=== PATIENT | male | born 1950 | race Caucasian/White ===

== ENCOUNTER → 2016-09-22 | Outpatient (CLI) | payer BC ==
[~2016-09-22] MED LIST: ADAL40KI SC; B-COTAB53 PO; BNT/10 PO; CHOL100010 PO; COLE1TAB5 PO; OMEP20TA PO; PANT40TA PO; RIVA1TAB4 PO; RIVA1TAB7 PO
--- NOTE | 2016-09-22 18:38 | DIAGNOSTIC IMAGING REPORT ---
WHOLE BODY BONE SCAN HISTORY: Pain K50.90 Crohn's autosnvL59.609 Pain in unspecified [id number] Scooter RADIOTRACER: 26.7 mCi Tc-99m MDP STUDY/IMAGES: Planar anterior and posterior whole body imaging was performed 3 hours following the intravenous administration of radiotracer. COMPARISON: None. FINDINGS: Normal bone scan. Normal renal activity bilaterally. Mild degenerative activity L5-S1 level of the lumbar spine. Minimal degenerative activity right knee. Minimal degenerative activity in the shoulders. IMPRESSION: Minimal to mild scattered degenerative activity. Bone scan is otherwise negative. Electronically signed by: Calvin Walls M.D. 09/22/2016 6:36 PM
== END | disposition home or self-care (01) ==
LOC: C.NUCL 14:47
PROVIDERS: ATTEND Internal Medicine Rheumatology
DX: M89.8X9 Other specified disorders of bone, unspecified site (principal); K50.90 Crohn's disease, unspecified, without complications; M79.609 Pain in unspecified limb

== ENCOUNTER 2016-09-25 10:33 | Inpatient (IN) | payer BC, OTHER ==
[~2016-09-25] VITALS: Ht 172.7 cm; Wt 93.2 kg
[~2016-09-25 10:33] MED LIST changes: -B-COTAB53 PO; -CHOL100010 PO; -PANT40TA PO; -RIVA1TAB4 PO; -RIVA1TAB7 PO
[2016-09-25] MEDS ORDERED: SODIUM CHLORIDE 0.9% 1000ML 1,000 ML IV STA (10:47)
[2016-09-25 10:59] LABS: BASO % 0.3 %; BASO ABS # 0.04 K/uL (0-0.2); COMPLETE YES; EOS % 2.9 %; HEMATOCRIT 47.1 % (42-52); IG% 0.3 %; LYMPH % 29.5 %; LYMPH ABS # 4.32 K/uL (1.2-3.4); MEAN CORPUSCULAR HGB CONC 35.9 g/dl (32-36); MEAN PLATELET VOLUME 10.2 fL (7.4-10.4); MONO % 7.4 %; NEUT % 59.6 %; PLATELET COUNT 198 K/uL (130-400); RED BLOOD COUNT 5.12 M/uL (4.7-6.1); WHITE BLOOD COUNT 14.65 K/uL (4.8-10.8)
--- NOTE | 2016-09-25 11:02 | EMERGENCY ROOM VISIT NOTE ---
History Report prepared by Cherri: Sandoval Benavides Under the Supervision of: Dr. Houston Shipman D.O. First contact with patient: 10:47 Stated Complaint: SYNCOPE/CHEST PAIN History of Present Illness The patient is a 66 year old male who presents to the Emergency Room with complaints of a syncopal episode that occurred around 0930 this morning. Per the patient's , the patient was short of breath and having chest pain last night. He did not do anything out of the ordinary yesterday and just watched TV all day. The patient's heard a thud this morning and went to see the patient lying on the floor of their bedroom. The patient was not unconscious and started feeling a bit better soon afterwards, but he was too weak and short of breath to go downstairs, so the patient's called 911. The patient also has a cough. He does not have the chest pain currently. He denies hitting his head on the fall. He additionally denies any headache, abdominal pain, nausea, vomiting, or swelling in his legs. The patient has Crohn's disease and has a history of clots in his lungs. He had his ileum taken out 15 years ago. He does not use tobacco or alcohol products. He has no heart issues. The patient denies any recent travels. He last saw his primary care physician a month ago. Source of History: patient, spouse/significant other Onset: 0930 this morning Position: other (global - syncopal episode) Timing: other (episode) Associated Symptoms: + SOB, + chest pain, + cough, + weakness, No LOC, No abdominal pain, No headache, No nausea, No vomiting Note: Associated symptoms: Denies swelling in his legs. Review of Systems See HPI for pertinent positives & negatives. A total of 10 systems reviewed and were otherwise negative. Past Medical & Surgical Medical Problems: (1) Asthma (2) Bronchitis (3) Crohns disease (4) PNA (pneumonia) (5) Pulmonary embolism (6) Recurrent pulmonary embolism (7) Skin problem Surgical Problems: (1) History of surgical removal of terminal ileum Family History Gallbladder disease Hypertension Social History Smoking Status: Former Smoker Smokeless Tobacco Use: No Alcohol Use: none Marital Status: Housing Status: lives with family Occupation Status: retired Current/Historical Medications Scheduled Adalimumab (Humira Pen), 40 MG SC UD Colestipol Hcl (Colestipol Hcl), 1 GM PO UD Pantoprazole (Protonix), 40 MG PO QAM Allergies Coded Allergies: No Known Allergies (Verified , 07/17/03) Physical Exam Vital Signs Date Time Temp Pulse Resp B/P Pulse Ox O2 Delivery O2 Flow Rate FiO2 09/25/16 13:10 95 16 149/104 96 Room Air 09/25/16 13:05 101 09/25/16 12:33 95 16 121/74 95 Nasal Cannula 4.0 09/25/16 11:24 92 Nasal Cannula 3.0 09/25/16 10:44 106 09/25/16 10:42 36.7 107 20 114/78 88 Room Air 09/25/16 10:40 88 Room Air Physical Exam GENERAL: Patient is awake, alert, very anxious appearing but does not appear to be in pain. EYES: The conjunctivae are clear. The pupils are round and reactive. EARS, NOSE, MOUTH AND THROAT: The nose is without any evidence of any deformity. Mucous membranes are moist tongue is midline NECK: The neck is nontender and supple. RESPIRATORY: Normal respiratory effort is noted there is no evidence of wheezing rhonchi or rales CARDIOVASCULAR: Heart sounds tachycardic but regular. No definite murmur appreciated. GASTROINTESTINAL: The abdomen is soft. Bowel sounds are present in all quadrants. Abdomen is nontender MUSCULOSKELETAL/EXTREMITIES: There is no evidence of gross deformity full range of motion is noted in the hips and shoulders SKIN: Pedal edema bilaterally. No signs of cellulitis and no calf tenderness elicited. NEUROLOGIC: Patient is awake alert and oriented x3. Patellar tendon reflexes are 1+ bilaterally. Medical Decision & Procedures ER Provider Diagnostic Interpretation: X-ray results as stated below per interpretation by me and the radiologist. CHEST ONE VIEW PORTABLE CLINICAL HISTORY: EVALUATE ALTERED MENTAL STATUS/WEAKNESS COMPARISON STUDY: No previous studies for comparison. FINDINGS: The bones soft tissues and hemidiaphragms are normal. The cardiomediastinal silhouette is normal. The lungs are clear. The pulmonary vasculature is normal. IMPRESSION: Negative chest. Electronically signed by: Calvin Walls M.D. 09/25/2016 11:02 AM CHEST CTA for PULMONARY ARTERIES CT DOSE: 423.65 mGy.cm HISTORY: Chest pain dyspnea TECHNIQUE: Multiaxial CT images of the chest were performed following the intravenous administration of contrast to evaluate the pulmonary arteries. Maximal intensity projection images were also obtained. COMPARISON STUDY: 08/13/2015 FINDINGS: Findings of extensive and bulky bilateral pulmonary emboli. No evidence for a saddle embolus although involvement of the mid to distal right main pulmonary arterial structures as well as the mid left main prominent pulmonary arterial structures are present. More distal involvement is also noted. No definitive evidence for string currently. Bibasilar atelectatic changes present. Small pleural-based and/or subpleural nodules involving the lower lung regions are noted. These appear unchanged compared to the prior study. IMPRESSION: 1. Bulky bilateral pulmonary emboli. 2. No evidence for a saddle embolus. 3. Basilar nodularity stable from the prior exam. Electronically signed by: Calvin Walls M.D 09/25/2016 12:14 PM Laboratory Results 09/25/16 10:43 Red Blood Count 5.12, Mean Corpuscular Volume 92.0, Mean Corpuscular Hemoglobin 33.0, Mean Corpuscular Hemoglobin Concent 35.9, Mean Platelet Volume 10.2, Neutrophils (%) (Auto) 59.6, Lymphocytes (%) (Auto) 29.5, Monocytes (%) (Auto) 7.4, Eosinophils (%) (Auto) 2.9, Basophils (%) (Auto) 0.3, Neutrophils # (Auto) 8.73, Lymphocytes # (Auto) 4.32, Monocytes # (Auto) 1.09, Eosinophils # (Auto) 0.42, Basophils # (Auto) 0.04 09/25/16 10:43 Test 09/25/16 10:43 09/25/16 10:51 White Blood Count 14.65 K/uL (4.8-10.8) Red Blood Count 5.12 M/uL (4.7-6.1) Hemoglobin 16.9 g/dL (14.0-18.0) Hematocrit 47.1 % (42-52) Mean Corpuscular Volume 92.0 fL (80-100) Mean Corpuscular Hemoglobin 33.0 pg (25-34) Mean Corpuscular Hemoglobin Concent 35.9 g/dl (32-36) Platelet Count 198 K/uL (130-400) Mean Platelet Volume 10.2 fL (7.4-10.4) Neutrophils (%) (Auto) 59.6 % Lymphocytes (%) (Auto) 29.5 % Monocytes (%) (Auto) 7.4 % Eosinophils (%) (Auto) 2.9 % Basophils (%) (Auto) 0.3 % Neutrophils # (Auto) 8.73 K/uL (1.4-6.5) Lymphocytes # (Auto) 4.32 K/uL (1.2-3.4) Monocytes # (Auto) 1.09 K/uL (0.11-0.59) Eosinophils # (Auto) 0.42 K/uL (0-0.5) Basophils # (Auto) 0.04 K/uL (0-0.2) RDW Standard Deviation 43.5 fL (36.4-46.3) RDW Coefficient of Variation 13.0 % (11.5-14.5) Immature Granulocyte % (Auto) 0.3 % Immature Granulocyte # (Auto) 0.05 K/uL (0.00-0.02) Prothrombin Time 12.8 SECONDS (9.0-12.0) Prothromb Time International Ratio 1.2 (0.9-1.1) Activated Partial Thromboplast Time 27.1 SECONDS (21.0-31.0) Partial Thromboplastin Ratio 1.0 Anion Gap 13.0 mmol/L (3-11) Est Creatinine Clear Calc Drug Dose 68.1 ml/min Estimated GFR () 72.1 Estimated GFR (Non- 62.2 BUN/Creatinine Ratio 11.4 (10-20) Calcium Level 10.4 mg/dl (8.5-10.1) Phosphorus Level 3.9 mg/dl (2.5-4.9) Magnesium Level 2.0 mg/dl (1.8-2.4) Total Bilirubin 0.7 mg/dl (0.2-1) Direct Bilirubin 0.2 mg/dl (0-0.2) Aspartate Amino Transf (AST/SGOT) 49 U/L (15-37) Alanine Aminotransferase (ALT/SGPT) 55 U/L (12-78) Alkaline Phosphatase 124 U/L (45-117) Total Creatine Kinase 145 U/L (39-308) Creatine Kinase MB 2.8 ng/ml (0.5-3.6) Creatine Kinase MB Ratio 1.9 (0-3.0) Troponin I 0.636 ng/ml (0-0.045) Total Protein 8.2 gm/dl (6.4-8.2) Albumin 4.0 gm/dl (3.4-5.0) Thyroid Stimulating Hormone (TSH) 6.440 uIu/ml (0.300-4.500) Bedside Troponin I 0.500 ng/ml (0-0.045) Laboratory results per my review. Medications Administered Medications (Trade) Dose Ordered Sig/Abrahan Route Start Time Stop Time Status Last Admin Dose Admin Sodium Chloride (Nss 1000ml) 1,000 ml @ 999 mls/hr Q1H1M STAT IV 09/25/16 10:47 09/25/16 11:47 DC 09/25/16 12:13 999 MLS/HR Heparin Sodium/ Dextrose (Heparin 25,000 Unit/500ml D5W) 25,000 unit STK-MED ONCE .ROUTE 09/25/16 12:22 09/25/16 12:23 DC 09/25/16 12:37 25,000 UNIT Heparin Sodium (Porcine) (Heparin Sq 5000 Unit/0.5ml) 10,000 unit STK-MED ONCE .ROUTE 09/25/16 12:23 09/25/16 12:24 DC 09/25/16 12:38 6,000 UNIT ECG Indication: syncope Rate (beats per minute): 113 Rhythm: sinus tachycardia Findings: Q waves (Inferior), no ectopy, other (poor R wave progression) Comparison ECG Date: changes are new compared to February 21 2005 ED Course 1047: Ordered NSS 1000 ml @ 999 mls/hr IV. 1049: The patient was evaluated in room B12B. A complete history and physical examination were performed. 1210: Ordered Heparin Sodium/Dextrose 1 ea N/A. 1216: I reevaluated the patient and he is resting comfortably. The patient verbally expressed understanding and agreement of the treatment plan. The patient will be evaluated for further treatment. 1221: I discussed the patient with Dr. Mona KILPATRICK supervising deputy - he will evaluate the patient for further treatment. Medical Decision Differential diagnosis: Etiologies such as vasovagal event, infection, hypoglycemia, electrolyte abnormalities, cardiac sources, intracerebral event, toxicologic, neurologic, as well as others were entertained. Nursing notes reviewed. Additional history is obtained from the prehospital personnel. The patient is a 66-year-old male who presented to the emergency department after having a syncopal episode. The patient has been complaining of chest pain and difficulty breathing for the last few days. He has a history of venous thromboembolic disease which was provoked by postsurgical condition. The patient was hypoxic as well as tachycardic when he presented to the emergency department. CT the chest did reveal signs of bilateral extensive pulmonary and wasn't. The patient was started on IV heparin in emergency department. He was also given IV fluids. I discussed the patient's laboratory and radiographic studies with him. I also discussed his case with the on-call [facility] hospitalist group. They've agreed to evaluate the patient in the emergency department for further management and disposition. The patient was reevaluated multiple times. Consults Time Called: 1217 Consulting Physician: Dr. Mona KILPATRICK supervising deputy Returned Call: 1221 I discussed the patient with Dr. Mona KILPATRICK supervising deputy - he will evaluate the patient for further treatment. Impression Primary Impression: Pulmonary embolism Additional Impressions: Chest pain, Syncope, Hypoxia Critical Care I have personally spent greater than 45 minutes of critical care time in the direct management of this patient. This includes bedside care, interpretation of diagnostic studies, and testing, discussion with consultants, patient, and family members, and other required patient management activities. This 45 minutes is in excess of all separately billable procedures. Scribe Attestation The scribe's documentation has been prepared under my direction and personally reviewed by me in its entirety. I confirm that the note above accurately reflects all work, treatment, procedures, and medical decision making performed by me. Departure Information Dispostion Being Evaluated By Hospitalist Arthur Handy M.D. (PCP)
[2016-09-25] MEDS ORDERED: PANT40TA PO (11:09)
[2016-09-25 11:10] LABS: INR 1.2 (0.9-1.1); PROTHROMBIN TIME (PATIENT) 12.8 SECONDS (9.0-12.0)
[2016-09-25] MEDS ORDERED: OPTIRAY 320 IV PRN (11:15)
[2016-09-25 11:25] LABS: BUN/CREATININE RATIO 11.4 (10-20); CALCIUM 10.4 mg/dl (8.5-10.1); CREATININE 1.2 mg/dl (0.60-1.40); POTASSIUM 4.1 mmol/L (3.5-5.1)
[2016-09-25 11:35] LABS: CKMB/CK RATIO 1.9 (0-3.0); PHOSPHORUS 3.9 mg/dl (2.5-4.9); THYROID STIMULATING HORMONE 6.44 uIu/ml (0.300-4.500)
--- NOTE | 2016-09-25 12:16 | DIAGNOSTIC IMAGING REPORT ---
CHEST CTA for PULMONARY ARTERIES CT DOSE: 423.65 mGy.cm HISTORY: Chest pain dyspnea TECHNIQUE: Multiaxial CT images of the chest were performed following the intravenous administration of contrast to evaluate the pulmonary arteries. Maximal intensity projection images were also obtained. COMPARISON STUDY: 08/13/2015 FINDINGS: Findings of extensive and bulky bilateral pulmonary emboli. No evidence for a saddle embolus although involvement of the mid to distal right main pulmonary arterial structures as well as the mid left main prominent pulmonary arterial structures are present. More distal involvement is also noted. No definitive evidence for string currently. Bibasilar atelectatic changes present. Small pleural-based and/or subpleural nodules involving the lower lung regions are noted. These appear unchanged compared to the prior study. IMPRESSION: 1. Bulky bilateral pulmonary emboli. 2. No evidence for a saddle embolus. 3. Basilar nodularity stable from the prior exam. Electronically signed by: Calvin Walls M.D. 09/25/2016 12:14 PM
[2016-09-25] MEDS ORDERED: HEPARIN 25000 UNIT/500 ML D5W ONE (12:22)
[2016-09-25] MEDS ORDERED: HEPARIN SOD 5000 UNIT/0.5 ML CARP ONE (12:23)
--- NOTE | 2016-09-25 13:26 | History and Physical ---
History & Physical Date & Time of Service: Sep 25, 2016 at 13:19 Chief Complaint: Syncope/Chest Pain Primary Care Physician: Arthur Hubbard M.D. History of Present Illness Mr Rutherford is a 66 yo M with history of PE who presents with chest pain starting at 930 today. He described it at 10/10 pain, center of his chest, associated with wheeze, occuring with rest. He went up the stairs and felt out of breath, and sweaty, and fell. Once his found him, she called the ambulance. He has a history of Crohn's Disease and recurrent PE. His last PE was 15 years ago after ileum surgery, and took Warfarin for 5 years, and it was stopped as it was thought that the PE was related to the surgery. 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 Of note, the reports he is significantly less mobile over the last year since retiring. He also reports he has a terrible arthritis and recently had a bone scan (under care of Dr Anne). He reports a mild dry cough recently as well. He does report an overall decreased exercise tolerance as well. Past Medical/Surgical History Medical Problems: (1) Asthma Status: Chronic (2) Bronchitis Status: Resolved (3) PNA (pneumonia) Status: Resolved (4) Pulmonary embolism Status: Resolved (5) Skin problem Status: Resolved Surgical Problems: (1) History of surgical removal of terminal ileum Status: Resolved Family History Gallbladder disease Hypertension Mother has had PE's, from CHF. Brother has a lung disease they cannot remember the name of Social History Smoking Status: Never Smoker Smokeless Tobacco Use: No Marital Status: Occupational Status: retired Immunizations History of Tetanus Vaccine?: 2002 History of Pneumococcal: No History of Hepatitis B Vaccine: No Multi-Drug Resistant Organisms History of MDRO: No Allergies Coded Allergies: No Known Allergies (Verified , 07/17/03) Home Medications Scheduled Adalimumab (Humira Pen), 40 MG SC UD Colestipol Hcl (Colestipol Hcl), 1 GM PO UD Pantoprazole (Protonix), 40 MG PO QAM Review of Systems See HPI for pertinent positives & negatives. A total of 10 systems reviewed and were otherwise negative. He is positive for overall weakness and fatigue. Physical Exam Vital Signs Date Time Temp Pulse Resp B/P Pulse Ox O2 Delivery O2 Flow Rate FiO2 09/25/16 13:10 95 16 149/104 96 Room Air 09/25/16 13:05 101 09/25/16 12:33 95 16 121/74 95 Nasal Cannula 4.0 09/25/16 11:24 92 Nasal Cannula 3.0 09/25/16 10:44 106 09/25/16 10:42 36.7 107 20 114/78 88 Room Air 09/25/16 10:40 88 Room Air General Appearance: WD/WN, no apparent distress Head: normocephalic, atraumatic Eyes: PERRL ENT: hearing grossly normal Neck: supple, no JVD Respiratory/Chest: + decreased breath sounds (decreased in L midzone) Cardiovascular: regular rate, rhythm, no murmur, normal peripheral pulses, + tachycardia (mildly tachycardic) Abdomen/GI: soft Back: no CVA tenderness, no muscle spasm Extremities/Musculoskelatal: no calf tenderness, normal capillary refill, no pedal edema Neurologic/Psych: alert, normal mood/affect, normal reflexes, oriented x 3 Skin: no rash Diagnostics Laboratory Results Results Past 24 Hours Test 09/25/16 10:43 09/25/16 10:51 Range/Units White Blood Count 14.65 4.8-10.8 K/uL Red Blood Count 5.12 4.7-6.1 M/uL Hemoglobin 16.9 14.0-18.0 g/dL Hematocrit 47.1 42-52 % Mean Corpuscular Volume 92.0 80-100 fL Mean Corpuscular Hemoglobin 33.0 25-34 pg Mean Corpuscular Hemoglobin Concent 35.9 32-36 g/dl Platelet Count 198 130-400 K/uL Mean Platelet Volume 10.2 7.4-10.4 fL Neutrophils (%) (Auto) 59.6 % Lymphocytes (%) (Auto) 29.5 % Monocytes (%) (Auto) 7.4 % Eosinophils (%) (Auto) 2.9 % Basophils (%) (Auto) 0.3 % Neutrophils # (Auto) 8.73 1.4-6.5 K/uL Lymphocytes # (Auto) 4.32 1.2-3.4 K/uL Monocytes # (Auto) 1.09 0.11-0.59 K/uL Eosinophils # (Auto) 0.42 0-0.5 K/uL Basophils # (Auto) 0.04 0-0.2 K/uL RDW Standard Deviation 43.5 36.4-46.3 fL RDW Coefficient of Variation 13.0 11.5-14.5 % Immature Granulocyte % (Auto) 0.3 % Immature Granulocyte # (Auto) 0.05 0.00-0.02 K/uL Prothrombin Time 12.8 9.0-12.0 SECONDS Prothromb Time International Ratio 1.2 0.9-1.1 Activated Partial Thromboplast Time 27.1 21.0-31.0 SECONDS Partial Thromboplastin Ratio 1.0 Sodium Level 139 136-145 mmol/L Potassium Level 4.1 3.5-5.1 mmol/L Chloride Level 104 98-107 mmol/L Carbon Dioxide Level 22 21-32 mmol/L Anion Gap 13.0 3-11 mmol/L Blood Urea Nitrogen 14 7-18 mg/dl Creatinine 1.20 0.60-1.40 mg/dl Est Creatinine Clear Calc Drug Dose 68.1 ml/min Estimated GFR () 72.1 Estimated GFR (Non- 62.2 BUN/Creatinine Ratio 11.4 10-20 Random Glucose 123 70-99 mg/dl Calcium Level 10.4 8.5-10.1 mg/dl Phosphorus Level 3.9 2.5-4.9 mg/dl Magnesium Level 2.0 1.8-2.4 mg/dl Total Bilirubin 0.7 0.2-1 mg/dl Direct Bilirubin 0.2 0-0.2 mg/dl Aspartate Amino Transf (AST/SGOT) 49 15-37 U/L Alanine Aminotransferase (ALT/SGPT) 55 12-78 U/L Alkaline Phosphatase 124 45-117 U/L Total Creatine Kinase 145 39-308 U/L Creatine Kinase MB 2.8 0.5-3.6 ng/ml Creatine Kinase MB Ratio 1.9 0-3.0 Troponin I 0.636 0-0.045 ng/ml Total Protein 8.2 6.4-8.2 gm/dl Albumin 4.0 3.4-5.0 gm/dl Thyroid Stimulating Hormone (TSH) 6.440 0.300-4.500 uIu/ml Bedside Troponin I 0.500 0-0.045 ng/ml Diagnostic Radiology CHEST CTA for PULMONARY ARTERIES CT DOSE: 423.65 mGy.cm HISTORY: Chest pain dyspnea TECHNIQUE: Multiaxial CT images of the chest were performed following the intravenous administration of contrast to evaluate the pulmonary arteries. Maximal intensity projection images were also obtained. COMPARISON STUDY: 08/13/2015 FINDINGS: Findings of extensive and bulky bilateral pulmonary emboli. No evidence for a saddle embolus although involvement of the mid to distal right main pulmonary arterial structures as well as the mid left main prominent pulmonary arterial structures are present. More distal involvement is also noted. No definitive evidence for string currently. Bibasilar atelectatic changes present. Small pleural-based and/or subpleural nodules involving the lower lung regions are noted. These appear unchanged compared to the prior study. IMPRESSION: 1. Bulky bilateral pulmonary emboli. 2. No evidence for a saddle embolus. 3. Basilar nodularity stable from the prior exam. CHEST ONE VIEW PORTABLE CLINICAL HISTORY: EVALUATE ALTERED MENTAL STATUS/WEAKNESS COMPARISON STUDY: No previous studies for comparison. FINDINGS: The bones soft tissues and hemidiaphragms are normal. The cardiomediastinal silhouette is normal. The lungs are clear. The pulmonary vasculature is normal. IMPRESSION: Negative chest. EKG Sinus tachycardia, 114bpm Impression Assessment and Plan 66 yo M with multiple unprovoked pulmonary embolism, with overall decreased exercise tolerance. Pulmonary Embolism, recurrent, unprovoked - Continue heparin drip (bolus started in ED) - Eventually will switch to oral agent - deciding between coumadin (had a labile experience last time, so pt would prefer not to) vs NOAC (need to assess which is suitable for pts with IBD) - Echocardiogram - Cardiac monitoring - Hypercoaguable studies previously completed, pt positive for MTHFR mutation - Maintenance IV fluids Crohn's disease - Continue Humira Elevated TSH - Will check a free T4 GERD - Continue Protonix Dispo: Tele Code status: FULL CODE VTE: Heparin Resident Physician Supervision Note: I was present with Dr. Bustos during the history and exam. I discussed the case with the resident and agree with the findings and plan as documented in the note. 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 According to the patient, there was difficulty in regulating his warfarin, and part of this may have been related to his IBD. Discussed options with the patient and pharmacy of what would be best anticoagulant in the setting of his IBD - he seems to prefer a novel agent although there would be some concern with absorption given his altered GI tract. For now, agree with therapeutic heparin, echocardiogram, and supplemental oxygen as needed. Level of Care Telemetry Resuscitation Status FULL RESUSCITATION Resident Tracking Resident Involvement: Resident Care Provided Care Provided: Adult [facility]
[2016-09-25] MEDS ORDERED: ACETAMINOPHEN 325 MG TAB PO PRN (13:30)
[2016-09-25] MEDS ORDERED: POLYETHYLENE (MIRALAX) 17 GM PACK PO PRN (13:30)
[2016-09-25] MEDS ORDERED: ALUMINUM/MAGNESIUM/SIMETH (MAALOX MAX) 30 ML UDC PO PRN (13:30)
[2016-09-25] MEDS ORDERED: MAGNESIUM HYDROXIDE SUSP 30 ML UDC PO PRN (13:30)
[2016-09-25] MEDS ORDERED: MoRPHine SULFATE 2 MG/ML CARP IV PRN (13:30)
[2016-09-25] MEDS ORDERED: ONDANSETRON INJ 2 MG/ML 2 ML VIAL IV PRN (13:30)
--- NOTE | 2016-09-25 14:19 | Medical Student: [facility] ---
Med Student History & Physical Date & Time of Service: Sep 25, 2016 at 13:56 Chief Complaint: Recurrent Pulmonary Embolism Primary Care Physician: Arthur Hubbard M.D. History of Present Illness Source: patient, spouse, hospital records Pt is a 66 yo male with a history of Chron's Disease and GERD that presented to the ED following a syncopal episode this morning. Yesterday, while sitting in a chair watching TV the pt noted difficulty breathing and 10/10 chest pain localized to the middle of the sternum. He took Tums and went upstairs to bed. He noted that he was very dyspneic, unable to catch his breath. He slept okay last night, though his did notice some wheezing overnight. This morning, after going up stairs to take a shower he felt out of breath and warm when he then blacked out. His found him down, and called the ambulance. He notes for that the last couple of months he would note some dyspnea on exertion that would be accompanied by some chest pain. This pt has a history of a previous PE in 2002 and DVT in 2004, which, as per patient, were thought to be a result of his previous bowel surgery. He notes that he was on Coumadin for about 5 years following that, but was eventually taken off Coumadin. He notes that they had a very hard time regulating his blood levels while on Coumadin.He is homozygous for MTHFR gene - contributing to his hypercoagulability. Pt retired from [employer] about a year ago. He has since been expereince weakness, fatigue and generalized joint pain that has caused him to be fairly inactive since fpc. His notes that he sleeps between 10-12 hours per day, and sits and watches TV when he is awake. Past Medical/Surgical History Medical Problems: (1) Bronchitis Status: Resolved (2) Chest pain Status: Acute (3) Hypoxia Status: Acute (4) PNA (pneumonia) Status: Resolved (5) Pulmonary embolism Status: Resolved (6) Pulmonary embolism Status: Acute (7) Skin problem Status: Resolved (8) Syncope Status: Acute Surgical Problems: (1) History of surgical removal of terminal ileum Status: Resolved Family History Father: congestive heart failure Mother: heart disease (anuerysm) Social History Smoking Status: Never Smoker Smokeless Tobacco Use: No Alcohol Use: occasionally Marital Status: Housing status: lives with significant other Occupational Status: retired Immunizations History of Tetanus Vaccine?: 2002 History of Pneumococcal: No History of Hepatitis B Vaccine: No Allergies Coded Allergies: No Known Allergies (Verified , 07/17/03) Medications Adalimumab (Humira Pen), 40 MG SC UD Colestipol Hcl (Colestipol Hcl), 1 GM PO UD Pantoprazole (Protonix), 40 MG PO QAM Review of Systems Constitutional: + fatigue, + weakness, No chills, No fever, No sweats Eyes: No diplopia, No worsening of vision ENT: No hearing loss, No sore throat, No unusual epistaxis Respiratory: + cough (worse over last week ? allergies - helped by claritin), + dyspnea at rest, + dyspnea on exertion, + shortness of breath, + wheezing ( overnight while sleeping), No sputum Cardiovascular: + chest pain (middle of sternum 10/10 last night), No palpitations Abdomen: No constipation, No diarrhea, No nausea, No pain, No vomiting Musculoskeletal: + joint pain, No calf pain Endocrine: + fatigue, + problem reported (weight gain of 10 lbs) Hematologic / Lymphatic: + clotting problems (previous DVT) Integumentary: No new/changing skin lesions, No rash Physical Exam Vital Signs (24 Hours) Date Time Temp Pulse Resp B/P Pulse Ox O2 Delivery O2 Flow Rate FiO2 09/25/16 13:10 95 16 149/104 96 Room Air 09/25/16 13:05 101 09/25/16 12:33 95 16 121/74 95 Nasal Cannula 4.0 09/25/16 11:24 92 Nasal Cannula 3.0 09/25/16 10:44 106 09/25/16 10:42 36.7 107 20 114/78 88 Room Air 09/25/16 10:40 88 Room Air General Appearance: WD/WN, no apparent distress Head: normocephalic, atraumatic Eyes: PERRL, EOMI ENT: hearing grossly normal, pharynx normal Neck: supple, no adenopathy Respiratory/Chest: no respiratory distress, no accessory muscle use, + decreased breath sounds Cardiovascular: regular rate, rhythm, no JVD, no murmur Abdomen/GI: non tender, soft Extremities/Musculoskelatal: normal inspection, no calf tenderness, no pedal edema Neurologic/Psych: alert, normal mood/affect Skin: normal color, warm/dry, no rash Diagnostics Laboratory Results Results Past 24 Hours Test 09/25/16 10:43 09/25/16 10:51 Range/Units White Blood Count 14.65 4.8-10.8 K/uL Red Blood Count 5.12 4.7-6.1 M/uL Hemoglobin 16.9 14.0-18.0 g/dL Hematocrit 47.1 42-52 % Mean Corpuscular Volume 92.0 80-100 fL Mean Corpuscular Hemoglobin 33.0 25-34 pg Mean Corpuscular Hemoglobin Concent 35.9 32-36 g/dl Platelet Count 198 130-400 K/uL Mean Platelet Volume 10.2 7.4-10.4 fL Neutrophils (%) (Auto) 59.6 % Lymphocytes (%) (Auto) 29.5 % Monocytes (%) (Auto) 7.4 % Eosinophils (%) (Auto) 2.9 % Basophils (%) (Auto) 0.3 % Neutrophils # (Auto) 8.73 1.4-6.5 K/uL Lymphocytes # (Auto) 4.32 1.2-3.4 K/uL Monocytes # (Auto) 1.09 0.11-0.59 K/uL Eosinophils # (Auto) 0.42 0-0.5 K/uL Basophils # (Auto) 0.04 0-0.2 K/uL RDW Standard Deviation 43.5 36.4-46.3 fL RDW Coefficient of Variation 13.0 11.5-14.5 % Immature Granulocyte % (Auto) 0.3 % Immature Granulocyte # (Auto) 0.05 0.00-0.02 K/uL Prothrombin Time 12.8 9.0-12.0 SECONDS Prothromb Time International Ratio 1.2 0.9-1.1 Activated Partial Thromboplast Time 27.1 21.0-31.0 SECONDS Partial Thromboplastin Ratio 1.0 Sodium Level 139 136-145 mmol/L Potassium Level 4.1 3.5-5.1 mmol/L Chloride Level 104 98-107 mmol/L Carbon Dioxide Level 22 21-32 mmol/L Anion Gap 13.0 3-11 mmol/L Blood Urea Nitrogen 14 7-18 mg/dl Creatinine 1.20 0.60-1.40 mg/dl Est Creatinine Clear Calc Drug Dose 68.1 ml/min Estimated GFR () 72.1 Estimated GFR (Non- 62.2 BUN/Creatinine Ratio 11.4 10-20 Random Glucose 123 70-99 mg/dl Calcium Level 10.4 8.5-10.1 mg/dl Phosphorus Level 3.9 2.5-4.9 mg/dl Magnesium Level 2.0 1.8-2.4 mg/dl Total Bilirubin 0.7 0.2-1 mg/dl Direct Bilirubin 0.2 0-0.2 mg/dl Aspartate Amino Transf (AST/SGOT) 49 15-37 U/L Alanine Aminotransferase (ALT/SGPT) 55 12-78 U/L Alkaline Phosphatase 124 45-117 U/L Total Creatine Kinase 145 39-308 U/L Creatine Kinase MB 2.8 0.5-3.6 ng/ml Creatine Kinase MB Ratio 1.9 0-3.0 Troponin I 0.636 0-0.045 ng/ml Total Protein 8.2 6.4-8.2 gm/dl Albumin 4.0 3.4-5.0 gm/dl Thyroid Stimulating Hormone (TSH) 6.440 0.300-4.500 uIu/ml Bedside Troponin I 0.500 0-0.045 ng/ml Diagnostic Radiology CHEST CTA for PULMONARY ARTERIES CT DOSE: 423.65 mGy.cm HISTORY: Chest pain dyspnea TECHNIQUE: Multiaxial CT images of the chest were performed following the intravenous administration of contrast to evaluate the pulmonary arteries. Maximal intensity projection images were also obtained. COMPARISON STUDY: 08/13/2015 FINDINGS: Findings of extensive and bulky bilateral pulmonary emboli. No evidence for a saddle embolus although involvement of the mid to distal right main pulmonary arterial structures as well as the mid left main prominent pulmonary arterial structures are present. More distal involvement is also noted. No definitive evidence for string currently. Bibasilar atelectatic changes present. Small pleural-based and/or subpleural nodules involving the lower lung regions are noted. These appear unchanged compared to the prior study. IMPRESSION: 1. Bulky bilateral pulmonary emboli. 2. No evidence for a saddle embolus. 3. Basilar nodularity stable from the prior exam. Electronically signed by: Calvin Walls M.D. 09/25/2016 12:14 PM Impression Assessment and Plan Pt is a 66 yo male with a history of GERD, Chron's disease and DVTs/PEs, who presented following a syncopal episode with associated shortness of breath and chest pain. Chest CT showed two bulky pulmonary emboli. Pulmonary Emboli * IV Heparin - bridge to oral medication for discharge * Echocardiogram to monitor RV function * Admit to Telemetry for monitoring * Continue with IV fluids - NSS Chron's disease * Continue Humira * Consult Dr. Romero to determine appropriate novel anticoag in pt with IBD. Weakness/Fatigue * TSH noted to be elevated - Check T4 - may be hypothyroid GERD * Continue Protonix Admit to Telemetry On Heparin Full Resuscitation Level of Care Telemetry DVT Prophylaxis unfractionated heparin SQ
[2016-09-25 15:21] VITALS: BP 119/91; PULSE 97; TEMP 36.7; O2SAT 97; Ht 172.7 cm; Wt 93.2 kg
[2016-09-25 16:07] LABS: URINE APPEARANCE CLEAR (CLEAR); URINE BILIRUBIN NEG (NEG); URINE COLOR YELLOW; URINE NITRITE NEG (NEG); URINE SPECIFIC GRAVITY 1.021 (1.000-1.030); UROBILINOGEN NEG (NEG)
[2016-09-25 16:15] LABS: MANUAL MICROSCOPIC REQUIRED? NO; REVIEW REQ? NO
[2016-09-25] MEDS: SODIUM CHLORIDE 0.45% 1000ML 1,000 ML IV SCH (16:15)
[2016-09-25 20:22] VITALS: BP 122/74; PULSE 88; TEMP 36.4; O2SAT 97
[2016-09-25 20:27] VITALS: O2SAT 97
[2016-09-25 21:57] VITALS: BP 119/91; PULSE 93; TEMP 36.4; O2SAT 95
[2016-09-25 23:55] VITALS: BP 110/77; PULSE 89; TEMP 36.7; O2SAT 95
[2016-09-25 23:59] VITALS: O2SAT 2
[2016-09-26] VITALS (9 sets, daily range): BP systolic 97–135; BP diastolic 62–93; PULSE 89–95; TEMP 36.4–37; O2SAT 2–95
[2016-09-26] MEDS: SODIUM CHLORIDE 0.45% 1000ML 1,000 ML IV SCH ×2 (00:03→10:18)
[2016-09-26 01:38] LABS: PARTIAL THROMBOPLASTIN RATIO 1.8
[2016-09-26 06:08] LABS: BASO % 0.4 %; BASO ABS # 0.04 K/uL (0-0.2); COMPLETE YES; EOS % 4.8 %; HEMATOCRIT 39.1 % (42-52); IG% 0.3 %; LYMPH % 32.4 %; LYMPH ABS # 3.48 K/uL (1.2-3.4); MEAN CORPUSCULAR HEMOGLOBIN 32.2 pg (25-34); MEAN PLATELET VOLUME 9.6 fL (7.4-10.4); MONO % 8.5 %; NEUT % 53.6 %; PLATELET COUNT 170 K/uL (130-400); RED BLOOD COUNT 4.25 M/uL (4.7-6.1); WHITE BLOOD COUNT 10.74 K/uL (4.8-10.8)
[2016-09-26] MEDS: HEPARIN 25,000 UNIT/500ML D5W 500 ML IV PRN ×2 (06:08→20:58)
[2016-09-26 06:24] LABS: INR 1.2 (0.9-1.1); PARTIAL THROMBOPLASTIN RATIO 1.9
[2016-09-26 06:44] LABS: BUN/CREATININE RATIO 12.8 (10-20); CALCIUM 8.6 mg/dl (8.5-10.1); CREATININE 1.2 mg/dl (0.60-1.40); POTASSIUM 3.6 mmol/L (3.5-5.1)
[2016-09-26 09:41] LABS: CKMB/CK RATIO 1.4 (0-3.0)
--- NOTE | 2016-09-26 11:02 | Family Medicine Progress Note ---
Progress Note Date of Service Sep 26, 2016. Subjective Pt evaluation today including: conversation w/ patient, physical exam Reports increased pain in right wrist, reports it started when he fell when he was going up the stairs, but doesn't remember other details Reports shortness of breath is the same / tolerable. Removed O2 briefly when got up in room but hasn't ambulated halls for a long distance. Denies any new chest pain. Constitutional: No chills, No fever, No sweats, No weight loss ENT: No hearing loss Respiratory: + dyspnea on exertion, + shortness of breath, No cough, No sputum, No wheezing Cardiovascular: No chest pain Breast: No breast lump Abdomen: No constipation, No diarrhea, No nausea, No pain, No vomiting Musculoskeletal: + joint pain, + swelling, No muscle pain Male : No dysuria, No incontinence, No urinary frequency Neurologic: No memory loss Psychiatric: No depression symptoms Skin: No rash All Other Systems: Reviewed and Negative Medications Current Inpatient Medications Medications (Trade) Dose Ordered Sig/Abrahan Route Start Time Stop Time Status Last Admin Dose Admin Ioversol (Optiray 320) 100 ml UD PRN IV 09/25/16 11:15 09/29/16 11:14 Acetaminophen (Tylenol Tab) 650 mg Q4H PRN PO 09/25/16 13:30 10/25/16 13:29 Al Hydrox/Mg Hydrox/Simethicone (Maalox Max Susp) 15 ml Q4H PRN PO 09/25/16 13:30 10/25/16 13:29 Magnesium Hydroxide (Milk Of Magnesia Susp) 30 ml Q12H PRN PO 09/25/16 13:30 10/25/16 13:29 Ondansetron HCl (Zofran Inj) 4 mg Q6H PRN IV 09/25/16 13:30 10/25/16 13:29 Morphine Sulfate (MoRPHine SULFATE INJ) 2 mg Q30M PRN IV 09/25/16 13:30 10/09/16 13:29 Polyethylene 17 gm 17 gm DAILY PRN PO 09/25/16 13:30 10/25/16 13:29 Heparin Sodium/ Dextrose (Heparin 25,000 Unit/500ml D5W) 500 ml @ 29 mls/hr [id number] PRN IV 09/25/16 14:00 10/25/16 13:59 09/26/16 06:08 29 MLS/HR Objective Vital Signs Date Time Temp Pulse Resp B/P Pulse Ox O2 Delivery O2 Flow Rate FiO2 09/26/16 12:11 36.9 95 18 135/93 95 Nasal Cannula 2.0 09/26/16 12:00 94 Nasal Cannula 2.0 09/26/16 08:09 37.0 89 18 120/83 95 Nasal Cannula 2.0 09/26/16 08:00 95 Nasal Cannula 2.0 09/26/16 04:00 2 Nasal Cannula 09/26/16 03:09 36.9 90 16 97/62 93 Nasal Cannula 1.0 09/25/16 23:59 2 Nasal Cannula 09/25/16 23:55 36.7 89 16 110/77 95 Nasal Cannula 1.0 09/25/16 21:57 36.4 93 18 119/91 95 Nasal Cannula 2.0 09/25/16 20:27 97 Nasal Cannula 4.0 09/25/16 20:22 36.4 88 16 122/74 97 Room Air 09/25/16 15:21 36.7 97 20 119/91 97 Nasal Cannula 4.0 09/25/16 14:37 96 20 136/94 95 Nasal Cannula 4.0 Physical Exam General Appearance: WD/WN, no apparent distress Eyes: normal inspection ENT: hearing grossly normal Neck: supple, no JVD Respiratory/Chest: lungs clear, normal breath sounds, no respiratory distress, + pertinent finding (on 2L O2) Cardiovascular: regular rate, rhythm, no murmur Abdomen: normal bowel sounds, non tender, soft Extremities: non-tender, normal inspection, no pedal edema, + pertinent finding (right wrist tender to lateral areas. Full ROM of hand, but some tenderness to first joint. Mild swelling to wrist as well. ) Neurologic/Psychiatric: alert, normal mood/affect, oriented x 3 Skin: no rash Laboratory Results Last 24 Hours Test 09/25/16 15:45 09/26/16 01:13 09/26/16 05:45 09/26/16 08:25 Urine Color YELLOW Urine Appearance CLEAR Urine pH 5.0 Urine Specific Kevil 1.021 Urine Protein NEG Urine Glucose (UA) NEG Urine Ketones NEG Urine Occult Blood NEG Urine Nitrite NEG Urine Bilirubin NEG Urine Urobilinogen NEG Urine Leukocyte Esterase NEG Activated Partial Thromboplast Time 47.4 SECONDS 48.5 SECONDS Partial Thromboplastin Ratio 1.8 1.9 White Blood Count 10.74 K/uL Red Blood Count 4.25 M/uL Hemoglobin 13.7 g/dL Hematocrit 39.1 % Mean Corpuscular Volume 92.0 fL Mean Corpuscular Hemoglobin 32.2 pg Mean Corpuscular Hemoglobin Concent 35.0 g/dl Platelet Count 170 K/uL Mean Platelet Volume 9.6 fL Neutrophils (%) (Auto) 53.6 % Lymphocytes (%) (Auto) 32.4 % Monocytes (%) (Auto) 8.5 % Eosinophils (%) (Auto) 4.8 % Basophils (%) (Auto) 0.4 % Neutrophils # (Auto) 5.76 K/uL Lymphocytes # (Auto) 3.48 K/uL Monocytes # (Auto) 0.91 K/uL Eosinophils # (Auto) 0.52 K/uL Basophils # (Auto) 0.04 K/uL RDW Standard Deviation 44.0 fL RDW Coefficient of Variation 13.2 % Immature Granulocyte % (Auto) 0.3 % Immature Granulocyte # (Auto) 0.03 K/uL Prothrombin Time 13.0 SECONDS Prothromb Time International Ratio 1.2 Sodium Level 141 mmol/L Potassium Level 3.6 mmol/L Chloride Level 105 mmol/L Carbon Dioxide Level 25 mmol/L Anion Gap 11.0 mmol/L Blood Urea Nitrogen 15 mg/dl Creatinine 1.20 mg/dl Est Creatinine Clear Calc Drug Dose 67.9 ml/min Estimated GFR () 72.1 Estimated GFR (Non- 62.2 BUN/Creatinine Ratio 12.8 Random Glucose 107 mg/dl Calcium Level 8.6 mg/dl Total Creatine Kinase 150 U/L Creatine Kinase MB 2.1 ng/ml Creatine Kinase MB Ratio 1.4 Troponin I 0.212 ng/ml Free Thyroxine 1.35 ng/dl Test 09/26/16 12:57 09/26/16 13:00 Creatine Kinase MB Ratio RIGHT HAND MIN 3 VIEWS ROUTINE CLINICAL HISTORY: Right hand pain status post trauma COMPARISON: None. DISCUSSION: There are mild osteoarthritic changes. No acute fractures or dislocations are visualized. There is no evidence of bony erosive disease. IMPRESSION: No acute fractures or dislocations. RIGHT WRIST MIN 3 VIEWS ROUTINE CLINICAL HISTORY: Right wrist pain after fall. COMPARISON STUDY: None. FINDINGS: Subtle lucency through the lunate suggestive of a nondisplaced fracture. Remaining carpal bones and distal radius and ulna appear intact. There is mild soft tissue swelling within the right wrist. IMPRESSION: Subtle lucency at the lunate bone suggestive of a nondisplaced fracture. 2 week radiograph follow-up can be performed for confirmation. Assessment and Plan 66 yo M with multiple unprovoked pulmonary embolism, with overall decreased exercise tolerance, with new nondisplaced lunate fracture. Pulmonary Embolism, recurrent, unprovoked - Continue heparin drip - Ambulate around halls, check O2 sats after - Eventually will switch to oral anticoagulant agent - deciding between coumadin (had a labile experience last time, so pt would prefer not to) vs NOAC (need to assess which is suitable for pts with IBD) - Echocardiogram (completed but read pending) - Cardiac monitoring, so far HR has been <100 overall but will continue to monitor - Hypercoaguable studies previously completed, pt positive for MTHFR mutation - Will stop maintenance IV fluids Nondisplaced lunate fracture - Consult ortho to determine if cast vs splint is needed Crohn's disease - Continue Humira Elevated TSH - Will check a free T4 GERD - Continue Protonix Dispo: Tele Code status: FULL CODE VTE: Heparin Resident Physician Supervision Note: I was present with the resident during the history and exam. I discussed the case with the resident and agree with the findings and plan as documented in the note. Any exceptions or clarifications are listed here: 66-year-old male admitted yesterday with bilateral pulmonary and was him with significant thromboembolic burden. He remains on heparin anticoagulation; he is leaning towards a novel anticoagulant in lieu of Coumadin for continued anticoagulation. Given that this is the patient's third VTE and he has noted history of homozygous MTHFR mutation, he will require chronic anticoagulation indefinitely until the point where the risk outweigh the benefits. Also noted the patient has swelling of his hand and x-ray reveals a subtle nondisplaced fracture of the lunate. Orthopedics consult to advise on splinting versus casting. For time being, ice and elevation. Documented By: Migue Pappas Resident Tracking Resident Involvement: Resident Care Provided Care Provided: Adult [facility] Medicine
--- NOTE | 2016-09-26 11:39 | DIAGNOSTIC IMAGING REPORT ---
RIGHT HAND MIN 3 VIEWS ROUTINE CLINICAL HISTORY: Right hand pain status post trauma COMPARISON: None. DISCUSSION: There are mild osteoarthritic changes. No acute fractures or dislocations are visualized. There is no evidence of bony erosive disease. IMPRESSION: No acute fractures or dislocations. Electronically signed by: Gustabo Islas M.D. 09/26/2016 11:38 AM Dictated Date/Time: 09/26/2016 11:36 AM
--- NOTE | 2016-09-26 11:42 | DIAGNOSTIC IMAGING REPORT ---
RIGHT WRIST MIN 3 VIEWS ROUTINE CLINICAL HISTORY: Right wrist pain after fall. COMPARISON STUDY: None. FINDINGS: Subtle lucency through the lunate suggestive of a nondisplaced fracture. Remaining carpal bones and distal radius and ulna appear intact. There is mild soft tissue swelling within the right wrist. IMPRESSION: Subtle lucency at the lunate bone suggestive of a nondisplaced fracture. 2 week radiograph follow-up can be performed for confirmation. Electronically signed by: Loco Aparicio M.D. 09/26/2016 11:40 AM Dictated Date/Time: 09/26/2016 11:36 AM
--- NOTE | 2016-09-26 13:21 | ECHOCARDIOGRAM REPORT ---
*NOTICE TO RECEIVING [employer] This information is strictly Confidential and protected under [place] law. [place] law prohibits you from making any further disclosure of this information unless further disclosure is expressly permitted by the written consent of the person to whom it pertains or is authorized by law. A general authorization for the release of medical or other information is not sufficient for this purpose. Hospital accepts no responsibility if the information is made available to any other person, INCLUDING THE PATIENT. Interpretation Summary * Name: JARON HUANG Study Date: 09/26/2016 06:41 AM * Patient Location: 2\S\S232\S\1 * : 1950 (M/d/yyyy) Gender: Male Height: 68 in * Age: 66 yrs Ethnicity: [place] Weight: 218 lb * Ordering Physician: Priscilla Bustos * Referring Physician: Self, Referred * Performed By: Samira Fritz RDCS * * Reason For Study: PULMONARY EMBOLISM * BSA: 2.1 m2 * History: PULMONARY EMBOLISM * -- Conclusions -- * Ejection Fraction = 60-65%. The left ventricular wall motion is normal at rest. * The right ventricular cavity size is enlarged. * Right ventricular systolic pressure is elevated at 30-40mmHg. * Significant tricuspid regurgitation is absent. * Grade I diastolic dysfunction, (abnormal relaxation pattern). Procedure Details * A contrast injection of Definity was performed to improve assessment of LV function. * Contrast was injected into an intravenous site in the left arm. * One vial of Definity ultrasound contrast was diluted in normal saline to a total volume of 10 ml. A total of '2' ml of solution was administered during imaging. * Lot # [id number] of Definity utilized for procedure. * Expiration date 1 MAR 07. * The attending nurse who injected the contrast agent was YESIKA KUMAR RN. Left Ventricle * The left ventricle is grossly normal size. * There is mild concentric left ventricular hypertrophy. * Ejection Fraction = 60-65%. * The left ventricular wall motion is normal at rest. Right Ventricle * The right ventricular cavity size is enlarged (proximal parasternal long axis right ventricular outflow tract dimension >3.3 cm). * The right ventricular systolic function is normal as assessed by tricuspid annular plane systolic excursion (TAPSE) (normal >1.5 cm). Atria * The left atrial size is normal. * Right atrial size is normal. Mitral Valve * The mitral valve is not well visualized. * There is no mitral valve stenosis. * Significant mitral regurgitation is absent. Tricuspid Valve * The tricuspid valve is not well visualized. * Significant tricuspid regurgitation is absent. * Right ventricular systolic pressure is elevated at 30-40mmHg. Aortic Valve * The aortic valve is not well visualized. * No hemodynamically significant valvular aortic stenosis. * There is no significant aortic regurgitation. Pulmonic Valve * The pulmonic valve is not well visualized. * There is no pulmonic valvular stenosis. * There is no significant pulmonary regurgitation. Left Ventricular Diastolic Function * Grade I diastolic dysfunction, (abnormal relaxation pattern). MMode 2D Measurements and Calculations IVSd 1.1 cm IVSs 1.6 cm LVIDd 3.4 cm LVIDs 2.4 cm LVPWd 1.4 cm LVPWs 1.7 cm IVS/LVPW 0.78 FS 28.6 % EDV(Teich) 47.5 ml ESV(Teich) 20.8 ml EF(Teich) 56.3 % EDV(cubed) 39.4 ml ESV(cubed) 14.3 ml EF(cubed) 63.6 % % IVS thick 47.1 % % LVPW thick 24.2 % LV mass(C)d 132.6 grams LV mass(C)dI 62.5 grams/m\S\2 LV mass(C)s 141.7 grams LV mass(C)sI 66.8 grams/m\S\2 SV(Teich) 26.7 ml SI(Teich) 12.6 ml/m\S\2 SV(cubed) 25.1 ml SI(cubed) 11.8 ml/m\S\2 Ao root diam 3.5 cm Ao root area 9.7 cm\S\2 LA dimension 3.0 cm LA/Ao 0.85 LVAd ap4 23.0 cm\S\2 LVLd ap4 7.1 cm EDV(MOD-sp4) 59.9 ml LVAs ap4 14.9 cm\S\2 LVLs ap4 6.3 cm ESV(MOD-sp4) 29.3 ml EF(MOD-sp4) 51.1 % LVAd ap2 26.0 cm\S\2 LVLd ap2 8.0 cm EDV(MOD-sp2) 67.6 ml LVAs ap2 13.9 cm\S\2 LVLs ap2 6.3 cm ESV(MOD-sp2) 25.5 ml EF(MOD-sp2) 62.3 % SV(MOD-sp4) 30.6 ml SI(MOD-sp4) 14.4 ml/m\S\2 SV(MOD-sp2) 42.1 ml SI(MOD-sp2) 19.9 ml/m\S\2 Doppler Measurements and Calculations MV E max mone 43.7 cm/sec MV A max mone 70.8 cm/sec MV E/A 0.62 MV dec time 0.23 sec Ao V2 max 98.2 cm/sec Ao max PG 3.9 mmHg Ao max PG (full) 1.6 mmHg LV V1 max PG 2.2 mmHg LV V1 max 74.7 cm/sec TR max mone 312.2 cm/sec
[2016-09-26 13:42] LABS: CKMB/CK RATIO 1.3 (0-3.0)
--- NOTE | 2016-09-26 15:45 | Medical Consult ---
Consultation Date of Consultation: Sep 26, 2016. Attending Physician: Migue Pappas D.O. Reason for Consultation: right hand pain History of Present Illness Eran is a pleasant 66 year old male currently admitted under medicine's service for multiple diagnoses, including recurrent pulmonary embolism. The patient sustained a fall on 09/22/16 while walking up steps. Has experienced pain in his right wrist, thumb, and index finger s/p fall. Reports his wrist and thumb pain have resolved yet continues to have right index finger pain at the PIP joint. No prior history of right hand injury in the past. Reports swelling in the finger and only pain with movement. Xrays were obtained. [facility] consulted. Eran is a patient of [facility] and prior patient of [facility] over 20 years ago, therefore our group was consulted. Past Medical/Surgical History Medical Problems: (1) Chest pain Status: Acute (2) Hypoxia Status: Acute (3) Pulmonary embolism Status: Acute (4) Syncope Status: Acute Family History Gallbladder disease Hypertension Social History Smoking Status: Never Smoker Smokeless Tobacco Use: No Alcohol Use: occasionally Marital Status: Housing Status: lives with family Occupation Status: retired Allergies Coded Allergies: No Known Allergies (Verified , 07/17/03) Current Inpatient Medications Current Inpatient Medications Medications (Trade) Dose Ordered Sig/Abrahan Route Start Time Stop Time Status Last Admin Dose Admin Ioversol (Optiray 320) 100 ml UD PRN IV 09/25/16 11:15 09/29/16 11:14 Acetaminophen (Tylenol Tab) 650 mg Q4H PRN PO 09/25/16 13:30 10/25/16 13:29 Al Hydrox/Mg Hydrox/Simethicone (Maalox Max Susp) 15 ml Q4H PRN PO 09/25/16 13:30 10/25/16 13:29 Magnesium Hydroxide (Milk Of Magnesia Susp) 30 ml Q12H PRN PO 09/25/16 13:30 10/25/16 13:29 Ondansetron HCl (Zofran Inj) 4 mg Q6H PRN IV 09/25/16 13:30 10/25/16 13:29 Morphine Sulfate (MoRPHine SULFATE INJ) 2 mg Q30M PRN IV 09/25/16 13:30 10/09/16 13:29 Polyethylene 17 gm 17 gm DAILY PRN PO 09/25/16 13:30 10/25/16 13:29 Heparin Sodium/ Dextrose (Heparin 25,000 Unit/500ml D5W) 500 ml @ 29 mls/hr [id number] PRN IV 09/25/16 14:00 10/25/16 13:59 09/26/16 06:08 29 MLS/HR Review of Systems Musculoskeletal: + joint pain, + problem reported (reports pain and swelling of the right index finger), + swelling Neurologic: No numbness/tingling, No weakness Physical Exam Date Time Temp Pulse Resp B/P Pulse Ox O2 Delivery O2 Flow Rate FiO2 09/26/16 12:11 36.9 95 18 135/93 95 Nasal Cannula 2.0 09/26/16 12:00 94 Nasal Cannula 2.0 09/26/16 08:09 37.0 89 18 120/83 95 Nasal Cannula 2.0 09/26/16 08:00 95 Nasal Cannula 2.0 09/26/16 04:00 2 Nasal Cannula 09/26/16 03:09 36.9 90 16 97/62 93 Nasal Cannula 1.0 09/25/16 23:59 2 Nasal Cannula 09/25/16 23:55 36.7 89 16 110/77 95 Nasal Cannula 1.0 09/25/16 21:57 36.4 93 18 119/91 95 Nasal Cannula 2.0 09/25/16 20:27 97 Nasal Cannula 4.0 09/25/16 20:22 36.4 88 16 122/74 97 Room Air General Appearance: no apparent distress, + pertinent finding (pleasant during interview, friend visiting) Extremities/Musculoskelatal: + swelling, + pertinent finding (decreased range of motion endpoint of flexion at the PIP joint of the right index finger. +5 strength with flexion and extension at the DIP,PIP, and MCP joint of the index finger. No laxity with valgus/varus stressing of the index finger joints. Otherwise, full ROM and no tenderness about the other fingers, thumb, hand, and wrist) Neurologic/Psych: no motor/sensory deficits, alert, + pertinent finding ( capillary reflex under 2 seconds ) Skin: normal color, warm/dry, no rash, + pertinent finding (swelling noted of the right PIP joint index finger) Laboratory Results Last 24 Hours Test 09/25/16 15:45 09/26/16 01:13 09/26/16 05:45 09/26/16 08:25 Urine Color YELLOW Urine Appearance CLEAR Urine pH 5.0 Urine Specific [place] 1.021 Urine Protein NEG Urine Glucose (UA) NEG Urine Ketones NEG Urine Occult Blood NEG Urine Nitrite NEG Urine Bilirubin NEG Urine Urobilinogen NEG Urine Leukocyte Esterase NEG Activated Partial Thromboplast Time 47.4 SECONDS 48.5 SECONDS Partial Thromboplastin Ratio 1.8 1.9 White Blood Count 10.74 K/uL Red Blood Count 4.25 M/uL Hemoglobin 13.7 g/dL Hematocrit 39.1 % Mean Corpuscular Volume 92.0 fL Mean Corpuscular Hemoglobin 32.2 pg Mean Corpuscular Hemoglobin Concent 35.0 g/dl Platelet Count 170 K/uL Mean Platelet Volume 9.6 fL Neutrophils (%) (Auto) 53.6 % Lymphocytes (%) (Auto) 32.4 % Monocytes (%) (Auto) 8.5 % Eosinophils (%) (Auto) 4.8 % Basophils (%) (Auto) 0.4 % Neutrophils # (Auto) 5.76 K/uL Lymphocytes # (Auto) 3.48 K/uL Monocytes # (Auto) 0.91 K/uL Eosinophils # (Auto) 0.52 K/uL Basophils # (Auto) 0.04 K/uL RDW Standard Deviation 44.0 fL RDW Coefficient of Variation 13.2 % Immature Granulocyte % (Auto) 0.3 % Immature Granulocyte # (Auto) 0.03 K/uL Prothrombin Time 13.0 SECONDS Prothromb Time International Ratio 1.2 Sodium Level 141 mmol/L Potassium Level 3.6 mmol/L Chloride Level 105 mmol/L Carbon Dioxide Level 25 mmol/L Anion Gap 11.0 mmol/L Blood Urea Nitrogen 15 mg/dl Creatinine 1.20 mg/dl Est Creatinine Clear Calc Drug Dose 67.9 ml/min Estimated GFR () 72.1 Estimated GFR (Non- 62.2 BUN/Creatinine Ratio 12.8 Random Glucose 107 mg/dl Calcium Level 8.6 mg/dl Total Creatine Kinase 150 U/L Creatine Kinase MB 2.1 ng/ml Creatine Kinase MB Ratio 1.4 Troponin I 0.212 ng/ml Free Thyroxine 1.35 ng/dl Test 09/26/16 12:57 Total Creatine Kinase 183 U/L Creatine Kinase MB 2.3 ng/ml Creatine Kinase MB Ratio 1.3 Troponin I 0.165 ng/ml Xrays right hand: Radiology reports possible lunate fracture. Clinically, this diagnosis does not correlate. Patient's wrist is non-tender, no swelling, and has full ROM. The right index finger viewed and there are no obvious fractures at the PIP joint. Again, there certainly could be an occult fracture but there is nothing obvious at this time. Degenerative changes are appreciated throughout the fingers of the right had. Otherwise, no obvious fractures, dislocations, or subluxations. Assessment & Plan ASSESSMENT: Right index finger pain secondary to PIP joint sprain vs. occult fracture PLAN: Patient educated regarding today's findings. He was advised that radiographically there are no obvious or notable acute fractures, but he could certainly have an occult fracture that is not visible on plain film xray. I advised Lam if an occult fracture were present there is nothing significantly displaced or obvious to the point that would require further imaging or surgical procedures at this time. There is also a possibility that he sustained a sprain to his PIP joint of his right index finger, which can be equally as painful as an occult fracture. I provided treatment options for the patient and he has agrees to be placed into an Alum[place]oam splint with continued icing and pain control as needed. Lam can follow up with Imtiaz Joseph PA-C at [facility] in 1 week for follow-up evaluation and possibly new xrays. Please call [phone] to make this appointment. Otherwise, patient is orthopedically stable and can be seen as an outpatient. Thank you for today' s consult.
[2016-09-26 20:33] LABS: CKMB/CK RATIO 0.9 (0-3.0)
[2016-09-27] VITALS (7 sets, daily range): BP systolic 109–129; BP diastolic 71–86; PULSE 82–92; TEMP 36.4–37; O2SAT 91–96
[2016-09-27 06:30] LABS: BASO % 0.2 %; BASO ABS # 0.02 K/uL (0-0.2); COMPLETE YES; EOS % 6.5 %; HEMATOCRIT 40.6 % (42-52); IG% 0.3 %; LYMPH ABS # 2.76 K/uL (1.2-3.4); MEAN CELL VOLUME 92.7 fL (80-100); MEAN CORPUSCULAR HEMOGLOBIN 31.5 pg (25-34); MEAN PLATELET VOLUME 9.9 fL (7.4-10.4); MONO % 8.8 %; NEUT % 57.2 %; PLATELET COUNT 193 K/uL (130-400); RED BLOOD COUNT 4.38 M/uL (4.7-6.1); WHITE BLOOD COUNT 10.23 K/uL (4.8-10.8)
[2016-09-27 06:46] LABS: INR 1.1 (0.9-1.1); PARTIAL THROMBOPLASTIN RATIO 1.8; PROTHROMBIN TIME (PATIENT) 12.2 SECONDS (9.0-12.0)
[2016-09-27 07:00] LABS: BUN/CREATININE RATIO 14.2 (10-20); CALCIUM 8.4 mg/dl (8.5-10.1); POTASSIUM 3.6 mmol/L (3.5-5.1)
--- NOTE | 2016-09-27 08:54 | ORTHOPEDICS PROGRESS NOTE ---
DATE: 09/27/2016 DATE: 09/27/2016. Followup orthopedic consultation for right wrist and finger. At this point in time he has no major issues. He notes he is very comfortable. Exam reveals no pain over the lunate. He has excellent wrist motion, has excellent finger motion. All tendons intact. Sensation is normal. Capillary refill normal. At this point in time, will follow up as an outpatient when he is discharged. Contusion to the right wrist and PIP joint sprain. Some degenerative changes by x-rays.
[2016-09-27] MEDS ORDERED: RIVA1TAB7 PO (11:58)
--- NOTE | 2016-09-27 12:02 | Discharge Instructions ---
Discharge Instructions Admission Reason for Admission: Recurrent Pulmonary Embolism VTE Date & Time Date of VTE Diagnosis: Sep 25, 2016 Time of VTE Diagnosis: 12:14 Discharge Goals Goal(s): Improve function, Improve disease control, Therapeutic intervention Activity Recommendations Activity Limitations: resume your previous activity Lifting Limitations: none Exercise/Sports Limitations: as tolerated May Resume Sexual Activity: when tolerated Shower/Bathe: no limitations Driving or Machine Use: resume 3 days after discharge . Instructions / Follow-Up Instructions / Follow-Up Medication Instructions: Your condition is typically treated with an anticoagulant. Anticoagulants will thin your blood to help prevent new clots. * You should take her medication exactly as directed. * Never skip a dose. * Never take a double dose. If you miss a dose, take it as soon as you remember. Call your Primary Care doctor if you experience any of the following: * Swelling or Pain in your leg * Sudden, continuous pain deep in a muscle * Pain that worsens when you are active or when you stand still for a long time * Chest Pain * Sudden Shortness of Breath * Rapid or pounding heart beat * Fainting * Dizziness * Cough with blood or bloody sputum * Sweating more than normal * Bruises * Heavy or uncontrolled bleeding * Blood in your urine, stool or vomit * Black or tarry stools Caring for Your Self at Home: * Avoid sitting, standing or lying down for long periods without moving your legs and feet * When traveling by car, stop to get out and move around at least once every 3 hours * On long airplane, train or bus rides, get up and move around when possible * If you can't get up, wiggle your toes and tighten your calves to keep your blood moving Follow Up: It is important for you to keep your follow up appointments with your medical provider. Current Hospital Diet Patient's current hospital diet: Regular Diet Discharge Diet Recommended Diet: Regular Diet Fluid Restriction: None Pending Studies Studies pending at discharge: no Medical Emergencies . Who to Call and When: Medical Emergencies: If at any time you feel your situation is an emergency, please call 911 immediately. . Non-Emergent Contact Non-Emergency issues call your: Primary Care Provider . Past History Medical & Surgical History: (1) Pulmonary embolism . "Provider Documentation" section prepared by Migue Pappas. VTE Core Measure Inpt VTE Proph given/why not?: Other Anticoagulation
--- NOTE | 2016-09-27 12:20 | Discharge Summary ---
Discharge Summary Admission Date: Sep 25, 2016 at 13:32 Discharge Date: Sep 27, 2016 Discharge Disposition: Home Principal Diagnosis: pulmonary M wasn't, recurrent Immunizations: History of Tetanus Vaccine?: 2002 History of Pneumococcal: No History of Hepatitis B Vaccine: No Procedures: None Consultations: None Medication Reconciliation New Medications: Rivaroxaban (Xarelto Starter Pack 15 & 20 mg) 1 Tab Tab 2 TAB PO DIRECTED for 30 Days, #1 UNIT Continued Medications: Adalimumab (Humira Pen) 40 Mg/0.8 Ml Kit 40 MG SC UD INJECT 40MG SUBCUTANEOUSLY EVERY OTHER WEEK Colestipol Hcl (Colestipol Hcl) 1 Gm Tab 1 GM PO UD TAKE 2 TABLETS TWICE DAILY Pantoprazole (Protonix) 40 Mg Tab 40 MG PO QAM, #30 TAB Discharge Exam Review of Systems: Constitutional: No chills, No fever Respiratory: No cough, No dyspnea at rest, No dyspnea on exertion, No shortness of breath Cardiovascular: No chest pain Abdomen: No pain Musculoskeletal: + joint pain Neurologic: No memory loss Psychiatric: No depression symptoms Endocrine: No fatigue Hospital Course 66 yo M with multiple unprovoked pulmonary embolism, with overall decreased exercise tolerance. Pulmonary Embolism, recurrent, unprovoked - Continue heparin drip (bolus started in ED) - Eventually will switch to oral agent - deciding between coumadin (had a labile experience last time, so pt would prefer not to) vs NOAC (need to assess which is suitable for pts with IBD) - Echocardiogram - Cardiac monitoring - Hypercoaguable studies previously completed, pt positive for MTHFR mutation - Maintenance IV fluids Crohn's disease - Continue Humira Elevated TSH - Will check a free T4 GERD - Continue Protonix Dispo: Tele Code status: FULL CODE VTE: Heparin Hospital course Upon recognition of his pulmonary emboli, the patient was started on heparin drip protocol with normal bolus. The patient was subsequently admitted to the telemetry unit. An echocardiogram was consistent with mild right ventricular enlargement and subtle increased right ventricular pressures consistent with a pulmonary embolus. On the day after admission, the patient was seen again in the telemetry unit. At that time, he denied any chest pain or shortness of breath he did complain of some right wrist pain and a x-ray subsequent only showed a nondisplaced fracture of the lunate. Orthopedics was consulted. On the day of discharge, the patient was once again without chest pain or shortness of breath. He was able to independently in the hallway and maintain oxygen saturations of 92-93% on room air. With ambulation he denied any symptoms including chest pain or shortness of breath. A long discussion with the patient regarding lifelong anticoagulation given that this is his third venous thromboembolism and his noted history of MTHFR mutation. He was on Coumadin previously but had labile controlled and frequently needed to adjust his warfarin dose. Discussed anticoagulant options including Lovenox subcutaneously, warfarin, or a novel agent. This is also discussed with pharmacy given the patient's history of inflammatory bowel disease and concurrent Humira dosing. Ultimately the patient chose to start a novel agent. Discussed that oral absorption of all anticoagulants would be affected by his prior gastrointestinal surgery in that there is an interaction between Humira and all novel agents as well as warfarin. The patient was not comfortable with the thought of twice daily Lovenox injections indefinitely; we did discuss Lovenox injections during the acute phase which she was also not comfortable with. As such, we'll transition the patient to Xarelto today and place referral to the anticoagulation clinic as follow-up blood testing may be warranted in this specific case. The patient had a troponin I elevation which was thought to be secondary to right ventricular strain. The patient had an elevated TSH of 6.44 the significance of this is questionable given his acute condition. A subsequent free T4 was normal at 1.35. Recommend retesting of TSH and free T4 in 4-6 weeks as a patient did have some indications in his review of systems consistent with an underactive thyroid. With the patient signs and symptoms of worsening disease including chest pain and shortness of breath. If he should have these, he is instructed to call 911 or return to the emergency department. Otherwise instructed the patient to follow-up with his primary care physician in the next 1-[address] for the anticoagulation clinic. Total Time Spent: Greater than 30 minutes This includes examination of the patient, discharge planning, medication reconciliation, and communication with other providers. Discharge Instructions Please refer to the electronic Patient Visit Report (Discharge Instructions) for additional information.
[2016-09-27] MEDS ORDERED: RIVAROXABAN TAB 15 MG TAB PO SCH ×2 (12:45→13:00)
[2016-09-27] MEDS ORDERED: COLESTIPOL HCL 1 GM TAB PO SCH (22:00)
[2016-09-28] MEDS ORDERED: PANTOprazole SOD 40 MG TAB PO SCH (09:00)
[2017-01-08] MEDS ORDERED: RIVA1TAB4 PO (13:10)
[2017-01-08] MEDS ORDERED: B-COTAB53 PO (13:10)
[2017-01-08] MEDS ORDERED: CHOL100010 PO (13:10)
== END 2016-09-27 13:25 | disposition home or self-care (01) | DRG 176 ==
LOC: ENRESERVTM → ENRESERVDT → EDBD 10:33 → C.EDB 10:35 → C.EDINP 13:32 → C.2T 21:50
PROVIDERS: ADMIT Family Medicine; ATTEND Family Medicine
DX: I26.99 Other pulmonary embolism without acute cor pulmonale (principal); K50.90 Crohn's disease, unspecified, without complications; J45.909 Unspecified asthma, uncomplicated; R00.0 Tachycardia, unspecified; K21.9 Gastro-esophageal reflux disease without esophagitis; M89.8X9 Other specified disorders of bone, unspecified site; M79.609 Pain in unspecified limb

== ENCOUNTER → 2016-10-30 | Outpatient (CLI) | payer BC ==
[~2016-10-30] MED LIST changes: +B-COTAB53 PO; -BNT/10 PO; +CHOL100010 PO; -OMEP20TA PO; +PANT40TA PO; +RIVA1TAB4 PO; +RIVA1TAB7 PO
== END | disposition home or self-care (01) ==
LOC: C.LAB1850 14:09
PROVIDERS: ATTEND Internal Medicine Rheumatology
DX: M89.8X9 Other specified disorders of bone, unspecified site (principal); E55.9 Vitamin D deficiency, unspecified

== ENCOUNTER → 2017-01-12 | Day surgery (SDC) | payer BC ==
[2017-01-08 13:11] VITALS: Ht 175.3 cm; Wt 95.5 kg
[~2017-01-12] VITALS: Ht 175.3 cm; Wt 95.5 kg
[~2017-01-12] MED LIST changes: +LIDOCAINE HCL 2% 2 ML VIAL (20MG/ML) ONE; +MIDAZOLAM HCL 1 MG/ML 2ML VIAL ONE; +ONDANSETRON INJ 2 MG/ML 2 ML VIAL ONE; +PROPOFOL IV EMULSION 10 MG/ML 20 ML VIAL IV ONE; -RIVA1TAB7 PO; +SODIUM CHLORIDE 0.9% 500ML 500 ML IV ONE
--- NOTE | 2017-01-12 13:22 | Endo History and Physical ---
History & Physical Date of Service: Jan 12, 2017. Chief Complaint: History of crohns Referring Physician: Dr Truong History of Present Illness 66 yo CM who presents for Colonoscopy secondary to history of Crohn's Disease. Past Medical History Gastrointestinal Disorder, Pulmonary Emboli, Reflux, Other Past Surgical History Hx Cardiac Surgery: No Hx Internal Defibrillator: No Hx Pacemaker: No Hx Abdominal Surgery: Yes (COLON RESECTION, CEM, APPY) Hx of Implantable Prosthesis: No Hx Post-Op Nausea and Vomiting: No Hx Cancer Surgery: No Hx Thoracic Surgery: No Hx Orthopedic: No Hx Urinary Tract Surgery: No Family History None Social History Smoking Status: Never Smoker Hx Substance Use: No Hx Alcohol Use: No Allergies Coded Allergies: No Known Allergies (Verified , 01/08/17) Current Medications Reported Home Medications Medications Dose Route/Sig Max Daily Dose Days Date Category Dose Instructions B Complex (B-Complex W/ Folic Acid) 1 Tab Tab 1 Tab PO QAM 01/08/17 Reported Vitamin D (Cholecalciferol) 1,000 Unit Tab 1 Tab PO QAM 01/08/17 Reported Xarelto (Rivaroxaban) 20 Mg Tab 20 Mg PO QAM 01/08/17 Reported Protonix (Pantoprazole Sodium) 40 Mg Tab 40 Mg PO QAM 09/25/16 Reported Humira Pen (Adalimumab) 40 Mg/0.8 Ml Kit 40 Mg SC UD 10/02/14 Reported INJECT 40MG SUBCUTANEOUSLY EVERY OTHER WEEK Colestipol Hcl 1 Gm Tab 2 Tabs PO BID 10/02/14 Reported Vital Signs Weight (Kilograms): 95.45 Height (Feet): 5 Height (Inches): 9 Date Time Temp Pulse Resp B/P Pulse Ox O2 Delivery O2 Flow Rate FiO2 01/12/17 13:05 36.5 72 24 116/81 94 Room Air Physical Exam General Appearance: WD/WN, no apparent distress Respiratory/Chest: Auscultation: breath sounds normal Cardiovascular: Heart Auscultation: RRR Abdomen: Bowel Sounds: normal Inspection & Palpation: soft, non-distended, no tenderness, guarding & rebound Assessment and Plan Assessment: 66 yo CM who presents for Colonoscopy secondary to history of Crohn's Disease. Plan: Proceed with colonoscopy.
--- NOTE | 2017-01-12 13:41 | Discharge Instructions ---
Endoscopy Patient Instructions Date / Procedure(s) Performed Jan 12, 2017. Colonoscopy Allergy Information Coded Allergies: No Known Allergies (Verified , 01/08/17) Discharge Date / Findings Jan 12, 2017. Crohn's disease s/p biopsies Internal hemorrhoids Medication Instructions Stopped Medication(s): Xarelto last on Thu01/09/17 OK to resume all medications today as prescribed Reported Home Medications Medications Dose Route/Sig Max Daily Dose Days Date Category Dose Instructions B Complex (B-Complex W/ Folic Acid) 1 Tab Tab 1 Tab PO QAM 01/08/17 Reported Vitamin D (Cholecalciferol) 1,000 Unit Tab 1 Tab PO QAM 01/08/17 Reported Xarelto (Rivaroxaban) 20 Mg Tab 20 Mg PO QAM 01/08/17 Reported Protonix (Pantoprazole Sodium) 40 Mg Tab 40 Mg PO QAM 09/25/16 Reported Humira Pen (Adalimumab) 40 Mg/0.8 Ml Kit 40 Mg SC UD 10/02/14 Reported INJECT 40MG SUBCUTANEOUSLY EVERY OTHER WEEK Colestipol Hcl 1 Gm Tab 2 Tabs PO BID 10/02/14 Reported Provider Instructions Activity Restrictions - No exercising or heavy lifting for 24 hours. - Do not drink alcohol the day of the procedure. - Do not drive a car or operate machinery until the day after the procedure. - Do not make any important decisions or sign important papers in 24 hours after the procedure. Following Day: - Return to full activity which may include returning to work/school. Diet Start your diet with liquids and light foods (jello, soup, juice, toast). Then eat your usual diet if not nauseated. Treatment For Common After Affects For mild abdominal pain, bloating, or excessive gas: - Rest - Eat lightly - Lie on right side Follow-Up Information Follow-up with Dr Truong as scheduled Anesthesia Information What You Should Know You have had a procedure that required some medicine to reduce anxiety and discomfort. This treatment is called moderate sedation. After receiving the treatment, you may be sleepy, but you will be able to breathe on your own. The effects of the treatment may last for several hours. Follow these instructions along with Activity/Diet recommendations noted above: * Do NOT do anything where dizziness or clumsiness would be dangerous. * Rest quietly at home today, then you can be up and about tomorrow. * Have a responsible person stay with you the rest of today. * You may have had an I.V. today. If so, you may take the dressing off later today. Recommendations Call your doctor if: * Trouble breathing * Continuous vomiting for more than 24 hours * Temperature above 101 degrees * Severe abdominal pain or bloating * Pain not relieved by pain medicine ordered * There is increased drainage or redness from any incision * A large amount of rectal bleeding greater than 2-3 tablespoons. (If you had a polyp/s removed or have hemorrhoids, a small amount of blood - from the rectum is to be expected.) * You have any unanswered questions or concerns. IN THE EVENT OF A SERIOUS EMERGENCY, GO TO THE NEAREST EMERGENCY ROOM Your discharge instructions were prepared by provider Mio Romero. Patient Instructions Signature Page Eran Rutherford Patient (or Guardian) Signature/Date: I have read and understand the instructions given to me by my caregivers. Caregiver/RN/Doctor Signature/Date: The above-named patient and/or guardian has received patient instructions on this date. + Original Patient Signature Page (only) stays with chart. Please make copy for patient.
--- NOTE | 2017-01-12 14:07 | GI REPORT ---
Procedure Date: 01/12/2017 1:17 PM Procedure: Colonoscopy Indications: Follow-up of Crohn's disease Medicines: Monitored Anesthesia Care Complications: No immediate complications. Estimated Blood Loss: Estimated blood loss: none. Procedure: Pre-Anesthesia Assessment: - Prior to the procedure, a History and Physical was performed, and patient medications and allergies were reviewed. The patient's tolerance of previous anesthesia was also reviewed. The risks and benefits of the procedure and the sedation options and risks were discussed with the patient. All questions were answered, and informed consent was obtained. Prior Anticoagulants: The patient has taken Xarelto (rivaroxaban), last dose was 3 days prior to procedure. ASA Grade Assessment: II - A patient with mild systemic disease. After reviewing the risks and benefits, the patient was deemed in satisfactory condition to undergo the procedure. After I obtained informed consent, the scope was passed under direct vision. Throughout the procedure, the patient's blood pressure, pulse, and oxygen saturations were monitored continuously. The scope was introduced through the anus and advanced to the terminal ileum. The colonoscopy was performed without difficulty. The patient tolerated the procedure well. The quality of the bowel preparation was good. The terminal ileum and the rectum were photographed. Findings: There was evidence of a prior end-to-side ileo-colonic anastomosis in the ascending colon. This was patent and was characterized by healthy appearing mucosa. The anastomosis was traversed. Inflammation characterized by erythema was found. This was mild in severity. Biopsies were taken with a cold forceps for histology. Non-bleeding internal hemorrhoids were found during retroflexion. The hemorrhoids were small. Impression: - Patent end-to-side ileo-colonic anastomosis, characterized by healthy appearing mucosa. - Inflammation was found secondary to Crohn's disease, with ileitis and colitis. Biopsied. - Non-bleeding internal hemorrhoids. Recommendation: - Resume previous diet. - Continue present medications. - Repeat colonoscopy for surveillance based on pathology results. - Return to primary care physician as previously scheduled. Mio Romero DO 01/12/2017 2:05:26 PM This report has been signed electronically. Note Initiated On: 01/12/2017 1:17 PM I attest to the content of the Intraoperative Record and orders documented therein, exceptions below
[2017-01-12 14:15] VITALS: BP 122/85; PULSE 70; O2SAT 93
--- NOTE | 2017-01-12 14:35 | Anesthesiology Progress Note ---
Anesthesia Post Op Note Date & Time Jan 12, 2017 at 14:34 Vital Signs Pain Intensity: 0 Vital Signs Past 12 Hours Date Time Temp Pulse Resp B/P Pulse Ox O2 Delivery O2 Flow Rate FiO2 01/12/17 14:15 70 16 122/85 93 Room Air 01/12/17 14:00 71 16 117/69 94 Room Air 01/12/17 13:45 78 16 126/76 94 Nasal Cannula 3 01/12/17 13:05 36.5 72 24 116/81 94 Room Air Notes Mental Status: alert / awake / arousable, participated in evaluation Pt Amnestic to Procedure: Yes Nausea / Vomiting: adequately controlled Pain: adequately controlled Airway Patency, RR, SpO2: stable & adequate BP & HR: stable & adequate Hydration State: stable & adequate Anesthetic Complications: no major complications apparent
== END | disposition home or self-care (01) ==
LOC: C.GI 12:42
PROVIDERS: ATTEND Internal Medicine
DX: K50.90 Crohn's disease, unspecified, without complications (principal); K64.8 Other hemorrhoids; Z98.0 Intestinal bypass and anastomosis status; K21.9 Gastro-esophageal reflux disease without esophagitis; Z86.711 Personal history of pulmonary embolism; Z79.01 Long term (current) use of anticoagulants; Z79.899 Other long term (current) drug therapy

== ENCOUNTER 2017-10-05 13:19 | Emergency (ER) | payer BC ==
[~2017-10-05] VITALS: Ht 175.3 cm; Wt 98.1 kg
[~2017-10-05 13:19] MED LIST changes: -LIDOCAINE HCL 2% 2 ML VIAL (20MG/ML) ONE; -MIDAZOLAM HCL 1 MG/ML 2ML VIAL ONE; -ONDANSETRON INJ 2 MG/ML 2 ML VIAL ONE; -PROPOFOL IV EMULSION 10 MG/ML 20 ML VIAL IV ONE; -SODIUM CHLORIDE 0.9% 500ML 500 ML IV ONE
[2017-10-05 13:22] VITALS: TEMP 36.3; Ht 175.3 cm; Wt 98.1 kg
[2017-10-05] MEDS ORDERED: OPTIRAY 320 IV PRN (14:15)
[2017-10-05 14:24] LABS: BASO % 0.3 %; BASO ABS # 0.02 K/uL (0-0.2); EOS % 1.1 %; EOS ABS # 0.08 K/uL (0-0.5); HEMATOCRIT 41.2 % (42-52); HEMOGLOBIN 14.4 g/dL (14.0-18.0); IG# 0.02 K/uL (0.00-0.02); LYMPH % 33.6 %; LYMPH ABS # 2.49 K/uL (1.2-3.4); MEAN CELL VOLUME 93.8 fL (80-100); MEAN CORPUSCULAR HEMOGLOBIN 32.8 pg (25-34); MEAN PLATELET VOLUME 9.7 fL (7.4-10.4); MONO % 8.5 %; MONO ABS # 0.63 K/uL (0.11-0.59); NEUT % 56.2 %; NEUT ABS # 4.18 K/uL (1.4-6.5); PLATELET COUNT 202 K/uL (130-400); RED CELL DISTRIBUTION WIDTH SD 44.8 fL (36.4-46.3); WHITE BLOOD COUNT 7.42 K/uL (4.8-10.8)
--- NOTE | 2017-10-05 14:32 | DIAGNOSTIC IMAGING REPORT ---
CHEST ONE VIEW PORTABLE HISTORY: Short of breath. COMPARISON: Chest 09/25/2016. FINDINGS: Low lung findings with bibasilar linear densities likely representing subsegmental atelectasis. The upper lung zones remain clear. The heart is normal in size. No pleural effusions. No pneumothorax. IMPRESSION: Bibasilar linear densities likely representing subsegmental atelectasis. Otherwise, no acute process within the chest. Electronically signed by: Loco Aparicio M.D. 10/05/2017 2:31 PM Dictated Date/Time: 10/05/2017 2:30 PM
[2017-10-05 14:41] LABS: INR 1.1 (0.9-1.1); PTT PATIENT 23.6 SECONDS (21.0-31.0)
[2017-10-05 14:43] LABS: ALBUMIN 3.5 gm/dl (3.4-5.0); ALT/SGPT 50 U/L (12-78); BLOOD UREA NITROGEN 12 mg/dl (7-18); CALCIUM 8.8 mg/dl (8.5-10.1); CARBON DIOXIDE 26 mmol/L (21-32); CREATININE 1.05 mg/dl (0.60-1.40); GLUCOSE 89 mg/dl (70-99); POTASSIUM 3.5 mmol/L (3.5-5.1); SODIUM 141 mmol/L (136-145)
[2017-10-05] MEDS ORDERED: FENO160T PO (14:49)
[2017-10-05 14:54] LABS: ALKALINE PHOSPHATASE 58 U/L (45-117); AST/SGOT 23 U/L (15-37); CKMB 1.5 ng/ml (0.5-3.6); TOTAL PROTEIN 6.7 gm/dl (6.4-8.2)
--- NOTE | 2017-10-05 15:35 | DIAGNOSTIC IMAGING REPORT ---
(CHEST FOR PE) ANGIO WITH CT DOSE: 601.91 mGy.cm HISTORY: 67 years-old Male presents with acute shortness of breath and fatigue TECHNIQUE: Multiple CTA images of the chest were obtained after the intravenous administration of 90 ml Optiray 320. Coronal and sagittal MIPS were obtained from the axial data set and were submitted for review. A dose lowering technique was utilized adhering to the principles of ALARA. COMPARISON: CTA of the chest 09/25/2016. FINDINGS: CTA: Heart is normal in size without pericardial effusion. Thoracic aorta is normal in both course and caliber with the left vertebral artery emanating directly from the aortic arch. Imaged great vessels appear patent. No thoracic aortic aneurysm or dissection identified. Mild atherosclerosis of the aorta. The pulmonary arterial tree is opacified to level of the proximal segmental branches. The distal segmental and subsegmental branches are not well-seen secondary to respiratory motion. No focal filling defects identified to suggest pulmonary thromboembolic disease. CT CHEST: Thyroid is unremarkable. No pathologically enlarged lymph nodes of the chest by CT size criteria. No pneumothorax, pleural effusion or overt pulmonary edema. Mild dependent subsegmental atelectasis. 5 mm noncalcified solid nodule of the right lower lobe is seen on image 99 weeks 4, unchanged. Additional 5 mm nodule seen within the left lower lobe, image 100 series 4 which is also unchanged. No new or enlarging pulmonary nodules identified. 5 mm nodule abutting the major fissure on image 138 series 4 and the left is also unchanged. 4 mm nodule adjacent to the left lower lobe on image 1:15 series 4 is noted, also unchanged. Central airways are patent with mild bilateral bronchial wall thickening. 5 mm groundglass nodule of the right upper lobe as seen on image 212 series 4. Prior cholecystectomy. No acute abnormality of the imaged upper abdomen. The soft tissues are unremarkable. The bones appear intact. IMPRESSION: 1. No acute aortic pathology or evidence of pulmonary thromboembolic disease. 2. Mild dependent subsegmental bibasilar atelectasis without focal airspace consolidation to suggest pneumonia. 3. Mild bilateral bronchial wall thickening may reflect bronchitis. 4. Unchanged bilateral solid noncalcified pulmonary nodules measuring up to 5 mm. 5. 5 mm groundglass nodule of the right upper lobe Please refer to below summary of Fleischner criteria recommendations for follow-up of incidental CT nodules (Abelardo Meléndze, Guidelines for management of small pulmonary nodules detected on CT scans: A statement from the Fleischner Society, Radiology 237: [phone].) SOLID NODULES Solitary nodule size: <6 mm * Low risk patients: no follow-up needed * high risk patients: optional CT at 12 months Solitary nodule size: 6-8 mm * Low risk patients: follow-up at 6-12 months, then consider further follow-up at 18-24 months * high risk patients: initial follow-up CT at 6-12 months and then at 18-24 months if no change Solitary nodule size: >8 mm * either low or high risk patients - consider follow-up CT at 3 months, and/or CT-PET, and/or biopsy Multiple nodules size: <6 mm * Low risk patients: no routine follow-up * high risk patients: optional CT at 12 months Multiple nodules size: 6-8 mm * Low risk patients: follow-up at 3-6 months, then consider further follow-up at 18-24 months * high risk patients: follow-up at 3-6 months, then at 18-24 months if no change Multiple nodules size: >8 mm * Low risk patients: follow-up at 3-6 months, then consider further follow-up at 18-24 months * high risk patients: follow-up at 3-6 months, then at 18-24 months if no change Note: newly detected indeterminate nodule in persons 35 years of age or older. * Low risk patients: minimal or absent history of smoking and/or other known risk factors * high risk patients: history of smoking or of other known risk factors (e.g. first degree relative with lung cancer, or exposure to asbestos, radon, uranium) * if a nodule up to 8 mm is partly solid or is ground glass further follow-up is required after 24 months to exclude possible slow growing adenocarcinoma (JAZMYN) SUBSOLID NODULES Solitary pure ground-glass nodule * nodule size <6 mm - no CT follow-up required * nodule size >=6 mm - follow-up CT at 6-12 months, then every 2 years until 5 years Solitary part-solid nodule * nodule size <6 mm - no CT follow-up required * nodule size >=6 mm - follow-up CT at 3-6 months. If unchanged, and solid component remains <6 mm, then annual follow-up for 5 years Multiple subsolid nodules * nodule size <6 mm - follow-up CT at 3-6 months, consider further follow-up at 2 and 4 years if stable * nodule size >=6 mm - follow-up CT at 3-6 months, subsequent management based on the most suspicious nodule(s) The above report was generated using voice recognition software. It may contain grammatical, syntax or spelling errors. Electronically signed by: Sascha Sauer M.D. 10/05/2017 3:34 PM Dictated Date/Time: 10/05/2017 3:26 PM
--- NOTE | 2017-10-05 16:12 | EMERGENCY ROOM VISIT NOTE ---
History First contact with patient: 13:30 Chief Complaint: SHORTNESS OF BREATH Stated Complaint: SOB, FATIGUE, MUSCLE STIFFNESS, HAND TREMBLE Nursing Triage Summary: Pt states that for the last week he has been feeling increased SOB with exertion, lethragy, and trembling in his hands bilat. Pt called his PCP and was directed to come to the ED. Pts lungs are clear bilat thru bases PTs ZO x4 History of Present Illness Patient is a 67-year-old white male with past medical history significant for recurrent pulmonary emboli (MTHFR gene mutation) anticoagulated on Xarelto, asthma, GERD, and Crohn's disease on Humira, who presents to the emergency department accompanied by his for evaluation of multiple complaints that have been going on for several months. The patient was diagnosed with his second embolus, was actually bilateral, in September 2016. He has been on Xarelto since, and reports that he has been compliant with his medication. Since the diagnosis, he reports shortness of breath. The shortness of breath however has been getting progressively worse over the last several months. He notes that he gets short of breath with even minimal activity like getting dressed or ambulation around his home. His symptoms improved when he rests. He does not have any associated chest pain or palpitations. He also notes extreme fatigue. His notes that some days he doesn't get out of bed until dinner time and will sleep for 12-18 hours. He has reportedly been seen by his PCP, Dr. Hubbard, for these symptoms. He has had blood work performed, and the possibility of sleep apnea was raised, but no further testing was performed. He also notes that he has developed a tremor in his left hand over the last 3 months, and has had pain and stiffness in his left shoulder and left hip joint. The patient's provides much of the history. She reports trying to get him to go to the doctor, but he has been "stubborn." Today when they called the doctor's office for an appointment they were referred to the emergency department for evaluation. The patient denies any recent illness, including fever or flulike symptoms. He denies any cough or sputum production. No headache, lightheadedness, dizziness or near syncope. He has been retired for the last 3 years, the patient's states that he "watches TV all day." There has never been any type of mental health evaluation for depression. The patient reports that his weight has been stable and that he has been losing weight, but review of his old records show that he is up about 5 kg from one year ago. He reports that his Crohn's has been well controlled on the Humira. He denies any melanotic or grossly bloody bowel movements. He denies any other easy bruising or bleeding including epistaxis, bleeding gums or hemoptysis. Review of Systems Review of systems as per HPI. All other systems reviewed were negative. 10 systems reviewed. Past Medical/Surgical History Medical Problems: (1) Asthma (2) Bronchitis (3) Chest pain (4) Crohns disease (5) Esophageal Reflux (6) Hypoxia (7) MTHFR mutation (8) PNA (pneumonia) (9) Pulmonary embolism (10) Pulmonary embolism (11) Recurrent pulmonary embolism (12) Skin problem (13) Syncope Surgical Problems: (1) History of appendectomy (2) History of cholecystectomy (3) History of surgical removal of terminal ileum Electronic medical records are reviewed and summarized as above/below. See Problem List. Family History Gallbladder disease Hypertension Social History Smoking Status: Never Smoker Alcohol Use: none Marital Status: Housing Status: lives with family Occupation Status: retired Current/Historical Medications Scheduled Adalimumab (Humira Pen), 40 MG SC UD B-Complex W/ Folic Acid (B Complex), 1 TAB PO QAM Cholecalciferol (Vitamin D), 1,000 UNITS PO QAM Colestipol Hcl (Colestipol Hcl), 2 GM PO BID Fenofibrate (Tricor), 160 MG PO DAILY Pantoprazole (Protonix), 40 MG PO QAM Rivaroxaban (Xarelto), 20 MG PO QAM Physical Exam Vital Signs Date Time Temp Pulse Resp B/P (MAP) Pulse Ox O2 Delivery O2 Flow Rate FiO2 10/05/17 16:13 63 20 111/75 96 Room Air 10/05/17 14:30 63 10/05/17 14:12 97 Room Air 10/05/17 13:22 36.3 68 20 132/87 95 Room Air Physical Exam CONSTITUTIONAL: Patient is a well-appearing 67-year-old white male with flat affect, who is awake and alert and in no acute distress. EYES: Pupils equal, round, reactive to light and accommodation. EOMs intact without nystagmus. Sclera are anicteric. Conjunctiva are clear. ENT: Tympanic membranes intact, with normal landmarks. External canals are clear. Oral and nasopharynx are clear. Mucous membranes are moist, no lesions , tongue and gums appear normal. NECK: No bruits auscultated. Supple without lymphadenopathy. No thyromegaly. No meningeal signs. Full active range of motion without discomfort. CARDIOVASCULAR: Regular rate and rhythm, with normal S1 and S2, no murmur or gallop or rub is heard. No carotid bruits auscultated. No JVD. Peripheral pulses easy to palpable. RESPIRATORY: Breath sounds equal and clear to auscultation without wheezes, rales, or rhonchi heard. Full and equal chest expansion without accessory muscle use or retractions. GI: Bowel sounds are present. Abdomen is soft, nontender, nondistended. No organomegaly. No pulsatile masses. No guarding or rebound. MUSCULOSKELETAL: Full range of motion of extremities x 4 with good strength. No cyanosis, edema, joint tenderness or swelling. No deformity. INTEGUMENTARY: No lesions or rash, normal skin turgor. NEUROLOGICAL: Alert, oriented, and cooperative. Cranial nerves, sensation and strength grossly intact. Pupils round, equal, and react to light, EOMs are full. LYMPH: No lymphadenopathy. Medical Decision & Procedures ER Provider Diagnostic Interpretation: CHEST ONE VIEW PORTABLE HISTORY: Short of breath. COMPARISON: Chest 09/25/2016. FINDINGS: Low lung findings with bibasilar linear densities likely representing subsegmental atelectasis. The upper lung zones remain clear. The heart is normal in size. No pleural effusions. No pneumothorax. IMPRESSION: Bibasilar linear densities likely representing subsegmental atelectasis. Otherwise, no acute process within the chest. (CHEST FOR PE) ANGIO WITH CT DOSE: 601.91 mGy.cm HISTORY: 67 years-old Male presents with acute shortness of breath and fatigue TECHNIQUE: Multiple CTA images of the chest were obtained after the intravenous administration of 90 ml Optiray 320. Coronal and sagittal MIPS were obtained from the axial data set and were submitted for review. A dose lowering technique was utilized adhering to the principles of ALARA. COMPARISON: CTA of the chest 09/25/2016. FINDINGS: CTA: Heart is normal in size without pericardial effusion. Thoracic aorta is normal in both course and caliber with the left vertebral artery emanating directly from the aortic arch. Imaged great vessels appear patent. No thoracic aortic aneurysm or dissection identified. Mild atherosclerosis of the aorta. The pulmonary arterial tree is opacified to level of the proximal segmental branches. The distal segmental and subsegmental branches are not well-seen secondary to respiratory motion. No focal filling defects identified to suggest pulmonary thromboembolic disease. CT CHEST: Thyroid is unremarkable. No pathologically enlarged lymph nodes of the chest by CT size criteria. No pneumothorax, pleural effusion or overt pulmonary edema. Mild dependent subsegmental atelectasis. 5 mm noncalcified solid nodule of the right lower lobe is seen on image 99 weeks 4, unchanged. Additional 5 mm nodule seen within the left lower lobe, image 100 series 4 which is also unchanged. No new or enlarging pulmonary nodules identified. 5 mm nodule abutting the major fissure on image 138 series 4 and the left is also unchanged. 4 mm nodule adjacent to the left lower lobe on image 1:15 series 4 is noted, also unchanged. Central airways are patent with mild bilateral bronchial wall thickening. 5 mm groundglass nodule of the right upper lobe as seen on image 212 series 4. Prior cholecystectomy. No acute abnormality of the imaged upper abdomen. The soft tissues are unremarkable. The bones appear intact. IMPRESSION: 1. No acute aortic pathology or evidence of pulmonary thromboembolic disease. 2. Mild dependent subsegmental bibasilar atelectasis without focal airspace consolidation to suggest pneumonia. 3. Mild bilateral bronchial wall thickening may reflect bronchitis. 4. Unchanged bilateral solid noncalcified pulmonary nodules measuring up to 5 mm. 5. 5 mm groundglass nodule of the right upper lobe Laboratory Results 10/05/17 14:13 Red Blood Count 4.39, Mean Corpuscular Volume 93.8, Mean Corpuscular Hemoglobin 32.8, Mean Corpuscular Hemoglobin Concent 35.0, Mean Platelet Volume 9.7, Neutrophils (%) (Auto) 56.2, Lymphocytes (%) (Auto) 33.6, Monocytes (%) (Auto) 8.5, Eosinophils (%) (Auto) 1.1, Basophils (%) (Auto) 0.3, Neutrophils # (Auto) 4.18, Lymphocytes # (Auto) 2.49, Monocytes # (Auto) 0.63, Eosinophils # (Auto) 0.08, Basophils # (Auto) 0.02 10/05/17 14:13 Test 10/05/17 14:13 White Blood Count 7.42 K/uL (4.8-10.8) Red Blood Count 4.39 M/uL (4.7-6.1) Hemoglobin 14.4 g/dL (14.0-18.0) Hematocrit 41.2 % (42-52) Mean Corpuscular Volume 93.8 fL (80-100) Mean Corpuscular Hemoglobin 32.8 pg (25-34) Mean Corpuscular Hemoglobin Concent 35.0 g/dl (32-36) Platelet Count 202 K/uL (130-400) Mean Platelet Volume 9.7 fL (7.4-10.4) Neutrophils (%) (Auto) 56.2 % Lymphocytes (%) (Auto) 33.6 % Monocytes (%) (Auto) 8.5 % Eosinophils (%) (Auto) 1.1 % Basophils (%) (Auto) 0.3 % Neutrophils # (Auto) 4.18 K/uL (1.4-6.5) Lymphocytes # (Auto) 2.49 K/uL (1.2-3.4) Monocytes # (Auto) 0.63 K/uL (0.11-0.59) Eosinophils # (Auto) 0.08 K/uL (0-0.5) Basophils # (Auto) 0.02 K/uL (0-0.2) RDW Standard Deviation 44.8 fL (36.4-46.3) RDW Coefficient of Variation 13.0 % (11.5-14.5) Immature Granulocyte % (Auto) 0.3 % Immature Granulocyte # (Auto) 0.02 K/uL (0.00-0.02) Prothrombin Time 12.0 SECONDS (9.0-12.0) Prothromb Time International Ratio 1.1 (0.9-1.1) Activated Partial Thromboplast Time 23.6 SECONDS (21.0-31.0) Partial Thromboplastin Ratio 0.9 Anion Gap 8.0 mmol/L (3-11) Est Creatinine Clear Calc Drug Dose 77.8 ml/min Estimated GFR () 84.1 Estimated GFR (Non- 72.6 BUN/Creatinine Ratio 11.1 (10-20) Calcium Level 8.8 mg/dl (8.5-10.1) Total Bilirubin 0.5 mg/dl (0.2-1) Aspartate Amino Transf (AST/SGOT) 23 U/L (15-37) Alanine Aminotransferase (ALT/SGPT) 50 U/L (12-78) Alkaline Phosphatase 58 U/L (45-117) Total Creatine Kinase 143 U/L (39-308) Creatine Kinase MB 1.5 ng/ml (0.5-3.6) Creatine Kinase MB Ratio 1.0 (0-3.0) Troponin I < 0.015 ng/ml (0-0.045) Total Protein 6.7 gm/dl (6.4-8.2) Albumin 3.5 gm/dl (3.4-5.0) Globulin 3.2 gm/dl (2.5-4.0) Albumin/Globulin Ratio 1.1 (0.9-2) Thyroid Stimulating Hormone (TSH) 4.140 uIu/ml (0.300-4.500) Free Thyroxine 1.04 ng/dl (0.80-1.60) Free Triiodothyronine 3.14 pg/ml (2.30-4.20) ECG Indication: SOB/dyspnea Rate (beats per minute): 63 Rhythm: normal sinus Findings: nonspecific-ST abn (Inferior), left axis deviation Change: Rate has decreased by 50 beats per minute, nonspecific T-wave abnormality now present in the inferior leads. ED Course The patient was seen and assessed as above. His old records were reviewed. IV lock was initiated and laboratory studies were collected. He presents to the emergency department accompanied by his who largely provides a history for several complaints, the primary concerns are the shortness of breath, and fatigue. He has had symptoms going on for several months. IV lock was initiated. EKG was performed and was as noted above. Laboratory studies were collected including CBC with differential, coags, CMP, cardiac enzymes, and thyroid function studies. Urinalysis was ordered, but was not obtained prior to discharging the patient from the emergency department. Chest x-ray was obtained and noted some bibasilar atelectasis, no evidence for consolidation or overt failure. EKG did not note any acute ischemic pattern. The patient's laboratory studies were largely unremarkable. White count is not elevated. H&H is within normal limits. Platelet count is unremarkable. Coags are unremarkable. Electrolytes, renal function, liver function studies are all within normal limits. TSH, T3 and T4 are all indicative of a euthyroid state. Cardiac enzymes are negative. Given his history of bilateral recurrent pulmonary embolus, CT scan angiography of the chest was ordered. There was no evidence for aortic pathology or evidence for pulmonary thromboembolic disease. Mild dependent subsegmental bibasilar atelectasis was again noted, without consolidation to suspect pneumonia. There is mild bilateral bronchial wall thickening possibly indicative of bronchitis, however does not fit with the clinical picture. He had stable noncalcified pulmonary nodules. All laboratory and diagnostic imaging studies were reviewed with attending physician who also independently evaluated the patient. All laboratory and diagnostic imaging studies were reviewed with the patient and his at length. As stated above, he has had several months of symptoms including extreme fatigue, shortness of breath with exertion, joint pain and a left-hand tremor, which have yet to be fully evaluated. Differential diagnoses entertained included acute myocardial infarction, acute coronary syndrome, myocarditis, pericarditis, pulmonary embolism, pneumonia, cardiomyopathy, congestive heart failure, anemia, electrolyte or metabolic abnormality, depression/dysthymia, sleep apnea, narcolepsy, medication side effect, among others. The patient and his are encouraged to follow-up with the primary care physician for follow-up from the ED visit, and for further care and workup of his symptoms. The patient remained hemodynamically stable and asymptomatic while in the emergency department. He was discharged home with his in good condition. Medical Decision See ED Course. Medication Reconcilliation Current Medication List: was personally reviewed by de Blood Pressure Screening Patient's blood pressure: Normal blood pressure Blood pressure disposition: Did not require urgent referral Impression Primary Impression: SOB (shortness of breath) on exertion Additional Impression: Fatigue Departure Information Referrals Arthur Hubbard M.D. (PCP) Patient Instructions My [facility] Additional Instructions Rest and drink plenty of fluids as tolerated. Continue current medications. Avoid strenuous activities and anything that worsens your symptoms. Resume normal activities once your symptoms resolve. Return to the ER immediately for worsening or persistent chest pain, abdominal pain, vomiting, fevers, chest pains, difficulty breathing, worsening of your condition, or as needed. Follow up with your primary physician in 2-3 days for a recheck of your current condition. Problem Qualifiers
[2017-10-05 16:13] VITALS: BP 111/75; PULSE 63; O2SAT 96
--- NOTE | 2017-10-05 16:23 | EMERGENCY ROOM VISIT NOTE ---
ED Visit Note First contact with patient: 13:30 Staff note: I have reviewed the Patients chart and have discussed this case with my PA. I generally agree with the ED note and findings.
== END 2017-10-05 16:32 | disposition home or self-care (01) ==
LOC: C.EDB 13:20 → C.EDC 16:32
DX: R06.09 Other forms of dyspnea (principal); R53.83 Other fatigue; R25.1 Tremor, unspecified; M79.643 Pain in unspecified hand; M25.612 Stiffness of left shoulder, not elsewhere classified; M25.652 Stiffness of left hip, not elsewhere classified; J45.909 Unspecified asthma, uncomplicated; K21.9 Gastro-esophageal reflux disease without esophagitis; E72.12 Methylenetetrahydrofolate reductase deficiency; Z86.711 Personal history of pulmonary embolism; Z79.01 Long term (current) use of anticoagulants; Z82.49 Family history of ischemic heart disease and other diseases of the circulatory system

== ENCOUNTER 2017-11-05 14:48 | Observation (INO) | payer BC ==
[~2017-11-05] VITALS: Ht 172.7 cm; Wt 97.3 kg
[~2017-11-05 14:48] MED LIST changes: +FENO160T PO
[2017-11-05 17:27] LABS: BASO % 0.4 %; BASO ABS # 0.05 K/uL (0-0.2); EOS % 2.4 %; EOS ABS # 0.29 K/uL (0-0.5); HEMATOCRIT 43.8 % (42-52); HEMOGLOBIN 15.4 g/dL (14.0-18.0); IG# 0.04 K/uL (0.00-0.02); LYMPH % 22.7 %; LYMPH ABS # 2.79 K/uL (1.2-3.4); MEAN CORPUSCULAR HEMOGLOBIN 32.7 pg (25-34); MEAN CORPUSCULAR HGB CONC 35.2 g/dl (32-36); MEAN PLATELET VOLUME 9.3 fL (7.4-10.4); MONO % 6.7 %; MONO ABS # 0.82 K/uL (0.11-0.59); NEUT % 67.5 %; NEUT ABS # 8.31 K/uL (1.4-6.5); PLATELET COUNT 149 K/uL (130-400); RED CELL DISTRIBUTION WIDTH CV 13.2 % (11.5-14.5); RED CELL DISTRIBUTION WIDTH SD 44.8 fL (36.4-46.3)
--- NOTE | 2017-11-05 17:49 | DIAGNOSTIC IMAGING REPORT ---
CHEST ONE VIEW PORTABLE HISTORY: Short of breath. COMPARISON: Chest 10/05/2017. FINDINGS: There are low lung volumes. Bibasilar linear densities have improved. This suggests resolving atelectasis. No new focal lung consolidations. No pleural effusions. No pneumothorax. The heart is normal in size. IMPRESSION: Improved aeration at the lung bases. No acute process within the chest. Electronically signed by: Loco Aparicio M.D. 11/05/2017 5:47 PM Dictated Date/Time: 11/05/2017 5:45 PM
[2017-11-05 18:18] LABS: ALBUMIN 3.7 gm/dl (3.4-5.0); CALCIUM 9.1 mg/dl (8.5-10.1); CREATININE 1.32 mg/dl (0.60-1.40); POTASSIUM 3.5 mmol/L (3.5-5.1)
--- NOTE | 2017-11-05 18:28 | EMERGENCY ROOM VISIT NOTE ---
History First contact with patient: 16:52 Chief Complaint: SWELLING TO EXTREMITY Stated Complaint: SOB,SWOLLEN FEET,SENT History of Present Illness The patient is a 67 year old male with past medical history of bilateral PE currently on xarelto who presents to the Emergency Room with complaints of fatigue, shortness of breath, bilateral lower extremity swelling ,right greater than left which started several months ago but has been worsening. He complains of shortness of breath on exertion and orthopnea but denies any chest pain, palpitations. He also complains of lightheadedness and dizziness on walking but denies any history of fevers with chills and, coughing. Denies any history of COPD or heart disease. He has a history of PE and has been on Xarelto for over a year. Denies any history of cancer, smoking, long haul travel or immobilization. Denies any history of CHF. Also complains of left hand trembling and increased rigidity all over his body. Source of History: patient, family Modifying Factors (Worsening): exertion Associated Symptoms: + SOB, No fevers, No chills, No cough, No vomiting Review of Systems See HPI for pertinent positives & negatives. A total of 10 systems reviewed and were otherwise negative. Constitutional: No fever, No chills ENT: No hearing loss Respiratory: + shortness of breath, + dyspnea on exertion, + dyspnea at rest , No cough, No sputum, No wheezing Cardiovascular: + orthopnea, + edema, No chest pain, No palpitations Abdomen: No pain, No nausea, No vomiting Musculoskeletal: No joint pain Genitourinary - Male: No hematuria Neurologic: No memory loss Past Medical/Surgical History Medical Problems: (1) Asthma (2) Bronchitis (3) Chest pain (4) Crohns disease (5) Esophageal Reflux (6) Hypoxia (7) MTHFR mutation (8) PNA (pneumonia) (9) Pulmonary embolism (10) Pulmonary embolism (11) Recurrent pulmonary embolism (12) Shortness of breath (13) Skin problem (14) Syncope (15) Troponin I above reference range Surgical Problems: (1) History of appendectomy (2) History of cholecystectomy (3) History of surgical removal of terminal ileum Family History Gallbladder disease Hypertension Social History Smoking Status: Never Smoker Alcohol Use: none Marital Status: Housing Status: lives with family Occupation Status: retired Current/Historical Medications Scheduled Adalimumab (Humira Pen), 40 MG SC UD B-Complex W/ Folic Acid (B Complex), 1 TAB PO QAM Cholecalciferol (Vitamin D), 1,000 UNITS PO QAM Colestipol Hcl (Colestipol Hcl), 1 GM PO HS Fenofibrate (Tricor), 160 MG PO QAM Pantoprazole (Protonix), 40 MG PO QAM Rivaroxaban (Xarelto), 20 MG PO QAM Physical Exam Vital Signs Date Time Temp Pulse Resp B/P (MAP) Pulse Ox O2 Delivery O2 Flow Rate FiO2 11/05/17 19:38 89 19 110/82 93 Nasal Cannula 2.0 11/05/17 19:01 88 20 129/90 91 Nasal Cannula 2.0 11/05/17 18:43 91 11/05/17 18:35 90 Nasal Cannula 2.0 11/05/17 18:34 91 18 129/90 86 Room Air 11/05/17 17:10 94 16 137/89 94 Room Air 11/05/17 15:00 Nasal Cannula 3.0 11/05/17 14:57 36.4 105 18 117/73 89 Room Air Physical Exam GENERAL: Patient is in no acute distress. HEENT: No acute trauma, normocephalic atraumatic, mucous membranes moist, no nasal congestion, no scleral icterus. NECK: No stridor, no adenopathy, no meningismus, trachea is midline. LUNGS: Clear to auscultation bilaterally, no wheeze, no rhonchi, breath sounds equal. HEART: Without murmurs gallops or rubs, regular rate and rhythm. ABDOMEN: Soft, nontender, bowel sounds positive, no hernias, no peritonitis. EXTREMITIES: bilateral lower extremity edema. full range of motion of all the joints without pain or difficulty, no signs for acute trauma. NEUROLOGIC: Oriented x 3, no acute motor or sensory deficits, no focal weakness. SKIN: No rash, no jaundice, no diaphoresis. Medical Decision & Procedures ER Provider Diagnostic Interpretation: [~ rep ct add3]] CHEST ONE VIEW PORTABLE HISTORY: Short of breath. COMPARISON: Chest 10/05/2017. FINDINGS: There are low lung volumes. Bibasilar linear densities have improved. This suggests resolving atelectasis. No new focal lung consolidations. No pleural effusions. No pneumothorax. The heart is normal in size. IMPRESSION: Improved aeration at the lung bases. No acute process within the chest. Electronically signed by: Loco Aparicio M.D. 11/05/2017 5:47 PM Dictated Date/Time: 11/05/2017 5:45 PM The status of this report is Signed. Draft = Not yet reviewed or approved by Radiologist. Signed = Reviewed and approved by Radiologist. Laboratory Results 11/05/17 17:15 Red Blood Count 4.71, Mean Corpuscular Volume 93.0, Mean Corpuscular Hemoglobin 32.7, Mean Corpuscular Hemoglobin Concent 35.2, Mean Platelet Volume 9.3, Neutrophils (%) (Auto) 67.5, Lymphocytes (%) (Auto) 22.7, Monocytes (%) (Auto) 6.7, Eosinophils (%) (Auto) 2.4, Basophils (%) (Auto) 0.4, Neutrophils # (Auto) 8.31, Lymphocytes # (Auto) 2.79, Monocytes # (Auto) 0.82, Eosinophils # (Auto) 0.29, Basophils # (Auto) 0.05 11/05/17 17:15 Test 11/05/17 17:15 White Blood Count 12.30 K/uL (4.8-10.8) Red Blood Count 4.71 M/uL (4.7-6.1) Hemoglobin 15.4 g/dL (14.0-18.0) Hematocrit 43.8 % (42-52) Mean Corpuscular Volume 93.0 fL (80-100) Mean Corpuscular Hemoglobin 32.7 pg (25-34) Mean Corpuscular Hemoglobin Concent 35.2 g/dl (32-36) Platelet Count 149 K/uL (130-400) Mean Platelet Volume 9.3 fL (7.4-10.4) Neutrophils (%) (Auto) 67.5 % Lymphocytes (%) (Auto) 22.7 % Monocytes (%) (Auto) 6.7 % Eosinophils (%) (Auto) 2.4 % Basophils (%) (Auto) 0.4 % Neutrophils # (Auto) 8.31 K/uL (1.4-6.5) Lymphocytes # (Auto) 2.79 K/uL (1.2-3.4) Monocytes # (Auto) 0.82 K/uL (0.11-0.59) Eosinophils # (Auto) 0.29 K/uL (0-0.5) Basophils # (Auto) 0.05 K/uL (0-0.2) RDW Standard Deviation 44.8 fL (36.4-46.3) RDW Coefficient of Variation 13.2 % (11.5-14.5) Immature Granulocyte % (Auto) 0.3 % Immature Granulocyte # (Auto) 0.04 K/uL (0.00-0.02) Anion Gap 8.0 mmol/L (3-11) Est Creatinine Clear Calc Drug Dose 60.3 ml/min Estimated GFR () 63.8 Estimated GFR (Non- 55.0 BUN/Creatinine Ratio 11.9 (10-20) Calcium Level 9.1 mg/dl (8.5-10.1) Total Bilirubin 0.6 mg/dl (0.2-1) Aspartate Amino Transf (AST/SGOT) 24 U/L (15-37) Alanine Aminotransferase (ALT/SGPT) 47 U/L (12-78) Alkaline Phosphatase 91 U/L (45-117) Troponin I 0.138 ng/ml (0-0.045) Total Protein 7.5 gm/dl (6.4-8.2) Albumin 3.7 gm/dl (3.4-5.0) Globulin 3.8 gm/dl (2.5-4.0) Albumin/Globulin Ratio 1.0 (0.9-2) ECG Per My Interpretation Indication: SOB/dyspnea Change: no significant change Medical Decision Prior records/ancillary studies reviewed. Triage Nursing notes reviewed. Additional history obtained from the family. The patient's history was concerning for respiratory difficulties. Differential diagnosis: Etiologies such as infections, reactive airway disease, pneumonia, pneumothorax , COPD, CHF, cardiac ischemia, pulmonary embolism, musculoskeletal, gastrointestinal, as well as others were entertained. Physical examination: As above. ER treatment provided: CBC, CMP, troponin , EKG and CXR were ordered On reassessment the patient felt better. Diagnostic interpretation by me: The electrocardiogram was negative for acute ischemic or pathologic change. The labs revealed elevated troponin Imaging studies: Chest x-ray as above. Consultation: A consultation was placed with the [facility] hospitalist. The case was discussed and diagnostics were reviewed. The patient was evaluated in the ER for further treatment. This appears to be consistent with unstable angina. By the evaluation outlined above emergent etiologies such as CHF, cardiac ischemia, pulmonary embolism, reactive airway disease, pneumonia, pneumothorax, musculoskeletal, serious bacterial infections, as well as others were deemed relatively unlikely. 67-year-old male with past medical history of bilateral pulmonary embolism currently on Xarelto presented to the ER with complaints of fatigue, shortness of breath, bilateral lower extremity swelling right greater than left. He has a history of PE and he is being treated on Xarelto. his saturation was 89 on room air which improved on 3 L of oxygen and was tachycardic but was afebrile on arrival. CBC, CMP, chest x-ray, EKG were ordered which revealed an elevated troponin 0.138 , mildly elevated WBC with no significant EKG changes. Chest x- ray was unremarkable. Hospitalist were consulted for admission for unstable angina and further evaluation of elevated troponin, tachycardia and hypoxia. Impression Primary Impression: Unstable angina Additional Impression: Shortness of breath Departure Information Referrals Arthur Hubbard M.D. (PCP) Patient Instructions My [facility] Problem Qualifiers
[2017-11-05 18:38] LABS: TOTAL PROTEIN 7.5 gm/dl (6.4-8.2)
--- NOTE | 2017-11-05 19:53 | EMERGENCY ROOM VISIT NOTE ---
History Report prepared by Cherri: Giuliano Samano Under the Supervision of: Dr. Isaías Smith D.O. First contact with patient: 16:52 Chief Complaint: SWELLING TO EXTREMITY Stated Complaint: SOB,SWOLLEN FEET,SENT History of Present Illness The patient is a 67 year old male who presents to the Emergency Room with complaints of worsening bilateral lower extremity edema beginning a few months ago. The patient states that he went to his PCP today and was referred to the emergency department, prompting his visit. He also complains of fatigue, SOB, and lightheadedness. He notes that he experiences SOB on exertion. He denies any CP, fever, chills, and palpitations. He reports that he has a history of PEs and Crohn's disease for which he is on Xarelto and Humira. He denies any history of COPD and cancer, and is not on a diuretic. Source of History: patient, other (resident) Onset: a few months ago Position: other (lower extremities) Quality: other (edema) Timing: worsening Associated Symptoms: + SOB, No fevers, No chills, No chest pain Note: He also complains of fatigue and lightheadedness. He denies any palpitations. Review of Systems See HPI for pertinent positives & negatives. A total of 10 systems reviewed and were otherwise negative. Past Medical & Surgical Medical Problems: (1) Asthma (2) Bronchitis (3) Chest pain (4) Crohns disease (5) Esophageal Reflux (6) Hypoxia (7) MTHFR mutation (8) PNA (pneumonia) (9) Pulmonary embolism (10) Pulmonary embolism (11) Recurrent pulmonary embolism (12) Skin problem (13) Syncope Surgical Problems: (1) History of appendectomy (2) History of cholecystectomy (3) History of surgical removal of terminal ileum Family History Gallbladder disease Hypertension Social History Smoking Status: Never Smoker Alcohol Use: none Marital Status: Housing Status: lives with family Occupation Status: retired Current/Historical Medications Scheduled Adalimumab (Humira Pen), 40 MG SC UD B-Complex W/ Folic Acid (B Complex), 1 TAB PO QAM Cholecalciferol (Vitamin D), 1,000 UNITS PO QAM Colestipol Hcl (Colestipol Hcl), 1 GM PO HS Fenofibrate (Tricor), 160 MG PO QAM Pantoprazole (Protonix), 40 MG PO QAM Rivaroxaban (Xarelto), 20 MG PO QAM Allergies Coded Allergies: No Known Allergies (Verified , 11/05/17) Physical Exam Vital Signs Date Time Temp Pulse Resp B/P (MAP) Pulse Ox O2 Delivery O2 Flow Rate FiO2 11/05/17 19:38 89 19 110/82 93 Nasal Cannula 2.0 11/05/17 19:01 88 20 129/90 91 Nasal Cannula 2.0 11/05/17 18:43 91 11/05/17 18:35 90 Nasal Cannula 2.0 11/05/17 18:34 91 18 129/90 86 Room Air 11/05/17 17:10 94 16 137/89 94 Room Air 11/05/17 15:00 Nasal Cannula 3.0 11/05/17 14:57 36.4 105 18 117/73 89 Room Air Physical Exam CONSTITUTIONAL/VITAL SIGNS: Reviewed / noted above. GENERAL: Non-toxic in appearance. Mild generalized weakness. INTEGUMENTARY: Warm, dry, and [place]. HEAD: Normocephalic. EYES: without scleral icterus or trauma. ENT/OROPHARYNX: clear and moist. LYMPHADENOPATHY/NECK: Is supple without lymphadenopathy or meningismus. RESPIRATORY: Lungs clear and equal. CARDIOVASCULAR: Regular rate and rhythm. GI/ABDOMEN: Soft and nontender. No organomegaly or pulsatile mass. No rebound or guarding. Normal bowel sounds. EXTREMITIES: Warm and well perfused. Mild bilateral lower extremity edema. BACK: No CVA tenderness. NEUROLOGICAL: Intact without focal deficits. PSYCHIATRIC: normal affect. MUSCULOSKELETAL: Normally developed with good muscle tone. Medical Decision & Procedures ER Provider Diagnostic Interpretation: Radiology results as stated below per my review and radiologist interpretation: CHEST ONE VIEW PORTABLE FINDINGS: There are low lung volumes. Bibasilar linear densities have improved. This suggests resolving atelectasis. No new focal lung consolidations. No pleural effusions. No pneumothorax. The heart is normal in size. IMPRESSION: Improved aeration at the lung bases. No acute process within the chest. Electronically signed by: Loco Aparicio M.D. 11/05/2017 5:47 PM Laboratory Results 11/05/17 17:15 Red Blood Count 4.71, Mean Corpuscular Volume 93.0, Mean Corpuscular Hemoglobin 32.7, Mean Corpuscular Hemoglobin Concent 35.2, Mean Platelet Volume 9.3, Neutrophils (%) (Auto) 67.5, Lymphocytes (%) (Auto) 22.7, Monocytes (%) (Auto) 6.7, Eosinophils (%) (Auto) 2.4, Basophils (%) (Auto) 0.4, Neutrophils # (Auto) 8.31, Lymphocytes # (Auto) 2.79, Monocytes # (Auto) 0.82, Eosinophils # (Auto) 0.29, Basophils # (Auto) 0.05 11/05/17 17:15 Test 11/05/17 17:15 White Blood Count 12.30 K/uL (4.8-10.8) Red Blood Count 4.71 M/uL (4.7-6.1) Hemoglobin 15.4 g/dL (14.0-18.0) Hematocrit 43.8 % (42-52) Mean Corpuscular Volume 93.0 fL (80-100) Mean Corpuscular Hemoglobin 32.7 pg (25-34) Mean Corpuscular Hemoglobin Concent 35.2 g/dl (32-36) Platelet Count 149 K/uL (130-400) Mean Platelet Volume 9.3 fL (7.4-10.4) Neutrophils (%) (Auto) 67.5 % Lymphocytes (%) (Auto) 22.7 % Monocytes (%) (Auto) 6.7 % Eosinophils (%) (Auto) 2.4 % Basophils (%) (Auto) 0.4 % Neutrophils # (Auto) 8.31 K/uL (1.4-6.5) Lymphocytes # (Auto) 2.79 K/uL (1.2-3.4) Monocytes # (Auto) 0.82 K/uL (0.11-0.59) Eosinophils # (Auto) 0.29 K/uL (0-0.5) Basophils # (Auto) 0.05 K/uL (0-0.2) RDW Standard Deviation 44.8 fL (36.4-46.3) RDW Coefficient of Variation 13.2 % (11.5-14.5) Immature Granulocyte % (Auto) 0.3 % Immature Granulocyte # (Auto) 0.04 K/uL (0.00-0.02) Anion Gap 8.0 mmol/L (3-11) Est Creatinine Clear Calc Drug Dose 60.3 ml/min Estimated GFR () 63.8 Estimated GFR (Non- 55.0 BUN/Creatinine Ratio 11.9 (10-20) Calcium Level 9.1 mg/dl (8.5-10.1) Total Bilirubin 0.6 mg/dl (0.2-1) Aspartate Amino Transf (AST/SGOT) 24 U/L (15-37) Alanine Aminotransferase (ALT/SGPT) 47 U/L (12-78) Alkaline Phosphatase 91 U/L (45-117) Troponin I 0.138 ng/ml (0-0.045) Total Protein 7.5 gm/dl (6.4-8.2) Albumin 3.7 gm/dl (3.4-5.0) Globulin 3.8 gm/dl (2.5-4.0) Albumin/Globulin Ratio 1.0 (0.9-2) Laboratory results as stated above per my review. ECG Per My Interpretation Indication: SOB/dyspnea Rate (beats per minute): 93 Rhythm: normal sinus Findings: no ectopy, other (No acute injury, no ST elevation) ED Course 1754: Previous medical records were reviewed. The patient was evaluated in room C1. A complete history and physical examination was performed. 1928: On reevaluation, the patient is stable. I discussed the results and findings with him. He verbalized agreement of the treatment plan. I spoke with Dr. Estevez of the [facility] Hospitalist Service. The patient will be evaluated for further management and care. Medical Decision Differential includes acute coronary syndrome, myocardial infarction, CVA, TIA, anemia, infection, pneumonia, UTI, pyelonephritis, poor nutrition, dehydration, electrolyte disturbance,hypoglycemia. This is a 67-year-old male who presents to the ED with a chief complaint of shortness of breath that is worse on exertion, fatigue and worsening peripheral edema. The patient has a history of PE and is currently on Xarelto. The patient's oxygen saturations on room air is 89%. He is slightly tachycardic. He does have some peripheral edema on exam. His physical exam is otherwise unremarkable. The patient's chest x-ray did not show acute process. His CBC was unremarkable. Troponin is elevated at 0.138. EKG showed normal sinus rhythm without acute injury. Based on the patient's symptoms and his evaluation , his symptoms are concerning for unstable angina/non-ST elevation [place]. The patient was seen by the hospitalist for further inpatient evaluation and care. Blood Pressure Screening Patient's blood pressure: Normal blood pressure Blood pressure disposition: Did not require urgent referral Consults Time Called: 1904 Consulting Physician: Dr. Estevez - Hospitalist, [facility] Returned Call: [phone] Discussed the patient's case. The patient will be evaluated for further treatment and disposition. Impression Primary Impression: NSTEMI (non-ST elevated myocardial infarction) Scribe Attestation The scribe's documentation has been prepared under my direction and personally reviewed by me in its entirety. I confirm that the note above accurately reflects all work, treatment, procedures, and medical decision making performed by me. Departure Information Dispostion Being Evaluated By Hospitalist Referrals Arthur Hubbard M.D. (PCP) Patient Instructions My [facility]
--- NOTE | 2017-11-05 20:04 | History and Physical ---
History & Physical Date & Time of Service: Nov 05, 2017 at 20:02 Chief Complaint: Sob,Swollen Feet,Sent Primary Care Physician: Arthur Hubbard M.D. History of Present Illness Source: patient 67 y/o M Hx recurrent HPL, Crohn's disease, recurrent PEs. pt presents with progressive SOB and lower extremity edema. Symptoms have been present for a month but have worsened over the past few days. The pt underwent a CTA on for suspicion of recurrent PE despite compliance with daily Xarelto. No PE was present - a ground-glass opacity was detected in the R upper lobe. He does state that he has been occasionally lightheaded. Initial labs are notable for an elevated troponin. An EKG does not support acute ischemia. On review of records, he last had a similar troponin elevation 10/07 when he was diagnosed with a PE. He denies CP, palpitations, N/V, diaphoresis. His Crohn's disease has been in clinical remission for several years. Past Medical/Surgical History 1) Crohn's disease - Humira x 10 yrs 2) Pulmonary emboli - recurrent - last 10/07 - takes Xarelto daily 3) MTHFR mutation 4) Hyperlipidemia Surgical: 1) Appendectomy 2) Cholecystectomy 3) Surgical removal of terminal ileum Family History Gallbladder disease Hypertension Social History Smoking Status: Never Smoker Marital Status: Housing status: lives with significant other Occupational Status: retired Immunizations History of Tetanus Vaccine?: 2002 History of Pneumococcal: No History of Hepatitis B Vaccine: No Multi-Drug Resistant Organisms History of MDRO: No Allergies Coded Allergies: No Known Allergies (Verified , 11/05/17) Home Medications Scheduled Adalimumab (Humira Pen), 40 MG SC UD B-Complex W/ Folic Acid (B Complex), 1 TAB PO QAM Cholecalciferol (Vitamin D), 1,000 UNITS PO QAM Colestipol Hcl (Colestipol Hcl), 1 GM PO HS Fenofibrate (Tricor), 160 MG PO QAM Pantoprazole (Protonix), 40 MG PO QAM Rivaroxaban (Xarelto), 20 MG PO QAM Review of Systems Constitutional: No fever, No chills, No sweats Eyes: No worsening of vision ENT: No hearing loss, No nasal symptoms Respiratory: + shortness of breath, + dyspnea on exertion, + dyspnea at rest, No cough, No sputum, No wheezing Cardiovascular: No chest pain, No orthopnea, No PND Abdomen: No pain, No nausea, No vomiting Musculoskeletal: + problem reported (BL lower ext edema), No joint pain Genitourinary - Male: No hematuria, No dysuria Neurologic: No memory loss, No paralysis, No weakness Psychiatric: No depression symptoms Endocrine: No fatigue Hematologic / Lymphatic: No abnormal bleeding/bruising Integumentary: No rash Allergic / Immunologic: No environmental allergies Physical Exam Vital Signs Date Time Temp Pulse Resp B/P (MAP) Pulse Ox O2 Delivery O2 Flow Rate FiO2 11/05/17 19:38 89 19 110/82 93 Nasal Cannula 2.0 11/05/17 19:01 88 20 129/90 91 Nasal Cannula 2.0 11/05/17 18:43 91 11/05/17 18:35 90 Nasal Cannula 2.0 11/05/17 18:34 91 18 129/90 86 Room Air 11/05/17 17:10 94 16 137/89 94 Room Air 11/05/17 15:00 Nasal Cannula 3.0 11/05/17 14:57 36.4 105 18 117/73 89 Room Air General Appearance: WD/WN, no apparent distress Head: normocephalic Eyes: normal inspection ENT: normal ENT inspection, pharynx normal Neck: supple, no JVD Respiratory/Chest: chest non-tender, lungs clear, normal breath sounds Cardiovascular: regular rate, rhythm, no edema Abdomen/GI: normal bowel sounds, non tender, soft Back: normal inspection, no CVA tenderness Extremities/Musculoskelatal: no calf tenderness, + pedal edema (3+ B/L edema ) Neurologic/Psych: [employer] II-XII nml as tested, no motor/sensory deficits, alert, oriented x 3 Skin: normal color Diagnostics Laboratory Results Results Past 24 Hours Test 11/05/17 17:15 Range/Units White Blood Count 12.30 4.8-10.8 K/uL Red Blood Count 4.71 4.7-6.1 M/uL Hemoglobin 15.4 14.0-18.0 g/dL Hematocrit 43.8 42-52 % Mean Corpuscular Volume 93.0 80-100 fL Mean Corpuscular Hemoglobin 32.7 25-34 pg Mean Corpuscular Hemoglobin Concent 35.2 32-36 g/dl Platelet Count 149 130-400 K/uL Mean Platelet Volume 9.3 7.4-10.4 fL Neutrophils (%) (Auto) 67.5 % Lymphocytes (%) (Auto) 22.7 % Monocytes (%) (Auto) 6.7 % Eosinophils (%) (Auto) 2.4 % Basophils (%) (Auto) 0.4 % Neutrophils # (Auto) 8.31 1.4-6.5 K/uL Lymphocytes # (Auto) 2.79 1.2-3.4 K/uL Monocytes # (Auto) 0.82 0.11-0.59 K/uL Eosinophils # (Auto) 0.29 0-0.5 K/uL Basophils # (Auto) 0.05 0-0.2 K/uL RDW Standard Deviation 44.8 36.4-46.3 fL RDW Coefficient of Variation 13.2 11.5-14.5 % Immature Granulocyte % (Auto) 0.3 % Immature Granulocyte # (Auto) 0.04 0.00-0.02 K/uL Sodium Level 137 136-145 mmol/L Potassium Level 3.5 3.5-5.1 mmol/L Chloride Level 103 98-107 mmol/L Carbon Dioxide Level 26 21-32 mmol/L Anion Gap 8.0 3-11 mmol/L Blood Urea Nitrogen 16 7-18 mg/dl Creatinine 1.32 0.60-1.40 mg/dl Est Creatinine Clear Calc Drug Dose 60.3 ml/min Estimated GFR () 63.8 Estimated GFR (Non- 55.0 BUN/Creatinine Ratio 11.9 10-20 Random Glucose 138 70-99 mg/dl Calcium Level 9.1 8.5-10.1 mg/dl Total Bilirubin 0.6 0.2-1 mg/dl Aspartate Amino Transf (AST/SGOT) 24 15-37 U/L Alanine Aminotransferase (ALT/SGPT) 47 12-78 U/L Alkaline Phosphatase 91 45-117 U/L Troponin I 0.138 0-0.045 ng/ml Total Protein 7.5 6.4-8.2 gm/dl Albumin 3.7 3.4-5.0 gm/dl Globulin 3.8 2.5-4.0 gm/dl Albumin/Globulin Ratio 1.0 0.9-2 Diagnostic Radiology CXR: Improved aeration at the lung bases. No acute process within the chest. EKG NSR, L axis - no significant change from previous Impression Assessment and Plan 67 y/o M Hx recurrent HPL, Crohn's disease, recurrent PEs. Pt presents with progressive SOB and lower extremity edema. Symptoms have been present for a month but have worsened over the past few days. The pt underwent a CTA on for suspicion of recurrent PE despite compliance with daily Xarelto. No PE was present - a ground-glass opacity was detected in the R upper lobe. He does state that he has been occasionally lightheaded. Initial labs are notable for an elevated troponin. An EKG does not support acute ischemia. On review of records, he last had a similar troponin elevation 10/07 when he was diagnosed with a PE. He denies CP, palpitations, N/V, diaphoresis. His Crohn's disease has been in clinical remission for several years. 1) Edema and SOB - troponin is elevated. We will obtain a LE doppler and will consider a repeat CTA if negative due to his elevated trop. He does not exhibit signs of pulmonary congestion despite his LE edema. Protein levels are WNL. We will pursue a cardiac etiology for the troponin elevation provided a PE is ruled out. He is anticoagulated with Xarelto presently. 2) Crohn's - In remission with Humira - Reg potential Xarelto failure, the pt would be susceptible to DVT/PE due to Crohn's and would also be at higher risk for malignancy due to Crohn's and Humira use. This should be kept in mind in terms of any additional workup. 3) HPL - cont Tricor Full code - Xarelto prophylaxis - total time for this admit including review of labs, meds, imaging, records, EKG - discussion with pt and ER attending - 40 min Level of Care Telemetry Resuscitation Status FULL RESUSCITATION VTE Prophylaxis Given or contraindicated: Other Anticoagulation
[2017-11-05] MEDS ORDERED: ONDANSETRON INJ 2 MG/ML 2 ML VIAL IV PRN (20:30)
[2017-11-05] MEDS ORDERED: POLYETHYLENE (MIRALAX) 17 GM PACK PO PRN (20:30)
[2017-11-05] MEDS ORDERED: ALUMINUM/MAGNESIUM/SIMETH (MAALOX MAX) 30 ML UDC PO PRN (20:30)
[2017-11-05] MEDS ORDERED: ACETAMINOPHEN 325 MG TAB PO PRN (20:30)
[2017-11-05] MEDS ORDERED: MAGNESIUM HYDROXIDE SUSP 30 ML UDC PO PRN (20:30)
[2017-11-05] MEDS ORDERED: ZOLPIDEM TARTRATE 5 MG TAB PO PRN (20:30)
[2017-11-05] MEDS ORDERED: IV FLUIDS COMPLETED PRN (21:00)
--- NOTE | 2017-11-05 22:49 | DIAGNOSTIC IMAGING REPORT ---
BILATERAL LOWER EXTREMITY VENOUS DOPPLER HISTORY: Leg swelling. COMPARISON STUDY: Venous Doppler 05/29/2009. FINDINGS: There is normal compressibility, flow, and augmentation within the left lower extremity deep venous system. Near occlusive thrombus seen within the right distal superficial femoral vein and into the popliteal vein. The remaining right lower extremity deep venous structures are patent. IMPRESSION: 1. Right lower extremity DVT as described above. 2. No DVT within the left lower extremity. Electronically signed by: Loco Aparicio M.D. 11/05/2017 10:48 PM Dictated Date/Time: 11/05/2017 10:46 PM
[2017-11-05 23:10] VITALS: BP 121/81; TEMP 36.4; O2SAT 91; Ht 172.7 cm; Wt 97.3 kg
[2017-11-05] MEDS ORDERED: OPTIRAY 320 IV PRN (23:15)
[2017-11-05] MEDS ORDERED: INFLUENZA VACCINE HIGH DOSE 65+ 0.5 ML SYR IM. ONE (23:45)
[2017-11-05] MEDS ORDERED: INFLUENZA ADMINISTRATION CHARGE ONE (23:45)
[2017-11-06] VITALS (15 sets, daily range): BP systolic 99–125; BP diastolic 62–82; PULSE 67–89; TEMP 36.4–36.9; O2SAT 88–95
[2017-11-06] MEDS ORDERED: NSS + 20MEQ KCL 1000ML 1,000 ML IV SCH (00:15)
[2017-11-06] MEDS: COLESTIPOL HCL 1 GM TAB PO SCH ×2 (00:50→19:54)
[2017-11-06 01:42] LABS: INR 1.1 (0.9-1.1)
[2017-11-06] MEDS: HEPARIN 25,000 UNIT/500ML D5W 500 ML IV PRN ×3 (01:58→18:07)
--- NOTE | 2017-11-06 06:53 | DIAGNOSTIC IMAGING REPORT ---
ABD/PELVIS IV CONTRAST ONLY CT DOSE: 1297.82 mGy.cm HISTORY: Pain. Obstruction. suspicion of malignancy IVC obstruction TECHNIQUE: Multiaxial CT images of the abdomen and pelvis were performed following the use of intravenous contrast. A dose lowering technique was utilized adhering to the principles of ALARA. COMPARISON STUDY: None. FINDINGS: Subtle basilar pulmonary nodules measuring up to 4 mm. Fatty infiltration of the liver. Liver spleen and pancreas are unremarkable. Bowel pattern is nonobstructive. Prior cholecystectomy. Kidneys enhance uniformly. Mild bowel wall thickening of the sigmoid colon. No evidence for abscess collection or obstruction. IMPRESSION: Mild nonspecific sigmoid colitis. Fatty infiltration of liver. Basilar pulmonary nodularity. The above report was generated using voice recognition software. It may contain grammatical, syntax or spelling errors. Electronically signed by: Calvin Walls M.D. 11/06/2017 6:52 AM Dictated Date/Time: 11/06/2017 6:50 AM
[2017-11-06] MEDS: PANTOprazole SOD 40 MG TAB PO SCH (07:34)
[2017-11-06 08:21] LABS: PTT PATIENT 41.1 SECONDS (21.0-31.0)
--- NOTE | 2017-11-06 08:49 | DIAGNOSTIC IMAGING REPORT ---
(CHEST FOR PE) ANGIO WITH CLINICAL HISTORY: 67 years-old Male presenting with shortness of breath, DVT. TECHNIQUE: Multidetector CT angiography of the chest was performed after administration of intravenous contrast. 3-D volumetric and/or maximum intensity projection (MIP) images were subsequently reconstructed for review. IV contrast: 93 mL of Optiray 320. A dose lowering technique was used consistent with the principles of ALARA (as low as reasonably achievable). COMPARISON: 10/05/2017. CT DOSE (mGy.cm): The estimated cumulative dose is 601.91. FINDINGS: Booking Clerk topogram: Cholecystectomy clips. Pulmonary vasculature: The study is adequate for assessment of the pulmonary vascular tree. Extensive acute pulmonary emboli burden involving the distal right and left main pulmonary arteries as well as their lobar branches and multiple segmental and subsegmental branches. Main pulmonary artery is not enlarged. Flattening of the interventricular septum. No intracardiac filling defect. Reflux of contrast into the intrahepatic IVC. Remaining chest: On soft tissue windows, normal thyroid and thoracic inlet. No axillary, supraclavicular, hilar, or mediastinal lymphadenopathy. Normal aorta. Normal heart size. No pericardial or pleural effusion. Cholecystectomy clips noted. On lung windows, scattered bandlike and dependent groundglass opacities in the lower lobes greater on the right. Solid subpleural 5 mm nodule in the posterior basal left lower lobe (series 4 image 121). Subpleural solid 5 mm nodule in the right upper lobe (series 4 image 205). Solid peripheral 5 mm nodule in the posterior basal right lower lobe (series 4 image 127). Central airways patent. On bone windows, degenerative changes of the spine. IMPRESSION: 1. Significant acute pulmonary embolus burden involving the distal right and left main pulmonary arteries as well as lobar, segmental, and subsegmental branches. Furthermore, flattening of the interventricular septum suggests right heart strain. Right heart strain was not preliminarily reported. Correlate clinically. 2. Multiple solid pulmonary nodules measuring up to 5 mm. Follow-up per [employer] Society 2017 recommendations below. 3. Pulmonary findings were communicated to Dr. Cagle by Dr. Evangelista on 11/06/2017 at 12:20 AM. The report will be called/faxed according to standard departmental protocol. Please refer to below summary of Fleischner Society 2017 recommendations for follow-up of incidental CT nodules (Abelardo eMléndez et al. Guidelines for management of incidental pulmonary nodules detected on CT images: From the Fleischner Society 2017. Radiology 2017; 284: 228-243.) SOLID NODULES Single nodule; size < 6 mm * Low risk patients: No routine follow-up * High risk patients: Optional CT at 12 months Single nodule; size 6-8 mm * Low risk patients: CT at 6-12 months, then consider CT at 18-24 months * High risk patients: CT at 6-12 months, then at 18-24 months Single nodule; size > 8 mm * Either low or high risk patients: Considered CT at 3 months, PET/CT, or tissue sampling Multiple nodules; size < 6 mm * Low risk patients: No routine follow up * High risk patients: Optional CT at 12 months Multiple nodules; size 6-8 mm * Low risk patients: CT at 3-6 months, then consider CT at 18-24 months * High risk patients: CT at 3-6 months, then at 18-24 months Multiple nodules; size > 8 mm * Low risk patients: CT at 3-6 months, then consider at 18-24 months * High risk patients: CT at 3-6 months, then at 18-24 months Note: These guidelines apply to incidental nodules. These guidelines do not apply to patients younger than 35 years, immunocompromised patients, or patients with cancer. * Low risk patients: Minimal or absent history of smoking and/or other known risk factors * High risk patients: History of smoking, exposure to other carcinogens, emphysema, fibrosis, upper lobe location, family history of lung cancer, etc. * If a nodule up to 8 mm is partly solid or is ground glass, further follow-up is required after 24 months to exclude possible slow growing adenocarcinoma. SUBSOLID NODULES Single ground-glass nodule * Nodule size < 6 mm: No routine follow-up * Nodule size > or = 6 mm: CT at 6-12 months to confirm persistence, then CT every 2 years until 5 years Single part-solid nodule * Nodule size < 6 mm: No routine follow-up * Nodules size > or = 6 mm: CT at 3-6 months to confirm persistence. If unchanged and solid component remains < 6 mm, annual CT should be performed for 5 years Multiple nodules * Nodule size < 6 mm: CT at 3-6 months. If stable, consider CT at 2 and 4 years. * Nodules size > or = 6 mm: CT at 3-6 months. Subsequent management based on the most suspicious nodule(s) Electronically signed by: Marcus Patel M.D. 11/06/2017 8:47 AM Dictated Date/Time: 11/06/2017 6:56 AM
[2017-11-06] MEDS ORDERED: HEPARIN IV BOLUS 3,000 UNIT in SYRINGE 0 ML IV ONE (09:15)
--- NOTE | 2017-11-06 11:46 | Progress Note ---
Progress Note Date of Service Nov 06, 2017. Progress Note Patient was seen, examined, and chart reviewed. Agree with exam and treatment plan of the Vascular PA. Patient with significant DVT of lower extremity with PE. O2 sat in mid 80's on room air. He has failed Xarelto. Recommend IVC filter placement. I have discussed the risks options and benefits of the procedure with the patient. The patient understands the risks options and benefits and agrees to the procedure.
--- NOTE | 2017-11-06 11:58 | Surgery Consultation ---
Consultation Date of Service Nov 06, 2017. Chief Complaint DVT/PE, right heart strain History of Present Illness The patient is a 67 year old male with hx of crohn's disease and MTHFR gene mutation with hx of PE in past, seen in consultation today for RLE DVT and massive PE with R heart strain noted on imaging. Pt states he has noted some SOB and BRISENO for past month. States was imaged for PE approx 1 month ago and was negative. States RLE became edematous a few days ago. Came to [facility] for eval and found to have RLE DVT/PE. Pt admits fatigue, malaise. Denies CALHOUN, fever, chills, recent illness, interruption of AC, abd pain, N/V, rest pain, claudication, other complaints. Pt has been on xarelto for long time and has not missed any doses per pt. Vitals Vital Signs Past 12 Hours Date Time Temp Pulse Resp B/P (MAP) Pulse Ox O2 Delivery O2 Flow Rate FiO2 11/06/17 08:00 Nasal Cannula 95.0 11/06/17 08:00 36.9 71 18 121/70 (87) 95 Nasal Cannula 2.0 11/06/17 04:00 Room Air 91.0 11/06/17 03:40 36.8 76 18 114/77 (89) 95 Nasal Cannula 2.0 11/06/17 01:05 92 Nasal Cannula 2.0 11/06/17 01:00 88 Room Air 11/06/17 00:00 Room Air 91.0 Allergies Coded Allergies: No Known Allergies (Verified , 11/05/17) Home Medications Scheduled Adalimumab (Humira Pen), 40 MG SC UD B-Complex W/ Folic Acid (B Complex), 1 TAB PO QAM Cholecalciferol (Vitamin D), 1,000 UNITS PO QAM Colestipol Hcl (Colestipol Hcl), 1 GM PO HS Fenofibrate (Tricor), 160 MG PO QAM Pantoprazole (Protonix), 40 MG PO QAM Rivaroxaban (Xarelto), 20 MG PO QAM Problem List Medical Problems: (1) Asthma (2) Bronchitis (3) Chest pain (4) Crohns disease (5) Esophageal Reflux (6) Hypoxia (7) MTHFR mutation (8) PNA (pneumonia) (9) Pulmonary embolism (10) Pulmonary embolism (11) Recurrent pulmonary embolism (12) Shortness of breath (13) Skin problem (14) Syncope (15) Troponin I above reference range Surgical Problems: (1) History of appendectomy (2) History of cholecystectomy (3) History of surgical removal of terminal ileum Surgical / Medical History Hx Cardiac Surgery: No Hx Abdominal Surgery: Yes (COLON RESECTION, CEM, APPY) Hx Cancer Surgery: No Hx Thoracic Surgery: No Hx Orthopedic: No Hx Urinary Tract Surgery: No Past Medical/Surgical History: Other (DVT/PE, Crohn's disease) Family History Gallbladder disease Hypertension Social History Smoking Status: Never Smoker Hx Alcohol Use - Type & Amnt: No Hx Substance Use -Type & Amnt: No Review of Systems Constitutional: + malaise, No chills, No fever Skin: No change in color Eyes: No visual changes ENMT: No sore throat Respiratory: + BRISENO, + short of breath, No cough, No hemoptysis Cardiovascular: + edema, No chest pain, No palpitations, No syncope, No intermittent claudication Gastrointestinal: No abdominal pain, No nausea, No vomiting Musculoskeletal: No back pain Neurologic: No dizziness, No headache, No lethargy, No numbness, No tingling Physical Exam Constitutional: General Apperance: heathly-appearing, well-nourished, well-developed Level of Distress: NAD Psychiatric: Mental Status: active & alert, normal mood, normal affect Orientation: oriented except where noted, to time, to place, to person Memory: recent memory normal, remote memory normal Head: normocephalic, atraumatic Eyes: EOM: EOMI ENMT: normal ENT inspection, hearing grossly normal Neck: supple, trachea midline Lungs: Respiratory effort: no dyspnea Auscultation: no rales/crackles, no rhonchi, decreased breath sounds Cardiovascular: Apical Impulse: not displaced Heart Auscultation: RRR, no rubs, no gallops Peripheral Pulses: Pulses: full and equal, in all extremities except if noted Bruits: none appreciated Carotid Pulse: normal on the left, normal on the right Brachial Pulses: normal on the left, normal on the right Radial Pulse: normal on the left, normal on the right Femoral Pulse: normal on the left, normal on the right Posterior Tibialis Pulse: decreased on the left, decreased on the right Dorsalis Pedis Pulse: decreased on the left, decreased on the right Abdomen: Bowel Sounds: normal Inspection & Palpation: soft, non-distended, no tenderness, guarding & rebound Musculoskeletal: normal strength (5/5 throughout), normal tone Extremities: Upper Right: no cyanosis, no edema, no varicosities Upper Left: no cyanosis, no edema, no varicosities Lower Right: no cyanosis, no varicosities, edema Lower Left: no cyanosis, no edema, no varicosities Neurologic: Cranial Nerves: grossly intact Sensation: grossly intact Assessment and Plan ASSESSMENT and PLAN: RLE DVT BL PE R heart strain Failure Xarelto therapy Pt discussed with Dr Barnes, recommend IVC filter insertion today d/t R heart strain from thrombus load. Temporary filter with plan for removal in 2-3 months. Recommend Heme/onc consult for AC recommendations. Recommend echo for eval of R heart strain.
[2017-11-06] MEDS ORDERED: CEFAZOLIN IV 1,000 MG in DEXTROSE 5% 50ML 50 ML IV ONE (12:15)
[2017-11-06] MEDS ORDERED: CEFAZOLIN SOD 1000MG/7.5 ML IV PUSH IV ONE (12:22)
--- NOTE | 2017-11-06 12:25 | Pre Sedation Assessment ---
Pre Sedation Assessment General Date of Sedation: Nov 06, 2017. Vital Signs Past 12 Hours Date Time Temp Pulse Resp B/P (MAP) Pulse Ox O2 Delivery O2 Flow Rate FiO2 11/06/17 12:00 Nasal Cannula 95.0 11/06/17 11:56 36.6 73 19 117/75 (89) 95 Nasal Cannula 2.0 11/06/17 08:00 Nasal Cannula 95.0 11/06/17 08:00 36.9 71 18 121/70 (87) 95 Nasal Cannula 2.0 11/06/17 04:00 Room Air 91.0 11/06/17 03:40 36.8 76 18 114/77 (89) 95 Nasal Cannula 2.0 11/06/17 01:05 92 Nasal Cannula 2.0 11/06/17 01:00 88 Room Air Review Cardiovascular: regular rate, rhythm Lungs: lungs clear Pre-Sedation Airway Assessment Smoking Status: Never Smoker Hx of Sleep Apnea: No Hx of difficult intubation: No Short Thick Neck: No Thyro-mental Distance: > 3 Finger Breadths Oral Cavity: Capped Teeth, WNL Mallampati Classification: Class II ASA Classification: Class III NPO Status Date of Last Intake of Fluids: Nov 06, 2017 Time of Last Intake of Fluids: 0800 Date of Last Intake of Solids: Nov 06, 2017 Time of Last Intake of Solids: 0730 Procedure Planning Contraindications for Sedation: None Current Medications Reviewed: Yes Notes The planned sedation has been discussed with the patient. Informed Consent was obtained. I have identified the patient, determined the appropriateness of sedation and have assessed the patient immediately prior to the procedure. All medicine(s) and interventions are by my order.
[2017-11-06] MEDS ORDERED: FENTANYL CITRATE INJ 50 MCG/1 ML 2 ML VIAL ONE (12:28)
[2017-11-06] MEDS ORDERED: MIDAZOLAM HCL 1 MG/ML 2ML VIAL ONE (12:28)
--- NOTE | 2017-11-06 12:31 | Oncology Consultation ---
Oncology/Heme Consultation Date of Consultation: Nov 06, 2017. Attending Physician: Lawrence Estevez M.D. Reason for Consultation: Recurrent pulmonary emboli History of Present Illness is a 67-year-old gentleman who has a history of Crohn's. He presents with worsening shortness of breath and was found to have on CTA of the chest rather diffuse bulky pulmonary emboli. During the same time his right lower extremity would become edematous. The patient reviews with me that he has been on Xarelto since his last pulmonary emboli which was diagnosed in September of last year. He is only a fair historian. He states that when he had his pulmonary emboli in September last year that he had been taking Coumadin at that time. Review of the records show that he was not on Coumadin at that time. 15 years ago he had a DVT and possible pulmonary emboli after surgery on his ileum. He was treated according to the records with Coumadin for about 5 years at that time. 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 I do not see a homocystine level. He states that his family has not had any blood clots but again the records reflect that his mother had pulmonary emboli. In any case he states that his shortness of breath has been off and on for at least the past year but worsened recently. He denies any chest pain weight loss change in bowel habits nausea or vomiting or headache. Again he has been taking Xarelto chronically he states. Past Medical/Surgical History Medical Problems: (1) Asthma Status: Chronic (2) Crohns disease Status: Chronic (3) Esophageal Reflux Status: Chronic (4) Fatigue Status: Acute (5) MTHFR mutation Status: Chronic (6) NSTEMI (non-ST elevated myocardial infarction) Status: Acute (7) Recurrent pulmonary embolism Status: Chronic (8) SOB (shortness of breath) on exertion Status: Acute (9) Unstable angina Status: Acute Family History Gallbladder disease Hypertension Old records reflect that his mother had pulmonary emboli. Social History Smoking Status: Never Smoker Marital Status: Housing Status: lives with family Occupation Status: retired Allergies Coded Allergies: No Known Allergies (Verified , 11/05/17) Home Medications Scheduled Adalimumab (Humira Pen), 40 MG SC UD B-Complex W/ Folic Acid (B Complex), 1 TAB PO QAM Cholecalciferol (Vitamin D), 1,000 UNITS PO QAM Colestipol Hcl (Colestipol Hcl), 1 GM PO HS Fenofibrate (Tricor), 160 MG PO QAM Pantoprazole (Protonix), 40 MG PO QAM Rivaroxaban (Xarelto), 20 MG PO QAM Current Inpatient Medications Current Inpatient Medications Medications (Trade) Dose Ordered Sig/Abrahan Route Start Time Stop Time Status Last Admin Dose Admin Pantoprazole Sodium (Protonix Tab) 40 mg QAM PO 11/06/17 09:00 12/06/17 08:59 11/06/17 07:34 40 MG Acetaminophen (Tylenol Tab) 650 mg Q4H PRN PO 11/05/17 20:30 12/05/17 20:29 Al Hydrox/Mg Hydrox/Simethicone (Maalox Max Susp) 15 ml Q4H PRN PO 11/05/17 20:30 12/05/17 20:29 Magnesium Hydroxide (Milk Of Magnesia Susp) 30 ml Q12H PRN PO 11/05/17 20:30 12/05/17 20:29 Zolpidem Tartrate (Ambien Tab) 5 mg HSZ PRN PO 11/05/17 20:30 12/05/17 20:29 Ondansetron HCl (Zofran Inj) 4 mg Q6H PRN IV 11/05/17 20:30 12/05/17 20:29 Polyethylene (Miralax Powder Packet) 17 gm DAILY PRN PO 11/05/17 20:30 12/05/17 20:29 Colestipol HCl (Colestid Tab) 1 gm DAILY@2200 PO 11/06/17 00:00 12/06/17 00:00 11/06/17 00:50 1 GM Miscellaneous Information (Order Awaiting Action) 1 ea QS N/A 11/06/17 00:00 12/06/17 00:00 Miscellaneous (Iv Fluids Completed) 1 ea PRN PRN N/A 11/05/17 21:00 11/05/18 20:59 Ioversol (Optiray 320) 100 ml UD PRN IV 11/05/17 23:15 11/09/17 23:14 Potassium Chloride/Sodium Chloride 1,000 ml @ 80 mls/hr [id number] IV 11/06/17 00:15 11/06/17 12:44 11/06/17 00:50 80 MLS/HR Heparin Sodium/ Dextrose 500 ml @ 32 mls/hr [id number] PRN IV 11/06/17 00:45 12/06/17 00:44 11/06/17 10:01 32 MLS/HR Cefazolin Sodium 1000 mg/Dextrose 57.5 ml @ 100 mls/hr PRE-SPECIALS ONCE IV 11/06/17 12:15 11/06/17 12:49 UNV Review of Systems Constitutional: Negative for night sweats, or fever Eyes: Negative for event change of vision ENT: Negative for epistaxis, nasal discharge, sore throat, or deafness Cardiovascular: Negative for chest pain, palpitations, dizziness, diaphoresis Respiratory: Negative for hemoptysis, or purulent cough Gastrointestinal: Negative for diarrhea, hematemesis, melena, nausea, vomiting , or dyspepsia Integumentary (skin): Negative for rash or jaundice discoloration Genitourinary: Negative for urinary frequency, hematuria, or dysuria Neurological: Negative for weakness, seizure activity, headache, or dizziness Lymphatic/Hematologic: Negative for petechiae, bleeding or new adenopathy Musculoskeletal: Negative for new joint or back pain Allergic/Immunologic: Negative for unusual rash or pruritis. Physical Exam Date Time Temp Pulse Resp B/P (MAP) Pulse Ox O2 Delivery O2 Flow Rate FiO2 11/06/17 12:00 Nasal Cannula 95.0 11/06/17 11:56 36.6 73 19 117/75 (89) 95 Nasal Cannula 2.0 11/06/17 08:00 Nasal Cannula 95.0 11/06/17 08:00 36.9 71 18 121/70 (87) 95 Nasal Cannula 2.0 11/06/17 04:00 Room Air 91.0 11/06/17 03:40 36.8 76 18 114/77 (89) 95 Nasal Cannula 2.0 11/06/17 01:05 92 Nasal Cannula 2.0 11/06/17 01:00 88 Room Air 11/06/17 00:00 Room Air 91.0 11/05/17 23:10 36.4 20 121/81 91 Room Air 11/05/17 22:05 36.4 94 22 129/83 90 11/05/17 21:43 94 22 129/83 90 Room Air 11/05/17 19:38 89 19 110/82 93 Nasal Cannula 2.0 11/05/17 19:01 88 20 129/90 91 Nasal Cannula 2.0 11/05/17 18:43 91 11/05/17 18:35 90 Nasal Cannula 2.0 11/05/17 18:34 91 18 129/90 86 Room Air 11/05/17 17:10 94 16 137/89 94 Room Air 11/05/17 15:00 Nasal Cannula 3.0 11/05/17 14:57 36.4 105 18 117/73 89 Room Air Constitutional: vitals are stable. Eyes: Eyes are GUERO EOMI without conjuctival erythema or icterus. ENT: External examination was negative for masses. Neck: Negative for masses or palpable thyromegaly Respiratory: Lung sounds were generally clear bilaterally Cardiovascular: Heart was RRR without significant murmur, gallops aoe rubs Gastrointestinal: No palpable hepatic or splenomegaly. The abdomen was soft with normal bowel sounds. Lymphatic system: there was no palpable peripheral lymphadenopathy Musculoskeletal System: The musculoskeletal system seemed concordant with age. Skin: The skin was negative for jaundice. Neurologic exam: The exam was negative for any focal findings. Deep tendon reflexes were equal and symmetrical. Psychiatric exam: Was essentially negative with normal mood and effect. Extremities: The right lower extremity is edematous. Laboratory Results Last 24 Hours Test 11/05/17 17:15 11/05/17 23:12 11/06/17 01:15 11/06/17 08:02 White Blood Count 12.30 K/uL Red Blood Count 4.71 M/uL Hemoglobin 15.4 g/dL Hematocrit 43.8 % Mean Corpuscular Volume 93.0 fL Mean Corpuscular Hemoglobin 32.7 pg Mean Corpuscular Hemoglobin Concent 35.2 g/dl Platelet Count 149 K/uL Mean Platelet Volume 9.3 fL Neutrophils (%) (Auto) 67.5 % Lymphocytes (%) (Auto) 22.7 % Monocytes (%) (Auto) 6.7 % Eosinophils (%) (Auto) 2.4 % Basophils (%) (Auto) 0.4 % Neutrophils # (Auto) 8.31 K/uL Lymphocytes # (Auto) 2.79 K/uL Monocytes # (Auto) 0.82 K/uL Eosinophils # (Auto) 0.29 K/uL Basophils # (Auto) 0.05 K/uL RDW Standard Deviation 44.8 fL RDW Coefficient of Variation 13.2 % Immature Granulocyte % (Auto) 0.3 % Immature Granulocyte # (Auto) 0.04 K/uL Sodium Level 137 mmol/L Potassium Level 3.5 mmol/L Chloride Level 103 mmol/L Carbon Dioxide Level 26 mmol/L Anion Gap 8.0 mmol/L Blood Urea Nitrogen 16 mg/dl Creatinine 1.32 mg/dl Est Creatinine Clear Calc Drug Dose 60.3 ml/min Estimated GFR () 63.8 Estimated GFR (Non- 55.0 BUN/Creatinine Ratio 11.9 Random Glucose 138 mg/dl Calcium Level 9.1 mg/dl Total Bilirubin 0.6 mg/dl Aspartate Amino Transf (AST/SGOT) 24 U/L Alanine Aminotransferase (ALT/SGPT) 47 U/L Alkaline Phosphatase 91 U/L Troponin I 0.138 ng/ml 0.082 ng/ml 0.041 ng/ml Total Protein 7.5 gm/dl Albumin 3.7 gm/dl Globulin 3.8 gm/dl Albumin/Globulin Ratio 1.0 Prothrombin Time 12.0 SECONDS Prothromb Time International Ratio 1.1 Activated Partial Thromboplast Time 25.0 SECONDS 41.1 SECONDS Partial Thromboplastin Ratio 1.0 1.6 Assessment & Plan It does appear that the patient is refractory to Xarelto and similarly then the rest of the DOACs or direct oral anticoagulants. I understand that an IVC filter is being considered or will be placed. Review of the CTA of his chest does reveal considerable clot and would agree with a temporary IVC filter placement. Heparin should continue 5-7 days at least. Beyond that I believe low molecular weight heparin (lovenox) will be needed going forward at 1.5 mg/ kg subcu daily. Anticoagulation clinic should be consulted to help monitor. I should note that an abdominal CT scan shows sigmoid colitis type changes otherwise is unremarkable.
--- NOTE | 2017-11-06 12:41 | Hospitalist Progress Note ---
Hospitalist Progress Note Date of Service Nov 06, 2017. (Emilie Francois ., PA-C) Subjective Pt evaluation today including: conversation w/ patient, physical exam, lab review, review of studies, review of inpatient medication list Voiding: no voiding problems Patient resting in bed. Very short w/ conversation. Denies any complaints, questions/concerns. Discussed hematology and vascular surgery consultation. +LE edema. Reviewed Dr. Adams's past note- recommended against Xarelto at that time due to poor absorption w/ Crohn's. Patient did not want Coumadin though due to routine INR checks. Patient denies any fever, chills, sweats, lightheadedness, dizziness, vision changes, CP, palpitations, SOB, wheezing, cough, abdominal pain, nausea, vomiting, diarrhea, urinary symptoms, melena, numbness/tingling, weakness, muscle/joint pain, anxiety/depression, active bleeding, or new skin discoloration/changes. (Emilie Francois ., PA-C) Medications Current Inpatient Medications Medications (Trade) Dose Ordered Sig/Abrahan Route Start Time Stop Time Status Last Admin Dose Admin Pantoprazole Sodium (Protonix Tab) 40 mg QAM PO 11/06/17 09:00 12/06/17 08:59 11/06/17 07:34 40 MG Acetaminophen (Tylenol Tab) 650 mg Q4H PRN PO 11/05/17 20:30 12/05/17 20:29 Al Hydrox/Mg Hydrox/Simethicone (Maalox Max Susp) 15 ml Q4H PRN PO 11/05/17 20:30 12/05/17 20:29 Magnesium Hydroxide (Milk Of Magnesia Susp) 30 ml Q12H PRN PO 11/05/17 20:30 12/05/17 20:29 Zolpidem Tartrate (Ambien Tab) 5 mg HSZ PRN PO 11/05/17 20:30 12/05/17 20:29 Ondansetron HCl (Zofran Inj) 4 mg Q6H PRN IV 11/05/17 20:30 12/05/17 20:29 Polyethylene (Miralax Powder Packet) 17 gm DAILY PRN PO 11/05/17 20:30 12/05/17 20:29 Colestipol HCl (Colestid Tab) 1 gm DAILY@2200 PO 11/06/17 00:00 12/06/17 00:00 11/06/17 00:50 1 GM Miscellaneous Information (Order Awaiting Action) 1 ea QS N/A 11/06/17 00:00 12/06/17 00:00 Miscellaneous (Iv Fluids Completed) 1 ea PRN PRN N/A 11/05/17 21:00 11/05/18 20:59 Ioversol (Optiray 320) 100 ml UD PRN IV 11/05/17 23:15 11/09/17 23:14 Potassium Chloride/Sodium Chloride 1,000 ml @ 80 mls/hr [id number] IV 11/06/17 00:15 11/06/17 12:44 11/06/17 00:50 80 MLS/HR Heparin Sodium/ Dextrose 500 ml @ 32 mls/hr [id number] PRN IV 11/06/17 00:45 12/06/17 00:44 11/06/17 10:01 32 MLS/HR Cefazolin Sodium 1000 mg/Dextrose 57.5 ml @ 100 mls/hr PRE-SPECIALS ONCE IV 11/06/17 12:15 11/06/17 12:49 UNV (Emilie Francois, IRIS) Objective Vital Signs Date Time Temp Pulse Resp B/P (MAP) Pulse Ox O2 Delivery O2 Flow Rate FiO2 11/06/17 12:00 Nasal Cannula 95.0 11/06/17 11:56 36.6 73 19 117/75 (89) 95 Nasal Cannula 2.0 11/06/17 08:00 Nasal Cannula 95.0 11/06/17 08:00 36.9 71 18 121/70 (87) 95 Nasal Cannula 2.0 11/06/17 04:00 Room Air 91.0 11/06/17 03:40 36.8 76 18 114/77 (89) 95 Nasal Cannula 2.0 11/06/17 01:05 92 Nasal Cannula 2.0 11/06/17 01:00 88 Room Air 11/06/17 00:00 Room Air 91.0 11/05/17 23:10 36.4 20 121/81 91 Room Air 11/05/17 22:05 36.4 94 22 129/83 90 11/05/17 21:43 94 22 129/83 90 Room Air 11/05/17 19:38 89 19 110/82 93 Nasal Cannula 2.0 11/05/17 19:01 88 20 129/90 91 Nasal Cannula 2.0 11/05/17 18:43 91 11/05/17 18:35 90 Nasal Cannula 2.0 11/05/17 18:34 91 18 129/90 86 Room Air 11/05/17 17:10 94 16 137/89 94 Room Air 11/05/17 15:00 Nasal Cannula 3.0 11/05/17 14:57 36.4 105 18 117/73 89 Room Air (Emilie Francois, PA-C) Physical Exam General Appearance: no apparent distress, + obese, + pertinent finding (O2 NC ) Eyes: normal inspection, PERRL ENT: hearing grossly normal Neck: supple Respiratory/Chest: lungs clear, no respiratory distress, no accessory muscle use Cardiovascular: regular rate, rhythm Abdomen: normal bowel sounds, non tender, soft Extremities: no calf tenderness, + swelling (+2 bilateral lower extremities ) Neurologic/Psychiatric: alert, normal mood/affect, oriented x 3 Skin: normal color, warm/dry, no rash (Emilie Francois ., PA-C) Laboratory Results Last 24 Hours Test 11/05/17 17:15 11/05/17 23:12 11/06/17 01:15 11/06/17 08:02 White Blood Count 12.30 K/uL Red Blood Count 4.71 M/uL Hemoglobin 15.4 g/dL Hematocrit 43.8 % Mean Corpuscular Volume 93.0 fL Mean Corpuscular Hemoglobin 32.7 pg Mean Corpuscular Hemoglobin Concent 35.2 g/dl Platelet Count 149 K/uL Mean Platelet Volume 9.3 fL Neutrophils (%) (Auto) 67.5 % Lymphocytes (%) (Auto) 22.7 % Monocytes (%) (Auto) 6.7 % Eosinophils (%) (Auto) 2.4 % Basophils (%) (Auto) 0.4 % Neutrophils # (Auto) 8.31 K/uL Lymphocytes # (Auto) 2.79 K/uL Monocytes # (Auto) 0.82 K/uL Eosinophils # (Auto) 0.29 K/uL Basophils # (Auto) 0.05 K/uL RDW Standard Deviation 44.8 fL RDW Coefficient of Variation 13.2 % Immature Granulocyte % (Auto) 0.3 % Immature Granulocyte # (Auto) 0.04 K/uL Sodium Level 137 mmol/L Potassium Level 3.5 mmol/L Chloride Level 103 mmol/L Carbon Dioxide Level 26 mmol/L Anion Gap 8.0 mmol/L Blood Urea Nitrogen 16 mg/dl Creatinine 1.32 mg/dl Est Creatinine Clear Calc Drug Dose 60.3 ml/min Estimated GFR () 63.8 Estimated GFR (Non- 55.0 BUN/Creatinine Ratio 11.9 Random Glucose 138 mg/dl Calcium Level 9.1 mg/dl Total Bilirubin 0.6 mg/dl Aspartate Amino Transf (AST/SGOT) 24 U/L Alanine Aminotransferase (ALT/SGPT) 47 U/L Alkaline Phosphatase 91 U/L Troponin I 0.138 ng/ml 0.082 ng/ml 0.041 ng/ml Total Protein 7.5 gm/dl Albumin 3.7 gm/dl Globulin 3.8 gm/dl Albumin/Globulin Ratio 1.0 Prothrombin Time 12.0 SECONDS Prothromb Time International Ratio 1.1 Activated Partial Thromboplast Time 25.0 SECONDS 41.1 SECONDS Partial Thromboplastin Ratio 1.0 1.6 (Emilie Francois, IRIS) Assessment and Plan 67 y/o M Hx recurrent HPL, Crohn's disease, recurrent PEs. Pt presents with progressive SOB and lower extremity edema. Symptoms have been present for a month but have worsened over the past few days. The pt underwent a CTA on for suspicion of recurrent PE despite compliance with daily Xarelto. No PE was present - a ground-glass opacity was detected in the R upper lobe. He does state that he has been occasionally lightheaded. Initial labs are notable for an elevated troponin. An EKG does not support acute ischemia. On review of records, he last had a similar troponin elevation 10/07 when he was diagnosed with a PE. He denies CP, palpitations, N/V, diaphoresis. His Crohn's disease has been in clinical remission for several years. Acute PE burden involving the distal R and L main pulmonary arteries as well as lobar, segmental, and subsegmental branches, R heart strain, RLE DVT- failed Xarelto: - Admitted to [facility] [place] [facility] for cardiac monitoring - Trended cardiac enzymes- peak trop 0.138 - O2 protocol, wean as tolerated - IV Heparin gtt - ECHO pending - Vascular surgery consulted- planning for IVC filter placement - Hematology consulted for AC recommendations- recommend Heparin x5-7 days, then Lovenox SQ 1.5 mg/kg daily Crohn's disease- in remission: Continue Humira HLD: Continue Tricor and Colestipol GERD: Protonix daily DVT prophylaxis: IV Heparin Code status: LEVEL I, FULL Dispo: Discharge uncertain at this time - Will need referral to AC clinic prior to discharge (Emilie Francois, PA-C) Supervising Note Dr. Morales I performed a history and physical examination on the patient. I reviewed above note and agree with it. I discussed plan with APC and patient. During my face to face encounter with the patient, I answered all of the patient's questions. (Dom Morales M.D.)
[2017-11-06] MEDS ORDERED: LIDOCAINE HCL 1% 20 ML VIAL INJ ONE (12:53)
[2017-11-06] MEDS ORDERED: FENTANYL CITRATE INJ 50 MCG/1 ML 2 ML VIAL IV ONE (12:55)
[2017-11-06] MEDS ORDERED: IODIXANOL (VISIPAQUE) 270 MG/ML 50ML IV ONE (13:08)
--- NOTE | 2017-11-06 13:10 | [facility] Post Operative Brief Note ---
Immediate Operative Summary Operative Date Nov 06, 2017. Pre-Operative Diagnosis Right Lower Extremity Deep Vein Thromobsis Bilateral Pulmonary Emboli Right heart strain Failure Xarelto therapy Post-Operative Diagnosis Right Lower Extremity Deep Vein Thromobsis Bilateral Pulmonary Emboli Right heart strain Failure Xarelto therapy Procedure(s) Performed Inferior Vena Cava Filter Placement, Right Jugular Approach Surgeon Cameron Shearing Machine Operator Surgeon(s) Bibiana Estimated Blood Loss 2 Findings Consistent with Post-Op Diagnosis Specimens None Drains None Anesthesia Type Local Complication(s) none Disposition Accompanied Pt To Recover: no Disposition:
--- NOTE | 2017-11-06 13:35 | DIAGNOSTIC IMAGING REPORT ---
DATE OF PROCEDURE: 11/06/2017 PREOPERATIVE DIAGNOSIS: Deep vein thrombosis with pulmonary embolism. POSTOPERATIVE DIAGNOSIS: Deep vein thrombosis with pulmonary embolism. PROCEDURE: Ultrasound-guided right IJ access, IVC filter placement, fluoroscopy positioning. SURGEON: Dr. Parker Barnes. GEOLOGY ASSOCIATE: Dr. Andressa Mccarty. ANESTHESIA: Local. COMPLICATIONS: None. DRAINS: None. INDICATIONS: Mr. Eran Rutherford is a 67-year-old gentleman with recent DVT and PE. For this reason, he was recommended to undergo placement of an IVC filter. Risks, benefits and alternatives were discussed with the patient and he consented to the procedure. DESCRIPTION OF PROCEDURE: The patient was taken to the endovascular suite and placed in the supine position. His right neck and chest were prepped and draped in the usual sterile fashion. A safety timeout was performed, and the patient, procedure and sidedness were correctly identified. Right neck was assessed with ultrasound and the right IJ appeared to be largely patent. Local anesthesia was used to anesthetize the skin overlying the right IJ. An 18-gauge access needle was used to access the right IJ under ultrasound guidance. Guidewire was passed through the access needle easily down into the IVC. A small skin yaz was made overlying the access site. The needle was removed and a dilator placed over the wire and used to dilate the tract. The dilator was removed and the filter sheath was placed into the infrarenal IVC. Cavogram was obtained and the position of the renal veins was identified. Filter was passed through the sheath down into the IVC. The sheath was withdrawn, exposing the filter. The filter was deployed without difficulty. Following deployment, the sheath was removed and manual pressure was held over the IJ access site for several minutes with good hemostasis. Sterile dressing was applied. The patient tolerated the procedure well and there were no immediate complications. Dr. Parker Barnes was present for the entire procedure.
[2017-11-06] MEDS ORDERED: PERFLUTREN LIPID MICROSPHERE (DEFINITY) IV ONE (15:20)
--- NOTE | 2017-11-06 16:31 | ECHOCARDIOGRAM REPORT ---
*NOTICE TO RECEIVING DEMOCRAT AGENCY This information is strictly Confidential and protected under [place] law. [place] law prohibits you from making any further disclosure of this information unless further disclosure is expressly permitted by the written consent of the person to whom it pertains or is authorized by law. A general authorization for the release of medical or other information is not sufficient for this purpose. Hospital accepts no responsibility if the information is made available to any other person, INCLUDING THE PATIENT. Interpretation Summary * Name: JARON HUANG Study Date: 11/06/2017 01:55 PM BP: 122/78 mmHg * Patient Location: 2\S\S238\S\1 HR: 72 * : 1950 (M/d/yyy) Gender: Male Height: 68 in * Age: 67 yrs Ethnicity: CA Weight: 211 lb * Ordering Physician: Emilie Francois * Referring Physician: Saira Noyola * Performed By: Samira Fritz RDCS * * Reason For Study: PE, R HEART STRAIN * BSA: 2.1 m2 * -- Conclusions -- * Left ventricular systolic function is normal. * Grade I diastolic dysfunction, (abnormal relaxation pattern). * The right ventricle is mildly dilated. * The right ventricular systolic function is borderline reduced. * Right ventricular systolic pressure is elevated at 30-40mmHg. * Compared to an echocardiogram performed 09/26/2016, there is no significant change Procedure Details * A contrast injection of Definity was performed to improve assessment of LV function. * Contrast was injected into an intravenous site in the right arm. * One vial of Definity ultrasound contrast was diluted in normal saline to a total volume of 10 ml. A total of '1' ml of solution was administered during imaging. * Lot # [id number] of Definity utilized for procedure. * Expiration date OCT 09. * The attending nurse who injected the contrast agent was BEN ELLIS RN. Left Ventricle * The left ventricle is normal in size. * There is normal left ventricular wall thickness. * Ejection Fraction = 60-65%. * Left ventricular systolic function is normal. * Grade I diastolic dysfunction, (abnormal relaxation pattern). * The left ventricular wall motion is normal. Right Ventricle * The right ventricle is mildly dilated. * The right ventricular systolic function is borderline reduced. * The right ventricular systolic function is normal as assessed by tricuspid annular plane systolic excursion (TAPSE) (normal >1.5 cm). Atria * The left atrial size is normal. * Right atrial size is normal. Mitral Valve * The mitral valve is grossly normal. * Significant mitral regurgitation is absent. Tricuspid Valve * The tricuspid valve is not well visualized, but is grossly normal. * There is trace tricuspid regurgitation. * Right ventricular systolic pressure is elevated at 30-40mmHg. Aortic Valve * The aortic valve is normal in structure and function. * No hemodynamically significant valvular aortic stenosis. * There is no significant aortic regurgitation. Great Vessels * The aortic root is normal size. Pericardium/Pleural * There is no pericardial effusion. MMode 2D Measurements and Calculations IVSd 1.1 cm IVSs 1.5 cm LVIDd 4.2 cm LVIDs 2.7 cm LVPWd 1.1 cm LVPWs 1.9 cm IVS/LVPW 0.99 FS 34.7 % EDV(Teich) 76.4 ml ESV(Teich) 27.3 ml EF(Teich) 64.3 % EDV(cubed) 71.5 ml ESV(cubed) 20.0 ml EF(cubed) 72.1 % % IVS thick 39.7 % % LVPW thick 69.5 % LV mass(C)d 153.3 grams LV mass(C)dI 73.3 grams/m\S\2 LV mass(C)s 172.9 grams LV mass(C)sI 82.7 grams/m\S\2 SV(Teich) 49.1 ml SI(Teich) 23.5 ml/m\S\2 SV(cubed) 51.6 ml SI(cubed) 24.7 ml/m\S\2 Ao root diam 3.7 cm Ao root area 10.6 cm\S\2 LA dimension 3.2 cm LA/Ao 0.86 LVAd ap4 24.0 cm\S\2 LVLd ap4 7.7 cm EDV(MOD-sp4) 60.7 ml EDV(sp4-el) 63.8 ml LVAs ap4 12.8 cm\S\2 LVLs ap4 6.0 cm ESV(MOD-sp4) 23.0 ml ESV(sp4-el) 23.5 ml EF(MOD-sp4) 62.0 % EF(sp4-el) 63.1 % SV(MOD-sp4) 37.7 ml SI(MOD-sp4) 18.0 ml/m\S\2 SV(sp4-el) 40.2 ml SI(sp4-el) 19.2 ml/m\S\2 Doppler Measurements and Calculations MV E max mone 67.8 cm/sec MV A max mone 72.3 cm/sec MV E/A 0.94 MV dec time 0.25 sec Ao V2 max 107.9 cm/sec Ao max PG 4.7 mmHg Ao max PG (full) 1.7 mmHg LV V1 max PG 2.9 mmHg LV V1 max 85.4 cm/sec TR max mone 269.2 cm/sec
[2017-11-06] MEDS ORDERED: RIVAROXABAN 10 MG TAB PO SCH (16:45)
[2017-11-07 00:01] LABS: PTT PATIENT 61.2 SECONDS (21.0-31.0)
[2017-11-07 03:52] VITALS: BP 100/61; PULSE 68; TEMP 36.7; O2SAT 93
[2017-11-07 06:55] LABS: HEMATOCRIT 38.7 % (42-52); HEMOGLOBIN 13.4 g/dL (14.0-18.0); MEAN CELL VOLUME 92.8 fL (80-100); MEAN CORPUSCULAR HEMOGLOBIN 32.1 pg (25-34); MEAN CORPUSCULAR HGB CONC 34.6 g/dl (32-36); MEAN PLATELET VOLUME 9.6 fL (7.4-10.4); PLATELET COUNT 146 K/uL (130-400); RED CELL DISTRIBUTION WIDTH CV 13.3 % (11.5-14.5); RED CELL DISTRIBUTION WIDTH SD 45.2 fL (36.4-46.3); WHITE BLOOD COUNT 7.33 K/uL (4.8-10.8)
[2017-11-07 07:18] LABS: PTT PATIENT 59.9 SECONDS (21.0-31.0)
[2017-11-07] MEDS: PANTOprazole SOD 40 MG TAB PO SCH (07:30)
[2017-11-07 07:32] LABS: CALCIUM 8.2 mg/dl (8.5-10.1); CREATININE 1.05 mg/dl (0.60-1.40); POTASSIUM 3.6 mmol/L (3.5-5.1)
[2017-11-07 07:49] VITALS: BP 106/72; PULSE 68; TEMP 36.6; O2SAT 94
--- NOTE | 2017-11-07 11:33 | PROGRESS NOTE ---
DATE: 11/07/2017 HOSPITALIST PROGRESS NOTE HISTORY OF PRESENT ILLNESS: Mr. Rutherford is a very pleasant 67-year-old white male with a history of hyperlipidemia, Crohn disease, and recurrent pulmonary emboli who was admitted acutely on 11/05/2017 complaining of progressive shortness of breath, and intermittent right leg swelling. He states that his symptoms were present for about a month ago, but got significantly worse over the preceding 2-3 days before admission. The patient was noted to be hypoxic. CT angiogram was done on admission which showed left main pulmonary embolism, and distal right pulmonary artery as well as lobar, segmental, and subsegmental emboli. Please note that these occurred while on Xarelto. The patient has MTHFR mutation. At the present time, the patient is gradually improving. The patient states that he is less short of breath, although he gets dyspneic with minimal activity. He has had a slight nonproductive cough, but denies any hemoptysis. Dr. Dumont was consulted regarding hypercoagulable state. He advised against using the direct oral anticoagulants as patient failed on Xarelto. The patient is not interested in using Coumadin. Current recommendation is to receive IV heparin drip for the first 5-7 days (currently on day #2), and convert to Lovenox at a dose of 1.5 mg/kg subcutaneous daily. The patient offers no other complaints or concerns. He denies any chest pain, heaviness, tightness, or pressure. Denies any neck, jaw, back or arm pain. He denies any orthopnea or PND. The patient denies any palpitations. MEDICATIONS: 1. Protonix 40 mg p.o. every day. 2. Heparin drip. 3. Colestipol 1 gram daily. 4. Tylenol 650 mg p.o. q. 4 hours p.r.n. for pain or fever. 5. Maalox Max p.r.n. 6. Milk of magnesia p.r.n. 7. Ambien 5 mg at bedtime p.r.n. for sleep. 8. Zofran 4 mg IV q. 6 hours p.r.n. for nausea. 9. MiraLax 17 g daily as needed for constipation. ALLERGIES: NKDA. PHYSICAL EXAMINATION: VITAL SIGNS: Temperature is 36.6 degrees Celsius, pulse is 60 and regular, blood pressure 106/72, SPO2 is 94% on room air, respiratory rate is 16 and unlabored. HEENT: Head is atraumatic, normocephalic. EOMs intact. Sclerae are anicteric. Face is symmetric. No perioral cyanosis. NECK: Without JVD. Insertion site for IVC filter is dressed over the right neck. CHEST AND LUNGS: With clear to auscultation throughout all lung [place], no wheezes or rales. No accessory muscle use. CARDIOVASCULAR: S1 and S2 are regular without obvious murmur, gallop or rub. PMI is nondisplaced. No lifts, heaves, or thrills. No abdominal, aortic or renal bruits. ABDOMEN: Bowel sounds are present. EXTREMITIES: Without clubbing or cyanosis. There is +1 pretibial edema on the right, trace to +1 pitting pretibial edema on the left. NEUROLOGIC: The patient is awake, alert and oriented. Pleasant and cooperative. Answers questions appropriately. Speech is clear. Normal movement of all 4 extremities. Gait pattern not assessed. Echocardiogram performed 11/06/2017 shows the followin. Normal LV size and systolic function. 2. LVEF 60%-65% without regional wall motion abnormalities. 3. Grade 1 diastolic dysfunction. 4. Mildly dilated RV with borderline reduced RV systolic function. 5. Normal biatrial dimensions. 6. Trace TR. 7. Estimated RV systolic pressure elevated at 30-40 mmHg. 8. No significant valvular abnormalities. LABORATORIES: White blood cell count 7.33, hemoglobin 13.4 g/dl, hematocrit 38.7% and platelet count is 146,000. Sodium is 140 mmol/L, potassium 3.6 mmol/L, BUN is 9 mg/dL, creatinine is 1.05 mg/dL. Random glucose 102 mg/dL. Troponin I level peaked at 0.13 ng/mL on admission, and it trended down to 0.041 ng/mL as of yesterday. ASSESSMENT: 1. 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 2. Status post inferior vena cava filter (postoperative day #1) 3. Failure on Xarelto. 4. Crohn disease. 5. Dyslipidemia. 6. Elevated troponin I level, likely secondary to right heart strain. 7. Normal left ventricular systolic function. 8. History of Crohn disease. 9. Shortness of breath has improved. PLAN: 1. The patient is currently on day #2 of heparin drip (continue for 5-7 days before converting to Lovenox at 1.5 mg/kg every 24 hours). 2. Continue to monitor saturations, heart rhythm. 3. Hematology has already been consulted and we are following their anticoagulation recommendations as directed. 4. The patient will likely need referral to anticoagulation clinic prior to discharge for further management going forward. 5. Continue Humira for Crohn disease. 6. Continue TriCor for dyslipidemia. 7. Continue Protonix 40 mg daily. 8. The patient is a level 1 full resuscitation. 9. We will continue to follow. MTDD
[2017-11-07 12:08] VITALS: BP 128/85; PULSE 74; TEMP 36.7; O2SAT 95
[2017-11-07] MEDS: HEPARIN 25,000 UNIT/500ML D5W 500 ML IV PRN (12:13)
[2017-11-07 14:59] VITALS: BP 107/69; PULSE 74; TEMP 36.6; O2SAT 96
[2017-11-07 19:01] VITALS: BP 119/78; PULSE 74; TEMP 37; O2SAT 94
[2017-11-07] MEDS: COLESTIPOL HCL 1 GM TAB PO SCH (20:16)
[2017-11-08 00:09] VITALS: BP 128/75; PULSE 73; TEMP 36.5; O2SAT 98
[2017-11-08 03:29] VITALS: BP 130/84; PULSE 70; TEMP 36.7; O2SAT 94
[2017-11-08 06:50] LABS: PTT PATIENT 64.2 SECONDS (21.0-31.0)
[2017-11-08 07:02] LABS: CALCIUM 8.5 mg/dl (8.5-10.1); CREATININE 1.05 mg/dl (0.60-1.40); POTASSIUM 3.5 mmol/L (3.5-5.1)
[2017-11-08] MEDS: HEPARIN 25,000 UNIT/500ML D5W 500 ML IV PRN (07:17)
[2017-11-08 07:58] VITALS: BP 126/84; PULSE 67; TEMP 37.1; O2SAT 96
[2017-11-08] MEDS: PANTOprazole SOD 40 MG TAB PO SCH (08:12)
[2017-11-08] MEDS ORDERED: CYANOCOBALAMIN 500 MCG TAB (VIT B-12) PO ONE (11:34)
[2017-11-08 12:10] VITALS: BP 126/77; PULSE 76; TEMP 36.9; O2SAT 96
--- NOTE | 2017-11-08 13:36 | PROGRESS NOTE ---
DATE: 11/08/2017 HISTORY OF PRESENT ILLNESS: Mr. Rutherford is a very pleasant 67-year-old white male with a history of hyperlipidemia, Crohn disease, MTHFR mutation with recurrent pulmonary emboli, and hyperhomocysteinemia, who was admitted acutely on 11/05/2017 complaining of progressive shortness of breath and intermittent right leg swelling. He states that the symptoms were present for about a month before he presented, but got significantly worse over the preceding 2-3 days before admission. On admission, he was noted to be hypoxic, and CT angiogram of the chest was done which showed a left main pulmonary embolism and a distal right pulmonary artery embolism as well as lobar, segmental, and subsegmental emboli. The patient was on Xarelto when this occurred, so he is no longer a candidate for direct oral anticoagulant. The patient remains completely stable in the telemetry unit. He has not had any hypoxia in the past 48 hours, and he is asymptomatic, although he has not been doing too much exertion. The patient denies any shortness of breath at rest, orthopnea, PND, cough, sputum production, or hemoptysis. He denies any chest pain, pleuritic or otherwise. He has not had any fever or chills. He has not had any further swelling in his right leg. The patient had an IVC filter placed yesterday and tolerated that procedure well. MEDICATIONS: 1. Protonix 40 mg daily. 2. Heparin drip. 3. Colestid 1 g daily. 4. Tylenol 650 mg p.o. q.4 hours p.r.n. 5. Maalox Max p.r.n. 6. Milk of magnesia p.r.n. 7. Ambien p.r.n. 8. Zofran p.r.n. 9. MiraLax powder 17 g daily as needed for constipation. 10. He will be restarted on vitamin B12 of 500 mcg p.o. every day. 11. He will be restarted on folic acid 1 mg p.o. every day. 12. We will be converting him from heparin drip to Lovenox at 1.5 mg/kg per day. ALLERGIES: NKDA. PHYSICAL EXAMINATION: VITAL SIGNS: Temperature is 37.1 degrees Celsius, pulse 67 and regular, respiratory rate is 18 and unlabored, blood pressure is 126/84, and SPO2 is 96% on room air. GENERAL: The patient is in no acute distress. HEENT: Head is atraumatic, normocephalic. EOMs intact. Sclerae are anicteric. Face is symmetric. No perioral cyanosis. Mucous membranes moist. NECK: Without thyromegaly, adenopathy, or JVD. Carotid upstrokes +2 bilaterally without bruits. CHEST AND LUNGS: Clear to auscultation throughout all lung [place]. No wheezes, rales, or rhonchi. No rubs. CARDIOVASCULAR: S1 and S2 are regular without murmur, gallop, or rub. PMI is nondisplaced. No lifts, heaves, or thrills. No abdominal, aortic, or renal bruits. ABDOMEN: Bowel sounds present. No masses, organomegaly, or tenderness. EXTREMITIES: No clubbing or cyanosis. There is trace to +1 right leg pretibial edema, trace pitting edema of the left leg. NEUROLOGIC: The patient is awake, alert and oriented. Pleasant and cooperative. Answers questions appropriately. Speech is clear. There is a pill rolling tremor of the left upper extremity, decreased facial expressions. Gait pattern not assessed. A 2-step oxygen test is pending. Echocardiogram on 11/06/2017: 1. Normal LV size and systolic function. 2. LVEF 60%-65% without regional wall motion abnormalities. 3. Grade 1 diastolic dysfunction. 4. Mildly dilated RV with borderline reduced RV systolic function. 5. Normal biatrial dimensions. 6. Trace TR. 7. Estimated RV systolic pressure elevated at 30-40 mmHg. 8. No significant valvular abnormalities. LABORATORY DATA: Sodium is 139 mmol/L, potassium 3.5 mmol/L, BUN is 10 mg/dL. Creatinine 1.05 mg/dL. Random glucose is 102 mg/dL. APTT is 64.2 seconds with a PTT ratio of 2.5. ASSESSMENT: 1. Recurrent bilateral pulmonary emboli while on Xarelto. 2. Hypoxemia, resolved. 3. Right ventricular strain with resultant bump in troponin I level. 4. Borderline reduced right ventricular systolic function. 5. Normal left ventricular systolic function. 6. History of MTHFR mutation and hyperhomocysteinemia. 7. Right lower extremity deep venous thrombosis. 8. Status post inferior vena cava filter, postoperative day #2. 9. Crohn disease. 10. Dyslipidemia. 11. Shortness of breath as a result. PLAN: 1. Discussed with Dr. Lamb, Dr. Celeste, and Dr. Cameron. At this point -- the patient has been remarkably stable. He has not been hypoxic in the last 48 hours, heart rate and blood pressure have been stable and acceptable, and he is no longer short of breath or complaining of dyspnea. 2. Based on the fact that Lovenox as just as efficacious as a heparin drip in the treatment of thromboembolic disease, we will attempt to discharge him either today or tomorrow pending the outcome of a 2-step oxygen test. Provided he does not become hypoxic with activities, the patient will be converted to Lovenox at 1.5 mg/kg subcutaneous injection daily as a maintenance anticoagulant. 3. Restart Vitamin B12 of 500 mcg daily. 4. Restart folic acid 1 mg daily. We will plan on leaving the inferior vena cava in place for approximately 3 months, and it will most likely be removed at that time. 5. Continue TriCor for dyslipidemia. 6. Continue Protonix 40 mg daily for GI prophylaxis. 7. Continue Humira for Crohn disease as an outpatient. 8. Arrangements will be made with the [facility] in the hospital for further management of anticoagulation. 9. We will continue to follow closely. Two step O2 study -- unremarkable. Patient discharged to home on Lovenox 150 mg subcutaneous injection every day -- in addition to his Vitamin B complex and Folic Acid supplements. -- Patient advised to follow up with PCP within 5 to 7 days. -- Patient referred to [facility] for management of chronic anticoagulation. SEE
[2017-11-08 15:12] VITALS: BP 116/75; PULSE 74; TEMP 37.1; O2SAT 93
[2017-11-08] MEDS ORDERED: LOVENOX SQ (15:55)
--- NOTE | 2017-11-08 16:10 | Discharge Instructions ---
Discharge Instructions Date of Service Nov 08, 2017. Admission Reason for Admission: 1. Shortness Of Breath, Hypoxia. 2. Bilateral Pulmonary Emboli. 3. Homozygous MTHFR Mutation. 4. Hyperhomocysteinemia 5. Elevated Troponin I secondary to RV strain. 6. Right Lower Extremity DVT. Discharge Discharge Diagnosis / Problem: Bilateral Pulmonary Emboli -- recurrent, Xarelto failure. Discharge Goals Goal(s): Improve function, Improve disease control, Learn about illness, Therapeutic intervention, Prevent Disease Progression Activity Recommendations Activity Limitations: as noted below Lifting Limitations: gradually increase as tolerated Exercise/Sports Limitations: gradually increase as tolerated May Resume Sexual Activity: when tolerated Shower/Bathe: no limitations Driving or Machine Use: no limitations . Instructions / Follow-Up Instructions / Follow-Up 1. Schedule for follow up in [facility] for management of terminal operator Lovenox. 2. Take Lovenox 150 mg subcutaneous injection every day. 3. Schedule follow up appointment with your PCP within the next 5 to 7 days. 4. Continue shelter B vitamin complex and folic acid supplementation. 5. Your IVC Filter will likely be temporary (approx 3 months) -- discuss this further with your PCP. Current Hospital Diet Patient's current hospital diet: AHA Diet (Heart Healthy) Discharge Diet Recommended Diet: Regular Diet Fluid Restriction: None Procedures Procedures Performed: Inferior Vena Cava Filter Placement, Right Jugular Approach Pending Studies Studies pending at discharge: no Laboratory Results Test 11/05/17 17:15 11/05/17 23:12 11/06/17 01:15 11/06/17 08:02 White Blood Count 12.30 Red Blood Count 4.71 Hemoglobin 15.4 Hematocrit 43.8 Mean Corpuscular Volume 93.0 Mean Corpuscular Hemoglobin 32.7 Mean Corpuscular Hemoglobin Concent 35.2 Platelet Count 149 Mean Platelet Volume 9.3 Neutrophils (%) (Auto) 67.5 Lymphocytes (%) (Auto) 22.7 Monocytes (%) (Auto) 6.7 Eosinophils (%) (Auto) 2.4 Basophils (%) (Auto) 0.4 Neutrophils # (Auto) 8.31 Lymphocytes # (Auto) 2.79 Monocytes # (Auto) 0.82 Eosinophils # (Auto) 0.29 Basophils # (Auto) 0.05 RDW Standard Deviation 44.8 RDW Coefficient of Variation 13.2 Immature Granulocyte % (Auto) 0.3 Immature Granulocyte # (Auto) 0.04 Total Bilirubin 0.6 Aspartate Amino Transferase (AST) 24 Alanine Aminotransferase (ALT) 47 Alkaline Phosphatase 91 Total Protein 7.5 Albumin 3.7 Globulin 3.8 Albumin/Globulin Ratio 1.0 Troponin I 0.082 0.041 Prothrombin Time 12.0 Prothrombin Time INR 1.1 Test 11/07/17 06:21 11/08/17 06:14 White Blood Count 7.33 Red Blood Count 4.17 Hemoglobin 13.4 Hematocrit 38.7 Mean Corpuscular Volume 92.8 Mean Corpuscular Hemoglobin 32.1 Mean Corpuscular Hemoglobin Concent 34.6 RDW Standard Deviation 45.2 RDW Coefficient of Variation 13.3 Platelet Count 146 Mean Platelet Volume 9.6 PTT 59.9 64.2 Partial Thromboplastin Ratio 2.3 2.5 Sodium Level 140 139 Potassium Level 3.6 3.5 Chloride Level 107 107 Carbon Dioxide Level 26 24 Anion Gap 7.0 8.0 Blood Urea Nitrogen 9 10 Creatinine 1.05 1.05 Est Creatinine Clear Calc Drug Dose 76.3 76.1 Estimated GFR () 84.1 84.1 Estimated GFR (Non- 72.6 72.6 BUN/Creatinine Ratio 8.2 9.3 Random Glucose 102 102 Calcium Level 8.2 8.5 Work Instructions Return To Work: after follow-up Lifting Limitations: none Medical Emergencies . Who to Call and When: Medical Emergencies: If at any time you feel your situation is an emergency, please call 911 immediately. . Non-Emergent Contact Non-Emergency issues call your: Primary Care Provider Call Non-Emergent contact if: you have a fever, you have any medication questions If you have a recurrent shortness of breath or leg swelling. . Past History Medical & Surgical History: (1) Pulmonary embolism, bilateral (2) DVT (deep venous thrombosis) (3) Homozygous for MTHFR gene mutation (4) Hypoxia (5) Elevated troponin I level (6) Shortness of breath . "Provider Documentation" section prepared by Ravinder Arreaga. . Infrastructure Design Engineer Recommendations Infrastructure Design Engineer Recommendations: 1. regional intermodal truck driver Lovenox. 2. Anticoagulation will be managed by [facility]. 3. Possible removal of IVC filter in 3 months pending clinical course. 4. Follow up with PCP. VTE Core Measure Inpt VTE Proph given/why not?: Other Anticoagulation
[2017-11-08 16:24] VITALS: BP 116/75; PULSE 76; TEMP 37.1; O2SAT 93
[2017-11-09] MEDS ORDERED: CYANOCOBALAMIN 500 MCG TAB (VIT B-12) PO SCH (09:00)
== END 2017-11-08 17:01 | disposition home or self-care (01) ==
LOC: C.EDB 14:49 → C.2T 20:30 → ENRESERV 21:01
PROVIDERS: ADMIT Internal Medicine; ATTEND Internal Medicine
DX: I82.401 Acute embolism and thrombosis of unspecified deep veins of right lower extremity (principal); I26.99 Other pulmonary embolism without acute cor pulmonale; E72.11 Homocystinuria; E78.5 Hyperlipidemia, unspecified; K50.90 Crohn's disease, unspecified, without complications; J45.909 Unspecified asthma, uncomplicated; Z87.01 Personal history of pneumonia (recurrent); Z90.89 Acquired absence of other organs; Z90.49 Acquired absence of other specified parts of digestive tract; Z79.01 Long term (current) use of anticoagulants; Z79.899 Other long term (current) drug therapy; Z82.49 Family history of ischemic heart disease and other diseases of the circulatory system

== ENCOUNTER → 2017-11-18 | Outpatient (CLI) | payer BC ==
[~2017-11-18] MED LIST changes: +LOVENOX SQ; +LVNIS150 INJ; -RIVA1TAB4 PO
--- NOTE | 2017-11-18 13:30 | DIAGNOSTIC IMAGING REPORT ---
SOFT TISS HEAD/NECK-THYROID CLINICAL HISTORY: 67 years-old Male presenting with DYSPHAGIA. TECHNIQUE: Real-time grayscale and color Doppler ultrasound imaging of the thyroid and base of the neck was performed. COMPARISON: None. FINDINGS: Right lobe: Normal echogenicity and echotexture. The right lobe of the thyroid measures 3.5 x 1.6 x 1.5 cm. No nodules. No parenchymal hyperemia. Left lobe: Normal echogenicity and echotexture. The left lobe of the thyroid measures 3.2 x 1.3 x 1.2 cm. No nodules. No parenchymal hyperemia. Isthmus: The isthmus measures 7 mm in thickness. No nodules. IMPRESSION: Normal thyroid ultrasound. Electronically signed by: Marcus Patel M.D. 11/18/2017 1:28 PM Dictated Date/Time: 11/18/2017 1:28 PM
== END | disposition home or self-care (01) ==
LOC: C.ULTR 12:47
PROVIDERS: ATTEND Family Medicine
DX: R53.1 Weakness (principal); R25.1 Tremor, unspecified; R13.10 Dysphagia, unspecified

== ENCOUNTER 2017-11-23 16:02 | Emergency (ER) | payer BC ==
[~2017-11-23] VITALS: Ht 172.7 cm; Wt 95.0 kg
[~2017-11-23 16:02] MED LIST changes: -LVNIS150 INJ; -OPTIRAY 320 IV PRN
[2017-11-23 16:06] VITALS: TEMP 36.6; Ht 172.7 cm; Wt 95.0 kg
[2017-11-23] MEDS ORDERED: LVNIS150 INJ (16:36)
--- NOTE | 2017-11-23 16:53 | DIAGNOSTIC IMAGING REPORT ---
CHEST ONE VIEW PORTABLE CLINICAL HISTORY: weak dyspnea COMPARISON STUDY: 11/05/2017 FINDINGS: The bones soft tissues and hemidiaphragms are normal. The cardiomediastinal silhouette is normal. The lungs are clear. The pulmonary vasculature is normal. IMPRESSION: Negative chest. The above report was generated using voice recognition software. It may contain grammatical, syntax or spelling errors. Electronically signed by: Calvin Walls M.D. 11/23/2017 4:51 PM Dictated Date/Time: 11/23/2017 4:51 PM
[2017-11-23] MEDS ORDERED: SODIUM CHLORIDE 0.9% 500ML 500 ML IV STA (16:57)
[2017-11-23] MEDS ORDERED: DEXAMETHASONE INJ 10 MG in SYRINGE 0 ML IV SCH (17:00)
[2017-11-23 17:10] LABS: BASO % 0.3 %; BASO ABS # 0.02 K/uL (0-0.2); EOS % 1.1 %; EOS ABS # 0.07 K/uL (0-0.5); HEMATOCRIT 43.3 % (42-52); IG# 0.01 K/uL (0.00-0.02); LYMPH ABS # 2.33 K/uL (1.2-3.4); MEAN CELL VOLUME 93.7 fL (80-100); MEAN CORPUSCULAR HEMOGLOBIN 32.5 pg (25-34); MEAN CORPUSCULAR HGB CONC 34.6 g/dl (32-36); MEAN PLATELET VOLUME 9.6 fL (7.4-10.4); MONO % 7.1 %; MONO ABS # 0.45 K/uL (0.11-0.59); NEUT % 54.3 %; NEUT ABS # 3.42 K/uL (1.4-6.5); PLATELET COUNT 257 K/uL (130-400); RED CELL DISTRIBUTION WIDTH CV 13.3 % (11.5-14.5); RED CELL DISTRIBUTION WIDTH SD 45.8 fL (36.4-46.3)
[2017-11-23 17:17] LABS: INR 1.1 (0.9-1.1)
[2017-11-23 17:52] LABS: ALBUMIN 3.4 gm/dl (3.4-5.0); CALCIUM 9.1 mg/dl (8.5-10.1); CREATININE 1.1 mg/dl (0.60-1.40); TOTAL PROTEIN 7.5 gm/dl (6.4-8.2)
[2017-11-23] MEDS ORDERED: LEVETIRACETAM IV 500 MG in DEXTROSE 5% 100ML 100 ML IV ONE ×2 (18:00→21:00)
[2017-11-23 19:43] VITALS: BP 138/78; PULSE 65; O2SAT 98
--- NOTE | 2017-11-23 22:49 | EMERGENCY ROOM VISIT NOTE ---
History Report prepared by Cherri: Sandoval Benavides Under the Supervision of: Dr. Conner Metcalf D.O. First contact with patient: 16:16 Chief Complaint: ABNORMAL DIAGNOSTIC TESTING Stated Complaint: HAD CT, SENT OVER - LARGE HETEROGENEOUS HYPERDENSE History of Present Illness The patient is a 67 year old male who presents to the Emergency Room with complaints of worsening left-sided weakness over the past 6 months. He states that he had a CT scan prior to arrival today of his brain, and was then sent here for evaluation due to a mass. The patient says that the weakness on his left upper and left lower extremity has been worsening, and over the past month , he has noticed worsening left-hand trembling. Per the patient's family, the patient was here a few weeks ago and had a DVT and PE. The patient has been recently extremely fatigued, with intermittent confusion. He says that sometimes it is "hard to figure stuff out". He adds that he holds onto the wall to walk. The patient states that he previous CT of his head before this one today was a "while ago". The patient denies any changes in vision, chest pain, shortness of breath, nausea, vomiting, diarrhea, or pain or burning with urination. Per the patient's family, the patient did pass blood in his urine 3 days ago. The patient does have Crohn's and reflux. He does take Lovenox daily. Source of History: patient, family Onset: Over past 6 months Position: other (left upper extremity and left lower extremity) Quality: other (weakness) Timing: worsening Associated Symptoms: + urinary symptoms (blood in urine a few days ago, denies pain or burning with urination), No chest pain, No SOB, No vomiting, No diarrhea Note: Associated symptoms: Confusion, left hand trembling. Denies changes in vision. Review of Systems See HPI for pertinent positives & negatives. A total of 10 systems reviewed and were otherwise negative. Past Medical & Surgical Medical Problems: (1) Asthma (2) Bronchitis (3) Chest pain (4) Crohns disease (5) DVT (deep venous thrombosis) (6) Elevated troponin I level (7) Esophageal Reflux (8) Homozygous for MTHFR gene mutation (9) Hypoxia (10) Hypoxia (11) MTHFR mutation (12) PNA (pneumonia) (13) Pulmonary embolism (14) Pulmonary embolism (15) Pulmonary embolism, bilateral (16) Recurrent pulmonary embolism (17) Shortness of breath (18) Skin problem (19) Syncope (20) Troponin I above reference range Surgical Problems: (1) History of appendectomy (2) History of cholecystectomy (3) History of surgical removal of terminal ileum Family History Gallbladder disease Hypertension Social History Smoking Status: Never Smoker Alcohol Use: none Marital Status: Housing Status: lives with family Occupation Status: retired Current/Historical Medications Scheduled Adalimumab (Humira Pen), 40 MG SC UD B-Complex W/ Folic Acid (B Complex), 1 TAB PO QAM Cholecalciferol (Vitamin D), 1,000 UNITS PO QAM Colestipol Hcl (Colestipol Hcl), 1 GM PO HS Enoxaparin (Lovenox), 150 MG INJ QPM Fenofibrate (Tricor), 160 MG PO QAM Pantoprazole (Protonix), 40 MG PO QAM Allergies Coded Allergies: No Known Allergies (Verified , 11/23/17) Physical Exam Vital Signs Date Time Temp Pulse Resp B/P (MAP) Pulse Ox O2 Delivery O2 Flow Rate FiO2 11/23/17 19:43 65 18 138/78 98 11/23/17 17:47 62 18 128/81 98 Room Air 11/23/17 16:47 64 11/23/17 16:06 36.6 65 16 126/86 94 Room Air Physical Exam GENERAL: Sitting up in bed, with twitching in left upper extremity, no acute distress, talking in full sentences. EYE EXAM: normal conjunctiva. PERRL and EOM's intact. OROPHARYNX: no exudate, no erythema, lips, buccal mucosa, and tongue normal and mucous membranes are moist NECK: supple, no nuchal rigidity, no adenopathy, non-tender LUNGS: Clear to auscultation. Normal chest wall mechanics HEART: no murmurs, S1 normal and S2 normal ABDOMEN: abdomen soft, non-tender, normo-active bowel sounds, no masses, no rebound or guarding. BACK: Back is symmetrical on inspection and there is no deformity, no midline tenderness, no CVA tenderness. SKIN: no rashes and no bruising UPPER EXTREMITIES: upper extremities are grossly normal. LOWER EXTREMITIES: No pitting edema. NEURO EXAM: Awake, alert, following commands, cranial nerves 2-12 intact. LUE is weak with grasp and flexion extension of elbow 4/5. RUE 5/5. Left lower slightly weaker than right 5/5 bilaterally. Medical Decision & Procedures ER Provider Diagnostic Interpretation: X-ray results as stated below per my review and the radiologist's interpretation : CHEST ONE VIEW PORTABLE CLINICAL HISTORY: weak dyspnea COMPARISON STUDY: 11/05/2017 FINDINGS: The bones soft tissues and hemidiaphragms are normal. The cardiomediastinal silhouette is normal. The lungs are clear. The pulmonary vasculature is normal. IMPRESSION: Negative chest. The above report was generated using voice recognition software. It may contain grammatical, syntax or spelling errors. Electronically signed by: Calvin Walls M.D. 11/23/2017 4:51 PM Dictated Date/Time: 11/23/2017 4:51 PM Laboratory Results 11/23/17 17:00 Red Blood Count 4.62, Mean Corpuscular Volume 93.7, Mean Corpuscular Hemoglobin 32.5, Mean Corpuscular Hemoglobin Concent 34.6, Mean Platelet Volume 9.6, Neutrophils (%) (Auto) 54.3, Lymphocytes (%) (Auto) 37.0, Monocytes (%) (Auto) 7.1, Eosinophils (%) (Auto) 1.1, Basophils (%) (Auto) 0.3, Neutrophils # (Auto) 3.42, Lymphocytes # (Auto) 2.33, Monocytes # (Auto) 0.45, Eosinophils # (Auto) 0.07, Basophils # (Auto) 0.02 11/23/17 17:00 Test 11/23/17 16:45 11/23/17 17:00 Urine Color YELLOW Urine Appearance CLEAR (CLEAR) Urine pH 5.0 (4.5-7.5) Urine Specific Garfield > 1.045 (1.000-1.030) Urine Protein NEG (NEG) Urine Glucose (UA) NEG (NEG) Urine Ketones NEG (NEG) Urine Occult Blood NEG (NEG) Urine Nitrite NEG (NEG) Urine Bilirubin NEG (NEG) Urine Urobilinogen NEG (NEG) Urine Leukocyte Esterase NEG (NEG) Urine WBC (Auto) 0 /hpf (0-5) Urine RBC (Auto) 0-4 /hpf (0-4) Urine Hyaline Casts (Auto) 0 /lpf (0-5) Urine Epithelial Cells (Auto) 0-5 /lpf (0-5) Urine Bacteria (Auto) NEG (NEG) White Blood Count 6.30 K/uL (4.8-10.8) Red Blood Count 4.62 M/uL (4.7-6.1) Hemoglobin 15.0 g/dL (14.0-18.0) Hematocrit 43.3 % (42-52) Mean Corpuscular Volume 93.7 fL (80-100) Mean Corpuscular Hemoglobin 32.5 pg (25-34) Mean Corpuscular Hemoglobin Concent 34.6 g/dl (32-36) Platelet Count 257 K/uL (130-400) Mean Platelet Volume 9.6 fL (7.4-10.4) Neutrophils (%) (Auto) 54.3 % Lymphocytes (%) (Auto) 37.0 % Monocytes (%) (Auto) 7.1 % Eosinophils (%) (Auto) 1.1 % Basophils (%) (Auto) 0.3 % Neutrophils # (Auto) 3.42 K/uL (1.4-6.5) Lymphocytes # (Auto) 2.33 K/uL (1.2-3.4) Monocytes # (Auto) 0.45 K/uL (0.11-0.59) Eosinophils # (Auto) 0.07 K/uL (0-0.5) Basophils # (Auto) 0.02 K/uL (0-0.2) RDW Standard Deviation 45.8 fL (36.4-46.3) RDW Coefficient of Variation 13.3 % (11.5-14.5) Immature Granulocyte % (Auto) 0.2 % Immature Granulocyte # (Auto) 0.01 K/uL (0.00-0.02) Prothrombin Time 11.9 SECONDS (9.0-12.0) Prothromb Time International Ratio 1.1 (0.9-1.1) Activated Partial Thromboplast Time 25.0 SECONDS (21.0-31.0) Partial Thromboplastin Ratio 1.0 Anion Gap 4.0 mmol/L (3-11) Est Creatinine Clear Calc Drug Dose 71.8 ml/min Estimated GFR () 79.5 Estimated GFR (Non- 68.6 BUN/Creatinine Ratio 12.6 (10-20) Calcium Level 9.1 mg/dl (8.5-10.1) Total Bilirubin 0.5 mg/dl (0.2-1) Direct Bilirubin mg/dl (0-0.2) Aspartate Amino Transf (AST/SGOT) U/L (15-37) Alanine Aminotransferase (ALT/SGPT) 62 U/L (12-78) Alkaline Phosphatase 90 U/L (45-117) Total Protein 7.5 gm/dl (6.4-8.2) Albumin 3.4 gm/dl (3.4-5.0) Lipase 154 U/L (73-393) Laboratory results per my review. Medications Administered Medications (Trade) Dose Ordered Sig/Abrahan Route Start Time Stop Time Status Last Admin Dose Admin Sodium Chloride 500 ml @ 999 mls/hr Q31M STAT IV 11/23/17 16:57 11/23/17 17:27 DC 11/23/17 17:30 999 MLS/HR Dexamethasone Sodium Phosphate 10 mg/Syringe 2.5 ml @ 1 mls/min ONE IV 11/23/17 17:00 11/23/17 20:22 DC 11/23/17 17:47 1 MLS/MIN Levetiracetam 500 mg/Dextrose 105 ml @ 420 mls/hr NOW ONCE IV 11/23/17 18:00 11/23/17 18:14 DC 11/23/17 18:00 420 MLS/HR ED Course ED COURSE: Vital signs were reviewed and showed normal vitals. The patients medical record was reviewed The above diagnostic studies were performed and reviewed. ED treatments and interventions as stated above. 1616: The patient was evaluated in room A1. A complete history and physical examination was performed. 1657: Ordered NSS 500 ml @ 999 mls/hr IV. 1700: Ordered Dexamethasone Sodium Phosphate 10 mg/Syringe 2.5 ml @ 1 mls/min IV. 1713: I discussed the patient with Dr. Juan Matias neurology - he and Dr. Ho (internal medicine) will accept the patient via transfer. Dr. Martinez says no SCU beds available, recommends ER. 1725: I discussed the patient with Dr. Alejandro Matias ED. 1730: Upon reevaluation, the patient is resting.I discussed my findings with the patient and he understands and agrees with the treatment plan. The patient and his prefer for the patient to go to [facility]. Based on the patients age, coexisting illnesses, exam and lab findings the decision to treat as a transfer was made. The patient will be transferred to [facility]. The patient remained stable while under my care. 1740: I discussed the patient with Dr. Tyson - [facility] - they will accept the patient via transfer. 1800: Ordered Levetiracetam 500 mg/Dextrose 105 ml @ 420 mls/hr IV. 192: I reevaluated the patient and updated him. He is being transferred now. 2100: Ordered Levetiracetam 500 mg/Dextrose 105 ml @ 420 mls/hr IV. Medical Decision Differential Diagnosis includes but is not limited to ischemic Stroke, hemorrhagic stroke, bells palsy, mass, neoplasm, migraine headache, seizure, subarachnoid hemorrhage, TIA, and transient global amnesia. Patient is a 67-year-old male who is referred in follow having a CT of his head done for left upper extremity and left lower extremity weakness. CT shows a 7 x 6 x 7 centimeter mass in the right frontal temporal region with a significant surrounding edema collapsing the ventricles and over 6 mm of midline shift. Patient does have left-sided weakness. I reviewed the images and blood work was obtained. Due to the complexity and the need for likely neurosurgical intervention I called neurosurgery from [facility]. They accepted the patient. He did not have a bed. Consequently I contacted the ER at [facility] but they were unable to accept the patient. Following this a discussed with [facility]. They are agreeable in accepting the patient in transfer to their neurosurgical service. Patient was given IV Decadron 10 mg due to the large amount of cerebral edema. He was also given IV Keppra to prevent any seizures due to the significant mass-effect. I did hold on any anticoagulation with his recent PEs. Patient family were updated at bedside. They are transferred to [facility]. Medication Reconcilliation Current Medication List: was personally reviewed by me Blood Pressure Screening Patient's blood pressure: Normal blood pressure Consults Time Called: 171 Consulting Physician: Dr. Juan Matias neurology and Dr. Vic Matias internal medic Returned Call: 1713 I discussed the patient with Dr. Juan Matias neurology - he and Dr. Ho (internal medicine) will accept the patient via transfer. Dr. Martinez says no SCU beds available, recommends ER. Additional Consults: Time Called: 1720 Consulted Physician: Dr. Alejandro Matias ED Returned Call: 1725 Additional Comments: I discussed the patient with Dr. Alejandro Matias ED. Time Called: 1730 Consulted Physician: Dr. Marbella Lala neurosurgery Returned Call: 1740 Additional Comments: I discussed the patient with Dr. Marbella [facility] neurosurgery - they will accept the patient via transfer. Impression Primary Impression: Brain mass Additional Impression: Cerebral edema Critical Care I have personally spent 35 minutes of critical care time in the direct management of this patient. This includes bedside care, interpretation of diagnostic studies, and testing, discussion with consultants, patient, and family members, and other required patient management activities. This 35 minutes is in excess of all separately billable procedures. Scribe Attestation The scribe's documentation has been prepared under my direction and personally reviewed by me in its entirety. I confirm that the note above accurately reflects all work, treatment, procedures, and medical decision making performed by me. Departure Information Dispostion Transfer Acute Care Facility (to [facility]) Referrals No Doctor, Assigned (PCP) Patient Instructions [facility] Problem Qualifiers
== END 2017-11-23 19:44 | disposition short-term general hospital (02) ==
LOC: C.EDB 16:03 → C.EDA 19:44
DX: C71.9 Malignant neoplasm of brain, unspecified (principal); G93.6 Cerebral edema; J45.909 Unspecified asthma, uncomplicated; K50.90 Crohn's disease, unspecified, without complications; E72.12 Methylenetetrahydrofolate reductase deficiency; Z82.49 Family history of ischemic heart disease and other diseases of the circulatory system

== ENCOUNTER → 2017-11-23 | Outpatient (CLI) | payer BC ==
[~2017-11-23] MED LIST changes: +OPTIRAY 320 IV PRN
--- NOTE | 2017-11-23 15:36 | DIAGNOSTIC IMAGING REPORT ---
CT SCAN OF THE BRAIN COMBO CLINICAL HISTORY: Dysphagia. COMPARISON STUDY: No priors. TECHNIQUE: Axial CT scan of the brain is performed from the vertex to the skull base before and following the IV administration of 93 cc of Optiray 320. IV contrast was administered without complication. A dose lowering technique was utilized adhering to the principles of ALARA. CT DOSE: 1277.12 mGycm FINDINGS: Brain parenchyma: There is a large heterogeneous hyperdense mass lesion centered in the right frontal lobe. This measures approximately 6 x 7 x 6 cm in dimension and demonstrates foci of central low-attenuation which may represent necrosis. There may be faint calcifications within this lesion, which closely abuts the dural surface along both the anterior convexity and in the midline falx. The mass demonstrates avid postcontrast enhancement and there is significant surrounding edema. There is approximately 7 mm of [id number] midline shift with associated effacement of the right lateral ventricle. This also effaces the overlying cortical sulci. No additional enhancing mass lesion is seen. There is no clear evidence of hemorrhage, and no evidence of acute territorial ischemia by CT criteria. Ventricles, sulci, cisterns: See above. Intracranial vasculature: The intracranial vessels at the skull base are patent as visualized. Calvarium: Unremarkable. Sinuses and mastoids: The visualized paranasal sinuses are clear. The mastoid air cells are well pneumatized. Orbits: The bony orbits are grossly intact. IMPRESSION: 1. There is a large heterogeneous mass lesion as detailed above which is centered in the right frontal lobe and measures approximate 6 x 7 x 6 cm. This closely abuts the dural surface, and this could be a parenchymal lesion versus an extra-axial lesion. Differential considerations include a large meningioma versus a primary TOUCHER UP glioma or less likely a large solitary metastatic lesion. Neurosurgical consultation is advised. 2. There is significant surrounding edema with [id number] midline shift and effacement of the right lateral ventricle. 3. No additional enhancing lesion is seen. 4. There is no clear evidence of hemorrhage, and no evidence of acute territorial ischemia by CT criteria. Electronically signed by: Henry Looney M.D. 11/23/2017 3:34 PM Dictated Date/Time: 11/23/2017 3:27 PM
== END | disposition home or self-care (01) ==
LOC: C.CTS 15:00
PROVIDERS: ATTEND Family Medicine
DX: R22.0 Localized swelling, mass and lump, head (principal); R53.1 Weakness; R25.1 Tremor, unspecified; R13.10 Dysphagia, unspecified

== ENCOUNTER → 2018-01-07 | Outpatient (CLI) | payer BC ==
[~2018-01-07] MED LIST changes: -B-COTAB53 PO; +CLR10 PO; +CYAN10005 PO; +DIAZ2TAB PO; +FOLI1TAB8 PO; +GADAVIST IV PRN; -LOVENOX SQ; +LVNIS150 INJ; +MELA1TAB5 PO; +WARF3TAB6 PO
--- NOTE | 2018-01-07 09:04 | DIAGNOSTIC IMAGING REPORT ---
MRI OF THE BRAIN WITHOUT AND WITH IV CONTRAST CLINICAL HISTORY: Meningioma COMPARISON STUDY: Outside study dated 11/30/2017 TECHNIQUE: MRI of the brain was performed from the vertex to the skull base utilizing various T1 and T2 weighted sequences. Following the IV administration of 9 mL of Gadavist contrast, additional enhanced images were obtained. FINDINGS: There are postsurgical changes of a right frontal craniotomy and tumor resection. There is a 4.5 cm T1 bright collection at the biopsy site consistent with post biopsy hemorrhage. There is a postsurgical subdural hematoma measuring 12 mm in maximal thickness on the right. There is mild vasogenic edema surrounding the hemorrhage. There is mass effect with mild right hemispheric sulcal effacement. There is 7 mm of right to left midline shift. Axial diffusion-weighted images reveal no evidence of acute or subacute infarction. There is no evidence of ventricular dilatation. Postcontrast images reveal linear enhancement surrounding the biopsy cavity. There is diffuse dural enhancement. IMPRESSION: 1. Postsurgical changes of a right frontal craniotomy and tumor resection 2. 4.5 cm hemorrhagic focus at the biopsy site. 3. Postsurgical subdural hematoma 4. Vasogenic edema surrounding the biopsy site with mild mass effect, and 7 mm right to left midline shift. 5. Nodular dural enhancement at the level of tumor resection. In addition there is thin diffuse dural enhancement. There is also linear enhancement surrounding the biopsy cavity. Residual tumor cannot be excluded. Electronically signed by: Gustabo Islas M.D. 01/07/2018 9:03 AM Dictated Date/Time: 01/07/2018 8:53 AM
== END | disposition home or self-care (01) ==
LOC: C.MRI 07:25
PROVIDERS: ATTEND Radiology Radiation Oncology
DX: C71.1 Malignant neoplasm of frontal lobe (principal); G97.61 Postprocedural hematoma of a nervous system organ or structure following a nervous system procedure; R93.0 Abnormal findings on diagnostic imaging of skull and head, not elsewhere classified; G93.6 Cerebral edema

== ENCOUNTER → 2018-01-20 | Outpatient (CLI) | payer BC ==
[~2018-01-20] MED LIST changes: -GADAVIST IV PRN
[2018-01-20 09:35] LABS: BASO % 0.3 %; BASO ABS # 0.02 K/uL (0-0.2); EOS % 1.8 %; EOS ABS # 0.13 K/uL (0-0.5); HEMATOCRIT 38.8 % (42-52); HEMOGLOBIN 13.4 g/dL (14.0-18.0); IG# 0.02 K/uL (0.00-0.02); LYMPH % 34.2 %; MEAN CELL VOLUME 93.5 fL (80-100); MEAN CORPUSCULAR HEMOGLOBIN 32.3 pg (25-34); MEAN CORPUSCULAR HGB CONC 34.5 g/dl (32-36); MEAN PLATELET VOLUME 8.9 fL (7.4-10.4); MONO % 7.1 %; MONO ABS # 0.52 K/uL (0.11-0.59); NEUT % 56.3 %; NEUT ABS # 4.12 K/uL (1.4-6.5); PLATELET COUNT 274 K/uL (130-400); RED CELL DISTRIBUTION WIDTH SD 50.3 fL (36.4-46.3); WHITE BLOOD COUNT 7.31 K/uL (4.8-10.8)
[2018-01-20 10:18] LABS: BLOOD UREA NITROGEN 17 mg/dl (7-18); CREATININE 1.04 mg/dl (0.60-1.40); GLUCOSE 102 mg/dl (70-99); SODIUM 139 mmol/L (136-145)
[2018-01-20 10:19] LABS: ALBUMIN 3.3 gm/dl (3.4-5.0); ALT/SGPT 55 U/L (12-78); AST/SGOT 31 U/L (15-37); CALCIUM 8.8 mg/dl (8.5-10.1); CARBON DIOXIDE 26 mmol/L (21-32); POTASSIUM 3.6 mmol/L (3.5-5.1)
[2018-01-20 10:21] LABS: ALKALINE PHOSPHATASE 140 U/L (45-117); TOTAL PROTEIN 7.6 gm/dl (6.4-8.2)
== END | disposition home or self-care (01) ==
LOC: C.LAB1850 08:42
PROVIDERS: ATTEND Internal Medicine
DX: E55.9 Vitamin D deficiency, unspecified (principal); K50.90 Crohn's disease, unspecified, without complications

== ENCOUNTER → 2018-01-21 | Outpatient (CLI) | payer BC | END | disposition home or self-care (01) | LOC: C.LABSPEC 08:05 | PROVIDERS: ATTEND Internal Medicine | DX: R10.9 Unspecified abdominal pain (principal); R19.7 Diarrhea, unspecified; K50.90 Crohn's disease, unspecified, without complications ==

== ENCOUNTER → 2018-01-26 | Outpatient (CLI) | payer BC ==
[~2018-01-26] MED LIST changes: -LVNIS150 INJ
== END | disposition home or self-care (01) ==
LOC: C.LAB 09:16
PROVIDERS: ATTEND Internal Medicine
DX: K50.90 Crohn's disease, unspecified, without complications (principal)

== ENCOUNTER → 2018-04-23 | Outpatient (CLI) | payer BC ==
[~2018-04-23] MED LIST changes: +B CO PO; -CHOL100010 PO; +CHOL2000 PO; +ERGO1TAB12 PO; -FENO160T PO; -FOLI1TAB8 PO; +OPTIRAY 320 IV PRN; -PANT40TA PO
--- NOTE | 2018-04-23 09:03 | DIAGNOSTIC IMAGING REPORT ---
CT OF THE CHEST WITH IV CONTRAST CLINICAL HISTORY: Pulmonary nodules COMPARISON STUDY: 11/05/2017 TECHNIQUE: Following the IV administration of 95 mL of Optiray-320, CT of the thorax was performed from the thoracic inlet to the lung bases. Images are reviewed in the axial, sagittal, and coronal planes. IV contrast was administered without complication. A dose lowering technique was utilized adhering to the principles of ALARA. CT DOSE: 395.77 mGy.cm FINDINGS: Thyroid: Imaged portions of the thyroid gland are normal in appearance. Thoracic aorta: The thoracic aorta is normal in course and caliber, noting standard 3-vessel arch anatomy. No aneurysm or dissection is seen. Pulmonary vasculature: The pulmonary trunk is normal in caliber. There are no central filling defects identified to suggest pulmonary embolus. Note that this examination was not protocoled for the evaluation of pulmonary emboli. HEART: The heart is normal in size and configuration, without pericardial effusion. Lungs and pleural spaces: There are dependent airspace opacities, likely atelectatic. There are bilateral subcentimeter solid pulmonary nodules which remain unchanged the preceding study. The largest is a 9 mm right lower lobe perifissural nodule. Mediastinum: There is no mediastinal lymphadenopathy. May: There is no evidence of pathologic hilar adenopathy Axilla: There is no evidence of pathologic axillary lymphadenopathy Upper abdomen: Partially visualized upper abdominal viscera is within normal limits. Skeletal structures: There are no lytic or blastic osseous lesions. IMPRESSION: 1. Deep dependent airspace opacities likely atelectatic 2. Multiple bilateral solid subcentimeter pulmonary nodules. A 12 month follow-up is recommended. 3. No evidence of pathologic adenopathy Electronically signed by: Gustabo Islas M.D. 04/23/2018 9:02 AM Dictated Date/Time: 04/23/2018 8:46 AM
== END | disposition home or self-care (01) ==
LOC: C.CTS 08:32
PROVIDERS: ATTEND Family Medicine
DX: R91.8 Other nonspecific abnormal finding of lung field (principal)

== ENCOUNTER 2023-10-08 10:18 | Inpatient (IN) ==
[2023-10-08 10:49] LABS: Basophils # (auto) 0.03 K/uL (0.00-0.20); Basophils % (auto) 0.4 %; Eosinophils # (auto) 0.06 K/uL (0.00-0.50); Eosinophils % (auto) 0.8 %; Hematocrit (blood only) 41.3 % (42.0-52.0); Hemoglobin 13.6 g/dl (14.0-18.0); Immature Granulocytes # (auto) 0.09 K/uL (0.01-0.20); Immature Granulocytes % (auto) 1.2 %; Lymphocytes # (auto) 2.23 K/uL (1.20-3.40); Lymphocytes % (auto) 29.8 %; Mean Corpuscular Hemoglobin 35.1 pg (25.0-34.0); Mean Corpuscular Hgb Conc 32.9 g/dL (32.0-36.0); Mean Corpuscular Volume 106.7 fL (80.0-100.0); Mean Platelet Volume 8.8 fL (9.4-12.4); Monocytes # (auto) 0.45 K/uL (0.11-0.59); Neutrophils # (auto) 4.63 K/uL (1.40-6.50); Neutrophils % (auto) 61.8 %; Platelet Count 165 K/uL (130-400); RDW Coefficient of Variation 16.5 % (11.5-14.5); RDW Standard Deviation 64.1 fL (36.4-46.3); Red Blood Count 3.87 M/uL (4.70-6.10); White Blood Count 7.49 K/ul (4.8-10.8)
--- NOTE | 2023-10-08 11:00 | XRay Report ---
SINGLE VIEW CHEST CLINICAL HISTORY: Fall. FINDINGS: An AP, portable, upright chest radiograph is compared to study dated 10/01/2023. The heart i s enlarged. The pulmonary vasculature is nondistended congested. Chronic interstitial thickening is s imilar to previous. There is bibasilar scarring/atelectasis. The lungs and pleural spaces are otherwi se clear. No pneumothorax is seen. The skeletal structures are osteopenic. The bony thorax is grossly intact. IMPRESSION: Cardiomegaly with no active disease in the chest. ACT 112: Negative or not required by law. Electronically signed by: Henry Looney M.D. 10/08/2023 10:59 AM
[2023-10-08 11:03] LABS: Albumin Globulin Ratio 1.5 (0.9-2); Albumin Level 3.7 gm/dl (3.4-5.0); BUN Creatinine Ratio 18.8 (10-20); Bilirubin,Total 0.5 mg/dl (0.2-1.0); Calcium 8.8 mg/dl (8.6-10.3); Creatinine Clr Calc Pharmacy 82.3 ml/min; Est GFR (African American) 89.9 ml/min; Est GFR (Non-African American) 77.6 ml/min; Globulin 2.4 gm/dl (2.5-4.0); Potassium 3.9 mmol/L (3.5-5.1); Total Protein 6.1 gm/dl (6.0-8.3)
[2023-10-08] MEDS ORDERED: OPTIRAY 320 500ml IV ONE (11:40)
--- NOTE | 2023-10-08 12:05 | CT Scan Report ---
HEAD CT NONCONTRAST CT DOSE: HISTORY: Left-sided weakness. fall TECHNIQUE: Multiaxial CT images of the head were performed without the use of intravenous contrast. A utomated exposure control was utilized for this study. A dose lowering technique was utilized adheri ng to the principles of ALARA. Comparison: Brain MRI 05/31/2023. Head CT 05/30/2023. Findings: Small retention cysts within the maxillary sinuses. The mastoid air cells are clear. Right frontal craniotomy with underlying right frontal encephalomalacia, unchanged. Atrophy and microvascul ar ischemic changes are again noted. There is no mass, hematoma, midline shift, acute infarct. Calcif ications within the right periventricular frontal white matter have slightly progressed. This favors posttreatment changes. Extra-axial soft tissue thickening along the right frontal convexity is simila r to the prior study. Impression: No significant change compared to the prior study. No acute intracranial abnormality. ACT 112: Negative or not required by law. Electronically signed by: Loco Aparicio M.D. 10/08/2023 12:04 PM
--- NOTE | 2023-10-08 12:08 | CT Scan Report ---
CERVICAL SPINE CT CT DOSE: HISTORY: fall TECHNIQUE: Multiaxial CT images of the cervical spine were performed and reformatted in the sagittal and coronal plane without the use of contrast. A dose lowering technique was utilized adhering to e principles of ALARA. COMPARISON: Cervical spine CT 11/23/2021. FINDINGS: No fractures. No subluxation. Prevertebral soft tissues and the C1-C2 interval are intact. No pneumothorax. Degenerative changes again noted. IMPRESSION: No fractures within the cervical spine. ACT 112: Negative or not required by law. Electronically signed by: Loco Aparicio M.D. 10/08/2023 12:06 PM
--- NOTE | 2023-10-08 12:28 | CT Scan Report ---
ABDOMEN AND PELVIS CT WITH IV CONTRAST CT DOSE: 2788.75 mGy.cm HISTORY: Acute onset abdominal pain status post fall fall TECHNIQUE: Multiaxial CT images of the abdomen and pelvis were performed following the IV administrat ion of 94 cc of Optiray, A dose lowering technique was utilized adhering to the principles of ALARA. COMPARISON STUDY: 01/01/2022 FINDINGS: Mild cardiomegaly with mild coronary artery calcifications. Subsegmental bibasilar atelecta sis versus scarring. No free air. Unremarkable spleen, pancreas and adrenal glands. Cholecystectomy. Hepatic steatosis. Patent portal vein. 10 mm cyst of the interpolar left kidney. No hydronephrosis. Decompressed urinary bladder with wall t hickening. Prostatomegaly. Atherosclerosis of the aorta without aneurysm. No lymphadenopathy. Tiny hi atal hernia. No bowel obstruction or bowel wall thickening. Foci of enhancement within the distal rec jose, possibly internal hemorrhoids. Mild colonic diverticulosis. Postoperative changes of the cecum a re again noted with appendectomy. Small fat filled anterior abdominal wall hernias. Degenerative louie ges of the spine, pelvis and hips. No acute fracture identified. IMPRESSION: 1. No acute posttraumatic intra-abdominal or intrapelvic abnormality. 2. No acute fracture identified. 3. Incidental findings as above. ACT 112: Negative or not required by law. The above report was generated using voice recognition software. It may contain grammatical, syntax o r spelling errors. Electronically signed by: Ancelmo Sauer M.D. 10/08/2023 12:27 PM
[2023-10-08 12:54] LABS: Troponin I High Sensitivity 7.1 pg/ml (0-20)
[2023-10-08 13:12] LABS: INR 2.2 (0.9-1.1); Partial Thromboplastin Time 28 Seconds (21-31); Prothrombin Time 22.7 Seconds (9.0-12.0)
--- NOTE | 2023-10-08 13:58 | XRay Report ---
SINGLE VIEW PELVIS CLINICAL HISTORY: Fall. FINDINGS: 2 AP, portable, supine pelvic radiographs are correlated with pelvic CT performed the same day 10/08/2023. The skeletal structures are osteopenic. There is no radiographic evidence of acute fra cture involving the hips or bony pelvis. Mild arthritic change and joint space narrowing is seen in t he hips. There is mild degenerative sclerosis of the sacroiliac joints. Enthesophytes arise from the anterior superior iliac spines. Extruded IV contrast is present within the collecting systems and scott dder. The overlying soft tissues are normal as imaged. Phleboliths are noted in the pelvis. IMPRESSION: No acute bony abnormality is identified. Electronically signed by: Henry Looney M.D. 10/08/2023 1:56 PM
--- NOTE | 2023-10-08 15:12 | History & Physical Report ---
Date of Service October 08, 2023 Assessment & Plan (1) Fall: Plan: Fell in the shower on the morning of 10/08; on warfarin Hgb 13.6 and HCT 41.3 on arrival Longstanding left-sided deficits/weakness; suspect this is contributing to fall Abdomen/pelvic CT revealed NAF or posttraumatic intra-abdominal abnormality Cervical spine NAF Head CT NAF Pelvic x-ray revealed NAF Parainfluenza 3 + on arrival; may also be contributing to most recent fall INR at 2.2 on arrival BNP WNL Fall precautions Acetaminophen as needed for pain PT/OT consult Case management consulted as patient is likely benefit from rehab AM CBC, BMP, PT/INR (2) Parainfluenza: Plan: Parainfluenza+ May have contributed to her fall today Clinically, patient denies respiratory symptoms, but notes increased fatigue Standard universal precautions If patient starts coughing/sneezing please add on contact isolation precautions (3) Recurrent falls: Plan: Hx of recurrent falls [facility] admission in May 2023 for fall (4) H/O meningioma of the brain: Plan: Extensive neuro history; resection of cerebral meningioma in November 2018 Hx of radiation-induced necrosis Patient receives brain MRI every 2-3mo Follows with [facility] (Loni Mckeon) (5) Crohn's disease: Plan: Continue pantoprazole Hold Humira while inpatient (6) History of pulmonary embolus (PE): Plan: On warfarin Follows with anticoagulation clinic (7) History of seizures: Plan: Continue Keppra Plan Disposition: Obs -admit to [facility] telemetry Full code AHA diet VTE PPx: On warfarin History of Present Illness Chief Complaint: Fall Primary Care Provider: Arthur Hubbard MD Eran is a 73-year-old male with PMH of brain cancer (malignant meningioma with tumor resection in November 2018), DVT, PE (on Coumadin), Crohn's disease, complex partial seizures, COPD, depression, recurrent falls, and vertigo. He presented via EMS for a ground-level fall in the shower on the morning of 10/08. Patient reports that his legs gave out, and that he did not slip or feel any dizziness before hand; no LOC; no head strike. Hx of frequent falls. Hx of brain surgery 5 years ago with left-sided weakness. Patient's (Lizzie) is at bedside and provides additional history. She helps him managing his medications; reports that he took all of his regular morning medications. Only recent medication change was increasing Keppra to 1500 twice daily. Patient takes warfarin in the evenings (he did not take it this morning); he follows with antico clinic. Hx of frequent falls, with most recent fall being on 09/16; patient's also reports he had difficulty rising from the chair 2 weeks ago. They do not have home health care help. Patient has been taking dexamethasone since May 2023, and is currently on a taper; he is down to 1 mg in the morning (with the last of his taper being from 10/03 - 10/17). He reports this may also be contributing to his muscle weakness. No at home supplemental oxygen use. Patient is currently taking Lasix for leg swelling (20 mg daily). No rashes or tick bites. He has increased fatigue, and reports that he has been "sleeping more than being awake". Regular tasks like showering are also exhausting. Vital stable at time of admission. ROS: Patient endorses increased fatigue, leg weakness, feet swelling, diarrhea, and numbness/tingling in the legs bilaterally. Patient denies fever, chills, night sweats, dizziness, lightheadedness, [place], chest pain, chest palpitations, pleuritic CP, SOB, cough, abdominal pain, or nausea/vomiting. Allergies Allergy/AdvReac Type Severity Reaction Status Date / Time No Known Allergies Allergy Verified 08/06/23 15:42 Home Medications Medication Instructions Recorded Confirmed Type adalimumab 40 mg/0.4 mL 40 mg subcut Q14D 06/07/18 10/08/23 History subcutaneous syringe kit (Humira(CF)) cholecalciferol (vitamin D3) 50 2,000 units PO QAM 06/07/18 10/08/23 History mcg (2,000 unit) capsule colestipol 1 gram tablet 1 gm PO BID 06/07/18 10/08/23 History cyanocobalamin (vitamin B-12) 1,000 mcg PO QAM 06/07/18 10/08/23 History 1,000 mcg capsule loratadine 10 mg tablet (Claritin) 10 mg PO DAILY PRN allergy symptoms 06/07/18 10/08/23 History acetaminophen 500 mg tablet 500 mg PO PRN PRN headache 10/29/21 10/08/23 History pantoprazole 40 mg tablet,delayed 40 mg PO DAILY 07/27/23 10/08/23 History release dexamethasone 2 mg tablet 1.5 mg PO DAILY 09/02/23 10/08/23 History furosemide 20 mg tablet (Lasix) 20 mg PO DAILY #7 tabs 09/13/23 10/08/23 Rx levetiracetam 1,000 mg tablet 1,500 mg (1.5 x 1,000 mg) PO BID 10/01/23 10/08/23 Rx 90 days #270 tabs warfarin 3 mg tablet 1.5 mg PO DIRECTED 10/06/23 10/08/23 History Past Med/Surg History Medical History History of seizures Radiation therapy induced brain necrosis treated through [facility] to reduce the swelling (2021) Status post gamma knife treatment gamma knife radiation 08/11/2021. GERD (gastroesophageal reflux disease) Dysphagia requesting to having an EGD done. (advised to call surgeon's office) Sensorineural hearing loss (SNHL) of left ear with unrestricted hearing of right ear H/O meningioma of the brain Brain MRI every 2-3 months. Complex partial seizure 10/2019 (first seizure) and 06/19/2022 most recent partial seizure r/t neuro surgery in 2019. Follows [facility] Neurology and Dr Byrne for a local neurologist. Crohn's disease History of brain tumor History of pulmonary embolus (PE) DVT (deep venous thrombosis) hx in 2018 s/p ileum resection - reason for warfarin. 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 Pulmonary embolism, bilateral ~2017. currently on coumadin. Surgical History History of embolic filter insertion removed in 2018. History of colonoscopy H/O craniotomy History of bowel resection Ilium resection History of cholecystectomy History of appendectomy Family History Father Asthma Other No family history of allergies No family history of bleeding disorder Denies family history of Hearing loss Deep vein thrombosis Coronary heart disease Heart disease Cancer Hypertension Stroke Social History Smoking Status: Never smoker Second Hand Exposure: No; Do You Dip or Chew Tobacco: No; Hx Alcohol Use: No Hx Substance Use: No Preferred Language: Portuguese Communication Ability: Effective [employer] Supervisor Required: No Beliefs That Will Affect Care: None marital status: Current Living Situation: Spouse current occupational status: retired Feels Safe at Home: Yes Assistive Devices: Cane, Glasses and Walker Review of Systems Review of Systems: See HPI above Physical Exam Physical Exam: General: Lethargic; flat affect; embolic; non-toxic appearing; well-nourished; cooperative HEENT: normocephalic, atraumatic; no scleral icterus; PERRLA w/ EOMs intact; moist mucus membrane; vision and hearing grossly intact Neck: supple; no lymphadenopathy; trachea midline Skin: warm, dry without signs of tenting; no cyanosis; no rashes, bruising, lesions, or erythema noted CV: chest wall NTP; RRR; S1/S2 normal; no murmurs/rubs/gallops; pulses intact and symmetric at radial, DP, and PT Lungs: no acute respiratory distress; symmetrical chest wall expansion; clear breath sounds across all lung [place]cala w/o adventitious sounds; no wheezing ABD: Soft, NTP; BS present; no rebound/guarding; mild distention secondary to body habitus MSK: no tics or fasciculations; +1 pitting edema in LEs B/L, nonerythematous; decreased strength in the LLE compared to the right; 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; residual left-sided deficits Neuro: A&Ox3; fluent speech; no focal deficits; sensation grossly intact in the LEs b/l Results & Data Results & Data Vital Signs (Past 12 Hours) Vital Signs Temp Pulse Pulse Resp BP BP Pulse Ox 10/08/23 14:56 74 22 131/97 95 10/08/23 14:39 67 10/08/23 12:50 77 16 115/70 98 10/08/23 12:00 68 16 120/75 94 10/08/23 10:50 36.8 C 10/08/23 10:31 72 10/08/23 10:23 82 16 140/89 95 O2 Del Method 10/08/23 14:56 Room Air 10/08/23 14:39 10/08/23 12:50 10/08/23 12:00 Room Air 10/08/23 10:50 10/08/23 10:31 10/08/23 10:23 Room Air Laboratory Results Abnormal lab results 10/08/23 10/08/23 10/08/23 Range/Units 10:35 12:29 14:27 RBC 3.87 L (4.70-6.10) M/uL Hgb 13.6 L (14.0-18.0) g/dl Hct 41.3 L (42.0-52.0) % MCV 106.7 H (80.0-100.0) fL MCH 35.1 H (25.0-34.0) pg RDW Std Deviation 64.1 H (36.4-46.3) fL RDW Coeff of Adriane 16.5 H (11.5-14.5) % MPV 8.8 L (9.4-12.4) fL PT 22.7 H (9.0-12.0) Seconds INR 2.2 H (0.9-1.1) Glucose 121 H (70-99(Fasting)) mg/dl Globulin 2.4 L (2.5-4.0) gm/dl Parainfluenza 3 (PCR) DETECTED A* (NotDetected) Diagnostic Findings Chest X-Ray 10/08/23 10:33 SINGLE VIEW CHEST CLINICAL HISTORY: Fall. FINDINGS: An AP, portable, upright chest radiograph is compared to study dated 10/01/2023. The heart is enlarged. The pulmonary vasculature is nondistended congested. Chronic interstitial thickening is similar to previous. There is bibasilar scarring/atelectasis. The lungs and pleural spaces are otherwise clear. No pneumothorax is seen. The skeletal structures are osteopenic. The bony thorax is grossly intact. IMPRESSION: Cardiomegaly with no active disease in the chest. ACT 112: Negative or not required by law. Electronically signed by: Henry Looney M.D. 10/08/2023 10:59 AM Abdomen/Pelvis CT 10/08/23 11:[address] WITH IV CONTRAST CT DOSE: 2788.75 mGy.cm HISTORY: Acute onset abdominal pain status post fall fall TECHNIQUE: Multiaxial CT images of the abdomen and pelvis were performed following the IV administration of 94 cc of Optiray, A dose lowering technique was utilized adhering to the principles of ALARA. COMPARISON STUDY: 01/01/2022 FINDINGS: Mild cardiomegaly with mild coronary artery calcifications. Subsegmental bibasilar atelectasis versus scarring. No free air. Unremarkable spleen, pancreas and adrenal glands. Cholecystectomy. Hepatic steatosis. Patent portal vein. 10 mm cyst of the interpolar left kidney. No hydronephrosis. Decompressed urinary bladder with wall thickening. Prostatomegaly. Atherosclerosis of the aorta without aneurysm. No lymphadenopathy. Tiny hiatal hernia. No bowel obstruction or bowel wall thickening. Foci of enhancement within the distal rectum, possibly internal hemorrhoids. Mild colonic diverticulosis. Postoperative changes of the cecum are again noted with appendectomy. Small fat filled anterior abdominal wall hernias. Degenerative changes of the spine, pel vis and hips. No acute fracture identified. IMPRESSION: 1. No acute posttraumatic intra-abdominal or intrapelvic abnormality. 2. No acute fracture identified. 3. Incidental findings as above. ACT 112: Negative or not required by law. The above report was generated using voice recognition software. It may contain grammatical, syntax or spelling errors. Electronically signed by: Ancelmo Sauer M.D. 10/08/2023 12:[address] 10/08/23 11:[address] DOSE: HISTORY: fall TECHNIQUE: Multiaxial CT images of the cervical spine were performed and reformatted in the sagittal and coronal plane without the use of contrast. A dose lowering technique was utilized adhering to the principles of ALARA. COMPARISON: Cervical spine CT 11/23/2021. FINDINGS: No fractures. No subluxation. Prevertebral soft tissues and the C1-C2 interval are intact. No pneumothorax. Degenerative changes again noted. IMPRESSION: No fractures within the cervical spine. ACT 112: Negative or not required by law. Electronically signed by: Loco Aparicio M.D. 10/08/2023 12:[address] 10/08/23 11:[address] DOSE: HISTORY: Left-sided weakness. fall TECHNIQUE: Multiaxial CT images of the head were performed without the use of intravenous contrast. Automated exposure control was utilized for this study. A dose lowering technique was utilized adhering to the principles of ALARA. Comparison: Brain MRI 05/31/2023. Head CT 05/30/2023. Findings: Small retention cysts within the maxillary sinuses. The mastoid air cells are clear. Right frontal craniotomy with underlying right frontal encephalomalacia, unchanged. Atrophy and microvascular ischemic changes are again noted. There is no mass, hematoma, midline shift, acute infarct. Calcifications within the right periventricular frontal white matter have slightly progressed. This favors posttreatment changes. Extra-axial soft tissue thickening along the right frontal convexity is similar to the prior study. Impression: No significant change compared to the prior study. No acute intracranial abnormality. ACT 112: Negative or not required by law. Electronically signed by: Loco Aparicio M.D. 10/08/2023 12:04 PM Pelvis X-Ray 10/08/23 11:31 SINGLE VIEW PELVIS CLINICAL HISTORY: Fall. FINDINGS: 2 AP, portable, supine pelvic radiographs are correlated with pelvic CT performed the same day 10/08/2023. The skeletal structures are osteopenic. There is no radiographic evidence of acute fracture involving the hips or bony pelvis. Mild arthritic change and joint space narrowing is seen in the hips. There is mild degenerative sclerosis of the sacroiliac joints. Enthesophytes arise from the anterior superior iliac spines. Extruded IV contrast is present within the collecting systems and bladder. The overlying soft tissues are normal as imaged. Phleboliths are noted in the pelvis. IMPRESSION: No acute bony abnormality is identified. Electronically signed by: Henry Looney M.D. 10/08/2023 1:56 PM Code Status & VTE Plan Code Status Full code VTE Prophylaxis Plan VTE Prophylaxis will be ordered: Yes Supervising Physician Co-Signing Physician Notes Patient seen and examined, chart reviewed, case discussed with Loco Savage PA-C and I agree with the assessment and plan as above except as otherwise noted Labs and images reviewed Eran is a 73-year-old male with a history of DVT/PE on Coumadin, brain cancer with malignant melanoma tumor resection in 2019, complex partial seizures, COPD, depression, recurrent falls and vertigo presents with global weakness and a ground-level fall and he was recommended for admission for PT/OT and placement. He has not had seizure-like activity, bowel/bladder incontinence, or syncope. He did recently have his Keppra increased to 1500 mg twice daily. On ER assessment he is found to be parainfluenza positive. CT scan does not show any acute abnormalities of the head or C-spine. CTA/P is without acute findings patient is admitted for symptomatic management of parainfluenza, PT/OT and placement.. Lungs are clear, heart rate is regular. Patient has baseline left-sided upper and lower extremity deficits, fatigues easily. no superimposed pneumonia appears present on admission. Patient is on warfarin for history of DVT/PE, but does not know his dosing but reports he has been taking this up through yesterday. No bleed identified on scans; will continue warfarin to goal INR 23. Agree with assessment and management as above PG Care Time/CCT Total # of Minutes Spent Total Time Spent with Patient: Total time spent is greater than 50% in coordination of care (as documented) at patient's floor/unit and/or counseling patient: Coding [place] [address] INT INP/OBS CARE 2/55MIN Patient Type Established Medical Decision Making Moderate Complexity Diagnoses Fall W19.XXXA Parainfluenza B34.8 Recurrent falls R29.6 H/O meningioma of the brain Z86.011 Crohn's disease K50.90 History of pulmonary embolus (PE) Z86.711 History of seizures Z87.898
[2023-10-08 15:41] LABS: Adenovirus PCR Not Detected (NotDetected); Bordetella parapertussis PCR Not Detected (NotDetected); Bordetella pertussis PCR Not Detected (NotDetected); Chlamydia pneumoniae PCR Not Detected (NotDetected); Coronavirus 229E PCR Not Detected (NotDetected); Coronavirus CoV-2 (COVID19)PCR Not Detected (NotDetected); Coronavirus HKU1 PCR Not Detected (NotDetected); Coronavirus NL63 PCR Not Detected (NotDetected); Coronavirus OC43PCR Not Detected (NotDetected); Human Metapneumovirus PCR Not Detected (NotDetected); Influenza A PCR Not Detected (NotDetected); Influenza B PCR Not Detected (NotDetected); Mycoplasma pneumoniae PCR Not Detected (NotDetected); Parainfluenza Virus 1 PCR Not Detected (NotDetected); Parainfluenza Virus 2 PCR Not Detected (NotDetected); Parainfluenza Virus 4 PCR Not Detected (NotDetected); Respiratory Syncytial VirusPCR Not Detected (NotDetected); Rhinovirus/Enterovirus PCR Not Detected (NotDetected)
[2023-10-08 15:45] LABS: Parainfluenza Virus 3 PCR DETECTED (NotDetected)
[2023-10-08] MEDS ORDERED: ONDANSETRON INJ 2 MG/ML 2 ML VIAL IV PRN (17:33)
[2023-10-08] MEDS ORDERED: LORATADINE 10 MG TAB PO PRN (17:33)
--- NOTE | 2023-10-08 18:15 | Emergency Department Note ---
History of Present Illness General Chief complaint: Fall Stated complaint: FALL, WEAKNESS Time Seen by Provider: 10/08/23 11:05 Source: patient and family ( at bedside) History of Present Illness Provider complaint: Fall Onset (ago): day(s) 1 73-year-old male presents emergency department for fall. Patient is here with his . Patient is on Coumadin. states the patient did not hit his head but he does have a history of brain tumor with resection at [facility]. Patient reports no pain acutely. reports that the patient been getting increasing weak over the last week. No melena hematochezia no hematuria or dysuria. No chest pain difficulty breathing. Home Medications Medication Instructions Recorded Confirmed Type adalimumab 40 mg/0.4 mL 40 mg subcut Q14D 06/07/18 10/08/23 History subcutaneous syringe kit (Humira(CF)) cholecalciferol (vitamin D3) 50 2,000 units PO QAM 06/07/18 10/08/23 History mcg (2,000 unit) capsule colestipol 1 gram tablet 1 gm PO BID 06/07/18 10/08/23 History cyanocobalamin (vitamin B-12) 1,000 mcg PO QAM 06/07/18 10/08/23 History 1,000 mcg capsule loratadine 10 mg tablet (Claritin) 10 mg PO DAILY PRN allergy symptoms 06/07/18 10/08/23 History acetaminophen 500 mg tablet 500 mg PO PRN PRN headache 10/29/21 10/08/23 History pantoprazole 40 mg tablet,delayed 40 mg PO DAILY 07/27/23 10/08/23 History release dexamethasone 2 mg tablet 1.5 mg PO DAILY 09/02/23 10/08/23 History furosemide 20 mg tablet (Lasix) 20 mg PO DAILY #7 tabs 09/13/23 10/08/23 Rx levetiracetam 1,000 mg tablet 1,500 mg (1.5 x 1,000 mg) PO BID 10/01/23 10/08/23 Rx 90 days #270 tabs warfarin 3 mg tablet 1.5 mg PO DIRECTED 10/06/23 10/08/23 History Allergies Allergy/AdvReac Type Severity Reaction Status Date / Time No Known Allergies Allergy Verified 08/06/23 15:42 Past Med/Surg History Medical History History of seizures 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 GERD (gastroesophageal reflux disease) Dysphagia requesting to having an EGD done. (advised to call surgeon's office) Sensorineural hearing loss (SNHL) of left ear with unrestricted hearing of right ear H/O meningioma of the brain Brain MRI every 2-3 months. Complex partial seizure 10/2019 (first seizure) and 06/19/2022 most recent partial seizure r/t neuro surgery in 2019. Follows [facility] and Dr Byrne for a local neurologist. Crohn's disease History of brain tumor History of pulmonary embolus (PE) DVT (deep venous thrombosis) hx in 2018 s/p ileum resection - reason for warfarin. 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 Pulmonary embolism, bilateral ~2018. currently on coumadin. Surgical History History of embolic filter insertion removed in 2018. History of colonoscopy H/O craniotomy History of bowel resection Ilium resection History of cholecystectomy History of appendectomy Family History Father Asthma Other No family history of allergies No family history of bleeding disorder Denies family history of Hearing loss Deep vein thrombosis Coronary heart disease Heart disease Cancer Hypertension Stroke Social History Smoking Status: Never smoker Second Hand Exposure: No; Do You Dip or Chew Tobacco: No; Hx Alcohol Use: No Hx Substance Use: No Preferred Language: Paraguayan Communication Ability: Effective Medical Program Specialist Required: No Beliefs That Will Affect Care: None marital status: Current Living Situation: Spouse current occupational status: retired Feels Safe at Home: Yes Assistive Devices: Cane, Glasses and Walker Physical Exam Vital Signs Vital Signs - 24 hr 10/08/23 10:23 10/08/23 10:24 10/08/23 10:30 Temperature Temperature Source Pulse Rate 82 72 71 Pulse Rate [Finger] Pulse Rate from SpO2 Sensor 73 70 Respiratory Rate 16 20 18 Respiratory Effort / Characteristics Non-Labored Spontaneous Respiratory Depth Normal Blood Pressure 140/89 Blood Pressure [Right Arm] Blood Pressure Mean 106 Blood Pressure Mean [Right Arm] Blood Pressure Position [Right Arm] Pulse Oximetry 95 97 96 Oxygen Delivery Method Room Air Sepsis Recent Fever Within 48 Hours No Sepsis New/Unexplained Change in Mental Status No Sepsis Action Taken by Nursing No Action Required 10/08/23 10:31 10/08/23 10:50 10/08/23 11:00 Temperature 36.8 C Temperature Source Oral Pulse Rate 72 66 Pulse Rate [Finger] Pulse Rate from SpO2 Sensor 66 Respiratory Rate 16 Respiratory Effort / Characteristics Respiratory Depth Blood Pressure Blood Pressure [Right Arm] Blood Pressure Mean Blood Pressure Mean [Right Arm] Blood Pressure Position [Right Arm] Pulse Oximetry 94 Oxygen Delivery Method Sepsis Recent Fever Within 48 Hours Sepsis New/Unexplained Change in Mental Status Sepsis Action Taken by Nursing 10/08/23 11:30 10/08/23 11:58 10/08/23 11:58 Temperature Temperature Source Pulse Rate 65 Pulse Rate [Finger] Pulse Rate from SpO2 Sensor 65 67 Respiratory Rate 26 H Respiratory Effort / Characteristics Respiratory Depth Blood Pressure 120/75 Blood Pressure [Right Arm] Blood Pressure Mean 98 Blood Pressure Mean [Right Arm] Blood Pressure Position [Right Arm] Pulse Oximetry 94 93 Oxygen Delivery Method Sepsis Recent Fever Within 48 Hours Sepsis New/Unexplained Change in Mental Status Sepsis Action Taken by Nursing 10/08/23 12:00 10/08/23 12:00 10/08/23 12:30 Temperature Temperature Source Pulse Rate 73 70 Pulse Rate [Finger] 68 Pulse Rate from SpO2 Sensor 72 70 Respiratory Rate 16 16 17 Respiratory Effort / Characteristics Non-Labored Respiratory Depth Normal Blood Pressure Blood Pressure [Right Arm] 120/75 Blood Pressure Mean Blood Pressure Mean [Right Arm] 90 Blood Pressure Position [Right Arm] Pulse Oximetry 94 94 94 Oxygen Delivery Method Room Air Sepsis Recent Fever Within 48 Hours Sepsis New/Unexplained Change in Mental Status Sepsis Action Taken by Nursing 10/08/23 12:50 10/08/23 13:00 10/08/23 13:30 Temperature Temperature Source Pulse Rate 67 66 Pulse Rate [Finger] 77 Pulse Rate from SpO2 Sensor 67 65 Respiratory Rate 16 25 H 16 Respiratory Effort / Characteristics Respiratory Depth Blood Pressure Blood Pressure [Right Arm] 115/70 Blood Pressure Mean Blood Pressure Mean [Right Arm] 85 Blood Pressure Position [Right Arm] Sitting Pulse Oximetry 98 94 95 Oxygen Delivery Method Sepsis Recent Fever Within 48 Hours Sepsis New/Unexplained Change in Mental Status Sepsis Action Taken by Nursing 10/08/23 14:00 10/08/23 14:27 10/08/23 14:27 Temperature Temperature Source Pulse Rate 65 68 Pulse Rate [Finger] Pulse Rate from SpO2 Sensor 65 68 Respiratory Rate 15 19 Respiratory Effort / Characteristics Respiratory Depth Blood Pressure 131/97 Blood Pressure [Right Arm] Blood Pressure Mean 108 Blood Pressure Mean [Right Arm] Blood Pressure Position [Right Arm] Pulse Oximetry 95 95 Oxygen Delivery Method Sepsis Recent Fever Within 48 Hours Sepsis New/Unexplained Change in Mental Status Sepsis Action Taken by Nursing 10/08/23 14:30 10/08/23 14:39 10/08/23 14:56 Temperature Temperature Source Pulse Rate 69 67 Pulse Rate [Finger] 74 Pulse Rate from SpO2 Sensor 69 Respiratory Rate 15 22 Respiratory Effort / Characteristics Respiratory Depth Blood Pressure Blood Pressure [Right Arm] 131/97 Blood Pressure Mean Blood Pressure Mean [Right Arm] 108 Blood Pressure Position [Right Arm] Sitting Pulse Oximetry 95 95 Oxygen Delivery Method Room Air Sepsis Recent Fever Within 48 Hours Sepsis New/Unexplained Change in Mental Status Sepsis Action Taken by Nursing 10/08/23 15:00 10/08/23 15:30 Temperature Temperature Source Pulse Rate 68 67 Pulse Rate [Finger] Pulse Rate from SpO2 Sensor 68 68 Respiratory Rate 15 21 Respiratory Effort / Characteristics Respiratory Depth Blood Pressure Blood Pressure [Right Arm] Blood Pressure Mean Blood Pressure Mean [Right Arm] Blood Pressure Position [Right Arm] Pulse Oximetry 95 95 Oxygen Delivery Method Sepsis Recent Fever Within 48 Hours Sepsis New/Unexplained Change in Mental Status Sepsis Action Taken by Nursing Physical Exam HENT: Exam performed. - Head: Normocephalic and atraumatic. EYES: Conjunctivae and EOM are normal. Right eye exhibits no discharge. Left eye exhibits no discharge. No scleral icterus. NECK: Normal range of motion. Neck supple. No JVD present. No pain on palpation of the C-spine. CV: Normal rate, regular rhythm, normal heart sounds and intact distal pulses. There is no peripheral edema. Palpable radial pulses bue. PULM/CHEST: Effort normal and breath sounds normal. No respiratory distress. No stridor. no wheezes. no rales. ABD: The abdomen is soft. There is no tenderness. MUSC: Pelvis stable. NEURO: Motor and sensation grossly intact. SKIN: Skin is warm and dry. He is not diaphoretic. PSYCH: normal mood and affect. Behavior is normal. Judgment and thought content normal. Course Course 1105: The patient was evaluated in room C3. A complete history and physical exam was performed Cardiac monitoring: An order was placed for continuous cardiac monitoring. The monitor shows a rate of 70 with sinus rhythm interpreted by me 1435: Vital signs stable. Labs and imaging within normal limits no acute traumatic injury. states that she cannot take the patient home as patient is too weak and she wants patient admitted to rehab facility. Discussed the case with case management who states that the patient cannot go to a rehab facility today and they recommend admitting the patient to the hospitalist team. [facility] hospitalist notified. 1545: Patient positive for parainfluenza 3. Administered Medications Discontinued Medications Ioversol (Optiray 320 500ml) 94 ml IV ONCE ONE Stop: 10/08/23 11:41 Last Admin: 10/08/23 11:41 Dose: 94 ml Documented By: SANTANA Medical Decision Making Laboratory Data Attestation: I reviewed the patient's lab results. 10/08/23 10:35 10/08/23 10:35 Lab Results 10/08/23 10/08/23 10/08/23 Range/Units 10:35 12:29 14:27 WBC 7.49 (4.8-10.8) K/ul RBC 3.87 L (4.70-6.10) M/uL Hgb 13.6 L (14.0-18.0) g/dl Hct 41.3 L (42.0-52.0) % MCV 106.7 H (80.0-100.0) fL MCH 35.1 H (25.0-34.0) pg MCHC 32.9 (32.0-36.0) g/dL RDW Std Deviation 64.1 H (36.4-46.3) fL RDW Coeff of Adriane 16.5 H (11.5-14.5) % Plt Count 165 (130-400) K/uL MPV 8.8 L (9.4-12.4) fL Immature Gran % (Auto) 1.2 % Neut % (Auto) 61.8 % Lymph % (Auto) 29.8 % [place] % (Auto) 6.0 % Eos % (Auto) 0.8 % Baso % (Auto) 0.4 % Neut # (Auto) 4.63 (1.40-6.50) K/uL Lymph # (Auto) 2.23 (1.20-3.40) K/uL [place] # (Auto) 0.45 (0.11-0.59) K/uL Eos # (Auto) 0.06 (0.00-0.50) K/uL Baso # (Auto) 0.03 (0.00-0.20) K/uL Immature Gran # (Auto) 0.09 (0.01-0.20) K/uL PT Cancelled 22.7 H INR Cancelled 2.2 H APTT Cancelled 28 PTT Ratio Cancelled 1.0 Sodium 141 (136-145) mmol/L Potassium 3.9 (3.5-5.1) mmol/L Chloride 105 (98-107) mmol/L Carbon Dioxide 29 (21-32) mmol/L Anion Gap 7 (3-11) BUN 18 (6-23) mg/dl Creatinine 0.96 (0.6-1.4) mg/dl Est Cr Clr Drug Dosing 82.3 ml/min Est GFR ( Amer) 89.9 ml/min Est GFR (Non-Af Amer) 77.6 ml/min BUN/Creatinine Ratio 18.8 (10-20) Glucose 121 H (70-99(Fasting)) mg/dl Calcium 8.8 (8.6-10.3) mg/dl Total Bilirubin 0.5 (0.2-1.0) mg/dl AST 30 (13-39) U/L ALT 41 (7-52) U/L Alkaline Phosphatase 42 (34-104) U/L Troponin I High Sens 7.1 (0-20) pg/ml B-Natriuretic Peptide 10 (0-100) pg/ml Total Protein 6.1 (6.0-8.3) gm/dl Albumin 3.7 (3.4-5.0) gm/dl Globulin 2.4 L (2.5-4.0) gm/dl Albumin/Globulin Ratio 1.5 (0.9-2) Adenovirus (PCR) Not Detected (NotDetected) B. pertussis DNA (PCR) Not Detected (NotDetected) B.parapertussis DNA PCR Not Detected (NotDetected) C. pneumoniae DNA (PCR) Not Detected (NotDetected) Coronavirus OC43 (PCR) Not Detected (NotDetected) Coronavirus HKU1 (PCR) Not Detected (NotDetected) Coronavirus 229E (PCR) Not Detected (NotDetected) SARS-CoV-2 (PCR) Not Detected (NotDetected) Coronavirus NL63 (PCR) Not Detected (NotDetected) Human Metapneumovir PCR Not Detected (NotDetected) Influenza Type A (PCR) Not Detected (NotDetected) Influenza Type B (PCR) Not Detected (NotDetected) M. pneumoniae (PCR) Not Detected (NotDetected) Parainfluenza 1 (PCR) Not Detected (NotDetected) Parainfluenza 2 (PCR) Not Detected (NotDetected) Parainfluenza 3 (PCR) DETECTED A* (NotDetected) Parainfluenza 4 (PCR) Not Detected (NotDetected) RSV (PCR) Not Detected (NotDetected) Entero/Rhino (PCR) Not Detected (NotDetected) Imaging Data Attestation: I personally reviewed and interpreted this imaging study as follows: My Impression: Pelvis x-ray: No acute fracture or dislocation Radiologist's Impression: Chest X-Ray 10/08/23 10:33 SINGLE VIEW CHEST CLINICAL HISTORY: Fall. FINDINGS: An AP, portable, upright chest radiograph is compared to study dated 10/01/2023. The heart is enlarged. The pulmonary vasculature is nondistended congested. Chronic interstitial thickening is similar to previous. There is bibasilar scarring/atelectasis. The lungs and pleural spaces are otherwise clear. No pneumothorax is seen. The skeletal structures are osteopenic. The bony thorax is grossly intact. IMPRESSION: Cardiomegaly with no active disease in the chest. ACT 112: Negative or not required by law. Electronically signed by: Henry Looney M.D. 10/08/2023 10:59 AM Abdomen/Pelvis CT 10/08/23 11:[address] WITH IV CONTRAST CT DOSE: 2788.75 mGy.cm HISTORY: Acute onset abdominal pain status post fall fall TECHNIQUE: Multiaxial CT images of the abdomen and pelvis were performed following the IV administration of 94 cc of Optiray, A dose lowering technique was utilized adhering to the principles of ALARA. COMPARISON STUDY: 01/01/2022 FINDINGS: Mild cardiomegaly with mild coronary artery calcifications. Subsegmental bibasilar atelectasis versus scarring. No free air. Unremarkable spleen, pancreas and adrenal glands. Cholecystectomy. Hepatic steatosis. Patent portal vein. 10 mm cyst of the interpolar left kidney. No hydronephrosis. Decompressed urinary bladder with wall thickening. Prostatomegaly. Atherosclerosis of the aorta without aneurysm. No lymphadenopathy. Tiny hiatal hernia. No bowel obstruction or bowel wall thickening. Foci of enhancement within the distal rectum, possibly internal hemorrhoids. Mild colonic diverticulosis. Postoperative changes of the cecum are again noted with appendectomy. Small fat filled anterior abdominal wall hernias. Degenerative changes of the spine, pelvis and hips. No acute fracture identified. IMPRESSION: 1. No acute posttraumatic intra-abdominal or intrapelvic abnormality. 2. No acute fracture identified. 3. Incidental findings as above. ACT 112: Negative or not required by law. The above report was generated using voice recognition software. It may contain grammatical, syntax or spelling errors. Electronically signed by: Ancelmo Sauer M.D. 10/08/2023 12:[address] 10/08/23 11:[address] DOSE: HISTORY: fall TECHNIQUE: Multiaxial CT images of the cervical spine were performed and reformatted in the sagittal and coronal plane without the use of contrast. A dose lowering technique was utilized adhering to the principles of ALARA. COMPARISON: Cervical spine CT 11/23/2021. FINDINGS: No fractures. No subluxation. Prevertebral soft tissues and the C1-C2 interval are intact. No pneumothorax. Degenerative changes again noted. IMPRESSION: No fractures within the cervical spine. ACT 112: Negative or not required by law. Electronically signed by: Loco Aparicio M.D. 10/08/2023 12:[address] 10/08/23 11:[address] DOSE: HISTORY: Left-sided weakness. fall TECHNIQUE: Multiaxial CT images of the head were performed without the use of intravenous contrast. Automated exposure control was utilized for this study. A dose lowering technique was utilized adhering to the principles of ALARA. Comparison: Brain MRI 05/31/2023. Head CT 05/30/2023. Findings: Small retention cysts within the maxillary sinuses. The mastoid air cells are clear. Right frontal craniotomy with underlying right frontal encephalomalacia, unchanged. Atrophy and microvascular ischemic changes are again noted. There is no mass, hematoma, midline shift, acute infarct. Calcifications within the right periventricular frontal white matter have slightly progressed. This favors posttreatment changes. Extra-axial soft tissue thickening along the right frontal convexity is similar to the prior study. Impression: No significant change compared to the prior study. No acute intracranial abnormality. ACT 112: Negative or not required by law. Electronically signed by: Loco Aparicio M.D. 10/08/2023 12:04 PM Pelvis X-Ray 10/08/23 11:31 SINGLE VIEW PELVIS CLINICAL HISTORY: Fall. FINDINGS: 2 AP, portable, supine pelvic radiographs are correlated with pelvic CT performed the same day 10/08/2023. The skeletal structures are osteopenic. There is no radiographic evidence of acute fracture involving the hips or bony pelvis. Mild arthritic change and joint space narrowing is seen in the hips. There is mild degenerative sclerosis of the sacroiliac joints. Enthesophytes arise from the anterior superior iliac spines. Extruded IV contrast is present within the collecting systems and bladder. The overlying soft tissues are normal as imaged. Phleboliths are noted in the pelvis. IMPRESSION: No acute bony abnormality is identified. Electronically signed by: Henry Looney M.D. 10/08/2023 1:56 PM ECG Data Attestation: I personally reviewed and interpreted this ECG as follows: Rate (beats per minute): 71 Rhythm: + normal sinus ECG Intervals/blocks: + Normal QRS, + Normal VT and + Normal QT-c ECG ST segments: + Normal ST segments MDM Narrative 1105: The patient was evaluated in room C3. A complete history and physical exam was performed Cardiac monitoring: An order was placed for continuous cardiac monitoring. The monitor shows a rate of 70 with sinus rhythm interpreted by me 1435: Vital signs stable. Labs and imaging within normal limits no acute traumatic injury. states that she cannot take the patient home as patient is too weak and she wants patient admitted to rehab facility. Discussed the case with case management who states that the patient cannot go to a rehab facility today and they recommend admitting the patient to the hospitalist team. [place] hospitalist notified. 1545: Patient positive for parainfluenza 3. Impression & Plan Parainfluenza, Weakness Discharge Plan Visit Data Chief Complaint: Fall Stated Complaint: FALL, WEAKNESS ED Provider: Jimbo Stringer Discharge Problem: Parainfluenza, Weakness Patient Disposition: Admitted As Inpatient Discharge Instructions Interventions: ED Discharge Assessment Last Done: 10/08/23 17:34
[2023-10-08] MEDS: WARFARIN SOD 3 MG TAB PO SCH (20:11)
[2023-10-08] MEDS: levETIRAcetam 500 MG TAB PO SCH (20:12)
[2023-10-08] MEDS: COLESTIPOL HCL 1 GM TAB PO SCH (21:35)
[2023-10-08 22:14] LABS: Appearance Urine Clear (Clear); Bilirubin Urine Negative (Negative); Blood Urine Negative (Negative); Color Urine Dark Yellow; Glucose Urine UA Negative (Negative); Ketones Urine Negative (Negative); Leukocyte Esterase Urine Negative (Negative); Nitrite Urine Negative (Negative); Protein Urine Negative (Negative); Specific Gravity Urine > 1.045 (1.000-1.030); Urobilinogen Urine Negative (Negative); pH Urine 6.5 (4.5-7.5)
[2023-10-09] MEDS: MICONAZOLE NITRATE POWDER 85 GM EXT PRN ×2 (01:50→09:20)
[2023-10-09 06:19] LABS: Basophils # (auto) 0.03 K/uL (0.00-0.20); Basophils % (auto) 0.4 %; Eosinophils # (auto) 0.04 K/uL (0.00-0.50); Eosinophils % (auto) 0.5 %; Hematocrit (blood only) 36.9 % (42.0-52.0); Hemoglobin 12.3 g/dl (14.0-18.0); Immature Granulocytes # (auto) 0.07 K/uL (0.01-0.20); Immature Granulocytes % (auto) 0.9 %; Lymphocytes # (auto) 2.12 K/uL (1.20-3.40); Lymphocytes % (auto) 27.7 %; Mean Corpuscular Hemoglobin 34.9 pg (25.0-34.0); Mean Corpuscular Hgb Conc 33.3 g/dL (32.0-36.0); Mean Corpuscular Volume 104.8 fL (80.0-100.0); Mean Platelet Volume 8.9 fL (9.4-12.4); Monocytes # (auto) 0.46 K/uL (0.11-0.59); Neutrophils # (auto) 4.93 K/uL (1.40-6.50); Neutrophils % (auto) 64.5 %; Platelet Count 136 K/uL (130-400); RDW Coefficient of Variation 16.2 % (11.5-14.5); RDW Standard Deviation 63.8 fL (36.4-46.3); Red Blood Count 3.52 M/uL (4.70-6.10); White Blood Count 7.65 K/ul (4.8-10.8)
[2023-10-09 06:34] LABS: BUN Creatinine Ratio 20.2 (10-20); Calcium 8.6 mg/dl (8.6-10.3); Creatinine Clr Calc Pharmacy 84.2 ml/min; Est GFR (African American) 92.2 ml/min; Est GFR (Non-African American) 79.6 ml/min; Potassium 3.7 mmol/L (3.5-5.1)
[2023-10-09 06:42] LABS: INR 1.8 (0.9-1.1); Prothrombin Time 18.9 Seconds (9.0-12.0)
[2023-10-09] MEDS ORDERED: ENOXAPARIN INJ 40 MG/0.4 ML SYR SQ ONE (08:53)
[2023-10-09] MEDS: levETIRAcetam 500 MG TAB PO SCH ×2 (09:20→20:56)
[2023-10-09] MEDS: CYANOCOBALAMIN (B-12) 500 MCG TABLET PO SCH (09:20)
[2023-10-09] MEDS: PANTOprazole 40 MG TAB PO SCH (09:20)
[2023-10-09] MEDS: COLESTIPOL HCL 1 GM TAB PO SCH ×2 (09:20→20:56)
[2023-10-09] MEDS: CHOLECALCIFEROL 25 MCG (1000 UNITS) TAB PO SCH (09:20)
[2023-10-09] MEDS: FUROSEMIDE 20 MG TAB PO SCH (09:20)
[2023-10-09 10:52] LABS: Folate (Folic Acid),Ser orPlas > 22.30 ng/ml (>5.38)
[2023-10-09 10:53] LABS: Vitamin B12 605 pg/ml (180-914)
--- NOTE | 2023-10-09 11:56 | Hospitalist Progress Note ---
Date of Service October 09, 2023 Assessment & Plan (1) Fall: Plan: Fell in the shower on the morning of 10/08; on warfarin Longstanding left-sided deficits/weakness; suspect this is contributing to fall along with new dx of parainfluenza virus 3 causing fatigue/malaise No signs of adrenal insufficiency given on chronic steroids and tapering down UA negative, CXR no PNA CT A/P, CT C-spine, CT head, CXR, and pelvis xray negative for acute findings Fall precautions Acetaminophen as needed for pain PT/OT consult-will likely need rehab (2) Parainfluenza: Plan: Parainfluenza+ on admission. With sore throat, malaise, no fevers. 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 FOllow (6) History of pulmonary embolus (PE): Plan: On warfarin Follows with anticoagulation clinic INR subtherapeutic now at 1.8--> give a one time dose of Lovenox 40mg SQ 10/09 and reassess daily until INR therapeutic Continue same coumadin dose and follow INR in AM (7) History of seizures: Plan: Continue Keppra no witnessed seizure activity with this fall Plan Disposition:continued stay, downgrade to medical/surgical unit, awaiting PT/OT consults and likely rehab placement Full code VTE PPx: On warfarin, Lovenox bridging as needed Admission and Anticipated Discharge Date Admission Date: October 08, 2023 Subjective Feeling very tired and has a sore throat. Denies fevers/chills, headache, SOB, or cough. Tele with NSR, rates 60s Physical Exam Constitutional: WD/WN, vitals as above Eyes: + anicteric sclerae ENMT: external ear and nose normal, oropharynx normal Respiratory: normal respiratory effort, lungs clear to auscultation Cardiovascular: Rate/Rhythm: regular rate and regular rhythm Extremities: + edema (2+ pitting edema legs bilat) Psychiatric: Orientation: alert, oriented to person, oriented to place and cooperative Results & Data Results & Data Vital Signs (Past 12 Hours) Vital Signs Temp Pulse Pulse Resp BP BP Pulse Ox 10/09/23 11:34 36.2 C L 66 16 130/88 96 10/09/23 10:20 65 10/09/23 07:59 36.3 C L 60 16 166/96 H 95 10/09/23 04:35 36.4 C L 64 18 138/86 96 10/09/23 00:31 10/09/23 00:18 70 10/09/23 00:16 36.3 C L 61 16 116/76 96 O2 Del Method 10/09/23 11:34 Room Air 10/09/23 10:20 10/09/23 07:59 Room Air 10/09/23 04:35 Room Air 10/09/23 00:31 Room Air 10/09/23 00:18 10/09/23 00:16 Room Air Laboratory Results CBC, BMP, B12, folate, INR reviewed PG Care Time/CCT Total # of Minutes Spent Total Time Spent with Patient: Total time spent is greater than 50% in coordination of care (as documented) at patient's floor/unit and/or counseling patient: Coding Level of Care Code 67441 SUB INP/OBS CARE 2/35MIN Diagnoses Fall W19.XXXA Parainfluenza B34.8 Recurrent falls R29.6 H/O meningioma of the brain Z86.011 Crohn's disease K50.90 History of pulmonary embolus (PE) Z86.711 History of seizures Z87.898
[2023-10-09] MEDS: dexAMETHasone 1 MG TAB PO SCH (12:53)
[2023-10-09] MEDS: WARFARIN SOD 0.5 MG TAB PO SCH (16:29)
--- NOTE | 2023-10-10 05:54 | Electrocardiogram Report ---
Test Reason : Blood Pressure : / mmHG Vent. Rate : 071 BPM Atrial Rate : 071 BPM P-R Int : 156 ms QRS Dur : 094 ms QT Int : 380 ms P-R-T Axes : 035 -49 022 degrees QTc Int : 412 ms Normal sinus rhythm Left axis deviation Minimal voltage criteria for LVH, may be normal variant ( R in aVL ) Possible Anterior infarct , age undetermined Abnormal ECG When compared with ECG of 13-SEP-2023 07:46, No significant change was found Confirmed by David Cox ([id number]) on 10/10/2023 5:53:35 AM Referred By: REFERRED SELF Confirmed By:David Cox
[2023-10-10 06:26] LABS: Basophils # (auto) 0.03 K/uL (0.00-0.20); Basophils % (auto) 0.4 %; Eosinophils # (auto) 0.03 K/uL (0.00-0.50); Eosinophils % (auto) 0.4 %; Hematocrit (blood only) 36.6 % (42.0-52.0); Hemoglobin 12.8 g/dl (14.0-18.0); Immature Granulocytes # (auto) 0.08 K/uL (0.01-0.20); Immature Granulocytes % (auto) 1.1 %; Lymphocytes # (auto) 1.78 K/uL (1.20-3.40); Lymphocytes % (auto) 24.9 %; Mean Corpuscular Hemoglobin 35.8 pg (25.0-34.0); Mean Corpuscular Volume 102.2 fL (80.0-100.0); Monocytes # (auto) 0.45 K/uL (0.11-0.59); Monocytes % (auto) 6.3 %; Neutrophils # (auto) 4.79 K/uL (1.40-6.50); Neutrophils % (auto) 66.9 %; Platelet Count 151 K/uL (130-400); RDW Coefficient of Variation 16.1 % (11.5-14.5); RDW Standard Deviation 61.2 fL (36.4-46.3); Red Blood Count 3.58 M/uL (4.70-6.10); White Blood Count 7.16 K/ul (4.8-10.8)
[2023-10-10 06:44] LABS: Est GFR (African American) 98.5 ml/min; Potassium 3.8 mmol/L (3.5-5.1)
[2023-10-10 07:43] LABS: INR 1.6 (0.9-1.1); Prothrombin Time 17.4 Seconds (9.0-12.0)
[2023-10-10] MEDS: COLESTIPOL HCL 1 GM TAB PO SCH ×2 (07:49→21:15)
[2023-10-10] MEDS: levETIRAcetam 500 MG TAB PO SCH ×2 (07:49→21:15)
[2023-10-10] MEDS: CYANOCOBALAMIN (B-12) 500 MCG TABLET PO SCH (07:50)
[2023-10-10] MEDS: dexAMETHasone 1 MG TAB PO SCH (07:50)
[2023-10-10] MEDS: PANTOprazole 40 MG TAB PO SCH (07:50)
[2023-10-10] MEDS: CHOLECALCIFEROL 25 MCG (1000 UNITS) TAB PO SCH (07:50)
[2023-10-10] MEDS: FUROSEMIDE 20 MG TAB PO SCH (07:50)
--- NOTE | 2023-10-10 15:02 | Hospitalist Progress Note ---
Date of Service October 10, 2023 Assessment & Plan (1) Fall: Plan: Fell in the shower on the morning of 10/08; on warfarin Longstanding left-sided deficits/weakness; suspect this is contributing to fall along with new dx of parainfluenza virus 3 causing fatigue/malaise No signs of adrenal insufficiency given on chronic steroids and tapering down UA negative, CXR no PNA CT A/P, CT C-spine, CT head, CXR, and pelvis xray negative for acute findings Fall precautions Acetaminophen as needed for pain PT/OT consult-will likely need rehab (2) Parainfluenza: Plan: Parainfluenza+ on admission. With sore throat, malaise, no fevers. 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 FOllow (6) History of pulmonary embolus (PE): Plan: On warfarin Follows with anticoagulation clinic INR subtherapeutic now at 1.6--> give a one time dose of Lovenox 40mg SQ 10/09. Will give another dose of Lovenox today 10/10 Continue same coumadin dose and follow INR in AM (7) History of seizures: Plan: Continue Keppra no witnessed seizure activity with this fall Plan Disposition: PT/OT on board. Case management on board. Likely rehab Full code VTE PPx: On warfarin, Lovenox bridging as needed Admission and Anticipated Discharge Date Admission Date: October 09, 2023 Subjective Patient feels well. Denies chest pain or shortness of breath. Feels weak in general. Review of Systems Review of Systems: All systems reviewed & are unremarkable except as noted in Subjective Physical Exam Physical Exam: General: Awake, conversant Heart: S1, S2/regular rate and rhythm, no murmur rubs or gallops Lungs: Clear to auscultation bilaterally. Normal effort Abdomen: Soft/nontender/nondistended. No hepatosplenomegaly Extremities: No clubbing/cyanosis. No edema Behavior: Appropriate, cooperative Results & Data Results & Data Vital Signs (Past 12 Hours) Vital Signs Temp Pulse Resp BP Pulse Ox O2 Del Method 10/10/23 07:29 36.5 C 73 16 127/82 94 Room Air Laboratory Results Abnormal lab results 10/10/23 Range/Units 05:59 RBC 3.58 L (4.70-6.10) M/uL Hgb 12.8 L (14.0-18.0) g/dl Hct 36.6 L (42.0-52.0) % MCV 102.2 H (80.0-100.0) fL MCH 35.8 H (25.0-34.0) pg RDW Std Deviation 61.2 H (36.4-46.3) fL RDW Coeff of Adriane 16.1 H (11.5-14.5) % MPV 9.0 L (9.4-12.4) fL PT 17.4 H (9.0-12.0) Seconds INR 1.6 H (0.9-1.1) BUN/Creatinine Ratio 23.0 H (10-20) Glucose 112 H (70-99(Fasting)) mg/dl PG Care Time/CCT Total # of Minutes Spent Total Time Spent with Patient: Total time spent is greater than 50% in coordination of care (as documented) at patient's floor/unit and/or counseling patient: Coding Level of Care Code 94185 SUB INP/OBS CARE 2/35MIN Diagnoses Fall W19.XXXA Parainfluenza B34.8 Recurrent falls R29.6 H/O meningioma of the brain Z86.011 Crohn's disease K50.90 History of pulmonary embolus (PE) Z86.711 History of seizures Z87.898
[2023-10-10] MEDS ORDERED: ENOXAPARIN INJ 40 MG/0.4 ML SYR SQ ONE (15:05)
[2023-10-10] MEDS: WARFARIN SOD 3 MG TAB PO SCH (17:13)
[2023-10-11 06:05] LABS: Basophils # (auto) 0.04 K/uL (0.00-0.20); Basophils % (auto) 0.5 %; Eosinophils # (auto) 0.05 K/uL (0.00-0.50); Eosinophils % (auto) 0.7 %; Hematocrit (blood only) 36.7 % (42.0-52.0); Hemoglobin 12.5 g/dl (14.0-18.0); Immature Granulocytes # (auto) 0.12 K/uL (0.01-0.20); Immature Granulocytes % (auto) 1.6 %; Lymphocytes # (auto) 2.52 K/uL (1.20-3.40); Lymphocytes % (auto) 32.9 %; Mean Corpuscular Hemoglobin 35.4 pg (25.0-34.0); Mean Corpuscular Hgb Conc 34.1 g/dL (32.0-36.0); Mean Platelet Volume 8.9 fL (9.4-12.4); Monocytes # (auto) 0.54 K/uL (0.11-0.59); Monocytes % (auto) 7.1 %; Neutrophils # (auto) 4.38 K/uL (1.40-6.50); Neutrophils % (auto) 57.2 %; Nucleated RBC # (auto) 0.02 K/uL (0.00-0.12); Nucleated RBC % (auto) 0.3 %; Platelet Count 162 K/uL (130-400); RDW Coefficient of Variation 16.3 % (11.5-14.5); RDW Standard Deviation 62.3 fL (36.4-46.3); Red Blood Count 3.53 M/uL (4.70-6.10); White Blood Count 7.65 K/ul (4.8-10.8)
[2023-10-11 06:24] LABS: BUN Creatinine Ratio 24.4 (10-20); Calcium 8.8 mg/dl (8.6-10.3); Creatinine Clr Calc Pharmacy 96.5 ml/min; Est GFR (Non-African American) 87.1 ml/min; Potassium 3.7 mmol/L (3.5-5.1)
[2023-10-11 06:31] LABS: INR 1.5 (0.9-1.1)
[2023-10-11] MEDS: levETIRAcetam 500 MG TAB PO SCH ×2 (07:45→19:37)
[2023-10-11] MEDS: CYANOCOBALAMIN (B-12) 500 MCG TABLET PO SCH (07:45)
[2023-10-11] MEDS: FUROSEMIDE 20 MG TAB PO SCH (07:45)
[2023-10-11] MEDS: PANTOprazole 40 MG TAB PO SCH (07:45)
[2023-10-11] MEDS: CHOLECALCIFEROL 25 MCG (1000 UNITS) TAB PO SCH (07:45)
[2023-10-11] MEDS: COLESTIPOL HCL 1 GM TAB PO SCH ×2 (07:45→19:37)
[2023-10-11] MEDS: dexAMETHasone 1 MG TAB PO SCH (07:45)
[2023-10-11] MEDS ORDERED: ENOXAPARIN INJ 40 MG/0.4 ML SYR SQ ONE (09:17)
--- NOTE | 2023-10-11 13:34 | Hospitalist Progress Note ---
Date of Service October 11, 2023 Assessment & Plan (1) Fall: Plan: Fell in the shower on the morning of 10/08; on warfarin Longstanding left-sided deficits/weakness; suspect this is contributing to fall along with new dx of parainfluenza virus 3 causing fatigue/malaise No signs of adrenal insufficiency given on chronic steroids and tapering down UA negative, CXR no PNA CT A/P, CT C-spine, CT head, CXR, and pelvis xray negative for acute findings Fall precautions Acetaminophen as needed for pain PT/OT consult-will likely need rehab (2) Parainfluenza: Plan: Parainfluenza+ on admission. With sore throat, malaise, no fevers. 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 FOllow (6) History of pulmonary embolus (PE): Plan: On warfarin Follows with anticoagulation clinic INR subtherapeutic now at 1.5--> gave a one time dose of Lovenox 40mg SQ 10/09 and on 10/10. Will give another dose of Lovenox today 10/11 Increase the dose of Coumadin to 6 mg today (7) History of seizures: Plan: Continue Keppra no witnessed seizure activity with this fall Plan Disposition: PT/OT on board. Case management on board. Likely rehab Full code VTE PPx: On warfarin, Lovenox bridging as needed Admission and Anticipated Discharge Date Admission Date: October 09, 2023 Subjective Patient has no new complaints. Per nurse, he had blood-streaked bowel movements yesterday twice. The patient says that he has hemorrhoids and this is not unusual for him to have bloody bowel movements. Noted that his INR is subtherapeutic at 1.5 today. Review of Systems Review of Systems: All systems reviewed & are unremarkable except as noted in Subjective Physical Exam Physical Exam: General: Awake, conversant Heart: S1, S2/regular rate and rhythm, no murmur rubs or gallops Lungs: Clear to auscultation bilaterally. Normal effort Abdomen: Soft/nontender/nondistended. No hepatosplenomegaly Extremities: No clubbing/cyanosis. 1+ bilateral pitting edema Behavior: Appropriate, cooperative Results & Data Results & Data Vital Signs (Past 12 Hours) Vital Signs Temp Pulse Resp BP Pulse Ox O2 Del Method 10/11/23 07:50 36.4 C L 79 18 145/88 H 96 Room Air 10/11/23 07:40 Room Air Laboratory Results Abnormal lab results 10/11/23 Range/Units 05:47 RBC 3.53 L (4.70-6.10) M/uL Hgb 12.5 L (14.0-18.0) g/dl Hct 36.7 L (42.0-52.0) % MCV 104.0 H (80.0-100.0) fL MCH 35.4 H (25.0-34.0) pg RDW Std Deviation 62.3 H (36.4-46.3) fL RDW Coeff of Adriane 16.3 H (11.5-14.5) % MPV 8.9 L (9.4-12.4) fL PT 16.0 H (9.0-12.0) Seconds INR 1.5 H (0.9-1.1) BUN/Creatinine Ratio 24.4 H (10-20) Glucose 121 H (70-99(Fasting)) mg/dl PG Care Time/CCT Total # of Minutes Spent Total Time Spent with Patient: Total time spent is greater than 50% in coordination of care (as documented) at patient's floor/unit and/or counseling patient: Coding Level of Care Code 30896 SUB INP/OBS CARE 2/35MIN Diagnoses Fall W19.XXXA Parainfluenza B34.8 Recurrent falls R29.6 H/O meningioma of the brain Z86.011 Crohn's disease K50.90 History of pulmonary embolus (PE) Z86.711 History of seizures Z87.890
[2023-10-11] MEDS ORDERED: WARFARIN SOD 6 MG TAB PO SCH (16:00)
[2023-10-12] MEDS: CHOLECALCIFEROL 25 MCG (1000 UNITS) TAB PO SCH (08:02)
[2023-10-12] MEDS: COLESTIPOL HCL 1 GM TAB PO SCH ×2 (08:02→20:00)
[2023-10-12] MEDS: PANTOprazole 40 MG TAB PO SCH (08:02)
[2023-10-12] MEDS: dexAMETHasone 1 MG TAB PO SCH (08:03)
[2023-10-12] MEDS: FUROSEMIDE 20 MG TAB PO SCH (08:03)
[2023-10-12] MEDS: levETIRAcetam 500 MG TAB PO SCH ×2 (08:03→20:00)
[2023-10-12] MEDS: CYANOCOBALAMIN (B-12) 500 MCG TABLET PO SCH (08:03)
[2023-10-12 09:00] LABS: Hematocrit (blood only) 41.9 % (42.0-52.0); Hemoglobin 14.8 g/dl (14.0-18.0); Mean Corpuscular Hemoglobin 35.9 pg (25.0-34.0); Mean Corpuscular Hgb Conc 35.3 g/dL (32.0-36.0); Mean Corpuscular Volume 101.7 fL (80.0-100.0); Mean Platelet Volume 9.1 fL (9.4-12.4); Nucleated RBC # (auto) 0.02 K/uL (0.00-0.12); Nucleated RBC % (auto) 0.2 %; Platelet Count 188 K/uL (130-400); RDW Coefficient of Variation 16.1 % (11.5-14.5); RDW Standard Deviation 60.4 fL (36.4-46.3); Red Blood Count 4.12 M/uL (4.70-6.10); White Blood Count 8.93 K/ul (4.8-10.8)
[2023-10-12 09:25] LABS: INR 1.7 (0.9-1.1); Prothrombin Time 18.4 Seconds (9.0-12.0)
[2023-10-12] MEDS ORDERED: ENOXAPARIN INJ 40 MG/0.4 ML SYR SQ ONE (14:12)
--- NOTE | 2023-10-12 14:30 | Hospitalist Progress Note ---
Date of Service October 12, 2023 Assessment & Plan (1) Fall: Plan: Fell in the shower on the morning of 10/08; on warfarin Longstanding left-sided deficits/weakness; suspect this is contributing to fall along with new dx of parainfluenza virus 3 causing fatigue/malaise No signs of adrenal insufficiency given on chronic steroids and tapering down UA negative, CXR no PNA CT A/P, CT C-spine, CT head, CXR, and pelvis xray negative for acute findings Fall precautions Acetaminophen as needed for pain PT/OT consult-will likely need rehab (2) Parainfluenza: Plan: Parainfluenza+ on admission. With sore throat, malaise, no fevers. CXR neg for PNA Likely contributed to his fall/increased weakness On contact precautions as per infection control guidelines Supportive care (3) Recurrent falls: Plan: Hx of recurrent falls Patient has generalized debility Per , he lives a very sedentary life and sleeps most of the day. 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 FOllow (6) History of pulmonary embolus (PE): Plan: On warfarin Follows with anticoagulation clinic INR subtherapeutic now at 1.7--> gave a one time dose of Lovenox 40mg SQ 10/09, 10/18, 10/11 and 10/12 Monitor INR Patient has hypercoagulable state and has had recurrent PEs and DVTs. (7) History of seizures: Plan: Continue Keppra no witnessed seizure activity with this fall Plan Disposition: PT/OT on board. Case management on board. Likely rehab Full code VTE PPx: On warfarin, Lovenox bridging as needed Admission and Anticipated Discharge Date Admission Date: October 09, 2023 Subjective Patient was sleeping when I walked into the room. He woke up for me. No chest pain or shortness of breath. I had a detailed conversation with his on the phone who stated that he sleeps most of the day. Review of Systems Review of Systems: All systems reviewed & are unremarkable except as noted in Subjective Physical Exam Physical Exam: General: Awake, conversant Heart: S1, S2/regular rate and rhythm, no murmur rubs or gallops Lungs: Clear to auscultation bilaterally. Normal effort Abdomen: Soft/nontender/nondistended. No hepatosplenomegaly Extremities: No clubbing/cyanosis. 1+ bilateral pitting edema Behavior: Appropriate, cooperative Results & Data Results & Data Vital Signs (Past 12 Hours) Vital Signs Temp Pulse Resp BP BP Pulse Ox O2 Del Method 10/12/23 14:05 36.5 C 71 16 108/73 95 Room Air 10/12/23 07:04 36.4 C L 66 18 131/89 96 Room Air Laboratory Results Abnormal lab results 10/12/23 Range/Units 08:39 RBC 4.12 L (4.70-6.10) M/uL Hct 41.9 L (42.0-52.0) % MCV 101.7 H (80.0-100.0) fL MCH 35.9 H (25.0-34.0) pg RDW Std Deviation 60.4 H (36.4-46.3) fL RDW Coeff of Adriane 16.1 H (11.5-14.5) % MPV 9.1 L (9.4-12.4) fL PT 18.4 H (9.0-12.0) Seconds INR 1.7 H (0.9-1.1) PG Care Time/CCT Total # of Minutes Spent Total Time Spent with Patient: Total time spent is greater than 50% in coordination of care (as documented) at patient's floor/unit and/or counseling patient: Coding Level of Care Code 18843 SUB INP/OBS CARE 2/35MIN Diagnoses Fall W19.XXXA Parainfluenza B34.8 Recurrent falls R29.6 H/O meningioma of the brain Z86.011 Crohn's disease K50.90 History of pulmonary embolus (PE) Z86.711 History of seizures Z87.898
[2023-10-12] MEDS: WARFARIN SOD 0.5 MG TAB PO SCH (17:03)
[2023-10-13 06:18] LABS: Hematocrit (blood only) 36.9 % (42.0-52.0); Hemoglobin 12.6 g/dl (14.0-18.0); Mean Corpuscular Hemoglobin 35.8 pg (25.0-34.0); Mean Corpuscular Hgb Conc 34.1 g/dL (32.0-36.0); Mean Corpuscular Volume 104.8 fL (80.0-100.0); Mean Platelet Volume 8.9 fL (9.4-12.4); Nucleated RBC # (auto) 0.02 K/uL (0.00-0.12); Nucleated RBC % (auto) 0.3 %; Platelet Count 151 K/uL (130-400); RDW Coefficient of Variation 16.3 % (11.5-14.5); Red Blood Count 3.52 M/uL (4.70-6.10); White Blood Count 7.58 K/ul (4.8-10.8)
[2023-10-13 06:55] LABS: INR 2.1 (0.9-1.1); Prothrombin Time 21.5 Seconds (9.0-12.0)
[2023-10-13] MEDS: COLESTIPOL HCL 1 GM TAB PO SCH ×2 (07:57→20:24)
[2023-10-13] MEDS: CHOLECALCIFEROL 25 MCG (1000 UNITS) TAB PO SCH (08:52)
[2023-10-13] MEDS: levETIRAcetam 500 MG TAB PO SCH ×2 (08:52→20:24)
[2023-10-13] MEDS: PANTOprazole 40 MG TAB PO SCH (08:53)
[2023-10-13] MEDS: CYANOCOBALAMIN (B-12) 500 MCG TABLET PO SCH (08:53)
[2023-10-13] MEDS: FUROSEMIDE 20 MG TAB PO SCH (08:53)
[2023-10-13] MEDS: dexAMETHasone 1 MG TAB PO SCH (08:54)
--- NOTE | 2023-10-13 16:13 | Hospitalist Progress Note ---
Date of Service October 13, 2023 Assessment & Plan (1) Fall: Plan: Fell in the shower on the morning of 10/08; on warfarin Longstanding left-sided deficits/weakness; suspect this is contributing to fall along with new dx of parainfluenza virus 3 causing fatigue/malaise No signs of adrenal insufficiency given on chronic steroids and tapering down UA negative, CXR no PNA CT A/P, CT C-spine, CT head, CXR, and pelvis xray negative for acute findings Fall precautions Acetaminophen as needed for pain PT/OT on board. Awaiting rehab placement (2) Parainfluenza: Plan: Parainfluenza+ on admission. With sore throat, malaise, no fevers. CXR neg for PNA Likely contributed to his fall/increased weakness On contact precautions as per infection control guidelines Supportive care (3) Recurrent falls: Plan: Hx of recurrent falls Patient has generalized debility Per , he lives a very sedentary life and sleeps most of the day. 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 FOllow (6) History of pulmonary embolus (PE): Plan: On warfarin Follows with anticoagulation clinic INR therapeutic today Monitor INR Patient has hypercoagulable state and has had recurrent PEs and DVTs. (7) History of seizures: Plan: Continue Keppra no witnessed seizure activity with this fall Plan Disposition: PT/OT on board. Case management on board. Likely rehab Full code VTE PPx: On warfarin Admission and Anticipated Discharge Date Admission Date: October 09, 2023 Subjective Patient feels well. Denies chest pain or shortness of breath. Review of Systems Review of Systems: All systems reviewed & are unremarkable except as noted in Subjective Physical Exam Physical Exam: General: Awake, conversant Heart: S1, S2/regular rate and rhythm, no murmur rubs or gallops Lungs: Clear to auscultation bilaterally. Normal effort Abdomen: Soft/nontender/nondistended. No hepatosplenomegaly Extremities: No clubbing/cyanosis. 1+ bilateral pitting edema Behavior: Appropriate, cooperative Results & Data Results & Data Vital Signs (Past 12 Hours) Vital Signs Temp Pulse Resp BP Pulse Ox O2 Del Method 10/13/23 15:19 36.4 C L 71 16 129/83 95 Room Air 10/13/23 06:59 36.4 C L 65 16 134/88 96 Room Air PG Care Time/CCT Total # of Minutes Spent Total Time Spent with Patient: Total time spent is greater than 50% in coordination of care (as documented) at patient's floor/unit and/or counseling patient: Coding Level of Care Code 73529 SUB INP/OBS CARE 2/35MIN Diagnoses Fall W19.XXXA Parainfluenza B34.8 Recurrent falls R29.6 H/O meningioma of the brain Z86.011 Crohn's disease K50.90 History of pulmonary embolus (PE) Z86.711 History of seizures Z87.898
[2023-10-13] MEDS: WARFARIN SOD 3 MG TAB PO SCH (16:56)
[2023-10-14 06:45] LABS: Hematocrit (blood only) 37.8 % (42.0-52.0); Hemoglobin 12.6 g/dl (14.0-18.0); Mean Corpuscular Hemoglobin 35.2 pg (25.0-34.0); Mean Corpuscular Hgb Conc 33.3 g/dL (32.0-36.0); Mean Corpuscular Volume 105.6 fL (80.0-100.0); Mean Platelet Volume 9.2 fL (9.4-12.4); Platelet Count 162 K/uL (130-400); RDW Coefficient of Variation 16.4 % (11.5-14.5); RDW Standard Deviation 64.1 fL (36.4-46.3); Red Blood Count 3.58 M/uL (4.70-6.10)
[2023-10-14] MEDS: COLESTIPOL HCL 1 GM TAB PO SCH ×2 (08:17→21:27)
[2023-10-14] MEDS: levETIRAcetam 500 MG TAB PO SCH ×2 (08:18→21:27)
[2023-10-14] MEDS: CYANOCOBALAMIN (B-12) 500 MCG TABLET PO SCH (08:19)
[2023-10-14] MEDS: PANTOprazole 40 MG TAB PO SCH (08:19)
[2023-10-14] MEDS: CHOLECALCIFEROL 25 MCG (1000 UNITS) TAB PO SCH (08:19)
[2023-10-14] MEDS: dexAMETHasone 1 MG TAB PO SCH (08:19)
[2023-10-14] MEDS: FUROSEMIDE 20 MG TAB PO SCH (08:20)
--- NOTE | 2023-10-14 14:47 | Hospitalist Progress Note ---
Date of Service October 14, 2023 Assessment & Plan (1) Fall: Plan: Fell in the shower on the morning of 10/08; on warfarin Longstanding left-sided deficits/weakness; suspect this is contributing to fall along with new dx of parainfluenza virus 3 causing fatigue/malaise No signs of adrenal insufficiency given on chronic steroids and tapering down UA negative, CXR no PNA CT A/P, CT C-spine, CT head, CXR, and pelvis xray negative for acute findings Fall precautions Acetaminophen as needed for pain PT/OT on board. Awaiting rehab placement (2) Parainfluenza: Plan: Parainfluenza+ on admission. With sore throat, malaise, no fevers. CXR neg for PNA Likely contributed to his fall/increased weakness On contact precautions as per infection control guidelines Supportive care (3) Recurrent falls: Plan: Hx of recurrent falls Patient has generalized debility Per , he lives a very sedentary life and sleeps most of the day. 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 FOllow (6) History of pulmonary embolus (PE): Plan: On warfarin Follows with anticoagulation clinic INR therapeutic 10/13 Patient has hypercoagulable state and has had recurrent PEs and DVTs. (7) History of seizures: Plan: Continue Keppra no witnessed seizure activity with this fall Plan Disposition: PT/OT on board. Case management working on placement Full code VTE PPx: On warfarin Admission and Anticipated Discharge Date Admission Date: October 09, 2023 Subjective Patient feels well. Denies chest pain or shortness of breath Review of Systems Review of Systems: All systems reviewed & are unremarkable except as noted in Subjective Physical Exam Physical Exam: General: Awake, conversant Heart: S1, S2/regular rate and rhythm, no murmur rubs or gallops Lungs: Clear to auscultation bilaterally. Normal effort Abdomen: Soft/nontender/nondistended. No hepatosplenomegaly Extremities: No clubbing/cyanosis. 1+ bilateral pitting edema Behavior: Appropriate, cooperative Results & Data Results & Data Vital Signs (Past 12 Hours) Vital Signs Temp Pulse Resp BP Pulse Ox O2 Del Method 10/14/23 07:11 36.3 C L 67 16 129/83 95 Room Air Laboratory Results Abnormal lab results 10/14/23 Range/Units 05:44 RBC 3.58 L (4.70-6.10) M/uL Hgb 12.6 L (14.0-18.0) g/dl Hct 37.8 L (42.0-52.0) % MCV 105.6 H (80.0-100.0) fL MCH 35.2 H (25.0-34.0) pg RDW Std Deviation 64.1 H (36.4-46.3) fL RDW Coeff of Adriane 16.4 H (11.5-14.5) % MPV 9.2 L (9.4-12.4) fL PG Care Time/CCT Total # of Minutes Spent Total Time Spent with Patient: Total time spent is greater than 50% in coordination of care (as documented) at patient's floor/unit and/or counseling patient: Coding Level of Care Code 22927 SUB INP/OBS CARE 2/35MIN Diagnoses Fall W19.XXXA Parainfluenza B34.8 Recurrent falls R29.6 H/O meningioma of the brain Z86.011 Crohn's disease K50.90 History of pulmonary embolus (PE) Z86.711 History of seizures Z87.898
[2023-10-14] MEDS: WARFARIN SOD 3 MG TAB PO SCH (16:03)
[2023-10-15 06:40] LABS: Hematocrit (blood only) 34.8 % (42.0-52.0); Hemoglobin 12.2 g/dl (14.0-18.0); Mean Corpuscular Hemoglobin 35.5 pg (25.0-34.0); Mean Corpuscular Hgb Conc 35.1 g/dL (32.0-36.0); Mean Corpuscular Volume 101.2 fL (80.0-100.0); Mean Platelet Volume 8.8 fL (9.4-12.4); Platelet Count 149 K/uL (130-400); RDW Coefficient of Variation 15.9 % (11.5-14.5); RDW Standard Deviation 58.6 fL (36.4-46.3); Red Blood Count 3.44 M/uL (4.70-6.10); White Blood Count 7.59 K/ul (4.8-10.8)
[2023-10-15] MEDS: CYANOCOBALAMIN (B-12) 500 MCG TABLET PO SCH (07:43)
[2023-10-15] MEDS: FUROSEMIDE 20 MG TAB PO SCH (07:43)
[2023-10-15] MEDS: COLESTIPOL HCL 1 GM TAB PO SCH ×2 (07:43→20:18)
[2023-10-15] MEDS: PANTOprazole 40 MG TAB PO SCH (07:43)
[2023-10-15] MEDS: CHOLECALCIFEROL 25 MCG (1000 UNITS) TAB PO SCH (07:43)
[2023-10-15] MEDS: levETIRAcetam 500 MG TAB PO SCH ×2 (07:43→20:18)
[2023-10-15] MEDS: dexAMETHasone 1 MG TAB PO SCH (07:43)
[2023-10-15 08:31] LABS: Appearance Urine Clear (Clear); Bacteria Urine Automated Negative (Negative); Bilirubin Urine Negative (Negative); Blood Urine 3+ (Negative); Cast Urine Automated 0 /lpf (0-5); Color Urine Orange; Epithelial Cell Urine Auto 0-5 /lpf (0-5); Glucose Urine UA Negative (Negative); Ketones Urine Negative (Negative); Leukocyte Esterase Urine Negative (Negative); Nitrite Urine Negative (Negative); Protein Urine Negative (Negative); RBC Urine Automated >30 /hpf (0-4); Specific Gravity Urine 1.024 (1.000-1.030); Urobilinogen Urine Negative (Negative); pH Urine 5.5 (4.5-7.5)
[2023-10-15 08:42] LABS: INR 1.8 (0.9-1.1); Prothrombin Time 18.7 Seconds (9.0-12.0)
--- NOTE | 2023-10-15 13:38 | Urology Consultation ---
<Statement entered by Yeison Louise MD - 10/15/23 17:41> I have discussed Mr. Rutherford's case with GROVER Kee and agree with the above documentation. As long as he is voiding spontaneously, can continue to manage expectantly and keep well-hydrated, while in the hospital. Would recommend urine culture to evaluate for infection -treat if positive. Urology w ill coordinate full hematuria workup as an outpatient. -Yeison Louise MD. Date of Consultation October 15, 2023 Assessment & Plan (1) Hematuria: (2) Dysuria: Plan 73yo M on chronic anticoagulation admitted after a fall at home and was also found to be parainfluenza positive. Urology consulted for hematuria in the setting of chronic anticoagulation given history of PE. - Pt developed hematuria and dysuria this morning 10/15/23. - He is afebrile and hemodynamically stable. - Labs- no leukocytosis, hemoglobin 12.2, normal creatinine. - Urinalysis 10/08 negative. Repeat UA 10/15 with 3+ blood, >30 RBCs otherwise negative. - CTAP 10/08/23 reviewed - 10 mm cyst of the interpolar left kidney. No hydronephrosis. Decompressed urinary bladder with wall thickening. Prostatomegaly. - Voiding spontaneously, continue to monitor. PVR earlier today was acceptable. - Recommend checking urine culture to r/o infection. - Can consider empiric antibiotics for coverage of possible UTI and Pyridium as needed for dysuria. - For now, he is voiding well and emptying the bladder. Continue to monitor postvoid residuals. - If any evidence of urinary retention, a Fofana catheter can be placed and manual irrigation can be employed as needed. - We discussed hematuria and that there can be several benign causes, however hematuria is never considered normal. - We discussed the full hematuria work-up including cystoscopy which can be completed as an outpatient, he was agreeable. - Continue anticoagulation per primary team. Urology can manage hematuria as needed. - Continue supportive care. - Urology will follow peripherally. Please call with any additional questions/concerns. History of Present Illness Attending Physician: Mathieu Guillen MD History of Present Illness 73-year-old male with PMHx including brain cancer (malignant meningioma with tumor resection in November 2018), DVT, PE (on Coumadin), Crohn's disease, complex partial seizures, COPD, depression, recurrent falls, and vertigo admitted on 10/08/2023 to medicine service after a fall at home. Was also found to be Parainfluenza+ on admission. Urology consulted for evaluation of hematuria in the setting of chronic anticoagulation (on Coumadin). Patient reported burning and pain with urination today 10/15/23. Per nursing notes, a small amount of bright red blood noted in brief and slow drip from tip of penis. Urine noted to be pink tinged with small clots. Urinalysis 10/08/2023 was negative. Repeat urinalysis 10/15/2023 with 3+ blood, >30 RBC, negative bacteria, negative nitrite, negative LE. CT abdomen pelvis 10/08/23- 10 mm cyst of the interpolar left kidney. No hydronephrosis. Decompressed urinary bladder with wall thickening. Prostatomegaly. Patient examined at bedside today. Awake, resting in bed on arrival. No acute distress. On isolation for influenza. Patient reports noticing blood and burning with urination today. Denies additional urinary symptoms or issues. Denies fever, chills, nausea, vomiting. Denies suprapubic or flank pain. Feels he is emptying his bladder well. Denies urgency or frequency. He denies prior urological history. Denies prior episodes of hematuria. Denies baseline urinary symptoms or issues. Allergies Allergy/AdvReac Type Severity Reaction Status Date / Time No Known Allergies Allergy Verified 08/06/23 15:42 Home Medications Medication Instructions Recorded Confirmed Type adalimumab 40 mg/0.4 mL 40 mg subcut Q14D 06/07/18 10/08/23 History subcutaneous syringe kit (Humira(CF)) cholecalciferol (vitamin D3) 50 2,000 units PO QAM 06/07/18 10/08/23 History mcg (2,000 unit) capsule colestipol 1 gram tablet 1 gm PO BID 06/07/18 10/08/23 History cyanocobalamin (vitamin B-12) 1,000 mcg PO QAM 06/07/18 10/08/23 History 1,000 mcg capsule loratadine 10 mg tablet (Claritin) 10 mg PO DAILY PRN allergy symptoms 06/07/18 10/08/23 History acetaminophen 500 mg tablet 500 mg PO PRN PRN headache 10/29/21 10/08/23 History pantoprazole 40 mg tablet,delayed 40 mg PO DAILY 07/27/23 10/08/23 History release dexamethasone 2 mg tablet 1 mg PO DAILY 09/02/23 10/09/23 History furosemide 20 mg tablet (Lasix) 20 mg PO DAILY #7 tabs 09/13/23 10/08/23 Rx levetiracetam 1,000 mg tablet 1,500 mg (1.5 x 1,000 mg) PO BID 10/01/23 10/08/23 Rx 90 days #270 tabs warfarin 3 mg tablet 1.5 mg PO DIRECTED 10/06/23 10/08/23 History Patient History Medical History History of seizures 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 GERD (gastroesophageal reflux disease) Dysphagia requesting to having an EGD done. (advised to call surgeon's office) Sensorineural hearing loss (SNHL) of left ear with unrestricted hearing of right ear H/O meningioma of the brain Brain MRI every 2-3 months. Complex partial seizure 10/2019 (first seizure) and 06/19/2022 most recent partial seizure r/t neuro surgery in 2019. Follows [facility] Neurology and Dr Byrne for a local neurologist. Crohn's disease History of brain tumor History of pulmonary embolus (PE) DVT (deep venous thrombosis) hx in 2018 s/p ileum resection - reason for warfarin. 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 Pulmonary embolism, bilateral ~2017. currently on coumadin. Surgical History History of embolic filter insertion removed in 2018. History of colonoscopy H/O craniotomy History of bowel resection Ilium resection History of cholecystectomy History of appendectomy Family History Father Asthma Other No family history of allergies No family history of bleeding disorder Denies family history of Hearing loss Deep vein thrombosis Coronary heart disease Heart disease Cancer Hypertension Stroke Social History Smoking Status: Never smoker Second Hand Exposure: No; Do You Dip or Chew Tobacco: No; Hx Alcohol Use: No Hx Substance Use: No Preferred Language: Hebrew Communication Ability: Effective Handkerchief Folder Required: No Beliefs That Will Affect Care: None marital status: Current Living Situation: Spouse current occupational status: retired Feels Safe at Home: Yes Assistive Devices: Cane and Walker Review of Systems Review of Systems: All systems reviewed & are unremarkable except as noted in HPI & below Physical Exam Constitutional: no acute distress Neck: normal visual inspection Respiratory: no respiratory distress and no labored breathing Gastrointestinal (Abdomen): Percussion/Palpation: abdomen soft; abdomen nontender Musculoskeletal: Head/Neck/Chest: normocephalic Skin: No visible rashes or lesions to exposed skin areas Neurologic: awake Psychiatric: Orientation: alert, oriented x 3 and cooperative Results & Data Vital Signs (Past 12 Hours) Vital Signs Temp Pulse Resp BP Pulse Ox O2 Del Method 10/15/23 07:44 36.5 C 66 16 143/82 H 94 Room Air PG Care Time/CCT Total # of Minutes Spent Total Time Spent with Patient: Total time spent is greater than 50% in coordination of care (as documented) at patient's floor/unit and/or counseling patient: Coding Level of Care Code 62474 INT INP/OBS CARE 2/55MIN Diagnoses Hematuria R31.9 Dysuria R30.0
[2023-10-15] MEDS: WARFARIN SOD 3 MG TAB PO SCH (16:40)
--- NOTE | 2023-10-15 16:55 | Hospitalist Progress Note ---
Date of Service October 15, 2023 Assessment & Plan (1) Fall: Plan: Fell in the shower on the morning of 10/08; on warfarin Longstanding left-sided deficits/weakness; suspect this is contributing to fall along with new dx of parainfluenza virus 3 causing fatigue/malaise No signs of adrenal insufficiency given on chronic steroids and tapering down UA negative, CXR no PNA CT A/P, CT C-spine, CT head, CXR, and pelvis xray negative for acute findings Fall precautions Acetaminophen as needed for pain PT/OT on board. Awaiting rehab placement (2) Parainfluenza: Plan: Parainfluenza+ on admission. With sore throat, malaise, no fevers. CXR neg for PNA Likely contributed to his fall/increased weakness On contact precautions as per infection control guidelines Supportive care (3) Recurrent falls: Plan: Hx of recurrent falls Patient has generalized debility Per , he lives a very sedentary life and sleeps most of the day. 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 FOllow (6) History of pulmonary embolus (PE): Plan: On warfarin Follows with anticoagulation clinic INR therapeutic 10/13. Today 1.8. Patient has hypercoagulable state and has had recurrent PEs and DVTs. Patient has hematuria today but needs his Coumadin due to hypercoagulable state. (7) History of seizures: Plan: Continue Keppra no witnessed seizure activity with this fall (8) Hematuria: Plan: Patient has hematuria Urinalysis showed no signs of infection. No reflex urine culture done. Patient needs his Coumadin because of hypercoagulable state and history of PEs and DVTs in the past Urology consulted Patient voiding well PVR acceptable Pyridium can be used as needed for dysuria. If any evidence of urinary retention, a Foafna catheter can be placed Outpatient urology follow-up Plan Disposition: PT/OT on board. Case management working on placement Full code VTE PPx: On warfarin Admission and Anticipated Discharge Date Admission Date: October 09, 2023 Subjective Patient feels well. Denies chest pain or shortness of breath Per nurse, he is having some episodes of hematuria. Of note, patient is on Coumadin. Voiding spontaneously. Review of Systems Review of Systems: All systems reviewed & are unremarkable except as noted in Subjective Physical Exam Physical Exam: General: Awake, conversant Heart: S1, S2/regular rate and rhythm, no murmur rubs or gallops Lungs: Clear to auscultation bilaterally. Normal effort Abdomen: Soft/nontender/nondistended. No hepatosplenomegaly Extremities: No clubbing/cyanosis. 1+ bilateral pitting edema Behavior: Appropriate, cooperative Results & Data Results & Data Vital Signs (Past 12 Hours) Vital Signs Temp Pulse Resp BP Pulse Ox O2 Del Method 10/15/23 14:26 36.5 C 69 18 111/72 94 Room Air 10/15/23 07:44 36.5 C 66 16 143/82 H 94 Room Air PG Care Time/CCT Total # of Minutes Spent Total Time Spent with Patient: Total time spent is greater than 50% in coordination of care (as documented) at patient's floor/unit and/or counseling patient: Coding Level of Care Code 81386 SUB INP/OBS CARE 2/35MIN Diagnoses Fall W19.XXXA Parainfluenza B34.8 Recurrent falls R29.6 H/O meningioma of the brain Z86.011 Crohn's disease K50.90 History of pulmonary embolus (PE) Z86.711 History of seizures Z87.898 Hematuria R31.9
[2023-10-16 06:21] LABS: Hematocrit (blood only) 35.8 % (42.0-52.0); Hemoglobin 12.8 g/dl (14.0-18.0); Mean Corpuscular Hemoglobin 36.2 pg (25.0-34.0); Mean Corpuscular Hgb Conc 35.8 g/dL (32.0-36.0); Mean Corpuscular Volume 101.1 fL (80.0-100.0); Platelet Count 146 K/uL (130-400); RDW Coefficient of Variation 15.9 % (11.5-14.5); RDW Standard Deviation 60.3 fL (36.4-46.3); Red Blood Count 3.54 M/uL (4.70-6.10); White Blood Count 7.57 K/ul (4.8-10.8)
[2023-10-16 06:45] LABS: INR 1.6 (0.9-1.1); Prothrombin Time 17.5 Seconds (9.0-12.0)
[2023-10-16] MEDS: COLESTIPOL HCL 1 GM TAB PO SCH ×2 (07:56→20:05)
[2023-10-16] MEDS: levETIRAcetam 500 MG TAB PO SCH ×2 (07:56→20:05)
[2023-10-16] MEDS: FUROSEMIDE 20 MG TAB PO SCH (07:57)
[2023-10-16] MEDS: CHOLECALCIFEROL 25 MCG (1000 UNITS) TAB PO SCH (07:57)
[2023-10-16] MEDS: PANTOprazole 40 MG TAB PO SCH (07:57)
[2023-10-16] MEDS: CYANOCOBALAMIN (B-12) 500 MCG TABLET PO SCH (07:57)
[2023-10-16] MEDS: dexAMETHasone 1 MG TAB PO SCH (07:58)
[2023-10-16] MEDS: ACETAMINOPHEN 325 MG TAB PO PRN (08:01)
[2023-10-16] MEDS ORDERED: PHENAZOPYRIDINE HCL 100 MG TAB PO PRN (08:43)
[2023-10-16] MEDS ORDERED: ENOXAPARIN INJ 40 MG/0.4 ML SYR SQ ONE (09:00)
[2023-10-16] MEDS ORDERED: WARFARIN SOD 6 MG TAB PO SCH (16:00)
--- NOTE | 2023-10-16 17:16 | Hospitalist Progress Note ---
Date of Service October 16, 2023 Assessment & Plan (1) Fall: Plan: Fell in the shower on the morning of 10/08; on warfarin Longstanding left-sided deficits/weakness; suspect this is contributing to fall along with new dx of parainfluenza virus 3 causing fatigue/malaise No signs of adrenal insufficiency given on chronic steroids and tapering down UA negative, CXR no PNA CT A/P, CT C-spine, CT head, CXR, and pelvis xray negative for acute findings Fall precautions Acetaminophen as needed for pain PT/OT on board. Awaiting rehab placement (2) Parainfluenza: Plan: Parainfluenza+ on admission. With sore throat, malaise, no fevers. CXR neg for PNA Likely contributed to his fall/increased weakness On contact precautions as per infection control guidelines Supportive care (3) Recurrent falls: Plan: Hx of recurrent falls Patient has generalized debility Per , he lives a very sedentary life and sleeps most of the day. 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 FOllow (6) History of pulmonary embolus (PE): Plan: On warfarin Follows with anticoagulation clinic INR therapeutic 10/13. Patient has hypercoagulable state ( could not specify exactly what) and has had recurrent PEs and DVTs. Patient has hematuria today but needs his Coumadin due to hypercoagulable state. Subtherapeutic INR today 10/16 Will give him an extra dose of Coumadin along with Lovenox subcu Monitor for hematuria closely (7) History of seizures: Plan: Continue Keppra no witnessed seizure activity with this fall Today's episode was most likely because he just woke up from sleep and was not fully awake. I told the that lately he has been sleeping most of the day. Every time when I wake him up, it takes him some time to completely wake up and answer my questions. Will monitor closely Will continue the current dose of Keppra If further episodes, will consider neurology consult (8) Hematuria: Plan: Patient has hematuria Urinalysis showed no signs of infection. No reflex urine culture done. Patient needs his Coumadin because of hypercoagulable state and history of PEs and DVTs in the past. He had hematuria with a subtherapeutic INR Today his INR is still low. He will be given a higher dose of Coumadin and subcu Lovenox while watching for increased hematuria. Urology consulted Patient voiding well PVR acceptable Pyridium can be used as needed for dysuria. If any evidence of urinary retention, a Fofana catheter can be placed Outpatient urology follow-up Plan Disposition: PT/OT on board. Case management working on placement Full code VTE PPx: On warfarin Admission and Anticipated Discharge Date Admission Date: October 09, 2023 Subjective saw the patient at the bedside. He was sleeping when she arrived. When she woke him up, he had a blank stare and it took him some time to come back to being himself. The notified the nurse about the possibility of a seizure. I came at the bedside. The patient is talking like normal. Moving all 4 extremities. Per , the patient is on 1500 mg of Keppra twice daily. She is seen by Dr. Byrne, his neurologist outpatient. No hematuria per nurse Review of Systems Review of Systems: All systems reviewed & are unremarkable except as noted in Subjective Physical Exam Physical Exam: General: Awake, conversant Heart: S1, S2/regular rate and rhythm, no murmur rubs or gallops Lungs: Clear to auscultation bilaterally. Normal effort Abdomen: Soft/nontender/nondistended. No hepatosplenomegaly Extremities: No clubbing/cyanosis. 1+ bilateral pitting edema Behavior: Appropriate, cooperative Results & Data Results & Data Vital Signs (Past 12 Hours) Vital Signs Temp Pulse Resp BP BP Pulse Ox O2 Del Method 10/16/23 16:17 36.8 C 79 17 126/82 95 Room Air 10/16/23 12:20 36.4 C L 73 17 112/72 93 Room Air 10/16/23 07:50 Room Air 10/16/23 07:13 36.9 C 63 18 144/87 H 94 Room Air PG Care Time/CCT Total # of Minutes Spent Total Time Spent with Patient: Total time spent is greater than 50% in coordination of care (as documented) at patient's floor/unit and/or counseling patient: Coding Level of Care Code 96420 SUB INP/OBS CARE 2/35MIN Diagnoses Fall W19.XXXA Parainfluenza B34.8 Recurrent falls R29.6 H/O meningioma of the brain Z86.011 Crohn's disease K50.90 History of pulmonary embolus (PE) Z86.711 History of seizures Z87.898 Hematuria R31.9
[2023-10-17 07:08] LABS: Hematocrit (blood only) 36.4 % (42.0-52.0); Hemoglobin 12.5 g/dl (14.0-18.0); Mean Corpuscular Hgb Conc 34.3 g/dL (32.0-36.0); Mean Platelet Volume 9.1 fL (9.4-12.4); Platelet Count 158 K/uL (130-400); RDW Coefficient of Variation 15.9 % (11.5-14.5); RDW Standard Deviation 59.8 fL (36.4-46.3); Red Blood Count 3.57 M/uL (4.70-6.10); White Blood Count 7.23 K/ul (4.8-10.8)
[2023-10-17] MEDS: ACETAMINOPHEN 325 MG TAB PO PRN (07:33)
[2023-10-17 07:40] LABS: INR 1.8 (0.9-1.1)
[2023-10-17] MEDS: CYANOCOBALAMIN (B-12) 500 MCG TABLET PO SCH (08:58)
[2023-10-17] MEDS: COLESTIPOL HCL 1 GM TAB PO SCH ×2 (08:58→19:58)
[2023-10-17] MEDS: FUROSEMIDE 20 MG TAB PO SCH (08:58)
[2023-10-17] MEDS: CHOLECALCIFEROL 25 MCG (1000 UNITS) TAB PO SCH (08:58)
[2023-10-17] MEDS: levETIRAcetam 500 MG TAB PO SCH ×2 (08:59→19:58)
[2023-10-17] MEDS: PANTOprazole 40 MG TAB PO SCH (08:59)
[2023-10-17] MEDS: dexAMETHasone 1 MG TAB PO SCH (12:49)
--- NOTE | 2023-10-17 14:40 | Hospitalist Progress Note ---
Date of Service October 17, 2023 Assessment & Plan (1) Fall: Plan: Fell in the shower on the morning of 10/08; on warfarin Longstanding left-sided deficits/weakness; suspect this is contributing to fall along with new dx of parainfluenza virus 3 causing fatigue/malaise No signs of adrenal insufficiency given on chronic steroids and tapering down UA negative, CXR no PNA CT A/P, CT C-spine, CT head, CXR, and pelvis xray negative for acute findings Fall precautions Acetaminophen as needed for pain PT/OT on board. Awaiting rehab placement (2) Parainfluenza: Plan: Parainfluenza+ on admission. With sore throat, malaise, no fevers. CXR neg for PNA Likely contributed to his fall/increased weakness On contact precautions as per infection control guidelines Supportive care (3) Recurrent falls: Plan: Hx of recurrent falls Patient has generalized debility Per , he lives a very sedentary life and sleeps most of the day. 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 FOllow (6) History of pulmonary embolus (PE): Plan: On warfarin Follows with anticoagulation clinic INR therapeutic 10/13. Patient has hypercoagulable state ( could not specify exactly what) and has had recurrent PEs and DVTs. Patient had hematuria during this hospital stay with subtherapeutic INR but needs his Coumadin due to hypercoagulable state. Subtherapeutic INR today 10/17 at 1.8 Got extra dose of Coumadin along with Lovenox subcu on 10/16 Monitor for hematuria closely (7) History of seizures: Plan: Continue Keppra no witnessed seizure activity with this fall The episode on 10/16 was most likely because he just woke up from sleep and was not fully awake. I told the that lately he has been sleeping most of the day. Every time when I wake him up, it takes him some time to completely wake up and answer my questions. Will monitor closely. No further episodes Will continue the current dose of Keppra If further episodes, will consider neurology consult (8) Hematuria: Plan: Patient has hematuria Urinalysis showed no signs of infection. No reflex urine culture done. Patient needs his Coumadin because of hypercoagulable state and history of PEs and DVTs in the past. He had hematuria with a subtherapeutic INR Today his INR is still low. He will be given a higher dose of Coumadin and subcu Lovenox while watching for increased hematuria. Urology consulted Patient voiding well PVR acceptable Pyridium can be used as needed for dysuria. If any evidence of urinary retention, a Fofana catheter can be placed Outpatient urology follow-up Plan Disposition: PT/OT on board. Will go to rehab once medically clear. Patient had hematuria with subtherapeutic INR. Waiting for INR to be therapeutic to make sure no further episodes of hematuria Full code VTE PPx: On warfarin Admission and Anticipated Discharge Date Admission Date: October 09, 2023 Subjective Patient feels well. Denies chest pain or shortness of breath. Review of Systems Review of Systems: All systems reviewed & are unremarkable except as noted in Subjective Physical Exam Physical Exam: General: Awake, conversant Heart: S1, S2/regular rate and rhythm, no murmur rubs or gallops Lungs: Clear to auscultation bilaterally. Normal effort Abdomen: Soft/nontender/nondistended. No hepatosplenomegaly Extremities: No clubbing/cyanosis. 1+ bilateral pitting edema Behavior: Appropriate, cooperative Results & Data Results & Data Vital Signs (Past 12 Hours) Vital Signs Temp Pulse Resp BP Pulse Ox O2 Del Method 10/17/23 07:54 36.5 C 63 16 146/87 H 94 Room Air Laboratory Results Abnormal lab results 10/17/23 Range/Units 06:35 RBC 3.57 L (4.70-6.10) M/uL Hgb 12.5 L (14.0-18.0) g/dl Hct 36.4 L (42.0-52.0) % MCV 102.0 H (80.0-100.0) fL MCH 35.0 H (25.0-34.0) pg RDW Std Deviation 59.8 H (36.4-46.3) fL RDW Coeff of Adriane 15.9 H (11.5-14.5) % MPV 9.1 L (9.4-12.4) fL PT 19.0 H (9.0-12.0) Seconds INR 1.8 H (0.9-1.1) PG Care Time/CCT Total # of Minutes Spent Total Time Spent with Patient: Total time spent is greater than 50% in coordination of care (as documented) at patient's floor/unit and/or counseling patient: Coding Level of Care Code 59190 SUB INP/OBS CARE 2/35MIN Diagnoses Fall W19.XXXA Parainfluenza B34.8 Recurrent falls R29.6 H/O meningioma of the brain Z86.011 Crohn's disease K50.90 History of pulmonary embolus (PE) Z86.711 History of seizures Z87.898 Hematuria R31.9
[2023-10-17] MEDS: WARFARIN SOD 3 MG TAB PO SCH (17:26)
[2023-10-18 06:09] LABS: Hematocrit (blood only) 41.5 % (42.0-52.0); Hemoglobin 13.9 g/dl (14.0-18.0); Mean Corpuscular Hemoglobin 34.5 pg (25.0-34.0); Mean Corpuscular Hgb Conc 33.5 g/dL (32.0-36.0); Platelet Count 170 K/uL (130-400); RDW Coefficient of Variation 16.1 % (11.5-14.5); RDW Standard Deviation 61.5 fL (36.4-46.3); Red Blood Count 4.03 M/uL (4.70-6.10); White Blood Count 8.03 K/ul (4.8-10.8)
[2023-10-18 06:37] LABS: Prothrombin Time 21.1 Seconds (9.0-12.0)
[2023-10-18] MEDS: COLESTIPOL HCL 1 GM TAB PO SCH ×2 (08:31→19:58)
[2023-10-18] MEDS: CHOLECALCIFEROL 25 MCG (1000 UNITS) TAB PO SCH (08:31)
[2023-10-18] MEDS: dexAMETHasone 1 MG TAB PO SCH (08:31)
[2023-10-18] MEDS: FUROSEMIDE 20 MG TAB PO SCH (08:31)
[2023-10-18] MEDS: levETIRAcetam 500 MG TAB PO SCH ×2 (08:31→19:58)
[2023-10-18] MEDS: PANTOprazole 40 MG TAB PO SCH (08:31)
[2023-10-18] MEDS: CYANOCOBALAMIN (B-12) 500 MCG TABLET PO SCH (08:31)
--- NOTE | 2023-10-18 14:20 | Hospitalist Progress Note ---
Date of Service October 18, 2023 Assessment & Plan (1) Fall: Plan: Fell in the shower on the morning of 10/08; on warfarin Longstanding left-sided deficits/weakness; suspect this is contributing to fall along with new dx of parainfluenza virus 3 causing fatigue/malaise No signs of adrenal insufficiency given on chronic steroids and tapering down UA negative, CXR no PNA CT A/P, CT C-spine, CT head, CXR, and pelvis xray negative for acute findings Fall precautions Acetaminophen as needed for pain PT/OT on board. Planning to go to rehab soon (2) Parainfluenza: Plan: Parainfluenza+ on admission. With sore throat, malaise, no fevers. CXR neg for PNA Likely contributed to his fall/increased weakness On contact precautions as per infection control guidelines Supportive care (3) Recurrent falls: Plan: Hx of recurrent falls Patient has generalized debility Per , he lives a very sedentary life and sleeps most of the day. 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 Ivey to start tapering down further. The plan is to alternate 0.5 and 1 mg daily starting tomorrow 10/19 through 10/31. From 11/01 to 11/14, patient is to take 0.5 mg once daily From 11/15, the plan is to stop Decadron (5) Crohn's disease: Plan: Continue pantoprazole Hold Humira while inpatient With macrocytic anemia, mild--> check B12 and folate--> both normal. FOllow (6) History of pulmonary embolus (PE): Plan: On warfarin Follows with anticoagulation clinic INR therapeutic 10/13. Patient has hypercoagulable state ( could not specify exactly what) and has had recurrent PEs and DVTs. Patient had hematuria during this hospital stay with subtherapeutic INR but needs his Coumadin due to hypercoagulable state. Therapeutic INR today at 2 Got extra dose of Coumadin along with Lovenox subcu on 10/16 Monitor for hematuria closely with therapeutic INR. No reports of hematuria today so far. (7) History of seizures: Plan: Continue Keppra no witnessed seizure activity with this fall The episode on 10/16 was most likely because he just woke up from sleep and was not fully awake. I told the that lately he has been sleeping most of the day. Every time when I wake him up, it takes him some time to completely wake up and answer my questions. Will monitor closely. No further episodes Will continue the current dose of Keppra If further episodes, will consider neurology consult (8) Hematuria: Plan: Patient has hematuria Urinalysis showed no signs of infection. No reflex urine culture done. Patient needs his Coumadin because of hypercoagulable state and history of PEs and DVTs in the past. He had hematuria with a subtherapeutic INR Today his INR is finally therapeutic again. Monitor for further hematuria on therapeutic INR Urology consulted Patient voiding well PVR acceptable Pyridium can be used as needed for dysuria. If any evidence of urinary retention, a Fofana catheter can be placed Outpatient urology follow-up If patient does not have hematuria tomorrow 10/19, he can be discharged Plan Disposition: PT/OT on board. Will go to rehab once medically clear. Provided no hematuria on therapeutic INR, he may be discharged tomorrow 10/19 Full code VTE PPx: On warfarin Admission and Anticipated Discharge Date Admission Date: October 09, 2023 Subjective Patient feels well. Denies chest pain or shortness of breath. Review of Systems Review of Systems: All systems reviewed & are unremarkable except as noted in Subjective Physical Exam Physical Exam: General: Awake, conversant Heart: S1, S2/regular rate and rhythm, no murmur rubs or gallops Lungs: Clear to auscultation bilaterally. Normal effort Abdomen: Soft/nontender/nondistended. No hepatosplenomegaly Extremities: No clubbing/cyanosis. 1+ bilateral pitting edema Behavior: Appropriate, cooperative Results & Data Results & Data Vital Signs (Past 12 Hours) Vital Signs Temp Pulse Resp BP Pulse Ox O2 Del Method 10/18/23 06:53 36.4 C L 68 18 134/91 96 Room Air Diagnostic Findings Abnormal lab results 10/18/23 Range/Units 05:44 RBC 4.03 L (4.70-6.10) M/uL Hgb 13.9 L (14.0-18.0) g/dl Hct 41.5 L (42.0-52.0) % MCV 103.0 H (80.0-100.0) fL MCH 34.5 H (25.0-34.0) pg RDW Std Deviation 61.5 H (36.4-46.3) fL RDW Coeff of Adriane 16.1 H (11.5-14.5) % MPV 9.0 L (9.4-12.4) fL PT 21.1 H (9.0-12.0) Seconds INR 2.0 H (0.9-1.1) PG Care Time/CCT Total # of Minutes Spent Total Time Spent with Patient: Total time spent is greater than 50% in coordination of care (as documented) at patient's floor/unit and/or counseling patient: Coding Level of Care Code 14788 SUB INP/OBS CARE 2/35MIN Diagnoses Fall W19.XXXA Parainfluenza B34.8 Recurrent falls R29.6 H/O meningioma of the brain Z86.011 Crohn's disease K50.90 History of pulmonary embolus (PE) Z86.711 History of seizures Z87.898 Hematuria R31.9
[2023-10-18 15:18] VITALS: O2SAT 94
[2023-10-18] MEDS: WARFARIN SOD 3 MG TAB PO SCH (16:07)
[2023-10-19 07:19] VITALS: BP 135/87; PULSE 68; RESP 17; TEMP 98.1
[2023-10-19] MEDS: FUROSEMIDE 20 MG TAB PO SCH (07:43)
[2023-10-19] MEDS: CYANOCOBALAMIN (B-12) 500 MCG TABLET PO SCH (07:44)
[2023-10-19] MEDS: PANTOprazole 40 MG TAB PO SCH (07:46)
[2023-10-19] MEDS: levETIRAcetam 500 MG TAB PO SCH (07:46)
[2023-10-19] MEDS: COLESTIPOL HCL 1 GM TAB PO SCH (07:46)
[2023-10-19] MEDS: CHOLECALCIFEROL 25 MCG (1000 UNITS) TAB PO SCH (07:46)
[2023-10-19 08:16] LABS: INR 2.3 (0.9-1.1); Prothrombin Time 23.8 Seconds (9.0-12.0)
[2023-10-19] MEDS ORDERED: dexAMETHasone 1 MG TAB PO SCH (09:00)
--- NOTE | 2023-10-19 10:57 | Discharge Summary ---
Discharge Summary Date of Service October 19, 2023 Notes For Next Care Provider Patient's received a message from Dr. Ivey to start tapering down further. The plan is to alternate 0.5 and 1 mg daily 10/19 through 10/31. (received 0.5mg on 10/19) From 11/01 to 11/14, patient is to take 0.5 mg once daily From 11/15, the plan is to stop Decadron Admission HPI Per Admitting Provider Eran is a 73-year-old male with PMH of brain cancer (malignant meningioma with tumor resection in November 2018), DVT, PE (on Coumadin), Crohn's disease, complex partial seizures, COPD, depression, recurrent falls, and vertigo. He presented via EMS for a ground-level fall in the shower on the morning of 10/08. Patient reports that his legs gave out, and that he did not slip or feel any dizziness before hand; no LOC; no head strike. Hx of frequent falls. Hx of brain surgery 5 years ago with left-sided weakness. Patient's (Lizzie) is at bedside and provides additional history. She helps him managing his medications; reports that he took all of his regular morning medications. Only recent medication change was increasing Keppra to 1500 twice daily. Patient takes warfarin in the evenings (he did not take it this morning); he follows with [facility]. Hx of frequent falls, with most recent fall being on 09/16; patient's also reports he had difficulty rising from the chair 2 weeks ago. They do not have home health care help. Patient has been taking dexamethasone since May 2023, and is currently on a taper; he is down to 1 mg in the morning (with the last of his taper being from 10/03 - 10/17). He reports this may also be contributing to his muscle weakness. No at home supplemental oxygen use. Patient is currently taking Lasix for leg swelling (20 mg daily). No rashes or tick bites. He has increased fatigue, and reports that he has been "sleeping more than being awake". Regular tasks like showering are also exhausting. Vital stable at time of admission. ROS: Patient endorses increased fatigue, leg weakness, feet swelling, diarrhea, and numbness/tingling in the legs bilaterally. Patient denies fever, chills, night sweats, dizziness, lightheadedness, [place], ch est pain, chest palpitations, pleuritic CP, SOB, cough, abdominal pain, or nausea/vomiting. Principal Dx & Hospital Course #1 = Principal Diagnosis (1) Fall: Fell in the shower on the morning of 10/08; on warfarin Longstanding left-sided deficits/weakness; suspect this is contributing to fall along with new dx of parainfluenza virus 3 causing fatigue/malaise No signs of adrenal insufficiency given on chronic steroids and tapering down UA negative, CXR no PNA CT A/P, CT C-spine, CT head, CXR, and pelvis xray negative for acute findings PT/OT recommending rehab - discharged to [facility] (2) Parainfluenza: Parainfluenza+ on admission. With sore throat, malaise, no fevers. CXR neg for PNA Likely contributed to his fall/increased weakness Supportive care (3) Recurrent falls: Hx of recurrent falls Patient has generalized debility Per , he lives a very sedentary life and sleeps most of the day. 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 Ivey to start tapering down further. The plan is to alternate 0.5 and 1 mg daily starting tomorrow 10/19 through 10/31. (receieved 0.5 mg on 10/19) From 11/01 to 11/14, patient is to take 0.5 mg once daily From 11/15, the plan is to stop Decadron (5) Crohn's disease: Continue pantoprazole Continue Humira on discharge With macrocytic anemia, mild--> check B12 and folate--> both normal. (6) History of pulmonary embolus (PE): On warfarin chornoically , Follows with anticoagulation clinic Patient has hypercoagulable state ( could not specify exactly what) and has had recurrent PEs and DVTs. Patient had hematuria during this hospital stay with subtherapeutic INR but needs his Coumadin due to hypercoagulable state. Day of discharge, INR 2.3, no episodes of hematuria . (7) History of seizures: Continue Keppra no witnessed seizure activity with this fall Will continue the current dose of Keppra (8) Hematuria: Urinalysis showed no signs of infection. No reflex urine culture done. Patient needs his Coumadin because of hypercoagulable state and history of PEs and DVTs in the past. Urology consulted - consider empiric abx, Pyridium prn for dysuria - monitor PVR - rec outpatient cystoscopy 10/19 - no further episodes of hematuria reported from nursing staff Plan Dispo: discharge to [facility] Discharge Exam General: NAD, VS as above Resp: normal respiratory effort, lungs clear to auscultation CV: RRR, no murmur, Abd: normal bowel sounds, non tender, no hepatosplenomegaly Extremities: Moves all extremities, moderate edema, non pitting Neuro: A&O x3, Skin: intact, no lesions noted Updated Medication List Medication Instructions Recorded Confirmed Type adalimumab 40 mg/0.4 mL 40 mg subcut Q14D 06/07/18 10/08/23 History subcutaneous syringe kit (Humira(CF)) cholecalciferol (vitamin D3) 50 2,000 units PO QAM 06/07/18 10/08/23 History mcg (2,000 unit) capsule colestipol 1 gram tablet 1 gm PO BID 06/07/18 10/08/23 History cyanocobalamin (vitamin B-12) 1,000 mcg PO QAM 06/07/18 10/08/23 History 1,000 mcg capsule loratadine 10 mg tablet (Claritin) 10 mg PO DAILY PRN allergy symptoms 06/07/18 10/08/23 History acetaminophen 500 mg tablet 500 mg PO PRN PRN headache 10/29/21 10/08/23 History pantoprazole 40 mg tablet,delayed 40 mg PO DAILY 07/27/23 10/08/23 History release furosemide 20 mg tablet (Lasix) 20 mg PO DAILY #7 tabs 09/13/23 10/08/23 Rx levetiracetam 1,000 mg tablet 1,500 mg (1.5 x 1,000 mg) PO BID 10/01/23 10/08/23 Rx 90 days #270 tabs warfarin 3 mg tablet 3 mg PO DAILY 10/06/23 10/16/23 History dexamethasone 1 mg tablet 0.5 mg (1/2 x 1 mg) PO Q2D@0900 10/19/23 Rx #30 tabs Hospital Stay Data Consultations 10/08/23 14:35 ED Decision to Admit Stat 10/15/23 09:29 Consult Urology Routine Diagnostic Imagining Performed 10/08/23 11:30 CT abd pelvis IV con only Stat CT cervical spine wo con Stat CT head/brain wo con Stat Pending Results Patient Have Any Pending Studies at Discharge: No Discharge Instructions Given to Patient (Per Discharging Provider) Mr. Rutherford, You were hospitalized after having a fall. You were found to have parainfluenza likely causing weakness. All of the imagining we did had no acute findings. Your Neurologist asked that you continue to taper down on your steroids as follows: The plan is to alternate 0.5 and 1 mg daily starting 10/19 through 10/31. From 11/01 to 11/14, patient is to take 0.5 mg once daily From 11/15, the plan is to stop Decadron -INR therapeutic on discharge, recommend repeat PT/INR in 2-3 days. Advised to follow-up with PCP in 1 week - Will need outpatient urology follow up Total Time Total Time Spent Total Time Spent (In Minutes): Time spend day of discharge 35 minutes including direct patient care, medication reconciliation, documentation, review of labs and images, and coordination of care. Coding Level of Care Code 73559 INP/OBS DISCH >30 MIN Diagnoses Fall W19.XXXA Parainfluenza B34.8 Recurrent falls R29.6 H/O meningioma of the brain Z86.011 Crohn's disease K50.90 History of pulmonary embolus (PE) Z86.711 History of seizures Z87.898 Hematuria R31.9
[2023-10-20] MEDS ORDERED: dexAMETHasone 1 MG TAB PO SCH (09:00)
[2023-11-01] MEDS ORDERED: dexAMETHasone 1 MG TAB PO SCH (09:00)
== END 2023-10-19 11:51 | DRG 866 ==
LOC: EDINP 10:18 → ED 10:18 → SUATTDRO 15:50 → 2W 17:34 → SUATTDRO 10-09 15:23 → 3E 10-09 16:43

== ENCOUNTER 2025-04-13 12:13 | Observation (INO) ==
[2025-04-13 13:18] LABS: Hematocrit (blood only) 41.9 % (42.0-52.0); Hemoglobin 14.4 g/dl (14.0-18.0); Immature Granulocytes # (auto) 0.05 K/uL (0.01-0.20); Immature Granulocytes % (auto) 0.4 %; Mean Corpuscular Hemoglobin 32.1 pg (25.0-34.0); Mean Corpuscular Volume 93.3 fL (80.0-100.0); Platelet Count 211 K/uL (130-400); RDW Standard Deviation 46.2 fL (36.4-46.3); Red Blood Count 4.49 M/uL (4.70-6.10); White Blood Count 13.22 K/ul (4.8-10.8)
[2025-04-13] MEDS: ONDANSETRON INJ 2 MG/ML 2 ML VIAL IV STA (13:28)
[2025-04-13] MEDS: SODIUM CHLORIDE 0.9% 1,000 ML IV STA (13:29)
[2025-04-13 13:33] LABS: Alanine Aminotransferase 29 U/L (7-52); Albumin Globulin Ratio 1.8 (0.9-2); Alkaline Phosphatase 76 U/L (34-104); Anion Gap 8 (3-11); Bilirubin,Total 0.6 mg/dl (0.2-1.0); Blood Urea Nitrogen 19 mg/dl (6-23); Calcium 9.3 mg/dl (8.6-10.3); Carbon Dioxide 26 mmol/L (21-32); Chloride 105 mmol/L (98-107); Globulin 2.5 gm/dl (2.5-4.0); Glucose 119 mg/dl (70-99(Fasting)); Lipase 16 U/L (11-82); Potassium 4.1 mmol/L (3.5-5.1); Sodium 139 mmol/L (136-145); Total Protein 6.9 gm/dl (6.0-8.3)
[2025-04-13 13:42] LABS: Appearance Urine Clear (Clear); Bacteria Urine Automated None Seen (None Seen); Cast Urine Automated 0-2 /lpf (0-2); Epithelial Cell Urine Auto 0-2 /hpf (0-2); Glucose Urine UA Negative (Negative); RBC Urine Automated 0-2 /hpf (0-2); WBC Urine Automated 0-5 /hpf (0-5)
[2025-04-13] MEDS: KETOROLAC TROMETHAMINE 15 MG/ML VIAL IV STA (14:11)
[2025-04-13] MEDS: OPTIRAY 320 100ml IV ONE (14:47)
--- NOTE | 2025-04-13 15:08 | CT Scan Report ---
CT SCAN OF THE ABDOMEN AND PELVIS WITH IV CONTRAST CLINICAL HISTORY: Right flank pain. COMPARISON STUDY: MR enterography April 12, 2025. CT of the abdomen and pelvis March 10, 2025. TECHNIQUE: Following the IV administration of 93 cc of Optiray 320, CT scan of the abdomen and pelvi s is performed from the lung bases to the proximal femora. Images are reviewed in the axial, sagittal , and coronal planes. IV contrast was administered without complication. A dose lowering technique wa s utilized adhering to the principles of ALARA. CT DOSE: 1465.17 mGy.cm FINDINGS: No pneumatosis, free air or portal venous gas is present. There is hepatic steatosis. There is no biliary ductal dilatation status post cholecystectomy. Spleen, adrenal glands, left kidney and pancreas are unremarkable. A 2 mm distal right ureteral calculus results in mild hydroureteronephros is with delayed right nephrogram. The findings are new since MRI of April 12, 2025. Enhancing 1.4 cm p olypoid lesion within the gastric antrum on image 107 and corresponds to the finding on MRI. There is no evidence for a bowel obstruction. Caliber and wall thickness of small and large bowel are normal. Prostate is mildly enlarged, measuring 4.7 cm in transverse diameter. There is no lymphadenopathy. T here are no fluid collections. IMPRESSION: 1. 2 mm distal right ureteral calculus which results in mild hydroureteronephrosis with delayed right nephrogram. 2. 1.4 cm enhancing polypoid lesion within the gastric antrum as shown on MRI of April 12, 2025. Nonem ergent GI consultation for consideration for endoscopy is recommended. 3. No bowel obstruction. ACT 112: Negative or not required by law. Electronically signed by: Ranjit Hernandez M.D. 04/13/2025 3:06 PM
[2025-04-13] MEDS: MoRPHine SULFATE 2 MG/ML CARP IV STA (16:04)
--- NOTE | 2025-04-13 16:32 | Emergency Department Note ---
Impression & Plan Calculus, renal, Uncontrolled pain ED Provider Note CHIEF COMPLAINT: Right flank pain radiating to the groin HISTORY OF PRESENTING ILLNESS: Patient is a 75-year-old male presents to the emergency department today for complaints of right flank pain radiating into the groin. Patient does report 1 episode of nausea and vomiting this morning. He denies a history of renal calculi. He denies any other abdominal pain. He has been able to void normally. He has no urinary complaints including urgency frequency or burning. He denies chest pain, sob, breathing difficulties, abdominal pain, headache, fevers/chills, blood in stool or urine, any recent illness, or any recent travel. REVIEW OF SYSTEMS: See HPI for pertinent positives and pertinent negatives. ALLERGIES: See below MEDICATIONS: See below PAST MEDICAL HISTORY: See below PHYSICAL EXAM: VITALS: Vitals are noted on the nurse's note and reviewed by myself. GENERAL: Does appear in pain. Non toxic, in no acute distress, non-diaphoretic. SKIN: Capillary refill <2 sec. MOUTH: Mucous membranes moist. Uvula midline. Airway patent. NECK: Supple without nuchal rigidity. HEART: Regular rate and rhythm without murmurs gallops or rubs. LUNGS: Clear to auscultation bilaterally without wheezes, rales or rhonchi. No retractions or accessory muscle use. ABDOMEN: Positive bowel sounds x 4. Normal tympanic percussion. Soft, nontender to palpation. No masses or hepatosplenomegaly. Iyer sign negative. Right CVA tenderness. No guarding, rigidity, or rebound tenderness. No focal RLQ or LLQ tenderness. MUSCULOSKELETAL: No gross musculoskeletal defects. NEURO: Patient was alert and oriented. No focal neurological deficits. DIFFERENTIAL DIAGNOSIS: Differential diagnosis includes renal calculus, pyelonephritis, musculoskeletal pain, ruptured AAA, aortic dissection, diverticulitis, perforated viscus, bowel obstruction, biliary pathology, pancreatitis, PE, pneumonia, pneumothorax, trauma, herpes zoster, malignancy, among others. ED COURSE AND MEDICAL DECISION MAKING: HISTORY FROM INDEPENDENT HISTORIAN: History was provided by the patient. MONITOR: Continuous traffic monitor specialist: Order was placed for continuous traffic monitor specialist. Patient was placed on the traffic monitor specialist and continuous pulse ox. Patient was noted to be in normal sinus rhythm at an initial rate of 70 bpm per my interpretation. INTERPRETATION OF LABS: I interpreted the labs with full lab results as below in the lab section of this note. Laboratory results pertinent to the emergent complaint are discussed in the MDM section below. The patient was advised to follow up with their PCP and/or specialist(s) for further outpatient monitoring and management of any abnormal results. INTERPRETATION OF IMAGING: Imaging studies were interpreted by myself and read by radiology as per the imaging section of this note. The patient was advised to follow up with their PCP and/or specialist(s) for further outpatient management of any non-emergent abnormal findings. CHRONIC MEDICAL/SOCIAL CONDITIONS AFFECTING CARE: No social concerns were identified as barriers to patients care. CONSULTATIONS: I had a meaningful discussion about this patient with Dr. Metcalf who agrees with my assessment and the treatment plan. SUMMARY: I examined the patient for complaints of right flank pain radiating into the right groin. A physical exam and history were performed. Nursing notes, EMR, and medication list were personally reviewed. Patient CBC did show a white cell count of 13.22. There was no anemia or thrombocytopenia. CMP showed no emergent findings. Urinalysis was negative for infection. CT of the abdomen and pelvis did show a 2 mm distal right ureteral calculus with mild hydronephrosis. Patient was originally given a liter normal saline, 4 mg of Zofran, Toradol IV and had improvement with pain and discomfort. The patient was then given morphine 2 mg and had significant improvement in pain and discomfort. I did consult with Dr. Alvarenga with urology made aware the patient will be admitted to the hospital. This likely can be resolved without urology involvement. I did consult then with the hospitalist Dr. Evans who accepts the patient for admission to the hospital due to the patient's uncontrolled pain. The patient was made up today on the plan of care. DIAGNOSIS: Right renal calculus TREATMENT PLAN/DISCHARGE INSTRUCTIONS: Admit to hospitalist services. 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 Personality change Frontal lobe deficit Dysuria Gross hematuria Stroke-like symptoms Malignant meningioma Diplopia Seasonal allergies Left-sided weakness Vertigo Anticoagulant long-term use (Acute) Weakness (Acute) Depression Abulia Encounter for pre-operative examination Hypoxia Elevated troponin I level Troponin I above reference range Shortness of breath Brain mass (Acute) Cerebral edema (Acute) Meningioma (Chronic 11/29/17) Vitamin D deficiency (Acute) H/O esophageal reflux (Acute) Headache Tinnitus Left-sided tinnitus Adequate anticoagulation on anticoagulant therapy (Chronic) Meningioma (Acute) Cerebrovascular disease Seizure Fatigue Sensorineural hearing loss (SNHL) of left ear with unrestricted hearing of right ear Complex partial seizure 10/2019 (first seizure) and 06/19/2022 most recent partial seizure r/t neuro surgery in 2019. [place] [facility] [place] Byrne for a local neurologist. Pulmonary embolism, bilateral ~2017. currently on coumadin. 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 DVT (deep venous thrombosis) hx in 2018 s/p ileum resection - reason for warfarin. 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 GERD (gastroesophageal reflux disease) Dysphagia requesting to having an EGD done. (advised to call surgeon's office) H/O meningioma of the brain Brain MRI every 2-3 months. Crohn's disease History of brain tumor History of pulmonary embolus (PE) Surgical History History of embolic filter insertion removed in 2017. History of colonoscopy H/O craniotomy History of bowel resection Ilium resection History of cholecystectomy History of appendectomy Family History Father Asthma Other No family history of allergies No family history of bleeding disorder Denies family history of Hearing loss Deep vein thrombosis Coronary heart disease Heart disease Cancer Hypertension Stroke Social History Smoking Status: Never smoker Second Hand Exposure: No; Do You Dip or Chew Tobacco: No; Hx Alcohol Use: No Hx Substance Use: No Preferred Language: Syrian Communication Ability: Effective Visual Impairment: No Limitations Hearing Ability: Normal 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 Beliefs That Will Affect Care: None marital status: Current Living Situation: Spouse current occupational status: retired Feels Safe at Home: Yes Assistive Devices: Cane and Walker Allergies Allergies Allergy/AdvReac Type Severity Reaction Status Date / Time No Known Allergies Allergy Verified 04/08/25 02:40 Home Meds Home Medications Medication Instructions Recorded Confirmed cholecalciferol (vitamin D3) 50 2,000 units PO QAM 06/07/18 04/08/25 mcg (2,000 unit) capsule colestipol 1 gram tablet 1 gm PO BID 06/07/18 04/08/25 cyanocobalamin (vitamin B-12) 1,000 mcg PO QAM 06/07/18 04/08/25 1,000 mcg capsule loratadine 10 mg tablet (Claritin) 10 mg PO DAILY PRN allergy symptoms 06/07/18 04/08/25 pantoprazole 40 mg tablet,delayed 40 mg PO DAILY 07/27/23 04/08/25 release acetaminophen 500 mg tablet 1,000 mg PO DAILY PRN 12/07/23 04/08/25 headache/back pain furosemide 20 mg tablet (Lasix) 20 mg PO DAILY PRN FLUID 12/14/23 04/08/25 RETENTION/EDEMA vitamin B complex 1 tab PO DAILY 12/25/23 04/08/25 adalimumab 40 mg/0.4 mL 40 mg subcut Q14D 06/21/24 04/08/25 subcutaneous syringe kit (Humira(CF)) Previous Rx's Medication Instructions Recorded bupropion HCl 150 mg tablet,12 hr 150 mg PO DAILY 90 days #90 ea 09/22/24 sustained-release finasteride 5 mg tablet 5 mg PO DAILY #30 tabs 10/25/24 tamsulosin 0.4 mg capsule 0.4 mg PO DAILY #30 caps 10/25/24 levetiracetam 1,000 mg tablet 1,500 mg (1.5 x 1,000 mg) PO BID 11/14/24 90 days #270 tabs warfarin 3 mg tablet See Rx Instructions PO UD #130 tabs 01/26/25 lamotrigine 150 mg tablet 150 mg PO BID 90 days #180 tabs 03/23/25 Results & Data (ED) Vital Signs Vital Signs - 24 hr 04/13/25 12:18 04/13/25 12:49 04/13/25 14:00 Temperature 36.2 C L Temperature Source Temporal Artery Scan Pulse Rate 72 68 69 Pulse Rate from SpO2 Sensor 70 Respiratory Rate 14 22 Blood Pressure 152/92 H 174/102 H Blood Pressure Mean 112 126 Pulse Oximetry 94 94 Oxygen Delivery Method Room Air Room Air Sepsis New/Unexplained Change in Mental Status No Sepsis Action Taken by Nursing No Action Required Laboratory Data 04/13/25 12:30 04/13/25 12:30 Lab Results 04/13/25 04/13/25 Range/Units 12:30 13:30 WBC 13.22 H (4.8-10.8) K/ul RBC 4.49 L (4.70-6.10) M/uL Hgb 14.4 (14.0-18.0) g/dl Hct 41.9 L (42.0-52.0) % MCV 93.3 (80.0-100.0) fL MCH 32.1 (25.0-34.0) pg MCHC 34.4 (32.0-36.0) g/dL RDW Std Deviation 46.2 (36.4-46.3) fL RDW Coeff of Adriane 13.4 (11.5-14.5) % Plt Count 211 (130-400) K/uL MPV 9.1 L (9.4-12.4) fL Immature Gran % (Auto) 0.4 % Neut % (Auto) 88.3 % Lymph % (Auto) 6.5 % Childress % (Auto) 4.6 % Eos % (Auto) 0.0 % Baso % (Auto) 0.2 % Neut # (Auto) 11.68 H (1.40-6.50) K/uL Lymph # (Auto) 0.86 L (1.20-3.40) K/uL Childress # (Auto) 0.61 H (0.11-0.59) K/uL Eos # (Auto) 0.00 (0.00-0.50) K/uL Baso # (Auto) 0.02 (0.00-0.20) K/uL Immature Gran # (Auto) 0.05 (0.01-0.20) K/uL Sodium 139 (136-145) mmol/L Potassium 4.1 (3.5-5.1) mmol/L Chloride 105 (98-107) mmol/L Carbon Dioxide 26 (21-32) mmol/L Anion Gap 8 (3-11) BUN 19 (6-23) mg/dl Creatinine 1.29 (0.6-1.4) mg/dl Est Cr Clr Drug Dosing Not Reportable eGFR 57.46 BUN/Creatinine Ratio 14.7 (10-20) Glucose 119 H (70-99(Fasting)) mg/dl Calcium 9.3 (8.6-10.3) mg/dl Total Bilirubin 0.6 (0.2-1.0) mg/dl AST 26 (13-39) U/L ALT 29 (7-52) U/L Alkaline Phosphatase 76 (34-104) U/L Total Protein 6.9 (6.0-8.3) gm/dl Albumin 4.4 (3.4-5.0) gm/dl Globulin 2.5 (2.5-4.0) gm/dl Albumin/Globulin Ratio 1.8 (0.9-2) Lipase 16 (11-82) U/L Urine Color Dark Yellow Urine Appearance Clear (Clear) Urine pH 5.0 (4.5-7.5) Ur Specific [place] 1.037 H (1.000-1.030) Urine Protein Trace H (Negative) Urine Glucose (UA) Negative (Negative) Urine Ketones 2+ H (Negative) Urine Blood Negative (Negative) Urine Nitrite Negative (Negative) Urine Bilirubin Negative (Negative) Urine Urobilinogen Negative (Negative) Ur Leukocyte Esterase Negative (Negative) Urine WBC (Auto) 0-5 (0-5) /hpf Urine RBC (Auto) 0-2 (0-2) /hpf U Hyaline Cast (Auto) 0-2 (0-2) /lpf U Epithel Cells (Auto) 0-2 (0-2) /hpf Urine Bacteria (Auto) None Seen (None Seen) Urine Comment Administered Medications Discontinued Medications Sodium Chloride (Nss) 1,000 mls @ 999 mls/hr IV .Q1H1M STA Stop: 04/13/25 13:57 Last Infusion: 04/13/25 14:31 Dose: Infused Documented By: Admin: 04/13/25 13:29 Dose: 999 mls/hr Documented By: BENNY Ioversol (Optiray 320 100ml) 93 ml IV ONCE ONE Stop: 04/13/25 14:47 Last Admin: 04/13/25 14:47 Dose: 93 ml Documented By: MARTY Ketorolac Tromethamine (Ketorolac Tromethamine 15 Mg/Ml Vial) 15 mg IV NOW STA Stop: 04/13/25 13:59 Last Admin: 04/13/25 14:11 Dose: 15 mg Documented By: RIVER Morphine Sulfate (Morphine Sulfate 2 Mg/Ml Carp) 2 mg IV NOW STA Stop: 04/13/25 15:46 Last Admin: 04/13/25 16:04 Dose: 2 mg Documented By: BENNY Ondansetron HCl (Ondansetron Inj 2 Mg/Ml 2 Ml Vial) 4 mg IV NOW STA Stop: 04/13/25 12:58 Last Admin: 04/13/25 13:28 Dose: 4 mg Documented By: BENNY Imaging Data Radiologist's Impression: Abdomen/Pelvis CT 04/13/25 12:58 CT SCAN OF THE ABDOMEN AND PELVIS WITH IV CONTRAST CLINICAL HISTORY: Right flank pain. COMPARISON STUDY: MR enterography April 12, 2025. CT of the abdomen and pelvis March 10, 2025. TECHNIQUE: Following the IV administration of 93 cc of Optiray 320, CT scan of the abdomen and pelvis is performed from the lung bases to the proximal femora. Images are reviewed in the axial, sagittal, and coronal planes. IV contrast was administered without complication. A dose lowering technique was utilized adhering to the principles of ALARA. CT DOSE: 1465.17 mGy.cm FINDINGS: No pneumatosis, free air or portal venous gas is present. There is hepatic steatosis. There is no biliary ductal dilatation status post cholecystectomy. Spleen, adrenal glands, left kidney and pancreas are unremarkable. A 2 mm distal right ureteral calculus results in mild hydroureteronephrosis with delayed right nephrogram. The findings are new since MRI of April 12, 2025. Enhancing 1.4 cm polypoid lesion within the gastric antrum on image 107 and corresponds to the finding on MRI. There is no evidence for a bowel obstruction. Caliber and wall thickness of small and large bowel are normal. Prostate is mildly enlarged, measuring 4.7 cm in transverse diameter. There is no lymphadenopathy. There are no fluid collections. IMPRESSION: 1. 2 mm distal right ureteral calculus which results in mild hydroureteronephrosis with delayed right nephrogram. 2. 1.4 cm enhancing polypoid lesion within the gastric antrum as shown on MRI of April 12, 2025. Nonemergent GI consultation for consideration for endoscopy is recommended. 3. No bowel obstruction. ACT 112: Negative or not required by law. Electronically signed by: Ranjit Hernandez M.D. 04/13/2025 3:06 PM Discharge Plan Visit Data Chief Complaint: Abdominal Pain Stated Complaint: AB PAIN ED Provider: Conner Metcalf ED Midlevel Provider: Bren Dover Prescriptions Prescriptions: No Action acetaminophen 500 mg tablet 1,000 mg PO DAILY PRN (Reason: headache/back pain) cholecalciferol (vitamin D3) 2,000 unit capsule 2,000 units PO QAM colestipol 1 gram tablet 1 gm PO BID cyanocobalamin (vitamin B-12) 1,000 mcg capsule 1,000 mcg PO QAM loratadine [Claritin] 10 mg tablet 10 mg PO DAILY PRN (Reason: allergy symptoms) Humira(CF) 40 mg/0.4 mL syringe kit 40 mg SQ Q14D vitamin B complex Tablet 1 tab PO DAILY levetiracetam 1,000 mg tablet 1,500 mg PO BID 90 Days Qty: 270 3RF warfarin 3 mg tablet See Rx Instructions PO UD Qty: 130 1RF Rx Instructions: 3mg Tuesdays and Saturdays, 4.5mg x 5 days per [facility] pantoprazole 40 mg tablet,delayed release (DR/EC) 40 mg PO DAILY bupropion HCl 150 mg tablet sustained-release 12 hr 150 mg PO DAILY 90 Days Qty: 90 3RF lamotrigine 150 mg tablet 150 mg PO BID 90 Days Qty: 180 3RF furosemide [Lasix] 20 mg tablet 20 mg PO DAILY PRN (Reason: FLUID RETENTION/EDEMA) finasteride 5 mg tablet 5 mg PO DAILY Qty: 30 11RF tamsulosin 0.4 mg capsule 0.4 mg PO DAILY Qty: 30 11RF
--- NOTE | 2025-04-13 16:49 | History & Physical Report ---
Date of Service April 13, 2025 Assessment & Plan (1) Calculus, renal: Plan: Patient presents to the hospital today with right flank pain. Found to have a 2 mm obstructing calculus with mild hydronephrosis Will continue Flomax Control pain Consult urology (2) Seizure disorder: Plan: Patient has a seizure disorder from frontal lobe syndrome on account of resected meningioma Will continue lamotrigine and Keppra (3) BPH w urinary obs/LUTS: Plan: History of BPH Continue Flomax Follows up with urology outpatient (4) Malignant meningioma: Plan: Status post gamma knife resection and radiation Continue antiseizure medications (5) History of pulmonary embolus (PE): Plan: , Warfarin at home, continue Status post venous filter (6) Crohn's disease: Plan: Stable, had colon resection at some point No flareups recently Plan Admit to [facility] Full code History of Present Illness Chief Complaint: Right flank pain Primary Care Provider: Arthur Hubbard MD This is a 75-year-old male with a history of focal seizures, from right frontal malignant meningioma, status postresection, BPH, PE, who presents to the hospital today with complaints of right flank pain which started earlier in the day. According to the patient, the pain was about 8 out of 10 in severity, radiating down the right flank, however no hematuria. Here in the emergency department, a CT scan of the abdomen pelvis was done which showed evidence of a 2 mm distal right ureteral calculus which resulted in mild hydro ureteral nephrosis. Urology has been notified, patient will be admitted to the hospital for management. Allergies Allergy/AdvReac Type Severity Reaction Status Date / Time No Known Allergies Allergy Verified 04/08/25 02:40 Home Medications Medication Instructions Recorded Confirmed Type cholecalciferol (vitamin D3) 50 2,000 units PO QAM 06/07/18 04/08/25 History mcg (2,000 unit) capsule colestipol 1 gram tablet 1 gm PO BID 06/07/18 04/08/25 History cyanocobalamin (vitamin B-12) 1,000 mcg PO QAM 06/07/18 04/08/25 History 1,000 mcg capsule loratadine 10 mg tablet (Claritin) 10 mg PO DAILY PRN allergy symptoms 06/07/18 04/08/25 History pantoprazole 40 mg tablet,delayed 40 mg PO DAILY 07/27/23 04/08/25 History release acetaminophen 500 mg tablet 1,000 mg PO DAILY PRN 12/07/23 04/08/25 History headache/back pain furosemide 20 mg tablet (Lasix) 20 mg PO DAILY PRN FLUID 12/14/23 04/08/25 History RETENTION/EDEMA vitamin B complex 1 tab PO DAILY 12/25/23 04/08/25 History adalimumab 40 mg/0.4 mL 40 mg subcut Q14D 06/21/24 04/08/25 History subcutaneous syringe kit (Humira(CF)) bupropion HCl 150 mg tablet,12 hr 150 mg PO DAILY 90 days #90 ea 09/22/24 04/08/25 Rx sustained-release finasteride 5 mg tablet 5 mg PO DAILY #30 tabs 10/25/24 04/08/25 Rx tamsulosin 0.4 mg capsule 0.4 mg PO DAILY #30 caps 10/25/24 04/08/25 Rx levetiracetam 1,000 mg tablet 1,500 mg (1.5 x 1,000 mg) PO BID 11/14/24 04/08/25 Rx 90 days #270 tabs warfarin 3 mg tablet See Rx Instructions PO UD #130 tabs 01/26/25 04/08/25 Rx lamotrigine 150 mg tablet 150 mg PO BID 90 days #180 tabs 03/23/25 04/08/25 Rx Past Med/Surg History Problem List (Updated 04/13/25 @ 16:32 by Background Daemon) Uncontrolled pain (Acute) Calculus, renal (Acute) Fall (Acute) Laceration of scalp (Acute) Seizure disorder 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 Personality change Frontal lobe deficit Dysuria Gross hematuria Stroke-like symptoms Malignant meningioma Diplopia Seasonal allergies Left-sided weakness Vertigo Anticoagulant long-term use (Acute) Weakness (Acute) Depression Abulia Encounter for pre-operative examination Hypoxia Elevated troponin I level Troponin I above reference range Shortness of breath Brain mass (Acute) Cerebral edema (Acute) Meningioma (Chronic 11/29/17) Vitamin D deficiency (Acute) H/O esophageal reflux (Acute) Headache Tinnitus Left-sided tinnitus Adequate anticoagulation on anticoagulant therapy (Chronic) Meningioma (Acute) Cerebrovascular disease Seizure Fatigue Sensorineural hearing loss (SNHL) of left ear with unrestricted hearing of right ear Complex partial seizure 10/2019 (first seizure) and 06/19/2022 most recent partial seizure r/t neuro surgery in 2019. Follows [facility] [place] and Dr Byrne for a local neurologist. Pulmonary embolism, bilateral ~2017. currently on coumadin. 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 DVT (deep venous thrombosis) hx in 2018 s/p ileum resection - reason for warfarin. 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 GERD (gastroesophageal reflux disease) Dysphagia requesting to having an EGD done. (advised to call surgeon's office) H/O meningioma of the brain Brain MRI every 2-3 months. Crohn's disease History of brain tumor History of pulmonary embolus (PE) Surgical History History of embolic filter insertion removed in 2017. History of colonoscopy H/O craniotomy History of bowel resection Ilium resection History of cholecystectomy History of appendectomy Family History Father Asthma Other No family history of allergies No family history of bleeding disorder Denies family history of Hearing loss Deep vein thrombosis Coronary heart disease Heart disease Cancer Hypertension Stroke Social History Smoking Status: Never smoker Second Hand Exposure: No; Do You Dip or Chew Tobacco: No; Hx Alcohol Use: No Hx Substance Use: No Preferred Language: Peruvian Communication Ability: Effective Visual Impairment: No Limitations Hearing Ability: Normal 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 Physical Exam Physical Exam: The patient is awake, alert and oriented 3, well developed and well nourished, normocephalic and atraumatic, lying in bed and in no acute distress. HEENT--PERRL, EOMI, mucous membranes and oropharynx mildly dry Neck--supple. No JVD. No bruits. Thyroid normal, trachea midline, no adenopathy. Heart--normal S1 and S2. No murmurs, rubs or gallops. Lungs--clear bilaterally, no respiratory distress, no accessory muscle use. Abdomen--normal bowel sounds and soft. Extremities--no cyanosis or clubbing. No edema. Dermatologic--normal skin turgor, normal color, no abnormal lymph nodes, no rash. Neurologic--cranial nerves II through XII grossly intact. Rheumatologic--normal range of motion. Psychiatric--normal affect. Results & Data Results & Data Vital Signs (Past 12 Hours) Vital Signs Temp Pulse Resp BP Pulse Ox O2 Del Method 04/13/25 14:00 69 22 174/102 H 94 Room Air 04/13/25 12:49 68 04/13/25 12:18 97.2 F L 72 14 152/92 H 94 Room Air PG Care Time/CCT Total # of Minutes Spent Total Time Spent with Patient: Total time spent is greater than 50% in coordination of care (as documented) at patient's floor/unit and/or counseling patient: Coding Level of Care Code 80522 INT INP/OBS CARE 3/75MIN Diagnoses Calculus, renal N20.0 Seizure disorder G40.909 BPH w urinary obs/LUTS N40.1; N13.8 Malignant meningioma C70.9 History of pulmonary embolus (PE) Z86.711 Crohn's disease K50.90 Time Spent (min) 75
[2025-04-13] MEDS ORDERED: MoRPHine SULFATE 2 MG/ML CARP IV PRN (16:50)
--- NOTE | 2025-04-13 19:09 | Urology Consultation ---
Date of Consultation April 13, 2025 Assessment & Plan (1) Calculus, renal: The patient has been admitted on the hospitalist service. Urologic recommendations are as follows: Provide analgesics Provide antiemetics Hydrate with IV fluids Provide Flomax for expulsive therapy I discussed with the patient that he has a distal 2 mm kidney stone. Hopefully with the above-noted measures the stone will pass on its own. At the time of my interview the patient is nontoxic-appearingshe is normoten sive without tachycardia or fever. He does not have acute kidney injury. I therefore feel conservative measures are warranted at this time Would recommend making the patient n.p.o. after midnight, and he will be reevaluated in the morning by urologic team and a determination will be made if patient requires cystoscopic intervention Additional recommendations be forthcoming based on his clinical course as unfolds History of Present Illness Reason for Consultation: Nephrolithiasis Attending Physician: Dory Clarke MD History of Present Illness This is a 75-year-old male who presented to the emergency department secondary to right flank pain. Patient says that the pain began approximate 2:00 AM this morning. He says that the pain really does not radiate anywhere and he is not report any modifying factors. He did have a few episodes of nausea and vomiting. He denies any fevers, shakes, or chills. He denies any dysuria or hematuria. He has no history of kidney stones in the past. Since arrival to the emergency department he has had labs and imaging which I independently reviewed. CBC revealed white blood cell count was elevated 13.2. Hemoglobin and platelet count were normal. The hematocrit was slightly low at 41.9. Chemistry profile showed sodium and potassium as well as the BUN and creatinine were normal. Urinalysis was not indicative of infection. At the time of my interview he was resting comfortably in bed he was in no distress. Allergies Allergy/AdvReac Type Severity Reaction Status Date / Time No Known Allergies Allergy Verified 04/13/25 17:48 Home Medications Medication Instructions Recorded Confirmed Type cholecalciferol (vitamin D3) 50 2,000 units PO QAM 06/07/18 04/13/25 History mcg (2,000 unit) capsule colestipol 1 gram tablet 1 gm PO QID 06/07/18 04/13/25 History cyanocobalamin (vitamin B-12) 1,000 mcg PO QAM 06/07/18 04/13/25 History 1,000 mcg capsule loratadine 10 mg tablet (Claritin) 10 mg PO DAILY PRN allergy symptoms 06/07/18 04/13/25 History pantoprazole 40 mg tablet,delayed 40 mg PO DAILY 07/27/23 04/13/25 History release acetaminophen 500 mg tablet 1,000 mg PO DAILY PRN 12/07/23 04/13/25 History headache/back pain furosemide 20 mg tablet (Lasix) 20 mg PO DAILY PRN FLUID 12/14/23 04/13/25 History RETENTION/EDEMA vitamin B complex 1 tab PO DAILY 12/25/23 04/13/25 History adalimumab 40 mg/0.4 mL 40 mg subcut Q14D 06/21/24 04/13/25 History subcutaneous syringe kit (Humira(CF)) bupropion HCl 150 mg tablet,12 hr 150 mg PO DAILY 90 days #90 ea 09/22/24 04/13/25 Rx sustained-release finasteride 5 mg tablet 5 mg PO DAILY #30 tabs 10/25/24 04/13/25 Rx tamsulosin 0.4 mg capsule 0.4 mg PO DAILY #30 caps 10/25/24 04/13/25 Rx levetiracetam 1,000 mg tablet 1,500 mg (1.5 x 1,000 mg) PO BID 11/14/24 04/13/25 Rx 90 days #270 tabs lamotrigine 150 mg tablet 150 mg PO BID 90 days #180 tabs 03/23/25 04/13/25 Rx warfarin 3 mg tablet 3 mg PO 2XWK 04/13/25 04/13/25 History warfarin 3 mg tablet 4.5 mg PO 5XWK 04/13/25 04/13/25 History Patient History Medical History Hematuria Recurrent falls History of seizures 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 GERD (gastroesophageal reflux disease) Dysphagia requesting to having an EGD done. (advised to call surgeon's office) H/O meningioma of the brain Brain MRI every 2-3 months. Crohn's disease History of brain tumor History of pulmonary embolus (PE) Surgical History History of embolic filter insertion removed in 2018. History of colonoscopy H/O craniotomy History of bowel resection Ilium resection History of cholecystectomy History of appendectomy Family History Father Asthma Other No family history of allergies No family history of bleeding disorder Denies family history of Hearing loss Deep vein thrombosis Coronary heart disease Heart disease Cancer Hypertension Stroke Social History Smoking Status: Never smoker Second Hand Exposure: No; Do You Dip or Chew Tobacco: No; Hx Alcohol Use: No Hx Substance Use: No Preferred Language: Icelandic Communication Ability: Effective Visual Impairment: No Limitations Hearing Ability: Normal 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 Beliefs That Will Affect Care: None marital status: Current Living Situation: Spouse current occupational status: retired Feels Safe at Home: Yes Assistive Devices: Cane and Walker Review of Systems Review of Systems: All systems reviewed & are unremarkable except as noted in HPI & below Physical Exam Constitutional: WD/WN, vitals as above Eyes: Wears glasses ENMT: Ears: no hearing impairment and no external ear abnormality Neck: trachea midline Respiratory: normal respiratory effort; no respiratory distress and no labored breathing Cardiovascular: Rate/Rhythm: regular rate and regular rhythm Gastrointestinal (Abdomen): Soft and nontender to palpation Musculoskeletal: No calf tenderness Skin: no rashes Neurologic: moves all extremities Psychiatric: A+Ox3, euthymic affect Genitourinary: No CVA tenderness with percussion bilaterally Results & Data Vital Signs (Past 12 Hours) Vital Signs Temp Pulse Resp BP BP Pulse Ox O2 Del Method 04/13/25 18:33 36.5 C 18 146/81 H 95 Room Air 04/13/25 18:16 Room Air 04/13/25 18:00 62 17 139/81 94 Room Air 04/13/25 17:58 64 18 95 Room Air 04/13/25 17:00 68 17 131/79 92 Room Air 04/13/25 16:51 66 04/13/25 16:00 67 17 138/74 92 Room Air 04/13/25 14:00 69 22 174/102 H 94 Room Air 04/13/25 12:49 68 04/13/25 12:18 36.2 C L 72 14 152/92 H 94 Room Air PG Care Time/CCT Total # of Minutes Spent Total Time Spent with Patient: Total time spent is greater than 50% in coordination of care (as documented) at patient's floor/unit and/or counseling patient: Coding Level of Care Code 92165 INT INP/OBS CARE 3/75MIN Diagnoses Calculus, renal N20.0
[2025-04-13] MEDS: SODIUM CHLORIDE 0.9% 1,000 ML IV SCH (19:56)
[2025-04-13] MEDS: WARFARIN SOD 3 MG TAB PO SCH (21:43)
[2025-04-13] MEDS: lamoTRIgine 100 MG TAB PO SCH (21:44)
[2025-04-13] MEDS: lamoTRIgine 25 MG TAB PO SCH (21:44)
[2025-04-13] MEDS: levETIRAcetam 500 MG TAB PO SCH (21:45)
[2025-04-14 06:28] LABS: Hematocrit (blood only) 37.0 % (42.0-52.0); Hemoglobin 12.6 g/dl (14.0-18.0); Immature Granulocytes # (auto) 0.02 K/uL (0.01-0.20); Immature Granulocytes % (auto) 0.3 %; Mean Corpuscular Hemoglobin 32.6 pg (25.0-34.0); Mean Corpuscular Volume 95.9 fL (80.0-100.0); Platelet Count 181 K/uL (130-400); RDW Standard Deviation 49.0 fL (36.4-46.3); Red Blood Count 3.86 M/uL (4.70-6.10); White Blood Count 7.87 K/ul (4.8-10.8)
[2025-04-14 06:48] LABS: Anion Gap 5.0 (3-11); Blood Urea Nitrogen 19.0 mg/dl (6-23); Calcium 8.1 mg/dl (8.6-10.3); Carbon Dioxide 27.0 mmol/L (21-32); Chloride 109.0 mmol/L (98-107); Creatinine Clr Calc Pharmacy 55.7 ml/min; Glucose 97.0 mg/dl (70-99(Fasting)); Potassium 3.7 mmol/L (3.5-5.1); Sodium 141.0 mmol/L (136-145)
[2025-04-14 06:53] LABS: INR 2.5 (0.9-1.1); Prothrombin Time 25.1 Seconds (9.0-12.0)
[2025-04-14 06:54] VITALS: BP 128/74; PULSE 63; RESP 16; TEMP 97.9; O2SAT 92
[2025-04-14] MEDS: FINASTERIDE 5 MG TAB PO SCH (07:32)
[2025-04-14] MEDS: TAMSULOSIN HCL 0.4 MG CAP PO SCH (07:33)
--- NOTE | 2025-04-14 08:40 | Urology Progress Note ---
Date of Service April 14, 2025 Assessment & Plan (1) Right ureteral stone: Plan Urology consulted for her right distal stone seen on CT Vital signs stable and patient is afebrile No cultures currently pending Today he is reporting no pain, other urological concerns Labs today-creatinine 1.33, WBC 7.87, hemoglobin 12.6, glucose 97 Recommend: Discussed the option of cystoscopy with right ureteral stent placement-discussed reasons for completion of this including deteriorating kidney function, signs or symptoms of infection, uncontrolled pain We also discussed the option of holding on surgical intervention with max expulsion therapy including Flomax, pain management, fluids, we discussed likelihood of stone passage due to size of stone He would like to hold off on any surgery for the time being which I think is reasonable since he is currently has pain controlled Continue analgesics, antiemetics, Flomax for max expulsion therapy He may require right ureteral stent placement if he clinically worsens or persistent flank pain May resume diet since we are not proceeding to surgery currently Other medical management per primary team Urology will sign off Please reconsult or contact our team for any urological questions and/or concerns or if patient clinically deteriorates Will arrange outpatient follow-up with our office Case was discussed with Dr. Louise Admission and Anticipated Discharge Date Admission Date: April 13, 2025 Supervising Physician Co-Signing Physician Notes 75-year-old male with 2 mm distal ureteral stone. This is of a size where he is most likely going to be able to pass it spontaneously. Since pain is controlled and there is low suspicion for underlying infection or renal dysfunction, would recommend medical expulsive therapy with pain control, tamsulosin, straining all urine. Urology can coordinate outpatient follow-up to ensure the stone has passed. -Yeison Louise MD. Subjective Patient resting comfortably in bed NAD Denies dysuria, gross hematuria, fevers, chills, nausea, and vomiting. Voiding appropriately Denies any current pain First incidence of nephrolithiasis Review of Systems Constitutional: as per Subjective / HPI Genitourinary: + as per Subjective / HPI Physical Exam Constitutional: well developed and well nourished; no acute distress Respiratory: normal respiratory effort and able to speak in complete sentences Musculoskeletal: Extremities: extremities normal to inspection Psychiatric: Orientation: alert and oriented x 3 Results & Data Vital Signs (Past 12 Hours) Vital Signs Temp Pulse Resp BP Pulse Ox O2 Del Method 04/14/25 07:29 Room Air 04/14/25 06:54 36.6 C 63 16 128/74 92 Room Air PG Care Time/CCT Total # of Minutes Spent Total Time Spent with Patient: Total time spent is greater than 50% in coordination of care (as documented) at patient's floor/unit and/or counseling patient: Coding Level of Care Code 86481 SUB INP/OBS CARE 2/35MIN Diagnoses Right ureteral stone N20.1
--- NOTE | 2025-04-14 09:27 | Discharge Summary ---
Discharge Summary Date of Service April 14, 2025 Principal Dx & Hospital Course #1 = Principal Diagnosis (1) Calculus, renal: (2) Seizure disorder: (3) BPH w urinary obs/LUTS: (4) Malignant meningioma: (5) History of pulmonary embolus (PE): (6) Crohn's disease: Plan This is a 75 year old male with past medical history of right frontal malignant meningiomas s/p resection, BPH, PE who presented to the ED on 04/13/2025 with a c hief complaint of right flank pain. #Renal Calculus CTAP: 2mm distal right ureteral calculus which results in mild hydroureteronephrosis w/ delayed right nephrogram. Urology consulted: recommending supportive care w/ Flomax, hydration & pain medication. Recommend follow up in office as if not resolved could consider cystoscopy on outpatient basis. w/o pain but patint reports he has not passed stone Continue Flomax daily Oxycodone 5mg every 4 hours as needed for severe pain @ home. #abnormal imaging of GI tract CTAP: 1.4 cm enhancing polypoid lesion within gastric antrum. (previously shown on MRI 04/12/2025). non emergent GI consult for EGD recommended GI referral on discharge. Continue PPI #Seizure d/o hx of malignant meningoma w/ gamma knife resection/radiation continue anti-seizure medications #Hx of PE - continue Coumadin #Crohn's disease - stable Discharged home 04/14 Admission HPI Per Admitting Provider This is a 75-year-old male with a history of focal seizures, from right frontal malignant meningioma, status postresection, BPH, PE, who presents to the hospital today with complaints of right flank pain which started earlier in the day. According to the patient, the pain was about 8 out of 10 in severity, radiating down the right flank, however no hematuria. Here in the emergency department, a CT scan of the abdomen pelvis was done which showed evidence of a 2 mm distal right ureteral calculus which resulted in mild hydro ureteral nephrosis. Urology has been notified, patient will be admitted to the hospital for management. Discharge Exam Constitutional WD/WN, vitals as above Eyes PERRL, conjunctivae normal, anicteric sclerae Respiratory normal respiratory effort Cardiovascular RRR, no murmur, no edema Gastrointestinal (Abdomen) normal bowel sounds, soft, nontender, no hepatosplenomegaly Neurologic PERRL, EOMI, accommodation nl, no face palsy, no dysarthria Psychiatric A+Ox3, euthymic affect Discharge Plan Discharge Items Patient Disposition: Home - Self-Care Reason For Visit: KIDNEY STONE Discharge Diagnosis: Kidney stone Condition on Discharge: Good Activity: Resume your previous activity Non-emergency contact: Primary Care Provider and Urologist Call non-emergency contact if: you have any medication questions, your symptoms worsen and your pain is not controlled Follow-up/Referrals: Mio Romero DO [Physician] - (OOffice will contact patient with appointment) Robert Alvarenga DO [Physician] - (Patient to contact office to make follow up appointment) Arthur Hubbard MD [Primary Care Provider] - 04/20/25 10:45 am Diet: Regular Addtl Attending Provider Instructions: Mr. Rutherford, You were recently hospitalized for right flank pain and were found to have a kidney stone. You were evaluated by our urology team & it was recommended to continue supportive care. No procedures were performed but they did recommend a follow up in your office. Please see recommendations below regarding your discharge. Please take Flomax once daily. This will start tomorrow morning, 04/15. Please use Tylenol 1000mg every 8 hours for pain. For severe pain, please use oxycodone 5mg every 4 hours as needed. Please stay hydrated as this will help facilitate passage of the stone. A referral to urology was sent on discharge. Their office phone number is above. Upon review of your CT scan there was an abnormality seen in your stomach. This was also seen on your recent MRI from 04/12/2025. It was deemed non emergent, but you have also been referred to the director informatics for further evaluation. Their office phone number is above as well. Please resume the remainder of your medications unless stated otherwise below. Please follow up with your PCP within 1-2 weeks of discharge. Best of luck! Maine Ward PA-C Pending Studies at Discharge: No Stand-Alone Forms: My [employer] Online Ordering, Smoking Cessation Medications and DC Order Prescriptions: New oxycodone 5 mg tablet 5 mg PO Q4H PRN (Reason: pain 8,9,10 on pain scale) Qty: 10 0RF Continued acetaminophen 500 mg tablet 1,000 mg PO DAILY PRN (Reason: headache/back pain) cholecalciferol (vitamin D3) 2,000 unit capsule 2,000 units PO QAM colestipol 1 gram tablet 1 gm PO QID cyanocobalamin (vitamin B-12) 1,000 mcg capsule 1,000 mcg PO QAM loratadine [Claritin] 10 mg tablet 10 mg PO DAILY PRN (Reason: allergy symptoms) Humira(CF) 40 mg/0.4 mL syringe kit 40 mg SQ Q14D vitamin B complex Tablet 1 tab PO DAILY levetiracetam 1,000 mg tablet 1,500 mg PO BID 90 Days Qty: 270 3RF pantoprazole 40 mg tablet,delayed release (DR/EC) 40 mg PO DAILY bupropion HCl 150 mg tablet sustained-release 12 hr 150 mg PO DAILY 90 Days Qty: 90 3RF lamotrigine 150 mg tablet 150 mg PO BID 90 Days Qty: 180 3RF furosemide [Lasix] 20 mg tablet 20 mg PO DAILY PRN (Reason: FLUID RETENTION/EDEMA) finasteride 5 mg tablet 5 mg PO DAILY Qty: 30 11RF tamsulosin 0.4 mg capsule 0.4 mg PO DAILY Qty: 30 11RF warfarin 3 mg Tablet 4.5 mg PO 5XWK Rx Instructions: 3mg Tuesdays and Saturdays, 4.5mg x 5 days per [facility] warfarin 3 mg tablet 3 mg PO 2XWK Rx Instructions: 3mg Tuesdays and Saturdays, 4.5mg x 5 days per [facility] Discharge Orders: Discharge Order (Routine); Ordered 04/14/25 Ordered By: Maine Ward Admission Data Admit Date/Time: 04/13/25 16:29 Attending Provider: Dory Clarke Admit Provider: Janak Evans Primary Care Provider: Arthur Hubbard Other Providers: Jac Banks; Bella Mosley; Robert Alvarenga; So Franks; Yeison Louise; Eulalia Roland; Amanuel Dent; Mary Osorio; Aron Grant; Geovany Montero Other Interventions: Discharge Summary Assessment (RN) Last Done: 04/14/25 09:35 Hospital Stay Data Consultations 07/24/25 18:33 Consult Urology Routine Diagnostic Imagining Performed 04/13/25 12:58 CT abd pelvis IV con only Stat Pending Results Patient Have Any Pending Studies at Discharge: No Discharge Instructions Given to Patient (Per Discharging Provider) Mr. Rutherford, Julio Cesar were recently hospitalized for right flank pain and were found to have a kidney stone. You were evaluated by our urology team & it was recommended to continue supportive care. No procedures were performed but they did recommend a follow up in your office. Please see recommendations below regarding your discharge. Please take Flomax once daily. This will start tomorrow morning, 04/15. Please use Tylenol 1000mg every 8 hours for pain. For severe pain, please use oxycodone 5mg every 4 hours as needed. Please stay hydrated as this will help facilitate passage of the stone. A referral to urology was sent on discharge. Their office phone number is above. Upon review of your CT scan there was an abnormality seen in your stomach. This was also seen on your recent MRI from 04/12/2025. It was deemed non emergent, but you have also been referred to the director informatics for further evaluation. Their office phone number is above as well. Please resume the remainder of your medications unless stated otherwise below. Please follow up with your PCP within 1-2 weeks of discharge. Best of luck! Maine Ward PA-C Total Time Total Time Spent Total Time Spent (In Minutes): 50 Total Time Includes: Examination of the Patient, Discharge Planning and Medication Reconciliation Coding Level of Care Code 00489 INP/OBS DISCH >30 MIN Diagnoses Calculus, renal N20.0 Seizure disorder G40.909 BPH w urinary obs/LUTS N40.1; N13.8 Malignant meningioma C70.9 History of pulmonary embolus (PE) Z86.711 Crohn's disease K50.90
[2025-04-15] MEDS ORDERED: WARFARIN SOD 3 MG TAB PO SCH (16:00)
== END 2025-04-14 10:36 | disposition home or self-care (01) | DRG 694 ==
LOC: ED 12:13 → INTOOBSV 16:29 → SUATTDRO 16:29 → 3N 16:29

== ENCOUNTER 2025-05-19 09:21 | Inpatient (IN) ==
[2025-05-19] MEDS: OPTIRAY 320 125ml IV ONE (09:49)
[2025-05-19 10:13] LABS: Hematocrit (blood only) 41.7 % (42.0-52.0); Hemoglobin 14.2 g/dl (14.0-18.0); Immature Granulocytes # (auto) 0.02 K/uL (0.01-0.20); Immature Granulocytes % (auto) 0.3 %; Mean Corpuscular Hemoglobin 32.2 pg (25.0-34.0); Mean Corpuscular Volume 94.6 fL (80.0-100.0); Platelet Count 201 K/uL (130-400); RDW Standard Deviation 47.4 fL (36.4-46.3); Red Blood Count 4.41 M/uL (4.70-6.10); White Blood Count 6.57 K/ul (4.8-10.8)
--- NOTE | 2025-05-19 10:14 | CT Scan Report ---
CT ANGIOGRAM OF THE NECK CLINICAL HISTORY: Trauma. Lower extremity weakness. COMPARISON STUDY: CT angiogram of the neck dated 05/31/2023 TECHNIQUE: Following the IV administration of 94 of Optiray 320, CT angiogram of the neck was perform ed from the aortic arch to the skull base. Images are reviewed in the axial, sagittal, and coronal pl anes. 3-D MIPS images are created and assessed. IV contrast was administered without complication. Al l measurements were calculated based on NASCET criteria. A dose lowering technique was utilized adhe ring to the principles of ALARA. CT DOSE: 2815.16 mGy.cm FINDINGS: Thoracic aorta: Visualized portions of the thoracic aorta are normal in caliber. The aortic arch demo nstrates 4-vessel variant anatomy. The left vertebral artery arises directly from the thoracic aorta. Right carotid arterial system: The right common carotid artery is widely patent, as are the right int ernal and external carotid arteries. Left carotid arterial system: The left common carotid artery is widely patent, as are the left international manager al and external carotid arteries. Vertebral arteries: Widely patent bilaterally and codominant. Subclavian arteries: Widely patent bilaterally. Intracranial vasculature: The visualized intracranial vessels at the skull base are patent. Jugular veins: Patent bilaterally. Brain parenchyma: The visualized brain parenchyma the skull base is within normal limits. Lung apices: Partially visualized upper lobe lung parenchyma appears clear. Soft tissues: The visualized pharyngeal soft tissues are normal in appearance noting angiographic pha se technique. The oropharyngeal airway appears widely patent. The salivary and thyroid glands are nor mal in appearance. No cervical lymphadenopathy is seen. Skeletal structures: The skeletal structures are osteopenic. The visualized calvarium at the skull ba se appears intact. The imaged cervical spine is maintained noting mild multilevel spondylosis. Sinuses and mastoids: Trace mucosal thickening is noted in the maxillary antra. There is trace left m astoid effusion. The right mastoid air cells are well pneumatized. IMPRESSION: Unremarkable CT angiogram of the neck. ACT 112: Negative or not required by law. Electronically signed by: Henry Looney M.D. 05/19/2025 10:12 AM
--- NOTE | 2025-05-19 10:15 | CT Scan Report ---
CT SCAN OF THE BRAIN WITHOUT IV CONTRAST CLINICAL HISTORY: Falls. Weakness. COMPARISON STUDY: Head CT April 08, 2025. MRI of the brain May 09, 2025. TECHNIQUE: Unenhanced axial CT scan of the brain was performed from the vertex to the skull base. A dose lowering technique was utilized adhering to the principles of ALARA. FINDINGS: There are stable findings following right frontal craniotomy. The appearance of the right f rontal operative bed is unchanged. Note is again made of volume loss with stable asymmetric dilatatio n of the frontal horn of the right lateral ventricle. There are no new extra axial fluid collections. No acute intracranial hemorrhage, midline shift or mass effect is present. White matter hypodensitie s are unchanged. There are no findings to suggest acute dural sinus thrombosis or acute territorial i nfarct. There are no calvarial fractures. IMPRESSION: 1. No acute intracranial findings. No change in appearance of the brain. Stable findings following ri ght frontal craniotomy. 2. No calvarial fractures. ACT 112: Negative or not required by law. Electronically signed by: Ranjit Hernandez M.D. 05/19/2025 10:14 AM
--- NOTE | 2025-05-19 10:24 | CT Scan Report ---
CT SCAN OF THE CHEST WITH IV CONTRAST CLINICAL HISTORY: Falls. COMPARISON STUDY: Chest radiograph April 08, 2025. Chest CT January 01, 2022. TECHNIQUE: Following the IV administration of 94 cc of Optiray 320, CT scan of the thorax was perform ed from the thoracic inlet to the upper abdomen. Images are reviewed in the axial, sagittal, and trey nal planes. IV contrast was administered without complication. A dose lowering technique was utilize d adhering to the principles of ALARA. FINDINGS: There is no evidence for traumatic injury to the thoracic aorta. Mild cardiomegaly is noted . There is a small hiatal hernia. No thoracic lymphadenopathy is present. Central airways are patent. Subpleural opacities favor atelectasis. No pulmonary contusion is present. There is no pneumothorax or pleural effusion. No acute rib or thoracic spine fractures are present. A few tiny pulmonary nodul es measuring up to [address] of January 01, 2022. These are benign given stability. Pleas e note that the abdomen and pelvis CT will be reported separately. IMPRESSION: No acute traumatic findings within the chest. ACT 112: Negative or not required by law. Electronically signed by: Ranjit Hernandez M.D. 05/19/2025 10:22 AM
[2025-05-19 10:25] LABS: Appearance Urine Clear (Clear); Glucose Urine UA Negative (Negative)
--- NOTE | 2025-05-19 10:25 | CT Scan Report ---
CT cervical spine wo con CT DOSE: 1287.39 mGy.cm CLINICAL HISTORY: 75 years-old Male with Trauma. Acute neck trauma COMPARISON: 04/08/2025 TECHNIQUE: Multiple axial CT images of the cervical spine were obtained without contrast. A dose low ering technique was utilized adhering to the principles of ALARA. FINDINGS: Straightening of the normal cervical lordosis. Demineralized appearance of the bones. Mild- to-moderate multilevel intervertebral disc space narrowing with disc osteophyte complex formations an d moderate facet arthrosis. The cervical soft tissues appear unremarkable. The visualized lung apice s appear clear. IMPRESSION: No acute cervical spine fracture or subluxation. ACT 112: Negative or not required by law. The above report was generated using voice recognition software. It may contain grammatical, syntax o r spelling errors. Electronically signed by: Ancelmo Sauer M.D. 05/19/2025 10:24 AM
[2025-05-19 10:33] LABS: Alanine Aminotransferase 27.0 U/L (7-52); Albumin Globulin Ratio 1.3 (0.9-2); Alkaline Phosphatase 74.0 U/L (34-104); Anion Gap 8.0 (3-11); Bilirubin,Total 0.5 mg/dl (0.2-1.0); Blood Urea Nitrogen 10.0 mg/dl (6-23); Calcium 9.2 mg/dl (8.6-10.3); Carbon Dioxide 27.0 mmol/L (21-32); Chloride 106.0 mmol/L (98-107); Creatinine Clr Calc Pharmacy 77.5 ml/min; Globulin 3.0 gm/dl (2.5-4.0); Glucose 105.0 mg/dl (70-99(Fasting)); Lipase 23.0 U/L (11-82); Potassium 3.4 mmol/L (3.5-5.1); Sodium 141.0 mmol/L (136-145); Total Protein 6.8 gm/dl (6.0-8.3)
--- NOTE | 2025-05-19 10:35 | CT Scan Report ---
ABDOMEN AND PELVIS CT WITH IV CONTRAST HISTORY: Acute abdominal trauma with weakness and fall Trauma TECHNIQUE: Multiaxial CT images of the abdomen and pelvis were performed following the IV administrat ion of 94 cc of Optiray, A dose lowering technique was utilized adhering to the principles of ALARA. COMPARISON STUDY: Chest CT of same day, CT abdomen and pelvis 04/13/2025, MR enterography 04/12/2025. FINDINGS: Mild bibasilar atelectasis. No pneumatosis, free air or portal venous gas is present. There is hepatic steatosis. There is no biliary ductal dilatation status post cholecystectomy. Spleen, adr enal glands, kidneys and pancreas are unremarkable. Resolution of the previously described right-side d hydronephrosis with no ureteral calculi on today's study. Decompressed urinary bladder. Enhancing 1 .4 cm polypoid lesion within the gastric antrum on image 91 series 10 redemonstrated which correspond s to the finding on previous MRI. There is no evidence for a bowel obstruction. Small hiatal hernia. Wall thickening with partial distention involves the sigmoid. Prostate is mildly enlarged, measuring 4.7 cm in transverse diameter. There is no lymphadenopathy. There are no fluid collections. No acute fracture identified. Chronic appearing left-sided L5 pars defect. IMPRESSION: 1. No acute posttraumatic intra-abdominal or intrapelvic abnormality. 2. No acute fracture identified. 3. Resolution of the previously described right-sided hydronephrosis with no ureteral calculi present on today's study. 4. 1.4 cm enhancing polypoid lesion within the gastric antrum redemonstrated.. As previously discusse d, nonemergent GI consultation for consideration for endoscopy is recommended if not already conducte d. ACT 112: Negative or not required by law. The above report was generated using voice recognition software. It may contain grammatical, syntax o r spelling errors. Electronically signed by: Ancelmo Sauer M.D. 05/19/2025 10:34 AM
--- NOTE | 2025-05-19 10:42 | XRay Report ---
XR chest 1V portable CLINICAL HISTORY: Trauma COMPARISON STUDY: Chest radiograph April 08, 2025. Chest CT performed earlier today. FINDINGS: Lung volumes are mildly diminished, unchanged. Linear right basilar densities favor atelect asis. There is no pneumothorax or pleural effusion. Cardiac size is normal. Mediastinal contours are normal. There is no evidence for pulmonary edema. IMPRESSION: No acute cardiopulmonary findings. No change in appearance of the chest. ACT 112: Negative or not required by law. Electronically signed by: Ranjit Hernandez M.D. 05/19/2025 10:40 AM
[2025-05-19 10:43] LABS: INR 2.5 (0.9-1.1); Partial Thromboplastin Time 33 Seconds (21-31); Prothrombin Time 25.1 Seconds (9.0-12.0)
--- NOTE | 2025-05-19 10:58 | Emergency Department Note ---
Impression & Plan Ambulatory dysfunction, Chronic anticoagulation, Bilateral leg weakness ED Provider Note NAME: JARON HUANG AGE: 75 SEX: M : 1950 ARRIVES VIA: Ambulance INFORMANT: Patient, EMS, ED PROVIDER(S): Micah Mcmanus DO CHIEF COMPLAINT: LE weakness HPI: This is a 75-year-old male with the PMHx of frontal lobe mass (?malignant meningoma) s/p radiation, prior DVT/PE, seizure disorder, and BPH presenting to [facility] for further evaluation of weakness. Patient is accompanied by EMS and his who provide additional history. EMS reports they were called for weakness today. EMS states that he remained hemodynamically stable and route. He required no medications. His provides further history. She states that this is very atypical for him. Normally he has some issues with his lower extremities but this appears to be severe over the last few days. The patient agrees with this. He really has no other complaints. He has not had a seizure. His notes that the patient's weakness has gotten so severe that he has fallen at least 4 times. The patient does report striking his head. Patient states that he has no pain. He states the falls are purely mechanical. He denies any prodromal symptoms. Patient has otherwise been feeling in his normal state of health. They deny fever or chills. No cough or congestion. Denies chest pain or palpitations. No shortness of breath. They deny abdominal pain, nausea and vomiting. No urinary complaints. No recent changes in bowel movements. Patient denies recent changes in medications or OTC supplements. Patient offers no other complaints, today. ADDITIONAL HISTORY OBTAINED: Per HPI Chronic Medical/Social Conditions Affecting Care: Per HPI PAST MEDICAL HISTORY: See Below PAST SURGICAL HISTORY: See Below FAMILY HISTORY: See Below SOCIAL HISTORY: See Below HOME MEDICATIONS: See Below ALLERGIES: See Below VITALS: See Below PHYSICAL EXAMINATION: GENERAL: Sitting up in bed, alert, well appearing, well nourished, no distress, non-toxic HEAD: Slight abrasion to the posterior scalp, otherwise, no evidence of trauma EYE EXAM: normal conjunctiva. PERRL and EOM's grossly intact. OROPHARYNX: no exudate, no erythema, lips, buccal mucosa, and tongue normal and mucous membranes are moist NECK: supple, no nuchal rigidity, no adenopathy, non-tender LUNGS: Clear to auscultation. Normal chest wall mechanics HEART: no murmurs, regular rate, [regular] rhythm ABDOMEN: abdomen soft, non-tender, no masses, no rebound or guarding. BACK: Back is symmetrical on inspection and there is no deformity, no midline tenderness, no CVA tenderness. SKIN: no rashes and no bruising UPPER EXTREMITIES: upper extremities are grossly normal. LOWER EXTREMITIES: No pitting edema. NEURO EXAM: Normal sensorium, GCS 15, normal speech, no gross weakness of arms, no gross weakness of legs. No drift. Finger to nose intact. Gross sensation intact. He does have ataxic gait but seems to mostly difficulty with bearing weight. Requires assistance MEDICAL DECISION MAKING: Differential diagnoses includes but not limited to Mechanical falls, lower extremity weakness, CVA, intracranial hemorrhage, skull fracture, soft tissue injuries, electrolyte derangements, kidney dysfunction, UTI, deconditioning, progression of neurocognitive dysfunction, seizure disorder In summary, this is a 75-year-old male who presented with weakness with falls. Differential as above. Nursing notes and pertinent past medical records reviewed. Vital signs reviewed and the patient is afebrile and hemodynamically stable. History and presentation revealed known malignant meningioma with frontal lobe syndrome and neurocognitive dysfunction complicated by seizure disorder. The patient has had issues with his lower extremities in the past but seems to have worsening ambulatory dysfunction, deconditioning and weakness leading to increased falls. He has suffered multiple falls with a head strike. He has only an abrasion over his head but otherwise no evidence of trauma. Physical examination revealed as above. Patient's neurovascular exam is normal with an NIH stroke scale of 0. As a result of my initial evaluation, while the patient has limited evidence of trauma on physical examination, I am concerned for multiple falls over the last few days with head strike on chronic anticoagulation with Coumadin. I reviewed INR with the patient and his from previous visits. He has been therapeutic. The patient's anticoagulation places him at high risk for traumatic injuries. I do feel that this is most likely worsening deconditioning and related to his comorbidities and previous diagnoses. While I doubt significant traumatic injuries, I do feel it is reasonable to obtain whole-body CT scans in the setting of his falls. Diagnostics interpreted by me include EKG and cardiac monitoring as listed below: -Cardiac Monitoring: An order was placed for continuous cardiac monitoring. The monitor shows a rate of 50-70s with regular rhythm. -ECG: EKG independently interpreted by me reveals normal sinus rhythm at a ventricular rate of [address] segment changes to suggest STEMI. Intervals are within normal limits. Patient completed laboratory studies and imaging. Results independently interpreted by me are no significant anemia or leukocytosis. Patient's kidney function is normal. He has minimal hypokalemia that I do not feel is contributing to his weakness. LFTs and lipase are normal. Urinalysis shows mild increase specific gravity and ketonuria likely from starvation ketosis. Patient appears euvolemic on physical examination. He is tolerating p.o. intake. Did not feel IV fluid resuscitation was necessary. The patient was managed with close observation and telemetry monitoring. CXR independently interpreted by me reveals no evidence of focal consolidation to suggest pna. No large pneumothorax or pleural effusion. CTH independently interpreted by me reveals no evidence of ICH. No significant hydrocephalus. No major skull fractures. CTH does not demonstrate findings to suggest an etiology of the patient's symptoms or presentation, today. I independently reviewed the rest of the patient's whole-body CT scans that are negative for traumatic injuries. There are no findings on imaging or labs to explain the patient's weakness. Do feel this is more likely related to deconditioning and progression of his comorbidities. I did an extensive discussion with the patient and his . We are concerned about his safety at home. Given his significant weakness we recommend further workup as an inpatient and evaluation by physical therapy/Occupational Therapy. I did recommend that the patient will likely need rehabilitation services and they are agreeable. Ultimately, the decision was made to admit the patient for significant weakness with ambulatory dysfunction and frequent falls. I discussed the case with the hospitalist service via telephone/Tiger[employer] and they are agreeable to admit the patient to their services. Based on the above, including the patient's age, coexisting illnesses, labs, imaging, and exam findings the decision to treat as an inpatient. I discussed the patient with the hospitalist team who recommended admission to their services. They received the medications, treatments, interventions indicated above and their condition remained stable. I discussed my findings with the patient and their family and they understand and agree with the treatment plan. All patient / family questions were answered to their satisfaction. Consults/Care Managements Discussions: Per MDM ER treatment provided: See above Procedures:none Critical Care: None The chart was completed utilizing [employer] Speech voice recognition software. Grammatical errors, random word insertions, pronoun errors, and incomplete sentences are an occasional consequence of this system due to software limitations, ambient noise, and hardware issues. Any formal questions or concerns about the content, text, or information contained within the body of this dictation should be directly addressed to the physician for clarification. Past Med/Surg History Problem List (Updated 05/21/25 @ 10:08 by Micah Mcmanus, DO) Bilateral leg weakness (Acute) Chronic anticoagulation (Acute) Ambulatory dysfunction (Acute) Lower extremity weakness Hydronephrosis concurrent with and due to calculi of kidney and ureter (Acute) Right ureteral stone Uncontrolled pain (Acute) Calculus, renal (Acute) Fall (Acute) Laceration of scalp (Acute) Seizure disorder BPH w urinary obs/LUTS (Chronic) Frontal lobe syndrome Personality change Frontal lobe deficit Dysuria Gross hematuria Stroke-like symptoms Malignant meningioma Diplopia Seasonal allergies Left-sided weakness Vertigo Anticoagulant long-term use (Acute) Weakness (Acute) Depression Abulia Encounter for pre-operative examination Hypoxia Elevated troponin I level Troponin I above reference range Shortness of breath Brain mass (Acute) Cerebral edema (Acute) Meningioma (Chronic 11/29/17) Vitamin D deficiency (Acute) H/O esophageal reflux (Acute) Headache Tinnitus Left-sided tinnitus Adequate anticoagulation on anticoagulant therapy (Chronic) Meningioma (Acute) Cerebrovascular disease Seizure Fatigue Sensorineural hearing loss (SNHL) of left ear with unrestricted hearing of right ear Complex partial seizure 10/2019 (first seizure) and 06/19/2022 most recent partial seizure r/t neuro surgery in 2019. Follows [facility] and Dr Byrne for a local neurologist. Pulmonary embolism, bilateral ~2017. currently on coumadin. 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 DVT (deep venous thrombosis) hx in 2018 s/p ileum resection - reason for warfarin. 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 GERD (gastroesophageal reflux disease) Dysphagia requesting to having an EGD done. (advised to call surgeon's office) H/O meningioma of the brain Brain MRI every 2-3 months. Crohn's disease History of brain tumor History of pulmonary embolus (PE) Surgical History History of embolic filter insertion removed in 2018. History of colonoscopy H/O craniotomy History of bowel resection Ilium resection History of cholecystectomy History of appendectomy Family History Father Asthma Other No family history of allergies No family history of bleeding disorder Denies family history of Hearing loss Deep vein thrombosis Coronary heart disease Heart disease Cancer Hypertension Stroke Social History Smoking Status: Never smoker Second Hand Exposure: No; Do You Dip or Chew Tobacco: No; Hx Alcohol Use: No Hx Substance Use: No Preferred Language: Scottish Communication Ability: Effective Visual Impairment: No Limitations Hearing Ability: Normal Town Clerk Required: No Beliefs That Will Affect Care: None marital status: Current Living Situation: Spouse current occupational status: retired Feels Safe at Home: Yes Assistive Devices: Glasses and Walker Allergies Allergies Allergy/AdvReac Type Severity Reaction Status Date / Time No Known Allergies Allergy Verified 04/26/25 11:46 Home Meds Home Medications Medication Instructions Recorded Confirmed cholecalciferol (vitamin D3) 50 2,000 units PO BID 06/07/18 05/19/25 mcg (2,000 unit) capsule colestipol 1 gram tablet 1 gm PO BID 06/07/18 05/19/25 cyanocobalamin (vitamin B-12) 1,000 mcg PO QAM 06/07/18 05/19/25 1,000 mcg capsule loratadine 10 mg tablet (Claritin) 10 mg PO DAILY PRN allergy symptoms 06/07/18 05/19/25 pantoprazole 40 mg tablet,delayed 40 mg PO DAILY 07/27/23 05/19/25 release acetaminophen 500 mg tablet 1,000 mg PO DAILY PRN 12/07/23 05/19/25 headache/back pain vitamin B complex 1 tab PO DAILY 12/25/23 05/19/25 adalimumab 40 mg/0.4 mL 40 mg subcut Q14D 06/21/24 05/19/25 subcutaneous syringe kit (Tatianna(CF)) warfarin 3 mg tablet 3 mg PO [id number] 04/13/25 05/19/25 warfarin 3 mg tablet 4.5 mg PO [id number] 04/13/25 05/19/25 Previous Rx's Medication Instructions Recorded bupropion HCl 150 mg tablet,12 hr 150 mg PO DAILY 90 days #90 ea 09/22/24 sustained-release finasteride 5 mg tablet 5 mg PO DAILY #30 tabs 10/25/24 tamsulosin 0.4 mg capsule 0.4 mg PO DAILY #30 caps 10/25/24 levetiracetam 1,000 mg tablet 1,500 mg (1.5 x 1,000 mg) PO BID 11/14/24 90 days #270 tabs meclizine 25 mg tablet 25 mg PO BID PRN dizziness #30 tabs 05/10/25 lamotrigine 200 mg tablet 200 mg PO BID 90 days #180 tabs 05/17/25 Results & Data (ED) Vital Signs Vital Signs - 24 hr 05/19/25 09:26 05/19/25 09:27 05/19/25 09:28 Temperature 36.9 C Temperature Source Oral Pulse Rate 73 73 Pulse Rate from SpO2 Sensor Respiratory Rate 19 Respiratory Effort / Characteristics Non-Labored Spontaneous Respiratory Depth Normal Respiratory Pattern Regular Blood Pressure 124/98 124/98 Blood Pressure Mean 107 106 Blood Pressure Position Lying Pulse Oximetry 93 Oxygen Delivery Method Room Air Sepsis Recent Fever Within 48 Hours No Sepsis New/Unexplained Change in Mental Status N/A Sepsis Action Taken by Nursing No Action Required 05/19/25 09:34 05/19/25 10:21 05/19/25 10:30 Temperature Temperature Source Pulse Rate 70 67 Pulse Rate from SpO2 Sensor 71 68 Respiratory Rate 20 21 Respiratory Effort / Characteristics Respiratory Depth Respiratory Pattern Blood Pressure Blood Pressure Mean Blood Pressure Position Pulse Oximetry 95 94 93 Oxygen Delivery Method Room Air Sepsis Recent Fever Within 48 Hours Sepsis New/Unexplained Change in Mental Status Sepsis Action Taken by Nursing 05/19/25 10:30 05/19/25 10:30 05/19/25 10:57 Temperature Temperature Source Pulse Rate 66 Pulse Rate from SpO2 Sensor 67 Respiratory Rate 19 Respiratory Effort / Characteristics Respiratory Depth Respiratory Pattern Blood Pressure 121/78 121/78 Blood Pressure Mean 84 84 Blood Pressure Position Pulse Oximetry 93 Oxygen Delivery Method Sepsis Recent Fever Within 48 Hours Sepsis New/Unexplained Change in Mental Status Sepsis Action Taken by Nursing 05/19/25 11:00 05/19/25 11:03 05/19/25 11:24 Temperature Temperature Source Pulse Rate 66 66 Pulse Rate from SpO2 Sensor 67 64 Respiratory Rate 19 18 Respiratory Effort / Characteristics Respiratory Depth Respiratory Pattern Blood Pressure 142/90 H Blood Pressure Mean 107 Blood Pressure Position Pulse Oximetry 93 93 Oxygen Delivery Method Sepsis Recent Fever Within 48 Hours Sepsis New/Unexplained Change in Mental Status Sepsis Action Taken by Nursing 05/19/25 11:30 05/19/25 11:36 05/19/25 12:00 Temperature Temperature Source Pulse Rate 62 Pulse Rate from SpO2 Sensor 63 Respiratory Rate 17 Respiratory Effort / Characteristics Respiratory Depth Respiratory Pattern Blood Pressure 139/90 147/94 H Blood Pressure Mean 110 110 Blood Pressure Position Pulse Oximetry 95 Oxygen Delivery Method Sepsis Recent Fever Within 48 Hours Sepsis New/Unexplained Change in Mental Status Sepsis Action Taken by Nursing 05/19/25 12:00 Temperature Temperature Source Pulse Rate 65 Pulse Rate from SpO2 Sensor 64 Respiratory Rate 22 Respiratory Effort / Characteristics Respiratory Depth Respiratory Pattern Blood Pressure Blood Pressure Mean Blood Pressure Position Pulse Oximetry 94 Oxygen Delivery Method Sepsis Recent Fever Within 48 Hours Sepsis New/Unexplained Change in Mental Status Sepsis Action Taken by Nursing Laboratory Data 05/19/25 09:31 05/19/25 09:31 Lab Results 05/19/25 05/19/25 05/19/25 Range/Units 09:31 09:41 10:08 WBC 6.57 (4.8-10.8) K/ul RBC 4.41 L (4.70-6.10) M/uL Hgb 14.2 (14.0-18.0) g/dl POC Hgb 12.9 L (14.0-18.0) g/dl Hct 41.7 L (42.0-52.0) % POC Hct 38 L (42-52) % MCV 94.6 (80.0-100.0) fL MCH 32.2 (25.0-34.0) pg MCHC 34.1 (32.0-36.0) g/dL RDW Std Deviation 47.4 H (36.4-46.3) fL RDW Coeff of Adriane 13.7 (11.5-14.5) % Plt Count 201 (130-400) K/uL MPV 8.9 L (9.4-12.4) fL Immature Gran % (Auto) 0.3 % Neut % (Auto) 60.3 % Lymph % (Auto) 30.6 % [place] % (Auto) 6.4 % Eos % (Auto) 1.8 % Baso % (Auto) 0.6 % Neut # (Auto) 3.96 (1.40-6.50) K/uL Lymph # (Auto) 2.01 (1.20-3.40) K/uL [place] # (Auto) 0.42 (0.11-0.59) K/uL Eos # (Auto) 0.12 (0.00-0.50) K/uL Baso # (Auto) 0.04 (0.00-0.20) K/uL Immature Gran # (Auto) 0.02 (0.01-0.20) K/uL PT 25.1 H (9.0-12.0) Seconds INR 2.5 H (0.9-1.1) APTT 33 H (21-31) Seconds PTT Ratio 1.2 POC Sodium 142 (135-144) mmol/L Sodium 141 (136-145) mmol/L POC Potassium 3.4 (3.3-5.0) mmol/L Potassium 3.4 L (3.5-5.1) mmol/L POC Chloride 104 (101-112) mmol/L Chloride 106 (98-107) mmol/L Carbon Dioxide 27 (21-32) mmol/L POC Total CO2 22 L (24-31) mmol/L Anion Gap 8 (3-11) POC Anion Gap 20.0 (16-25) mmol/L POC BUN 9 (7-18) mg/dl BUN 10 (6-23) mg/dl Creatinine 0.94 (0.6-1.4) mg/dl POC Creatinine 1.0 (0.6-1.3) mg/dl Est Cr Clr Drug Dosing 77.5 ml/min eGFR 84.01 BUN/Creatinine Ratio 10.6 (10-20) Glucose 105 H (70-99(Fasting)) mg/dl POC Glucose (other) 110 H (70-99) mg/dl Calcium 9.2 (8.6-10.3) mg/dl POC Ioniz Calcium Latrice 1.16 (1.12-1.32) mmol/l Total Bilirubin 0.5 (0.2-1.0) mg/dl AST 23 (13-39) U/L ALT 27 (7-52) U/L Alkaline Phosphatase 74 (34-104) U/L Total Protein 6.8 (6.0-8.3) gm/dl Albumin 3.8 (3.4-5.0) gm/dl Globulin 3.0 (2.5-4.0) gm/dl Albumin/Globulin Ratio 1.3 (0.9-2) Lipase 23 (11-82) U/L Urine Color Dark Yellow Urine Appearance Clear (Clear) Urine pH 5.0 (4.5-7.5) Ur Specific Twain 1.039 H (1.000-1.030) Urine Protein Negative (Negative) Urine Glucose (UA) Negative (Negative) Urine Ketones Trace H (Negative) Urine Blood Negative (Negative) Urine Nitrite Negative (Negative) Urine Bilirubin Negative (Negative) Urine Urobilinogen Negative (Negative) Ur Leukocyte Esterase Negative (Negative) Urine Comment Administered Medications Bupropion HCl (Bupropion Sr 150 Mg Tabcr) 150 mg PO DAILY [facility] Stop: 06/19/25 08:59 Last Admin: 05/21/25 08:33 Dose: 150 mg Documented By: Admin: 05/20/25 08:26 Dose: 150 mg Documented By: FREDIS Colestipol HCl (Colestipol Hcl 1 Gm Tab) 1 gm PO BID ANNETTE Stop: 06/18/25 20:59 Last Admin: 05/21/25 08:33 Dose: 1 gm Documented By: Admin: 05/20/25 21:27 Dose: 1 gm Documented By: Admin: 05/20/25 08:26 Dose: 1 gm Documented By: Admin: 05/19/25 22:12 Dose: 1 gm Documented By: DEISY Cyanocobalamin (Cyanocobalamin (B-12) 500 Mcg Tablet) 1,000 mcg PO QAM ANNETTE Stop: 06/19/25 08:59 Last Admin: 05/21/25 08:33 Dose: 1,000 mcg Documented By: Admin: 05/20/25 08:26 Dose: 1,000 mcg Documented By: FREDIS Finasteride (Finasteride 5 Mg Tab) 5 mg PO DAILY ANNETTE Stop: 06/19/25 08:59 Last Admin: 05/21/25 08:34 Dose: 5 mg Documented By: Admin: 05/20/25 08:26 Dose: 5 mg Documented By: FREDIS Lamotrigine (Lamotrigine 100 Mg Tab) 200 mg PO BID [facility]; Protocol Stop: 06/18/25 20:59 Last Admin: 05/21/25 08:34 Dose: 200 mg Documented By: Admin: 05/20/25 21:27 Dose: 200 mg Documented By: Admin: 05/20/25 08:27 Dose: 200 mg Documented By: Admin: 05/19/25 22:12 Dose: 200 mg Documented By: DEISY Levetiracetam (Levetiracetam 500 Mg Tab) 1,500 mg PO BID [facility] Stop: 06/18/25 20:59 Last Admin: 05/21/25 08:34 Dose: 1,500 mg Documented By: Admin: 05/20/25 21:27 Dose: 1,500 mg Documented By: Admin: 05/20/25 08:27 Dose: 1,500 mg Documented By: Admin: 05/19/25 22:13 Dose: 1,500 mg Documented By: DEISY Miconazole Nitrate (Miconazole Nitrate Powder 85 Gm) 1 appln EXT Q12 [facility] Stop: 06/19/25 08:59 Last Admin: 05/21/25 08:34 Dose: 1 appln Documented By: [facility] Admin: 05/20/25 21:28 Dose: 1 appln Documented By: Admin: 05/20/25 08:27 Dose: 1 appln Documented By: FREDIS Pantoprazole Sodium (Pantoprazole 40 Mg Tab) 40 mg PO DAILY [facility] Stop: 06/19/25 08:59 Last Admin: 05/21/25 07:29 Dose: 40 mg Documented By: [facility] Admin: 05/20/25 07:51 Dose: 40 mg Documented By: Charlie Polyethylene Glycol (Polyethylene (Miralax) 17 Gm Pack) 17 gm PO DAILY [facility] Stop: 06/20/25 08:59 Last Admin: 05/21/25 09:43 Dose: 17 gm Documented By: FREDIS Tamsulosin HCl (Tamsulosin Hcl 0.4 Mg Cap) 0.4 mg PO DAILY [facility] Stop: 06/19/25 08:59 Last Admin: 05/21/25 08:34 Dose: 0.4 mg Documented By: Admin: 05/20/25 08:27 Dose: 0.4 mg Documented By: FREDIS Vitamin B Complex (Vitamin B Complex Tab) 1 tab PO DAILY ANNETTE Stop: 06/19/25 08:59 Last Admin: 05/21/25 08:34 Dose: 1 tab Documented By: Admin: 05/20/25 08:27 Dose: 1 tab Documented By: FREDIS Vitamin D (Cholecalciferol 25 Mcg (1000 Units) Tab) 50 mcg PO BID ANNETTE Stop: 06/18/25 20:59 Last Admin: 05/21/25 08:33 Dose: 50 mcg Documented By: Admin: 05/20/25 21:27 Dose: 50 mcg Documented By: Admin: 05/20/25 08:26 Dose: 50 mcg Documented By: Admin: 05/19/25 22:12 Dose: 50 mcg Documented By: DEISY Warfarin Sodium (Warfarin Sod 3 Mg Tab) 3 mg PO TuSa@1600 ANNETTE Stop: 06/19/25 15:59 Last Admin: 05/20/25 15:51 Dose: 3 mg Documented By: FREDIS Discontinued Medications Ioversol (Optiray 320 125ml) 112 ml IV ONCE ONE Stop: 05/19/25 09:50 Last Admin: 05/19/25 09:49 Dose: 112 ml Documented By: SANTANA Phenazopyridine HCl (Phenazopyridine Hcl 200 Mg Tab) 200 mg PO NOW STA Stop: 05/20/25 01:34 Last Admin: 05/20/25 01:57 Dose: 200 mg Documented By: DEISY Phenazopyridine HCl (Phenazopyridine Hcl 200 Mg Tab) 200 mg PO NOW STA Stop: 05/21/25 04:58 Last Admin: 05/21/25 05:48 Dose: 200 mg Documented By: DEISY Imaging Data Radiologist's Impression: Chest X-Ray 05/19/25 09:28 XR chest 1V portable CLINICAL HISTORY: Trauma COMPARISON STUDY: Chest radiograph April 08, 2025. Chest CT performed earlier today. FINDINGS: Lung volumes are mildly diminished, unchanged. Linear right basilar densities favor atelectasis. There is no pneumothorax or pleural effusion. Cardiac size is normal. Mediastinal contours are normal. There is no evidence for pulmonary edema. IMPRESSION: No acute cardiopulmonary findings. No change in appearance of the chest. ACT 112: Negative or not required by law. Electronically signed by: Ranjit Hernandez M.D. 05/19/2025 10:40 AM Neck CTA 05/19/25 09:28 CT ANGIOGRAM OF THE NECK CLINICAL HISTORY: Trauma. Lower extremity weakness. COMPARISON STUDY: CT angiogram of the neck dated 05/31/2023 TECHNIQUE: Following the IV administration of 94 of Optiray 320, CT angiogram of the neck was performed from the aortic arch to the skull base. Images are reviewed in the axial, sagittal, and coronal planes. 3-D MIPS images are created and assessed. IV contrast was administered without complication. All measurements were calculated based on NASCET criteria. A dose lowering technique was utilized adhering to the principles of ALARA. CT DOSE: 2815.16 mGy.cm FINDINGS: Thoracic aorta: Visualized portions of the thoracic aorta are normal in caliber. The aortic arch demonstrates 4-vessel variant anatomy. The left vertebral artery arises directly from the thoracic aorta. Right carotid arterial system: The right common carotid artery is widely patent, as are the right internal and external carotid arteries. Left carotid arterial system: The left common carotid artery is widely patent, as are the left internal and external carotid arteries. Vertebral arteries: Widely patent bilaterally and codominant. Subclavian arteries: Widely patent bilaterally. Intracranial vasculature: The visualized intracranial vessels at the skull base are patent. Jugular veins: Patent bilaterally. Brain parenchyma: The visualized brain parenchyma the skull base is within normal limits. Lung apices: Partially visualized upper lobe lung parenchyma appears clear. Soft tissues: The visualized pharyngeal soft tissues are normal in appearance noting angiographic phase technique. The oropharyngeal airway appears widely patent. The salivary and thyroid glands are normal in appearance. No cervical lymphadenopathy is seen. Skeletal structures: The skeletal structures are osteopenic. The visualized calvarium at the skull base appears intact. The imaged cervical spine is maintained noting mild multilevel spondylosis. Sinuses and mastoids: Trace mucosal thickening is noted in the maxillary antra. There is trace left mastoid effusion. The right mastoid air cells are well pneumatized. IMPRESSION: Unremarkable CT angiogram of the neck. ACT 112: Negative or not required by law. Electronically signed by: Henry Looney M.D. 05/19/2025 10:12 AM Abdomen/Pelvis CT 05/19/25 09:[address] WITH IV CONTRAST HISTORY: Acute abdominal trauma with weakness and fall Trauma TECHNIQUE: Multiaxial CT images of the abdomen and pelvis were performed following the IV administration of 94 cc of Optiray, A dose lowering technique was utilized adhering to the principles of ALARA. COMPARISON STUDY: Chest CT of same day, CT abdomen and pelvis 04/13/2025, MR enterography 04/12/2025. FINDINGS: Mild bibasilar atelectasis. No pneumatosis, free air or portal venous gas is present. There is hepatic steatosis. There is no biliary ductal dilatation status post cholecystectomy. Spleen, adrenal glands, kidneys and pancreas are unremarkable. Resolution of the previously described right-sided hydronephrosis with no ureteral calculi on today's study. Decompressed urinary bladder. Enhancing 1.4 cm polypoid lesion within the gastric antrum on image 91 series 10 redemonstrated which corresponds to the finding on previous MRI. There is no evidence for a bowel obstruction. Small hiatal hernia. Wall thickening with partial distention involves the sigmoid. Prostate is mildly enlarged, measuring 4.7 cm in transverse diameter. There is no lymphadenopathy. There are no fluid collections. No acute fracture identified. Chronic appearing left-sided L5 pars defect. IMPRESSION: 1. No acute posttraumatic intra-abdominal or intrapelvic abnormality. 2. No acute fracture identified. 3. Resolution of the previously described right-sided hydronephrosis with no ureteral calculi present on today's study. 4. 1.4 cm enhancing polypoid lesion within the gastric antrum redemonstrated.. As previously discussed, nonemergent GI consultation for consideration for endoscopy is recommended if not already conducted. ACT 112: Negative or not required by law. The above report was generated using voice recognition software. It may contain grammatical, syntax or spelling errors. Electronically signed by: Ancelmo Sauer M.D. 05/19/2025 10:[address] 05/19/25 09:29 CT cervical spine wo con CT DOSE: 1287.39 mGy.cm CLINICAL HISTORY: 75 years-old Male with Trauma. Acute neck trauma COMPARISON: 04/08/2025 TECHNIQUE: Multiple axial CT images of the cervical spine were obtained without contrast. A dose lowering technique was utilized adhering to the principles of ALARA. FINDINGS: Straightening of the normal cervical lordosis. Demineralized appearance of the bones. Rudi-af-anbqedea multilevel intervertebral disc space narrowing with disc osteophyte complex formations and moderate facet arthrosis. The cervical soft tissues appear unremarkable. The visualized lung apices appear clear. IMPRESSION: No acute cervical spine fracture or subluxation. ACT 112: Negative or not required by law. The above report was generated using voice recognition software. It may contain grammatical, syntax or spelling errors. Electronically signed by: Ancelmo Sauer M.D. 05/19/2025 10:[address] 05/19/25 09:29 CT SCAN OF THE CHEST WITH IV CONTRAST CLINICAL HISTORY: Falls. COMPARISON STUDY: Chest radiograph April 08, 2025. Chest CT January 01, 2022. TECHNIQUE: Following the IV administration of 94 cc of Optiray 320, CT scan of the thorax was performed from the thoracic inlet to the upper abdomen. Images are reviewed in the axial, sagittal, and coronal planes. IV contrast was administered without complication. A dose lowering technique was utilized adhering to the principles of ALARA. FINDINGS: There is no evidence for traumatic injury to the thoracic aorta. Mild cardiomegaly is noted. There is a small hiatal hernia. No thoracic lymphadenopathy is present. Central airways are patent. Subpleural opacities favor atelectasis. No pulmonary contusion is present. There is no pneumothorax or pleural effusion. No acute rib or thoracic spine fractures are present. A few tiny pulmonary nodules measuring up to [address] of January 01, 2022. These are benign given stability. Please note that the abdomen and pelvis CT will be reported separately. IMPRESSION: No acute traumatic findings within the chest. ACT 112: Negative or not required by law. Electronically signed by: Ranjit Hernandez M.D. 05/19/2025 10:[address] 05/19/25 09:29 CT SCAN OF THE BRAIN WITHOUT IV CONTRAST CLINICAL HISTORY: Falls. Weakness. COMPARISON STUDY: Head CT April 08, 2025. MRI of the brain May 09, 2025. TECHNIQUE: Unenhanced axial CT scan of the brain was performed from the vertex to the skull base. A dose lowering technique was utilized adhering to the principles of ALARA. FINDINGS: There are stable findings following right frontal craniotomy. The appearance of the right frontal operative bed is unchanged. Note is again made of volume loss with stable asymmetric dilatation of the frontal horn of the right lateral ventricle. There are no new extra axial fluid collections. No acute intracranial hemorrhage, midline shift or mass effect is present. White matter hypodensities are unchanged. There are no findings to suggest acute dural sinus thrombosis or acute territorial infarct. There are no calvarial fractures. IMPRESSION: 1. No acute intracranial findings. No change in appearance of the brain. Stable findings following right frontal craniotomy. 2. No calvarial fractures. ACT 112: Negative or not required by law. Electronically signed by: Ranjit Hernandez M.D. 05/19/2025 10:14 AM Discharge Plan Visit Data Chief Complaint: Leg Weakness, Bilateral ED Provider: Micah Mcmanus Discharge Problem: Ambulatory dysfunction, Chronic anticoagulation, Bilateral leg weakness Patient Disposition: Admitted As Inpatient Condition: Fair Discharge Instructions Interventions: ED Discharge Assessment Last Done: 05/19/25 21:51
--- NOTE | 2025-05-19 12:25 | History & Physical Report ---
Date of Service May 19, 2025 Assessment & Plan (1) Lower extremity weakness: (2) Fall: (3) Seizure disorder: (4) Malignant meningioma: (5) Frontal lobe syndrome: Plan 1. 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 At baseline, patient has some difficulty ambulating and occasionally has involuntary stiffening, jerking and twitching especially on the left side. All these things may lead to the frequent falls for which the patient came to the hospital. 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 He is currently on lamotrigine 150 mg twice daily and Keppra and bupropion. In the ED, CT scan of the head neck CT angio head and neck were within normal limits as was MRI brain, which only showed the known postsurgical changes. Will obtain MRI lumbar spine Here in the hospital, will consult physical therapy 2. 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 Currently patient he has been feeling his legs give out and has fallen 4 times in the past 1 week. He attributes this to general lower extremity weakness following his right frontal lobe resection for malignancy. He follows up with neurology and his last visit was last month in March. He experiences occasional episodes of stiffening and jerking and twitching and also has been having difficulty with his gait. Here in the emergency department, CT scan of the head chest C-spine abdomen CTA neck were all negative. An MRI of the brain done earlier in the month of May 09, 2025 did not show any acute abnormality only old frontal lobe resection changes. Patient will be admitted to the hospital further management. Allergies Allergy/AdvReac Type Severity Reaction Status Date / Time No Known Allergies Allergy Verified 04/26/25 11:46 Home Medications Medication Instructions Recorded Confirmed Type cholecalciferol (vitamin D3) 50 2,000 units PO BID 06/07/18 05/19/25 History mcg (2,000 unit) capsule colestipol 1 gram tablet 1 gm PO BID 06/07/18 05/19/25 History cyanocobalamin (vitamin B-12) 1,000 mcg PO QAM 06/07/18 05/19/25 History 1,000 mcg capsule loratadine 10 mg tablet (Claritin) 10 mg PO DAILY PRN allergy symptoms 06/07/18 05/19/25 History pantoprazole 40 mg tablet,delayed 40 mg PO DAILY 07/27/23 05/19/25 History release acetaminophen 500 mg tablet 1,000 mg PO DAILY PRN 12/07/23 05/19/25 History headache/back pain vitamin B complex 1 tab PO DAILY 12/25/23 05/19/25 History adalimumab 40 mg/0.4 mL 40 mg subcut Q14D 06/21/24 05/19/25 History subcutaneous syringe kit ([facility] bupropion HCl 150 mg tablet,12 hr 150 mg PO DAILY 90 days #90 ea 09/22/24 05/19/25 Rx sustained-release finasteride 5 mg tablet 5 mg PO DAILY #30 tabs 10/25/24 05/19/25 Rx tamsulosin 0.4 mg capsule 0.4 mg PO DAILY #30 caps 10/25/24 05/19/25 Rx levetiracetam 1,000 mg tablet 1,500 mg (1.5 x 1,000 mg) PO BID 11/14/24 05/19/25 Rx 90 days #270 tabs warfarin 3 mg tablet 3 mg PO 2XWK 04/13/25 05/19/25 History warfarin 3 mg tablet 4.5 mg PO 5XWK 04/13/25 05/19/25 History meclizine 25 mg tablet 25 mg PO BID PRN dizziness #30 tabs 05/10/25 05/19/25 Rx lamotrigine 200 mg tablet 200 mg PO BID 90 days #180 tabs 05/17/25 05/19/25 Rx Past Med/Surg History Problem List (Updated 05/19/25 @ 12:31 by Janak Evans MD) Lower extremity weakness Hydronephrosis concurrent with and due to calculi of kidney and ureter (Acute) Right ureteral stone Uncontrolled pain (Acute) Calculus, renal (Acute) Fall (Acute) Laceration of scalp (Acute) Seizure disorder BPH w urinary obs/LUTS (Chronic) Frontal lobe syndrome Personality change Frontal lobe deficit Dysuria Gross hematuria Stroke-like symptoms Malignant meningioma Diplopia Seasonal allergies Left-sided weakness Vertigo Anticoagulant long-term use (Acute) Weakness (Acute) Depression Abulia Encounter for pre-operative examination Hypoxia Elevated troponin I level Troponin I above reference range Shortness of breath Brain mass (Acute) Cerebral edema (Acute) Meningioma (Chronic 11/29/17) Vitamin D deficiency (Acute) H/O esophageal reflux (Acute) Headache Tinnitus Left-sided tinnitus Adequate anticoagulation on anticoagulant therapy (Chronic) Meningioma (Acute) Cerebrovascular disease Seizure Fatigue Sensorineural hearing loss (SNHL) of left ear with unrestricted hearing of right ear Complex partial seizure 10/2019 (first seizure) and 06/19/2022 most recent partial seizure r/t neuro surgery in 2019. [place] [facility] [facility] [place] Byrne [place] a local neurologist. Pulmonary embolism, bilateral ~2017. currently on coumadin. 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 DVT (deep venous thrombosis) hx in 2018 s/p ileum resection - reason for warfarin. 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 GERD (gastroesophageal reflux disease) Dysphagia requesting to having an EGD done. (advised to call surgeon's office) H/O meningioma of the brain Brain MRI every 2-3 months. Crohn's disease History of brain tumor History of pulmonary embolus (PE) Surgical History History of embolic filter insertion removed in 2018. History of colonoscopy H/O craniotomy History of bowel resection Ilium resection History of cholecystectomy History of appendectomy Family History Father Asthma Other No family history of allergies No family history of bleeding disorder Denies family history of Hearing loss Deep vein thrombosis Coronary heart disease Heart disease Cancer Hypertension Stroke Social History Smoking Status: Never smoker Second Hand Exposure: No; Do You Dip or Chew Tobacco: No; Hx Alcohol Use: No Hx Substance Use: No Preferred Language: Maltese Communication Ability: Effective Visual Impairment: No Limitations Hearing Ability: Normal Actuarial Internship Required: No Beliefs That Will Affect Care: None marital status: Current Living Situation: Spouse current occupational status: retired Feels Safe at Home: Yes Assistive Devices: Cane, Lift Chair, Walker and Other Review of Systems Review of Systems: All systems reviewed are negative, apart from the ones contained in the history. Physical Exam Physical Exam: The patient is awake, alert and oriented 3, well developed and well nourished, normocephalic and atraumatic, lying in bed and in no acute distress. HEENT--PERRL, EOMI, mucous membranes and oropharynx mildly dry Neck--supple. No JVD. No bruits. Thyroid normal, trachea midline, no adenopathy. Heart--normal S1 and S2. No murmurs, rubs or gallops. Lungs--clear bilaterally, no respiratory distress, no accessory muscle use. Abdomen--normal bowel sounds and soft. Extremities--no cyanosis or clubbing. No edema. Dermatologic--normal skin turgor, normal color, no abnormal lymph nodes, no rash. Neurologic--cranial nerves II through XII grossly intact.Poor muscle tone, mild left hemiparesis Rheumatologic--normal range of motion. Psychiatric--normal affect. Results & Data Results & Data Vital Signs (Past 12 Hours) Vital Signs Temp Pulse Pulse Resp BP BP Pulse Ox 05/19/25 12:21 62 17 137/82 95 05/19/25 12:00 65 22 94 05/19/25 12:00 147/94 H 05/19/25 11:36 62 17 95 05/19/25 11:30 139/90 05/19/25 11:24 66 18 93 05/19/25 11:03 66 19 93 05/19/25 11:00 142/90 H 05/19/25 10:57 66 19 93 05/19/25 10:30 121/78 05/19/25 10:30 121/78 05/19/25 10:30 67 21 93 05/19/25 10:21 70 20 94 05/19/25 09:34 95 05/19/25 09:28 73 05/19/25 09:27 98.4 F 73 19 124/98 93 05/19/25 09:26 124/98 O2 Del Method 05/19/25 12:21 Room Air 05/19/25 12:00 05/19/25 12:00 05/19/25 11:36 05/19/25 11:30 05/19/25 11:24 05/19/25 11:03 05/19/25 11:00 05/19/25 10:57 05/19/25 10:30 05/19/25 10:30 05/19/25 10:30 05/19/25 10:21 05/19/25 09:34 Room Air 05/19/25 09:28 05/19/25 09:27 Room Air 05/19/25 09:26 PG Care Time/CCT Total # of Minutes Spent Total Time Spent with Patient: Total time spent is greater than 50% in coordination of care (as documented) at patient's floor/unit and/or counseling patient: Coding Level of Care Code 13603 INT INP/OBS CARE 3/75MIN Diagnoses Lower extremity weakness R29.898 Fall W19.XXXA Seizure disorder G40.909 Malignant meningioma C70.9 Frontal lobe syndrome F07.0 Time Spent (min) 75
[2025-05-19] MEDS ORDERED: ONDANSETRON INJ 2 MG/ML 2 ML VIAL IV PRN (14:54)
[2025-05-19] MEDS ORDERED: WARFARIN SOD 0.5 MG TAB PO SCH (14:54)
--- NOTE | 2025-05-19 16:56 | Magnetic Resonance Report ---
Clinical History: Weakness Technique: Sagittal and axial T1 and T2-weighted magnetic resonance images were obtained of the lumbar spine without gadolinium contrast. Findings: There is mild grade 1 anterolisthesis of L5 on S1, likely degenerative in nature. The remainder of the lumbar vertebrae are in normal alignment. There are small hemangiomas with characteristic increased T1 and increased T2 signal intensity. No other focal osseous lesion is evident. No fracture is identified. There is no definite sign of infection. There is no sign of acute ligamentous injury. The conus medullaris appears normal, terminating at the level of T12. At L1-L2, there is a minimal disc bulge. There is no spinal stenosis or nerve root compression. At L2-L3, there is a minimal disc bulge. There is no spinal stenosis or nerve root compression. At L3-L4, there is a mild disc bulge with mild right neural foramen narrowing. There is no spinal stenosis or definite nerve root compression At L4-L5, there is a mild broad-based central disc protrusion as well as a disc bulge. There is no spinal stenosis or compression of the traversing nerve roots. There is mild right and minimal left neural foramen narrowing At L5-S1, there is a disc bulge without spinal stenosis or nerve root compression. There is facet osteoarthritis. Impression: Disc protrusion at L4-5 and disc bulges at other levels, without spinal stenosis or definite nerve root compression Electronically signed by Bakari Sanchez 05-19-2025 4:55 PM
[2025-05-19] MEDS: COLESTIPOL HCL 1 GM TAB PO SCH (22:12)
[2025-05-19] MEDS: lamoTRIgine 100 MG TAB PO SCH (22:12)
[2025-05-19] MEDS: CHOLECALCIFEROL 25 MCG (1000 UNITS) TAB PO SCH (22:12)
[2025-05-19] MEDS: levETIRAcetam 500 MG TAB PO SCH (22:13)
[2025-05-20] MEDS: PHENAZOPYRIDINE HCL 200 MG TAB PO STA (01:57)
[2025-05-20 07:04] LABS: INR 2.1 (0.9-1.1); Prothrombin Time 21.2 Seconds (9.0-12.0)
[2025-05-20] MEDS: FINASTERIDE 5 MG TAB PO SCH (08:26)
[2025-05-20] MEDS: CYANOCOBALAMIN (B-12) 500 MCG TABLET PO SCH (08:26)
[2025-05-20] MEDS: MICONAZOLE NITRATE POWDER 85 GM EXT SCH (08:27)
[2025-05-20] MEDS: TAMSULOSIN HCL 0.4 MG CAP PO SCH (08:27)
[2025-05-20] MEDS: VITAMIN B COMPLEX TAB PO SCH (08:27)
--- NOTE | 2025-05-20 10:25 | Hospitalist Progress Note ---
Date of Service May 20, 2025 Assessment & Plan (1) Lower extremity weakness: (2) Fall: (3) Seizure disorder: (4) Malignant meningioma: (5) Frontal lobe syndrome: Plan 1. 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 At baseline, patient has some difficulty ambulating and occasionally has involuntary stiffening, jerking and twitching especially on the left side. All these things may lead to the frequent falls for which the patient came to the hospital. 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 He is currently on lamotrigine 150 mg twice daily and Keppra and bupropion. In the ED, CT scan of the head neck CT angio head and neck were within normal limits as was MRI brain, which only showed the known postsurgical changes. MRI lumbar spine showed disc bulge of L4-L5, but no nerve compression He will need physical therapy 2. 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 Physical Exam Physical Exam: The patient is awake, alert and oriented 3, well developed and well nourished, normocephalic and atraumatic, lying in bed and in no acute distress. HEENT--PERRL, EOMI, mucous membranes and oropharynx mildly dry Neck--supple. No JVD. No bruits. Thyroid normal, trachea midline, no adenopathy. Heart--normal S1 and S2. No murmurs, rubs or gallops. Lungs--clear bilaterally, no respiratory distress, no accessory muscle use. Abdomen--normal bowel sounds and soft. Extremities--no cyanosis or clubbing. No edema. Dermatologic--normal skin turgor, normal color, no abnormal lymph nodes, no rash. Neurologic--cranial nerves II through XII grossly intact.Poor muscle tone, mild left hemiparesis Rheumatologic--normal range of motion. Psychiatric--normal affect. Results & Data Results & Data Vital Signs (Past 12 Hours) Vital Signs Temp Pulse Resp BP Pulse Ox O2 Del Method 08/30/25 08:01 97.9 F 65 18 165/81 H 94 Room Air 05/20/25 07:40 Room Air 05/19/25 22:47 Room Air 05/19/25 22:47 97.7 F 64 20 128/77 94 Room Air PG Care Time/CCT Total # of Minutes Spent Total Time Spent with Patient: Total time spent is greater than 50% in coordination of care (as documented) at patient's floor/unit and/or counseling patient: Coding Level of Care Code 09992 SUB INP/OBS CARE 2/35MIN Diagnoses Lower extremity weakness R29.898 Fall W19.XXXA Seizure disorder G40.909 Malignant meningioma C70.9 Frontal lobe syndrome F07.0 Time Spent (min) 35
[2025-05-20] MEDS: WARFARIN SOD 3 MG TAB PO SCH (15:51)
[2025-05-21] MEDS: PHENAZOPYRIDINE HCL 200 MG TAB PO STA (05:48)
--- NOTE | 2025-05-21 07:30 | Electrocardiogram Report ---
Test Reason : Blood Pressure : */* mmHG Vent. Rate : 72 BPM Atrial Rate : 72 BPM P-R Int : 148 ms QRS Dur : 104 ms QT Int : 404 ms P-R-T Axes : -20 -12 -11 degrees QTcB Int : 442 ms Normal sinus rhythm Poor R wave progression, consider anterior CT vs. lead placement vs. LVH Abnormal ECG When compared with ECG of 08-Apr-2025 02:45, No significant change was found Confirmed by Jac Chairez ([id number]) on 05/21/2025 7:30:18 AM Referred By: REFERRED SELF Confirmed By: Jac Chairez
[2025-05-21 07:33] LABS: INR 1.7 (0.9-1.1); Prothrombin Time 18.0 Seconds (9.0-12.0)
[2025-05-21] MEDS: POLYETHYLENE (MIRALAX) 17 GM PACK PO SCH (09:43)
--- NOTE | 2025-05-21 09:53 | Hospitalist Progress Note ---
Date of Service May 21, 2025 Assessment & Plan (1) Lower extremity weakness: (2) Fall: (3) Seizure disorder: (4) Malignant meningioma: (5) Frontal lobe syndrome: Plan 1. 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 At baseline, patient has some difficulty ambulating and occasionally has involuntary stiffening, jerking and twitching especially on the left side. All these things may lead to the frequent falls for which the patient came to the hospital. 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 He is currently on lamotrigine 150 mg twice daily and Keppra and bupropion. In the ED, CT scan of the head neck CT angio head and neck were within normal limits as was MRI brain, which only showed the known postsurgical changes. MRI lumbar spine showed disc bulge of L4-L5, but no nerve compression PT recommends Rehab Will get social work on board 2. 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 Physical Exam Physical Exam: The patient is awake, alert and oriented 3, well developed and well nourished, normocephalic and atraumatic, lying in bed and in no acute distress. HEENT--PERRL, EOMI, mucous membranes and oropharynx mildly dry Neck--supple. No JVD. No bruits. Thyroid normal, trachea midline, no adenopathy. Heart--normal S1 and S2. No murmurs, rubs or gallops. Lungs--clear bilaterally, no respiratory distress, no accessory muscle use. Abdomen--normal bowel sounds and soft. Extremities--no cyanosis or clubbing. No edema. Dermatologic--normal skin turgor, normal color, no abnormal lymph nodes, no rash. Neurologic--cranial nerves II through XII grossly intact.Poor muscle tone, mild left hemiparesis Rheumatologic--normal range of motion. Psychiatric--normal affect. Results & Data Results & Data Vital Signs (Past 12 Hours) Vital Signs Temp Pulse Resp BP Pulse Ox O2 Del Method 05/21/25 08:00 97.9 F 77 18 114/80 95 Room Air 05/20/25 22:50 97.5 F L 72 16 130/81 94 Room Air PG Care Time/CCT Total # of Minutes Spent Total Time Spent with Patient: Total time spent is greater than 50% in coordination of care (as documented) at patient's floor/unit and/or counseling patient: Coding Level of Care Code 67432 SUB INP/OBS CARE 2/35MIN Diagnoses Lower extremity weakness R29.898 Fall W19.XXXA Seizure disorder G40.909 Malignant meningioma C70.9 Frontal lobe syndrome F07.0 Time Spent (min) 35
[2025-05-21] MEDS: WARFARIN SOD 0.5 MG TAB PO SCH (17:17)
[2025-05-21] MEDS: WARFARIN SOD 4 MG TAB PO SCH (17:18)
[2025-05-22 06:49] LABS: Hematocrit (blood only) 40.2 % (42.0-52.0); Hemoglobin 13.9 g/dl (14.0-18.0); Mean Corpuscular Hemoglobin 33.0 pg (25.0-34.0); Mean Corpuscular Volume 95.5 fL (80.0-100.0); Platelet Count 199 K/uL (130-400); RDW Standard Deviation 47.9 fL (36.4-46.3); Red Blood Count 4.21 M/uL (4.70-6.10); White Blood Count 6.41 K/ul (4.8-10.8)
[2025-05-22 07:16] LABS: Anion Gap 5.0 (3-11); Blood Urea Nitrogen 14.0 mg/dl (6-23); Calcium 9.2 mg/dl (8.6-10.3); Carbon Dioxide 29.0 mmol/L (21-32); Chloride 106.0 mmol/L (98-107); Creatinine Clr Calc Pharmacy 71.5 ml/min; Glucose 89.0 mg/dl (70-99(Fasting)); Potassium 4.0 mmol/L (3.5-5.1); Sodium 140.0 mmol/L (136-145)
[2025-05-22 07:35] LABS: INR 1.6 (0.9-1.1); Prothrombin Time 16.5 Seconds (9.0-12.0)
--- NOTE | 2025-05-22 11:44 | Hospitalist Progress Note ---
Date of Service May 22, 2025 Assessment & Plan (1) Lower extremity weakness: (2) Fall: (3) Seizure disorder: (4) Malignant meningioma: (5) Frontal lobe syndrome: Plan 1. 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 At baseline, patient has some difficulty ambulating and occasionally has involuntary stiffening, jerking and twitching especially on the left side. All these things may lead to the frequent falls for which the patient came to the hospital. 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 He is currently on lamotrigine 150 mg twice daily and Keppra and bupropion. In the ED, CT scan of the head neck CT angio head and neck were within normal limits as was MRI brain, which only showed the known postsurgical changes. MRI lumbar spine showed disc bulge of L4-L5, but no nerve compression PT recommends Rehab Will get social work on board 2. 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 I agree with the impression and plan in the resident documentation, and as summarized below. Patient without new complaints today. 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 Review of Systems Review of Systems: All systems reviewed are negative, apart from the ones contained in the history. Physical Exam Physical Exam: The patient is awake, alert and oriented 3, well developed and well nourished, normocephalic and atraumatic, lying in bed and in no acute distress. HEENT--PERRL, EOMI, mucous membranes and oropharynx mildly dry Neck--supple. No JVD. No bruits. Thyroid normal, trachea midline, no adenopathy. Heart--normal S1 and S2. No murmurs, rubs or gallops. Lungs--clear bilaterally, no respiratory distress, no accessory muscle use. Abdomen--normal bowel sounds and soft. Extremities--no cyanosis or clubbing. No edema. Dermatologic--normal skin turgor, normal color, no abnormal lymph nodes, no rash. Neurologic--cranial nerves II through XII grossly intact.Poor muscle tone, mild left hemiparesis Rheumatologic--normal range of motion. Psychiatric--normal affect. Results & Data Results & Data Vital Signs (Past 12 Hours) Vital Signs Temp Pulse Resp BP Pulse Ox O2 Del Method 05/22/25 07:17 36.6 C 63 18 129/77 94 Room Air
[2025-05-22] MEDS: WARFARIN SOD 1 MG TAB PO STA (21:33)
[2025-05-23 06:41] LABS: INR 1.9 (0.9-1.1); Prothrombin Time 19.3 Seconds (9.0-12.0)
--- NOTE | 2025-05-23 10:17 | Hospitalist Progress Note ---
Date of Service May 23, 2025 Assessment & Plan (1) Lower extremity weakness: (2) Fall: (3) Seizure disorder: (4) Malignant meningioma: (5) Frontal lobe syndrome: Plan 1. 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 At baseline, patient has some difficulty ambulating and occasionally has involuntary stiffening, jerking and twitching especially on the left side. All these things may lead to the frequent falls for which the patient came to the hospital. 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 He is currently on lamotrigine 150 mg twice daily and Keppra and bupropion. In the ED, CT scan of the head neck CT angio head and neck were within normal limits as was MRI brain, which only showed the known postsurgical changes. MRI lumbar spine showed disc bulge of L4-L5, but no nerve compression Social work on board. Continue physical therapy while hospitalized Additional 1.5 mg warfarin today; recheck daily INR 2. 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 I agree with the impression and plan in the resident documentation, and as summarized below. Patient without new complaints today. 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 Review of Systems Review of Systems: All systems reviewed are negative, apart from the ones contained in the history. Physical Exam Physical Exam: The patient is awake, alert and oriented 3, well developed and well nourished, normocephalic and atraumatic, lying in bed and in no acute distress. HEENT--PERRL, EOMI, mucous membranes and oropharynx mildly dry Neck--supple. No JVD. No bruits. Thyroid normal, trachea midline, no adenopathy. Heart--normal S1 and S2. No murmurs, rubs or gallops. Lungs--clear bilaterally, no respiratory distress, no accessory muscle use. Abdomen--normal bowel sounds and soft. Extremities--no cyanosis or clubbing. No edema. Dermatologic--normal skin turgor, normal color, no abnormal lymph nodes, no rash. Neurologic--cranial nerves II through XII grossly intact.Poor muscle tone, mild left hemiparesis Rheumatologic--normal range of motion. Psychiatric--normal affect. Results & Data Results & Data Vital Signs (Past 12 Hours) Vital Signs Temp Pulse Resp BP Pulse Ox O2 Del Method 05/23/25 07:19 36.7 C 70 18 114/72 95 Room Air 05/22/25 22:52 37 C 75 16 124/73 94 Room Air
[2025-05-23] MEDS: WARFARIN SOD 0.5 MG TAB PO SCH (17:01)
[2025-05-23] MEDS: WARFARIN SOD 4 MG TAB PO SCH (17:01)
[2025-05-24 06:50] LABS: INR 2.2 (0.9-1.1); Prothrombin Time 22.6 Seconds (9.0-12.0)
--- NOTE | 2025-05-24 07:32 | Hospitalist Progress Note ---
Date of Service May 24, 2025 Assessment & Plan (1) Lower extremity weakness: (2) Fall: (3) Seizure disorder: (4) Malignant meningioma: (5) Frontal lobe syndrome: Plan 1. 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 At baseline, patient has some difficulty ambulating and occasionally has involuntary stiffening, jerking and twitching especially on the left side. All these things may lead to the frequent falls for which the patient came to the hospital. 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 He is currently on lamotrigine 150 mg twice daily and Keppra and bupropion. In the ED, CT scan of the head neck CT angio head and neck were within normal limits as was MRI brain, which only showed the known postsurgical changes. MRI lumbar spine showed disc bulge of L4-L5, but no nerve compression Social work on board. Continue physical therapy while hospitalized Continue same dose warfarin today;INR today is 2.2; recheck INR on alternate days. 2. 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 I agree with the impression and plan in the resident documentation, and as summarized below. Patient without new complaints today. PT in room at the time of our visit. 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 Review of Systems Review of Systems: All systems reviewed are negative, apart from the ones contained in the history. Physical Exam Physical Exam: The patient is awake, alert and oriented 3, well developed and well nourished, normocephalic and atraumatic, lying in bed and in no acute distress. HEENT--PERRL, EOMI, mucous membranes and oropharynx mildly dry Neck--supple. No JVD. No bruits. Thyroid normal, trachea midline, no adenopathy. Heart--normal S1 and S2. No murmurs, rubs or gallops. Lungs--clear bilaterally, no respiratory distress, no accessory muscle use. Abdomen--normal bowel sounds and soft. Extremities--no cyanosis or clubbing. No edema. Dermatologic--normal skin turgor, normal color, no abnormal lymph nodes, no rash. Neurologic--cranial nerves II through XII grossly intact.Poor muscle tone, mild left hemiparesis Rheumatologic--normal range of motion. Psychiatric--normal affect. Results & Data Results & Data Vital Signs (Past 12 Hours) Vital Signs Temp Pulse Resp BP Pulse Ox O2 Del Method 05/24/25 06:55 36.8 C 66 18 124/74 94 Room Air 05/23/25 23:11 36.9 C 69 18 121/76 96 Room Air
--- NOTE | 2025-05-25 12:13 | Hospitalist Progress Note ---
Date of Service May 25, 2025 Assessment & Plan (1) Lower extremity weakness: (2) Fall: (3) Seizure disorder: (4) Malignant meningioma: (5) Frontal lobe syndrome: Plan 1. 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 At baseline, patient has some difficulty ambulating and occasionally has involuntary stiffening, jerking and twitching especially on the left side. All these things may lead to the frequent falls for which the patient came to the hospital. 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 He is currently on lamotrigine 150 mg twice daily and Keppra and bupropion. In the ED, CT scan of the head neck CT angio head and neck were within normal limits as was MRI brain, which only showed the known postsurgical changes. MRI lumbar spine showed disc bulge of L4-L5, but no nerve compression Social work on board. Continue physical therapy while hospitalized Continue same dose warfarin today. 2. 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 I agree with the impression and plan in the resident documentation, and as summarized below. Patient without new complaints today. Seated - has just completed breakfast. 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 Review of Systems Review of Systems: All systems reviewed are negative, apart from the ones contained in the history. Physical Exam Physical Exam: The patient is awake, alert and oriented 3, well developed and well nourished, normocephalic and atraumatic, lying in bed and in no acute distress. HEENT--PERRL, EOMI, mucous membranes and oropharynx mildly dry Neck--supple. No JVD. No bruits. Thyroid normal, trachea midline, no adenopathy. Heart--normal S1 and S2. No murmurs, rubs or gallops. Lungs--clear bilaterally, no respiratory distress, no accessory muscle use. Abdomen--normal bowel sounds and soft. Extremities--no cyanosis or clubbing. No edema. Dermatologic--normal skin turgor, normal color, no abnormal lymph nodes, no rash. Neurologic--cranial nerves II through XII grossly intact.Poor muscle tone, mild left hemiparesis Rheumatologic--normal range of motion. Psychiatric--normal affect. Results & Data Results & Data Vital Signs (Past 12 Hours) Vital Signs Temp Pulse Resp BP Pulse Ox O2 Del Method 05/25/25 07:27 36.6 C 68 16 129/81 94 Room Air Resident Activity Tracking Resident Involvement: Resident Care Provided Care Provided: Adult Hospital Medicine
[2025-05-25 23:06] VITALS: TEMP 97.9
[2025-05-26 07:30] LABS: INR 2.2 (0.9-1.1); Prothrombin Time 21.9 Seconds (9.0-12.0)
[2025-05-26] MEDS: ACETAMINOPHEN 500 MG TAB PO PRN (07:50)
[2025-05-26 07:57] VITALS: BP 156/89; PULSE 68; RESP 18; O2SAT 95
--- NOTE | 2025-05-26 09:34 | Discharge Summary ---
Date of Service May 26, 2025 Admission HPI Per Admitting Provider This a 75-year-old male with a history of right frontal malignant meningioma, status postresection and radiotherapy and chemotherapy, with residual frontal lobe syndrome, focal seizures, and also a history of BPH kidney stone who presents to the hospital today with complaints of frequent falls, and bilateral lower extremity weakness. Currently patient he has been feeling his legs give out and has fallen 4 times i n the past 1 week. He attributes this to general lower extremity weakness following his right frontal lobe resection for malignancy. He follows up with neurology and his last visit was last month in March. He experiences occasional episodes of stiffening and jerking and twitching and also has been having difficulty with his gait. Here in the emergency department, CT scan of the head chest C-spine abdomen CTA neck were all negative. An MRI of the brain done earlier in the month of May 09, 2025 did not show any acute abnormality only old frontal lobe resection changes. Patient will be admitted to the hospital further management. Admission Exam Per Admitting Provider The patient is awake, alert and oriented 3, well developed and well nourished, normocephalic and atraumatic, lying in bed and in no acute distress. HEENT--PERRL, EOMI, mucous membranes and oropharynx mildly dry Neck--supple. No JVD. No bruits. Thyroid normal, trachea midline, no adenopathy. Heart--normal S1 and S2. No murmurs, rubs or gallops. Lungs--clear bilaterally, no respiratory distress, no accessory muscle use. Abdomen--normal bowel sounds and soft. Extremities--no cyanosis or clubbing. No edema. Dermatologic--normal skin turgor, normal color, no abnormal lymph nodes, no rash. Neurologic--cranial nerves II through XII grossly intact.Poor muscle tone, mild left hemiparesis Rheumatologic--normal range of motion. Psychiatric--normal affect. Principal Diagnosis Bilateral lower extremity weakness Discharge Exam The patient is awake, alert and oriented 3, well developed and well nourished, normocephalic and atraumatic, lying in bed and in no acute distress. HEENT--PERRL, EOMI, mucous membranes and oropharynx mildly dry Neck--supple. No JVD. No bruits. Thyroid normal, trachea midline, no adenopathy. Heart--normal S1 and S2. No murmurs, rubs or gallops. Lungs--clear bilaterally, no respiratory distress, no accessory muscle use. Abdomen--normal bowel sounds and soft. Extremities--no cyanosis or clubbing. No edema. Dermatologic--normal skin turgor, normal color, no abnormal lymph nodes, no rash. Neurologic--cranial nerves II through XII grossly intact.Poor muscle tone, mild left hemiparesis Rheumatologic--normal range of motion. Psychiatric--normal affect. Discharge Data Allergies Allergy/AdvReac Type Severity Reaction Status Date / Time No Known Allergies Allergy Verified 04/26/25 11:46 Consultations 05/19/25 11:39 ED Decision to Admit Stat Ordered Studies 05/19/25 09:28 CTA neck with con [CT angio neck with con] Stat 05/19/25 09:29 CT abd pelvis IV con only Stat CT cervical spine wo con Stat CT chest diagnostic w con Stat CT head/brain wo con Stat 05/19/25 13:49 MRI Lumbar Spine [MR lumbar spine wo con] Routine Hospital Course (1) Lower extremity weakness: (2) Fall: (3) Seizure disorder: (4) Malignant meningioma: (5) Frontal lobe syndrome: Plan 1. 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 At baseline, patient has some difficulty ambulating and occasionally has involuntary stiffening, jerking and twitching especially on the left side. All these things may lead to the frequent falls for which the patient came to the hospital. 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 He is currently on lamotrigine 150 mg twice daily and Keppra and bupropion. In the ED, CT scan of the head neck CT angio head and neck were within normal limits as was MRI brain, which only showed the known postsurgical changes. MRI lumbar spine showed disc bulge of L4-L5, but no nerve compression Social work on board. Physical therapy while hospitalized Continue home dose warfarin. Discharge to SNF as Rehabilitation was denied. 2. 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 Discharge Plan Discharge Items Patient Disposition: [facility] Reason For Visit: LOWER EXTREMITY WEAKNESS Discharge Diagnosis: Lower extremity weakness Condition on Discharge: Fair Activity: Resume your previous activity Non-emergency contact: Primary Care Provider Call non-emergency contact if: your symptoms worsen Follow-up/Referrals: Arthur Hubbard MD [Primary Care Provider] - Diet: Heart Healthy Addtl Attending Provider Instructions: You were admitted to the hospital for B/L lower extremity weakness. Your brain and spine imaging was normal. So, You were treated with physical therapy. We tried to send you to the rehabilitation center but was denied. You were deemed safe for discharge to [facility]. Medications Your medication list has been reviewed and reconciled. Please continue your home medications as usual. Take your medications as instructed; do not skip a dose. Make sure all of your doctors know every medicine you are taking (including [id number]-[id number] medicines, vitamins, and supplements). Call your PCP before taking any new medicines because some of these may interact with your current medications, or may make your symptoms worse. Follow-up appointments: Keep all your follow-up appointments as already scheduled. If you cannot make an appointment, notify your provider. Please bring a copy of this discharge summary with you to your next office appointment so that your provider can review it at that time and stay updated on your hospitalization and potential changes in your care. You may call [phone] and ask to leave a message for Dr. Rivera if you have any issues filling your new prescriptions or any questions about your hospitalization. Contact your PCP if your symptoms return or worsen. Call [phone] or go to the ER if you experience any of the following: Sudden, severe abdominal pain or nausea/vomiting Severe chest pain, or chest pain that radiates (moves) to your jaw or arm Sudden, severe shortness of breath or difficulty breathing Thank you for allowing us to participate in your care. Pending Studies at Discharge: No Stand-Alone Forms: [facility] Skilled Items Patient informed of condition?: Yes DNR: No Discharge Level of Care: Skilled Communicable Disease: No Discharge Prognosis: Improving Lines: None Urinary Catheter: No Medications and DC Order Prescriptions: Continued acetaminophen 500 mg tablet 1,000 mg PO DAILY PRN (Reason: headache/back pain) cholecalciferol (vitamin D3) 2,000 unit capsule 2,000 units PO BID colestipol 1 gram tablet 1 gm PO BID cyanocobalamin (vitamin B-12) 1,000 mcg capsule 1,000 mcg PO QAM loratadine [Claritin] 10 mg tablet 10 mg PO DAILY PRN (Reason: allergy symptoms) Humira(CF) 40 mg/0.4 mL syringe kit 40 mg SQ Q14D vitamin B complex Tablet 1 tab PO DAILY levetiracetam 1,000 mg tablet 1,500 mg PO BID 90 Days Qty: 270 3RF meclizine 25 mg tablet 25 mg PO BID PRN (Reason: dizziness) Qty: 30 0RF lamotrigine 200 mg tablet 200 mg PO BID 90 Days Qty: 180 3RF pantoprazole 40 mg tablet,delayed release (DR/EC) 40 mg PO DAILY bupropion HCl 150 mg tablet sustained-release 12 hr 150 mg PO DAILY 90 Days Qty: 90 3RF finasteride 5 mg tablet 5 mg PO DAILY Qty: 30 11RF tamsulosin 0.4 mg capsule 0.4 mg PO DAILY Qty: 30 11RF warfarin 3 mg Tablet 4.5 mg PO 5XWK Rx Instructions: SUN,MON, WED, THURS, FRI warfarin 3 mg tablet 3 mg PO [id number] Rx Instructions: TU, SAT Discharge Orders: Discharge Order (Routine); Ordered 05/26/25 Ordered By: Desiree Rivera Admission Data Admit Date/Time: 05/19/25 12:01 Attending Provider: Sierra Harding Admit Provider: Janak Evans Primary Care Provider: Arthur Hubbard Other Providers: Janak Evans; [place] Other Interventions: Discharge Summary Assessment (RN) Last Done: 05/26/25 09:43 Supervising Physician Co-Signing Physician Notes I personally examined the patient and verified salter points of history and exam, discussed case, and agree with decision making and plan documented by Dr. Rivera. Patient is a 75-year-old male with a pertinent past medical history of epilepsy, malignant meningioma s/p surgical resection, pulmonary embolism, BPH, and depression on admission for ambulatory dysfunction in setting of bilateral lower extremity weakness. Patient had a comprehensive workup of imaging. Neck CTA unremarkable. CT scan of brain, chest, and cervical spine with no acute changes. Abdominal CT remarkable for 1.4 cm enhancing polypoid lesion in the gastric antrum with recommendation of endoscopy for further evaluation. MRI showed disc perfusion L4-L5 without stenosis or definitive root compression. PT recommended acute rehab which was denied by insurance. Patient was accepted and discharged to [facility]. On exam, patient appears comfortable, lungs clear b/l to auscultation, regular rate and rhythm, no acute distress. Patient advised to schedule with PCP and specialists. Total attending time 28 minutes Resident Activity Tracking Resident Involvement: Resident Care Provided Care Provided: Adult Hospital Medicine
== END 2025-05-26 10:30 | DRG 92 ==
LOC: ED 09:21 → EDINP 12:01 → SUATTDRO 12:01 → EDINP 21:51 → 3E 21:53